=== PATIENT | female | born 1935 | race Caucasian/White ===

== ENCOUNTER 2017-02-03 19:45 | Inpatient (IN) | payer MEDICARE, MEDICAID ==
--- OUTSIDE RECORDS SUMMARY | 2017-02-03 19:48 | XMS | Clinical Summary ---
:1935 Author Organization [facility] Address [address] [place] [address] Phone Care Team Providers Name Role Phone , Primary Care Provider Unavailable Allergies Not on File Current Medications Not on file Active Problems Not on file Social History Tobacco Use Types Packs/Day Years Used Date Never Assessed Sex Assigned at Date Recorded Not on file Last Filed Vital Signs Not on file Plan of Treatment Not on file Results Not on filefrom Last 3 Months
[2017-02-03 21:24] LABS: #Lymphocytes 1.6 thou/uL (1.20-3.40); #Monocytes 1.2 thou/uL (0.11-0.59); #Neutrophils 4.5 thou/uL (1.40-6.50); %Basophils 0.5 % (0.0-1.0); %Eosinophils 12.2 % (0.0-10.0); %Monocytes 14.9 % (0.0-10.0); Hematocrit 41.3 % (36.0-47.0); Mean Platelet Volume 7.6 fL (7.4-10.4); Red Blood Cell (RBC) Count 4.36 mill/uL (4.20-5.40); White Blood Cell (WBC) Count 8.3 thou/uL (4.8-10.8)
[2017-02-03 21:43] LABS: ALT (SGPT) 11 U/L (8-55); AST (SGOT) 15 U/L (5-34); Alkaline Phosphatase 131 U/L (40-150); Anion Gap 17 mmol/L (10-20); BUN (Urea Nitrogen) 57 mg/dL (9.8-20.1); Bilirubin, Total 0.2 mg/dL (0.2-1.2); CK (CPK) 50 U/L (29-168); Calc. Creatinine Clearance 0 mL/min (70-130); Calcium 10.3 mg/dL (7.8-10.44); Carbon Dioxide 29 mmol/L (23-31); Chloride 83 mmol/L (98-107); Estimated GFR-MDRD 40; Globulin 3.3 g/dL (2.4-3.5); Protein, Total 7.2 g/dL (6.0-8.3)
--- NOTE | 2017-02-03 23:09 | CT ---
NONCONTRAST CT THORAX 02/03/17 HISTORY: Evaluate pulmonary nodule. Hyponatremic. COMPARISON: None available. FINDINGS: There is linear atelectasis versus scarring at the right lung base. Lungs are otherwise clear. No pu lmonary nodule, mass or pleural effusion is seen. Vascular calcifications are seen in the coronary arteries with minimal vascular calcifications in th e thoracic and visualized upper abdominal aorta. Calcifications of the mitral valve annulus are note d. No enlarged lymph nodes are seen. Calcified granulomata are seen in the liver and spleen. There is prominent bilateral glenohumeral osteoarthropathy. There is evidence of internal fixation o f the distal right humeral diaphysis. There is a fat density structure with associated calcification seen medial to the glenohumeral joint. IMPRESSION: 1. No discrete pulmonary nodule or mass is seen in the lungs bilaterally. There is minimal scar ring versus atelectasis at the right lung base. 2. Mild vascular calcifications. 3. Prominent bilateral glenohumeral osteoarthropathy. There is a fat density structure with ass ociated calcification seen medial to the glenohumeral joint which may be related to an area of fat n ecrosis or a lipoma. POS: [facility]
--- NOTE | 2017-02-04 00:01 | PDOC.EVN ---
Event Note - Event Note Event Note: 1. Hyponatremia 2. HTN 3. Hypothyroidism 4. Depression plan: see orders h&p dictated
[2017-02-04] MEDS ORDERED: Sodium Chloride 0.9% 1,000 ML IV SCH (00:15)
[2017-02-04] MEDS ORDERED: Ondansetron HCl/PF 4 MG/2 ML Vial IVP PRN (00:15)
[2017-02-04] MEDS ORDERED: Acetaminophen 325 MG TAB PO PRN (00:15)
[2017-02-04] MEDS ORDERED: Sodium Chloride 1 GM TAB PO SCH (00:30)
[2017-02-04] MEDS: HYDROcodone/Acetaminophen 10/325 mg Tablet PO PRN (03:33)
[2017-02-04] MEDS: Levothyroxine Sodium 175 MCG TAB PO SCH (06:07)
[2017-02-04 06:08] LABS: Mean Platelet Volume 7.1 fL (7.4-10.4); Red Blood Cell (RBC) Count 3.54 mill/uL (4.20-5.40)
[2017-02-04 06:10] LABS: Anion Gap 13 mmol/L (10-20); BUN (Urea Nitrogen) 54 mg/dL (9.8-20.1); Calc. Creatinine Clearance 59 mL/min (70-130); Calcium 9.3 mg/dL (7.8-10.44); Carbon Dioxide 30 mmol/L (23-31); Estimated GFR-MDRD 41
[2017-02-04 06:14] LABS: Chloride 86 mmol/L (98-107)
[2017-02-04 06:16] LABS: Band 1 % (5-11); Neutrophil 56 % (42-75)
--- NOTE | 2017-02-04 07:42 | HP ---
DATE OF ADMISSION: 02/03/2017 H and P performed on 02/03/2017. CHIEF COMPLAINT: Abnormal labs. HISTORY OF PRESENT ILLNESS: The patient is an 81-year-old female with past medical history of hyponatremia, hypertension, hypothyroidism, GERD, depression , anxiety, now came to the hospital because of abnormal labs. The patient lives in a group home. The patient had routine lab work done and patient was found to have abnormal labs, so patient was sent here. The patient denies any headache, denies any fever, denies any chills. Complaints of two episodes of vomiting today. She thinks it is from choking, denies any fever, denies any chills, denies any diarrhea, denies any blood in stool. PAST MEDICAL HISTORY: As per HPI. PAST SURGICAL HISTORY: Tonsillectomy, left total knee replacement, foot surgery. SOCIAL HISTORY: Denies smoking, denies alcohol, denies any drugs. FAMILY HISTORY: Positive for heart problems. MEDICATIONS: Reviewed. REVIEW OF SYSTEMS: Constitutional: Denies any fever, denies any chills. HEENT : Eyes, denies any vision problems. Ears, denies any hearing loss. Neck, denies any neck pain. Cardiovascular: Denies any chest pain, denies any palpations. Respiratory: Denies any cough, denies any sputum production. Gastrointestinal: Positive for vomiting. Cranial nerve system: Denies syncope , denies lightheadedness. Psychiatric: Denies anxiety. Integument: Denies any rash. All other review of systems are reviewed and are negative. PHYSICAL EXAMINATION: VITAL SIGNS: At the time of H\T\P performed, blood pressure is 110/51, pulse rate 56, respiration rate 18, pulse ox 97%. GENERAL: The patient appears comfortable. HEENT: Pupils equal, round, and reactive. Anterior nares patent. Nose normal. Ears normal. Teeth intact. Tongue is moist. NECK: Supple. No JVD. CARDIOVASCULAR: S1, S2 present. Regular rate and rhythm, no murmurs, no rubs, no gallops. RESPIRATORY: No wheezing, no rhonchi. Normal effort. Good breath sounds bilaterally. ABDOMEN: Soft, distended, no guarding, no organomegaly, no masses felt. MUSCULOSKELETAL: No edema. Moves all joints. CRANIAL NERVES SYSTEM: Awake, follows commands, strength intact, sensory intact. PSYCHIATRIC: Mood appropriate at this time. INTEGUMENT: No rashes seen. GENITOURINARY: No Chaudhari. LABORATORY DATA: At the time of H\T\P performed, white count 8.3, hemoglobin 14.1, platelet count is 191. BMP showed sodium 175, potassium 4.3, chloride 83 , CO2 of 29, BUN 57, creatinine 1.29. Troponin 0.010, serum total protein 7.2, albumin 3.9. ASSESSMENT AND PLAN: 1. The patient is an 81-year-old female. 2. Hyponatremia, appears some component hypovolemia from vomiting that might be some underlying syndrome of inappropriate antidiuretic hormone secretion also , but we will go ahead and check urine studies. We will start the patient on normal saline 75 per hour. We will check sodium levels every 4 hours. We will go ahead and start the patient on salt tabs also and then will follow patient. 3. History of hypertension. Continue blood pressure medications. 4. History of hypothyroidism: Continue home meds 5. History of gastroesophageal reflux disease, continue PPI. 6. Depression and anxiety, p.r.n. anxiolytics. Case was discussed in detail with the patient. BROOKS
--- NOTE | 2017-02-04 07:49 | CON ---
DATE OF CONSULTATION: 02/04/2017 NEPHROLOGY CONSULTATION REASON FOR CONSULTATION: Hyponatremia. HISTORY OF PRESENT ILLNESS: This is an 81-year-old who presented to the hospital with weakness and was noted to have sodium of 125 and I was consulted. The patient denies headache, numbness, tinglin g or weakness. Denies any nausea, vomiting or chest pain. The patient has had a normal thyroid lev el and is on replacement. PAST MEDICAL HISTORY: Significant for hypothyroidism, hypertension, anemia, bipolar disorder, knee replacement. HOME MEDICATIONS: List reviewed. HOSPITAL MEDICATIONS: Reviewed. ALLERGIES: Reviewed. FAMILY HISTORY: Negative for ESRD. REVIEW OF SYSTEMS: A 15-point review of systems was performed and negative except for positives not ed above. GENERAL: Weakness- HEAD: Headache- NECK: No swelling or lumps. NOSE: No epistaxis or discharge. EYES: No diplopia or pain. 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 NEUROPSYCHIATIC SYSTEMS: No suicidal ideation. No ideation. SKIN: Denies any rash or ulcer. CONSTITUTIONAL: No fever or chills. PHYSICAL EXAMINATION: GENERAL: On examination, patient is awake, alert. VITAL SIGNS: Afebrile, pulse 58, breathing at 16, blood pressure 95/49. GENERAL APPEARANCE AND MENTAL STATUS: Fair. HEAD/NECK: Normocephalic. Atraumatic. EYES: EOMI. No deformity. EARS: Clear. No ulcers. NOSE: Intact. No lesions. MOUTH: Clear. No discharge. THROAT: Clear. No exudate. LUNGS: Clear. No crackles. CARDIAC: S1, S2. No rub. ABDOMEN: Benign. BS+. GENITALIA/RECTUM: Chaudhari absent. BACK/EXTREMITIES: Edema 0+ Ulcer- NEUROLOGICAL: Alert and motor intact. SKIN: Rash- Bruise- LYMPHATICS: Edema- Ulcer- LABORATORY DATA: Show hemoglobin 11.3, sodium 125, creatinine 1.25. ASSESSMENT AND RECOMMENDATIONS: 1. Chronic kidney disease stage 3, stable. 2. Hyponatremia, most likely because of syndrome of inappropriate antidiuretic hormone secretion. Would recommend 1000 mL fluid restriction and recheck sodium again. 3. Anemia, stable. 4. Medications based on glomerular filtration rate are appropriate. No indication for hypertonic s radha.
[2017-02-04 09:20] LABS: Anion Gap 14 mmol/L (10-20); BUN (Urea Nitrogen) 52 mg/dL (9.8-20.1); Calc. Creatinine Clearance 60 mL/min (70-130); Calcium 9.3 mg/dL (7.8-10.44); Carbon Dioxide 28 mmol/L (23-31); Chloride 89 mmol/L (98-107); Estimated GFR-MDRD 42
[2017-02-04] MEDS: Divalproex Sodium DR 500 MG TAB PO SCH (09:23)
[2017-02-04] MEDS: Heparin 5,000 UNITS/ML VIAL SC SCH ×3 (09:23→20:46)
[2017-02-04] MEDS: Sodium Chloride 1 GM TAB PO SCH ×3 (09:23→20:54)
[2017-02-04] MEDS: Propranolol HCl 20 MG TAB PO SCH ×2 (09:23→20:45)
[2017-02-04] MEDS: Fluticasone Propionate Nasal Spray 16 gm Bottle NASAL SCH (09:34)
[2017-02-04 11:16] LABS: Anion Gap 13 mmol/L (10-20); BUN (Urea Nitrogen) 54 mg/dL (9.8-20.1); Calc. Creatinine Clearance 61 mL/min (70-130); Calcium 9.4 mg/dL (7.8-10.44); Carbon Dioxide 29 mmol/L (23-31); Chloride 89 mmol/L (98-107); Estimated GFR-MDRD 42
--- NOTE | 2017-02-04 11:40 | PQF ---
CLINICAL DOCUMENTATION IMPROVEMENT CLARIFICATION FORM: ICD-10 Updated PLEASE DO AN ADDENDUM TO THE PROGRESS NOTE WITH ANY DOCUMENTATION UPDATES OR ADDITIONS AND CARRY THROUGH TO DC SUMMARY. THANK YOU. DATE: 02/04 ATTN : DR. MELANY PEDRO Please exercise your independent, professional judgment in responding to the clarification form. Clinical indicators are provided on the bottom of this form for your review. For continuity of documentation, please document condition throughout progress notes and discharge summary. Thank You. Please check appropriate box(s): BMI > 40 with associated diagnosis of: (check one) [ ] Morbid (Severe) Obesity [ ] Due to excess calories [ ] Obesity [ ] Other diagnosis [ ] Unable to determine BMI < 19 Under weight 19 - 24.9 Healthy 25.0 - 29.9 Slightly Overweight 30.0 - 34.9 Obese 35.0 - 39.9 Severely Obese 40.0 and Over Morbidly Obese CLINICAL INDICATORS - SIGNS / SYMPTOMS / LABS BMI: 42.2 RISK FACTORS: HYPOTHYROIDISM TREATMENTS: ADD'L STAFF FOR ADL'S ADD'L STAFF FOR REPOSITIONING & TRANSFERS THANK YOU! Karen (This form is maintained as a part of the permanent medical record) 2014 [employer] All Rights Reserved Karen Garcia RN, BSN [email or web address] Office: [phone] [facility]
[2017-02-04 13:33] VITALS: BMI 42.1
[2017-02-04 14:14] LABS: Anion Gap 15 mmol/L (10-20); BUN (Urea Nitrogen) 50 mg/dL (9.8-20.1); Calc. Creatinine Clearance 62 mL/min (70-130); Calcium 9.4 mg/dL (7.8-10.44); Carbon Dioxide 27 mmol/L (23-31); Chloride 90 mmol/L (98-107); Estimated GFR-MDRD 43
--- NOTE | 2017-02-04 15:16 | PDOC.PN ---
- Subjective Encounter Start Date: 02/04/17 Encounter Start Time: 07:30 Pt seen for followup re: hyponatremia. Denies chest pain, shortness of breath, fevers or chills. - Objective MAR Reviewed: Yes Vital Signs & Weight: Vital Signs (12 hours) Temp Pulse Resp BP Pulse Ox 02/04/17 11:45 97.7 F 71 19 129/73 98 02/04/17 09:23 56 L 02/04/17 08:04 98.4 F 56 L 20 127/61 100 02/04/17 04:00 97.7 F 58 L 16 95/49 L 98 Weight Admit Weight 229 lb 3.2 oz Weight 230 lb 8 oz I&O: 02/03/17 02/04/17 02/05/17 06:59 06:59 06:59 Intake Total 518 Balance 518 Result Diagrams: 02/04/17 05:34 02/04/17 13:32 EKG Reviewed by me: Yes (Tele: NSR) Phys Exam - Physical Examination Morbid obesity HEENT: moist MMs, oral pharynx no lesions Neck: supple Respiratory: no wheezing, no rales, no rhonchi, clear to auscultation bilateral Cardiovascular: RRR, no rub Gastrointestinal: soft, positive bowel sounds Musculoskeletal: pulses present R elbow cast Neurological: moves all 4 limbs Psychiatric: normal affect Skin: no rash Dx/Plan (1) Hyponatremia Code(s): E87.1 - HYPO-OSMOLALITY AND HYPONATREMIA Status: Acute (2) Morbid obesity Code(s): E66.01 - MORBID (SEVERE) OBESITY DUE TO EXCESS CALORIES Status: Chronic (3) Hypothyroidism Code(s): E03.9 - HYPOTHYROIDISM, UNSPECIFIED Status: Chronic (4) GERD (gastroesophageal reflux disease) Code(s): K21.9 - GASTRO-ESOPHAGEAL REFLUX DISEASE WITHOUT ESOPHAGITIS Status: Chronic (5) HLD (hyperlipidemia) Code(s): E78.5 - HYPERLIPIDEMIA, UNSPECIFIED Status: Chronic (6) HTN (hypertension) Code(s): I10 - ESSENTIAL (PRIMARY) HYPERTENSION Status: Chronic - Plan out of bed/ambulate, DVT proph w/heparin * . Appreciate nephrology service input. Fluid restriction, monitor sodium levels. Monitor vital signs and titrate antihypertensives as needed. Continue PPI. Continue synthroid, check TSH. Hols Lasix and zaroxolyn for now, reassess tomorrow. Transfer to medical floor. Review of Systems - Medications/Allergies Allergies/Adverse Reactions: Allergies Allergy/AdvReac Type Severity Reaction Status Date / Time morphine Allergy Verified 02/04/17 05:03 Sulfa (Sulfonamide Allergy Verified 02/04/17 05:03 Antibiotics) Medications: Current Medications Acetaminophen (Tylenol) 650 mg PO Q4H PRN PRN Reason: Headache/Fever or Pain Hydrocodone Bitart/Acetaminophen ([place] 10/325) 1 tab PO Q8H PRN PRN Reason: Pain Last Admin: 02/04/17 03:33 Dose: 1 tab Amlodipine Besylate (Norvasc) 10 mg PO QAM [facility] Last Admin: 02/04/17 09:23 Dose: 10 mg Atorvastatin Calcium (Lipitor) 10 mg PO QPM [facility] Divalproex Sodium (Depakote) 1,500 mg PO DAILY [facility] Last Admin: 02/04/17 09:23 Dose: 1,500 mg Fluticasone Propionate (Flonase Nasal [place]) 0 gm NASAL DAILY [facility] Last Admin: 02/04/17 09:34 Dose: Not Given Heparin Sodium (Porcine) (Heparin) 5,000 units SC TID [facility] Last Admin: 02/04/17 09:23 Dose: 5,000 units Latanoprost (Xalatan 0.005% [facility] Sol) 1 drop EA EYE HS [facility] Levothyroxine Sodium (Synthroid) 175 mcg PO 0600 [facility] Last Admin: 02/04/17 06:07 Dose: 175 mcg Ondansetron HCl (Zofran) 4 mg IVP Q6H PRN PRN Reason: Nausea/Vomiting Pantoprazole Sodium (Protonix) 40 mg PO DAILY [facility] Last Admin: 02/04/17 09:24 Dose: 40 mg Propranolol HCl (Inderal) 20 mg PO BID [facility] Last Admin: 02/04/17 09:23 Dose: 20 mg Sodium Chloride (Sodium Chloride) 1 gm PO TID [facility] Last Admin: 02/04/17 09:23 Dose: 1 gm
[2017-02-04] MEDS ORDERED: Polyethylene Glycol 3350 17 GM Packet PO PRN (15:19)
[2017-02-04] MEDS ORDERED: Acetaminophen 500 MG TAB PO PRN (15:19)
[2017-02-04 17:21] LABS: Anion Gap 18 mmol/L (10-20); BUN (Urea Nitrogen) 48 mg/dL (9.8-20.1); Calc. Creatinine Clearance 66 mL/min (70-130); Calcium 10.4 mg/dL (7.8-10.44); Carbon Dioxide 26 mmol/L (23-31); Chloride 92 mmol/L (98-107); Estimated GFR-MDRD 46
[2017-02-04] MEDS: Lactinex Tablet PO SCH (20:45)
[2017-02-04] MEDS: Docusate 100 MG CAP PO SCH (20:45)
[2017-02-04] MEDS: Atorvastatin Calcium 10 MG TAB PO SCH (20:45)
[2017-02-04] MEDS: Ascorbic Acid 500 mg Chewable Tablet PO SCH (20:45)
[2017-02-04] MEDS: Gabapentin 300 MG CAP PO SCH (20:45)
[2017-02-04] MEDS: Latanoprost 0.005% Ophth Soln 2.5 ml Bottle EA EYE SCH (20:46)
[2017-02-04] MEDS: Cephalexin 250 MG CAP PO SCH (20:46)
[2017-02-04] MEDS ORDERED: HYDROcodone/Acetaminophen 10/325 mg Tablet PO SCH (22:00)
[2017-02-05] MEDS: HYDROcodone/Acetaminophen 10/325 mg Tablet PO PRN ×2 (04:01→15:03)
[2017-02-05] MEDS: Levothyroxine Sodium 175 MCG TAB PO SCH (05:25)
[2017-02-05] MEDS ORDERED: Azelastine/Fluticasone [Dymista Nasal Spray] 1 SPRAY EA NARE SCH (09:00)
[2017-02-05] MEDS: Fluticasone Propionate Nasal Spray 16 gm Bottle NASAL SCH (09:02)
[2017-02-05] MEDS: Lactinex Tablet PO SCH ×2 (09:05→21:09)
[2017-02-05] MEDS: Gabapentin 300 MG CAP PO SCH ×3 (09:05→21:09)
[2017-02-05] MEDS: Multivitamin W/ Minerals 1 TAB PO SCH (09:06)
[2017-02-05] MEDS: Docusate 100 MG CAP PO SCH ×2 (09:07→21:09)
[2017-02-05] MEDS: Ascorbic Acid 500 mg Chewable Tablet PO SCH ×2 (09:07→21:10)
[2017-02-05] MEDS: Heparin 5,000 UNITS/ML VIAL SC SCH ×3 (09:07→21:10)
[2017-02-05] MEDS: Azelastine 137 MCG/Spray 30 ML NS SCH (09:08)
[2017-02-05] MEDS: Lisinopril 20 MG TAB PO SCH (09:10)
[2017-02-05] MEDS: Bupropion 150 MG SR TAB PO SCH (09:26)
[2017-02-05] MEDS: Divalproex Sodium DR 500 MG TAB PO SCH (09:27)
[2017-02-05] MEDS: Sodium Chloride 1 GM TAB PO SCH ×3 (09:28→21:10)
[2017-02-05] MEDS: Cephalexin 250 MG CAP PO SCH ×2 (09:28→21:10)
[2017-02-05] MEDS: traMADol HCl 50 MG TAB PO PRN (09:38)
--- NOTE | 2017-02-05 10:07 | PRG ---
DATE OF SERVICE: 02/05/2017 SUBJECTIVE: An 81-year-old female being seen for hyponatremia. Sodium is improved. The patient de nies any nausea, vomiting, or chest pain. PHYSICAL EXAMINATION: GENERAL: Patient is awake, alert. VITAL SIGNS: Afebrile, pulse 75, breathing at 16, blood pressure 101/65. GENERAL APPEARANCE AND MENTAL STATUS: Fair. HEAD/NECK: Normocephalic. Atraumatic. EYES: EOMI. No deformity. EARS: Clear. No ulcers. NOSE: Intact. No lesions. MOUTH: Clear. No discharge. THROAT: Clear. No exudate. LUNGS: Clear. No crackles. CARDIAC: S1, S2. No rub. ABDOMEN: Benign. BS+. GENITALIA/RECTUM: Chaudhari absent. BACK/EXTREMITIES: Edema 0+ Ulcer- NEUROLOGICAL: Alert and motor intact. SKIN: Rash- Bruise- LYMPHATICS: Edema- Ulcer- LABORATORY DATA: Show hemoglobin 11.3, sodium 131. ASSESSMENT AND RECOMMENDATIONS: 1. Hyponatremia, improved. 2. Hypertension, stable. 3. Anemia, stable. 4. Medications based on glomerular filtration rate are appropriate. I will sign off. Please reconsult as needed. The patient also has kidney disease stage 3, which is stable.
[2017-02-05] MEDS: Propranolol HCl 20 MG TAB PO SCH ×3 (11:05→21:44)
--- NOTE | 2017-02-05 11:18 | PDOC.PN ---
- Subjective Encounter Start Date: 02/05/17 Encounter Start Time: 08:45 Subjective: feels weak, no sob -: no nausea now -: has b/l blindness, slow to talk, oriented for her age - Objective MAR Reviewed: Yes Vital Signs & Weight: Vital Signs (12 hours) Temp Pulse Resp BP BP Pulse Ox 02/05/17 09:07 55 L 101/65 02/05/17 08:00 98.2 F 55 L 20 97 02/05/17 07:39 98.2 F 55 L 12 101/65 97 02/05/17 03:50 98.4 F 60 20 121/64 98 02/04/17 23:48 97.9 F 54 L 18 108/67 98 Weight Admit Weight 229 lb 3.2 oz Weight 233 lb 1.6 oz I&O: 02/04/17 02/05/17 02/06/17 06:59 06:59 06:59 Intake Total 518 600 Balance 518 600 Result Diagrams: 02/04/17 05:34 02/04/17 16:46 Phys Exam - Physical Examination HEENT: moist MMs b/l blindness Neck: no JVD, supple Respiratory: no wheezing, no rales Cardiovascular: RRR, no significant murmur Gastrointestinal: soft, non-tender, positive bowel sounds Musculoskeletal: no edema, pulses present Neurological: non-focal, moves all 4 limbs Dx/Plan (1) SUPRIYA (acute kidney injury) Code(s): N17.9 - ACUTE KIDNEY FAILURE, UNSPECIFIED Status: Acute (2) CKD (chronic kidney disease) stage 3, GFR 30-59 ml/min Code(s): N18.3 - CHRONIC KIDNEY DISEASE, STAGE 3 (MODERATE) Status: Chronic (3) Hyponatremia Code(s): E87.1 - HYPO-OSMOLALITY AND HYPONATREMIA Status: Acute Comment: resolving (4) Hypothyroidism Code(s): E03.9 - HYPOTHYROIDISM, UNSPECIFIED Status: Chronic Qualifiers: Hypothyroidism type: unspecified Qualified Code(s): E03.9 - Hypothyroidism , unspecified (5) Morbid obesity Code(s): E66.01 - MORBID (SEVERE) OBESITY DUE TO EXCESS CALORIES Status: Chronic (6) Humeral fracture Code(s): S42.309A - UNSP FRACTURE OF SHAFT OF HUMERUS, UNSP ARM, INIT Status: Chronic Qualifiers: Encounter type: subsequent encounter Fracture type: closed Laterality: right (7) HLD (hyperlipidemia) Code(s): E78.5 - HYPERLIPIDEMIA, UNSPECIFIED Status: Chronic Qualifiers: Hyperlipidemia type: unspecified Qualified Code(s): E78.5 - Hyperlipidemia , unspecified (8) HTN (hypertension) Code(s): I10 - ESSENTIAL (PRIMARY) HYPERTENSION Status: Chronic Qualifiers: Hypertension type: essential hypertension Qualified Code(s): I10 - Essential (primary) hypertension - Plan on fluid restriction -: sod around 131, dc plan in am to snf -: renal function slowly trending to baseline -: she is not sure why she is on keflex -: valproic acid for mood disorder, no seizure per patient * . Review of Systems - Medications/Allergies Allergies/Adverse Reactions: Allergies Allergy/AdvReac Type Severity Reaction Status Date / Time morphine Allergy Verified 02/04/17 05:03 Sulfa (Sulfonamide Allergy Verified 02/04/17 05:03 Antibiotics) Medications: Current Medications Acetaminophen (Tylenol) 650 mg PO Q4H PRN PRN Reason: Headache/Fever or Pain Acetaminophen (Tylenol) 1,000 mg PO Q6HR PRN PRN Reason: Pain Hydrocodone Bitart/Acetaminophen ([place] 10/325) 1 tab PO Q8H PRN PRN Reason: Pain Last Admin: 02/05/17 04:01 Dose: 1 tab Acidophilus (Floranex) 1 tab PO BID [facility] Last Admin: 02/05/17 09:05 Dose: 1 tab Amlodipine Besylate (Norvasc) 10 mg PO QAM [facility] Last Admin: 02/05/17 09:07 Dose: Not Given Ascorbic Acid (Vitamin C) 500 mg PO BID [facility] Last Admin: 02/05/17 09:07 Dose: 500 mg Atorvastatin Calcium (Lipitor) 10 mg PO QPM [facility] Last Admin: 02/04/17 20:45 Dose: 10 mg Azelastine HCl (Azelastine) 0 ml NS DAILY [facility] Last Admin: 02/05/17 09:08 Dose: 1 spr Bupropion HCl (Wellbutrin Sr) 150 mg PO DAILY [facility] Last Admin: 02/05/17 09:26 Dose: 150 mg Cephalexin (Keflex) 500 mg PO Q12HR [facility] Last Admin: 02/05/17 09:28 Dose: 500 mg Divalproex Sodium (Depakote) 1,500 mg PO DAILY [facility] Last Admin: 02/05/17 09:27 Dose: 1,500 mg Docusate Sodium (Colace) 100 mg PO BID [facility] Last Admin: 02/05/17 09:07 Dose: 100 mg Duloxetine HCl (Cymbalta) 60 mg PO DAILY [facility] Last Admin: 02/05/17 09:05 Dose: 60 mg Fluticasone Propionate (Flonase Nasal [place]) 0 gm NASAL DAILY [facility] Last Admin: 02/05/17 09:02 Dose: 1 spr Gabapentin (Neurontin) 600 mg PO TID [facility] Last Admin: 02/05/17 09:05 Dose: 600 mg Heparin Sodium (Porcine) (Heparin) 5,000 units SC TID [facility] Last Admin: 02/05/17 09:07 Dose: 5,000 units Iron/Minerals/Multivitamins (Theragran M) 1 tab PO DAILY [facility] Last Admin: 02/05/17 09:06 Dose: 1 tab Latanoprost (Xalatan 0.005% Oph Soln) 1 drop EA EYE HS [facility] Last Admin: 02/04/17 20:46 Dose: 1 drop Levothyroxine Sodium (Synthroid) 175 mcg PO 0600 [facility] Last Admin: 02/05/17 05:25 Dose: 175 mcg Lisinopril (Zestril) 40 mg PO DAILY [facility] Last Admin: 02/05/17 09:10 Dose: Not Given Ondansetron HCl (Zofran) 4 mg IVP Q6H PRN PRN Reason: Nausea/Vomiting Pantoprazole Sodium (Protonix) 40 mg PO DAILY [facility] Last Admin: 02/05/17 09:07 Dose: 40 mg Pantoprazole Sodium (Protonix) 40 mg PO DAILY [facility] Last Admin: 02/05/17 09:10 Dose: Not Given Polyethylene Glycol (Miralax) 17 gm PO BID PRN PRN Reason: Constipation Propranolol HCl (Inderal) 20 mg PO BID [facility] Last Admin: 02/05/17 11:05 Dose: Not Given Sodium Chloride (Sodium Chloride) 1 gm PO TID [facility] Last Admin: 02/05/17 09:28 Dose: 1 gm Tramadol HCl (Ultram) 50 mg PO TID PRN PRN Reason: Pain Last Admin: 02/05/17 09:38 Dose: 50 mg
[2017-02-05] MEDS: Atorvastatin Calcium 10 MG TAB PO SCH (21:09)
[2017-02-05] MEDS: Latanoprost 0.005% Ophth Soln 2.5 ml Bottle EA EYE SCH (21:11)
[2017-02-06 05:37] LABS: Potassium, Urine 15.2 mmol/L
[2017-02-06] MEDS: Levothyroxine Sodium 175 MCG TAB PO SCH (06:20)
[2017-02-06] MEDS: Docusate 100 MG CAP PO SCH ×2 (08:51→21:15)
[2017-02-06] MEDS: Multivitamin W/ Minerals 1 TAB PO SCH (08:51)
[2017-02-06] MEDS: Gabapentin 300 MG CAP PO SCH ×3 (08:52→21:14)
[2017-02-06] MEDS: Divalproex Sodium DR 500 MG TAB PO SCH (08:54)
[2017-02-06] MEDS: Lactinex Tablet PO SCH ×2 (08:55→21:15)
[2017-02-06] MEDS: Azelastine 137 MCG/Spray 30 ML NS SCH (08:56)
[2017-02-06] MEDS: Heparin 5,000 UNITS/ML VIAL SC SCH ×3 (08:56→21:15)
[2017-02-06] MEDS: Fluticasone Propionate Nasal Spray 16 gm Bottle NASAL SCH (08:56)
[2017-02-06] MEDS: Lisinopril 20 MG TAB PO SCH (08:57)
[2017-02-06 09:00] LABS: #Basophils 0.1 thou/uL (0.0-0.2); #Eosinphils 0.7 thou/uL (0.0-0.7); #Lymphocytes 1.8 thou/uL (1.20-3.40); #Monocytes 1.1 thou/uL (0.11-0.59); #Neutrophils 4.2 thou/uL (1.40-6.50); %Basophils 1.3 % (0.0-1.0); %Eosinophils 8.6 % (0.0-10.0); %Lymphocytes 23.1 % (21.0-51.0); %Monocytes 13.9 % (0.0-10.0); Hematocrit 34.3 % (36.0-47.0); Mean Platelet Volume 6.8 fL (7.4-10.4); Red Blood Cell (RBC) Count 3.51 mill/uL (4.20-5.40)
[2017-02-06] MEDS: Ascorbic Acid 500 mg Chewable Tablet PO SCH ×2 (09:04→21:15)
[2017-02-06] MEDS: Propranolol HCl 20 MG TAB PO SCH ×2 (09:05→21:16)
[2017-02-06 09:16] LABS: ALT (SGPT) 7 U/L (8-55); AST (SGOT) 13 U/L (5-34); Alkaline Phosphatase 77 U/L (40-150); Anion Gap 9 mmol/L (10-20); BUN (Urea Nitrogen) 35 mg/dL (9.8-20.1); Bilirubin, Total 0.2 mg/dL (0.2-1.2); Calc. Creatinine Clearance 73 mL/min (70-130); Calcium 9.6 mg/dL (7.8-10.44); Carbon Dioxide 34 mmol/L (23-31); Chloride 92 mmol/L (98-107); Estimated GFR-MDRD 52; Globulin 2.6 g/dL (2.4-3.5); Protein, Total 5.5 g/dL (6.0-8.3)
[2017-02-06] MEDS: Sodium Chloride 1 GM TAB PO SCH ×3 (09:30→21:15)
[2017-02-06] MEDS: Cephalexin 250 MG CAP PO SCH ×2 (09:30→21:15)
[2017-02-06] MEDS: Bupropion 150 MG SR TAB PO SCH (09:30)
--- NOTE | 2017-02-06 14:19 | PDOC.PN ---
- Subjective Encounter Start Date: 02/06/17 Encounter Start Time: 09:45 -: old records requested/rev today pt was sleepy, weak, no fever - Objective MAR Reviewed: Yes Vital Signs & Weight: Vital Signs (12 hours) Temp Pulse Resp BP BP Pulse Ox 02/06/17 09:04 55 L 02/06/17 08:57 137/77 02/06/17 08:00 97.7 F 55 L 20 97 02/06/17 07:40 97.7 F 55 L 14 137/77 97 Weight Admit Weight 229 lb 3.2 oz Weight 228 lb 5 oz I&O: 02/05/17 02/06/17 02/07/17 06:59 06:59 06:59 Intake Total 600 1550 Balance 600 1550 Result Diagrams: 02/06/17 08:49 02/06/17 08:49 Phys Exam - Physical Examination Constitutional: NAD HEENT: moist MMs Neck: no JVD, supple Respiratory: no wheezing, no rales, no rhonchi Cardiovascular: RRR, no significant murmur, no rub Gastrointestinal: soft, non-tender, no distention, positive bowel sounds Musculoskeletal: no edema, pulses present Neurological: non-focal Lymphatic: no nodes Psychiatric: normal affect Skin: no rash, normal turgor Dx/Plan (1) SUPRIYA (acute kidney injury) Code(s): N17.9 - ACUTE KIDNEY FAILURE, UNSPECIFIED Status: Acute (2) Hyponatremia Code(s): E87.1 - HYPO-OSMOLALITY AND HYPONATREMIA Status: Acute Comment: resolving (3) CKD (chronic kidney disease) stage 3, GFR 30-59 ml/min Code(s): N18.3 - CHRONIC KIDNEY DISEASE, STAGE 3 (MODERATE) Status: Chronic (4) GERD (gastroesophageal reflux disease) Code(s): K21.9 - GASTRO-ESOPHAGEAL REFLUX DISEASE WITHOUT ESOPHAGITIS Status: Chronic (5) Hypothyroidism Code(s): E03.9 - HYPOTHYROIDISM, UNSPECIFIED Status: Chronic Qualifiers: Hypothyroidism type: unspecified Qualified Code(s): E03.9 - Hypothyroidism , unspecified (6) Morbid obesity Code(s): E66.01 - MORBID (SEVERE) OBESITY DUE TO EXCESS CALORIES Status: Chronic (7) Bradycardia Code(s): R00.1 - BRADYCARDIA, UNSPECIFIED Status: Acute (8) Fall Code(s): W19.XXXA - UNSPECIFIED FALL, INITIAL ENCOUNTER Status: Acute Qualifiers: Encounter type: initial encounter Qualified Code(s): W19.XXXA - Unspecified fall, initial encounter (9) Hyponatremia Code(s): E87.1 - HYPO-OSMOLALITY AND HYPONATREMIA Status: Acute (10) HLD (hyperlipidemia) Code(s): E78.5 - HYPERLIPIDEMIA, UNSPECIFIED Status: Chronic Qualifiers: Hyperlipidemia type: unspecified Qualified Code(s): E78.5 - Hyperlipidemia , unspecified (11) HTN (hypertension) Code(s): I10 - ESSENTIAL (PRIMARY) HYPERTENSION Status: Chronic Qualifiers: Hypertension type: essential hypertension Qualified Code(s): I10 - Essential (primary) hypertension (12) Humeral fracture Code(s): S42.309A - UNSP FRACTURE OF SHAFT OF HUMERUS, UNSP ARM, INIT Status: Chronic Qualifiers: Encounter type: subsequent encounter Fracture type: closed Laterality: right - Plan cont current plan of care, 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 need to change NH. Review of Systems - Review of Systems ENT: negative: Ear Pain, Ear Discharge, Nose Pain, Nose Discharge, Nose Congestion, Mouth Pain, Mouth Swelling, Throat Pain, Throat Swelling, Other Respiratory: negative: Cough, Dry, Shortness of Breath, Hemoptysis, SOB with Excertion, Pleuritic Pain, Sputum, Wheezing Cardiovascular: negative: Chest Pain, Palpitations, Orthopnea, Paroxysmal Noc. Dyspnea, Edema, Light Headedness, Other Gastrointestinal: negative: Nausea, Vomiting, Abdominal Pain, Diarrhea, Constipation, Melena, Hematochezia, Other Genitourinary: negative: Dysuria, Frequency, Incontinence, Hematuria, Retention , Other Musculoskeletal: negative: Neck Pain, Shoulder Pain, Arm Pain, Back Pain, Hand Pain, Leg Pain, Foot Pain, Other - Medications/Allergies Allergies/Adverse Reactions: Allergies Allergy/AdvReac Type Severity Reaction Status Date / Time morphine Allergy Verified 02/04/17 05:03 Sulfa (Sulfonamide Allergy Verified 02/04/17 05:03 Antibiotics) Medications: Current Medications Acetaminophen (Tylenol) 650 mg PO Q4H PRN PRN Reason: Headache/Fever or Pain Acetaminophen (Tylenol) 1,000 mg PO Q6HR PRN PRN Reason: Pain Hydrocodone Bitart/Acetaminophen ([place] 10/325) 1 tab PO Q8H PRN PRN Reason: Pain Last Admin: 02/05/17 15:03 Dose: 1 tab Acidophilus (Floranex) 1 tab PO BID [facility] Last Admin: 02/06/17 08:55 Dose: 1 tab Amlodipine Besylate (Norvasc) 10 mg PO QAM [facility] Last Admin: 02/06/17 09:04 Dose: Not Given Ascorbic Acid (Vitamin C) 500 mg PO BID [facility] Last Admin: 02/06/17 09:04 Dose: 500 mg Atorvastatin Calcium (Lipitor) 10 mg PO QPM [facility] Last Admin: 02/05/17 21:09 Dose: 10 mg Azelastine HCl (Azelastine) 0 ml NS DAILY [facility] Last Admin: 02/06/17 08:56 Dose: 1 spr Bupropion HCl (Wellbutrin Sr) 150 mg PO DAILY [facility] Last Admin: 02/06/17 09:30 Dose: 150 mg Cephalexin (Keflex) 500 mg PO Q12HR [facility] Last Admin: 02/06/17 09:30 Dose: 500 mg Divalproex Sodium (Depakote) 1,500 mg PO DAILY [facility] Last Admin: 02/06/17 08:54 Dose: 1,500 mg Docusate Sodium (Colace) 100 mg PO BID [facility] Last Admin: 02/06/17 08:51 Dose: 100 mg Duloxetine HCl (Cymbalta) 60 mg PO DAILY [facility] Last Admin: 02/06/17 08:52 Dose: 60 mg Fluticasone Propionate (Flonase Nasal [place]) 0 gm NASAL DAILY [facility] Last Admin: 02/06/17 08:56 Dose: 1 spr Gabapentin (Neurontin) 600 mg PO TID [facility] Last Admin: 02/06/17 08:52 Dose: 600 mg Heparin Sodium (Porcine) (Heparin) 5,000 units SC TID [facility] Last Admin: 02/06/17 08:56 Dose: 5,000 units Iron/Minerals/Multivitamins (Theragran M) 1 tab PO DAILY [facility] Last Admin: 02/06/17 08:51 Dose: 1 tab Latanoprost (Xalatan 0.005% Ophth Soln) 1 drop EA EYE HS [facility] Last Admin: 02/05/17 21:11 Dose: 1 drop Levothyroxine Sodium (Synthroid) 175 mcg PO 0600 [facility] Last Admin: 02/06/17 06:20 Dose: 175 mcg Lisinopril (Zestril) 40 mg PO DAILY [facility] Last Admin: 02/06/17 08:57 Dose: 40 mg Ondansetron HCl (Zofran) 4 mg IVP Q6H PRN PRN Reason: Nausea/Vomiting Pantoprazole Sodium (Protonix) 40 mg PO DAILY [facility] Last Admin: 02/06/17 08:56 Dose: 40 mg Pantoprazole Sodium (Protonix) 40 mg PO DAILY [facility] Last Admin: 02/06/17 09:04 Dose: 40 mg Polyethylene Glycol (Miralax) 17 gm PO BID PRN PRN Reason: Constipation Propranolol HCl (Inderal) 20 mg PO BID [facility] Last Admin: 02/06/17 09:05 Dose: Not Given Sodium Chloride (Sodium Chloride) 1 gm PO TID [facility] Last Admin: 02/06/17 09:30 Dose: 1 gm Tramadol HCl (Ultram) 50 mg PO TID PRN PRN Reason: Pain Last Admin: 02/05/17 09:38 Dose: 50 mg
[2017-02-06] MEDS: HYDROcodone/Acetaminophen 10/325 mg Tablet PO PRN (18:07)
[2017-02-06] MEDS: Latanoprost 0.005% Ophth Soln 2.5 ml Bottle EA EYE SCH (21:15)
[2017-02-06] MEDS: Atorvastatin Calcium 10 MG TAB PO SCH (21:15)
[2017-02-07] MEDS: HYDROcodone/Acetaminophen 10/325 mg Tablet PO PRN (04:12)
[2017-02-07] MEDS: Levothyroxine Sodium 175 MCG TAB PO SCH (05:27)
[2017-02-07] MEDS: Fluticasone Propionate Nasal Spray 16 gm Bottle NASAL SCH (09:13)
[2017-02-07] MEDS: Cephalexin 250 MG CAP PO SCH ×2 (09:14→21:48)
[2017-02-07] MEDS: Lactinex Tablet PO SCH ×2 (09:15→21:34)
[2017-02-07] MEDS: Multivitamin W/ Minerals 1 TAB PO SCH (09:15)
[2017-02-07] MEDS: Gabapentin 300 MG CAP PO SCH ×3 (09:15→21:34)
[2017-02-07] MEDS: Ascorbic Acid 500 mg Chewable Tablet PO SCH ×2 (09:17→21:34)
[2017-02-07] MEDS: Lisinopril 20 MG TAB PO SCH (09:18)
[2017-02-07] MEDS: Docusate 100 MG CAP PO SCH ×2 (09:18→21:48)
[2017-02-07] MEDS: Sodium Chloride 1 GM TAB PO SCH ×3 (09:18→21:36)
[2017-02-07] MEDS: Divalproex Sodium DR 500 MG TAB PO SCH (09:18)
[2017-02-07] MEDS: Heparin 5,000 UNITS/ML VIAL SC SCH ×3 (09:19→21:36)
[2017-02-07] MEDS: Azelastine 137 MCG/Spray 30 ML NS SCH (09:19)
[2017-02-07] MEDS: Propranolol HCl 20 MG TAB PO SCH ×2 (09:27→21:39)
[2017-02-07] MEDS: Bupropion 150 MG SR TAB PO SCH (09:27)
--- NOTE | 2017-02-07 11:07 | DIS ---
PRIMARY CARE PHYSICIAN: Dr. Alcira Hatch DATE OF ADMISSION: 02/03/2017 DATE OF DISCHARGE: 02/07/2017 DISCHARGE DISPOSITION: long term unit. PRIMARY DISCHARGE DIAGNOSES: 1. Acute on chronic kidney failure, baseline chronic kidney disease stage 3. 2. Hyponatremia. SECONDARY DISCHARGE DIAGNOSES: Recent urinary tract infection, hypertension, allergic rhinitis, gla ucoma, anxiety and depression, bipolar disorder, hypothyroidism, morbid obesity with BMI of 42, phys ical deconditioning and dyslipidemia. PRIMARY PROCEDURE/OPERATION: None. RADIOLOGICAL INVESTIGATION: CT chest was unremarkable. SIGNIFICANT LABS: Hemoglobin 11.2, creatinine 1.02. Sodium 131. Urine culture was recently positi ve for Proteus mirabilis. DISCHARGE MEDICATIONS: The patient will finish her Keflex 500 mg q.12 h. Continue following medic ations: Amlodipine 10 mg p.o. daily, vitamin C 500 mg p.o. b.i.d., azelastine nasal spray daily, bi matoprost 1 drop each eye at bedtime. Wellbutrin-SR 150 mg p.o. daily, Cymbalta 60 mg p.o. daily, D epakote ER 2000 mg p.o. daily, Colace 100 mg p.o. b.i.d., Lasix 40 mg p.o. daily, gabapentin 600 mg p.o. t.i.d., [place] 10 one tablet q.8 h. p.r.n., Floranex 1 tablet p.o. b.i.d., Synthroid 137 mcg p.o . daily, lisinopril 40 mg p.o. daily, multivitamin 1 tablet p.o. daily, Protonix 40 mg p.o. daily, M iraLax 17 grams p.o. b.i.d. p.r.n., pravastatin 40 mg p.o. at bedtime, Inderal 20 mg p.o. b.i.d., so dium chloride 1 gram p.o. t.i.d., tramadol 50 mg t.i.d. p.r.n. CONTRAINDICATIONS: None. CODE STATUS: FULL CODE. INPATIENT CONSULTANTS: Dr. Finnegan was following while in hospital for hyponatremia and acute kidney f ailure. TEST RESULTS PENDING ON DISCHARGE: None. ALLERGIES: MORPHINE and SULFA DRUGS. DISCHARGE PLAN: Post hospital, the patient will follow up with Dr. Alcira Hatch in 1 week. HOSPITAL COURSE: An 81-year-old female with above-mentioned medical problem, who lives at [facility]. From there, she was sent for abnormal labs. Please see Dr. Shrestha's H\T\P f or further details. This patient was found with acute on chronic kidney failure, hyponatremia. She was admitted to medical floor. We consulted Nephrology. The patient was given gentle hydration an d sodium chloride tablets while in hospital and with that the patient's renal function improved to n ormal as well as sodium improved to 131. The patient continued while in hospital all her previous medication. On discharge, we also continue similar medication. This patient was not interested in going back to [facility], but we are working wi th the bottle caser if possible, then we will try to send her to another longterm. If not, then she has to go to [facility]. Paper work for discharge done. Discharge medication reconciliation done. PHYSICAL EXAMINATION: GENERAL: The patient seen and examined at bedside today. VITAL SIGNS: Currently, temperature 97.9, pulse 62, respiratory rate 18, saturation 95%, blood pres sure 129/72, weight 229 pounds. GENERAL: The patient is currently alert, awake, no acute distress. HEAD: Normocephalic, atraumatic. LUNGS: Clear. CARDIAC: S1, S2 regular without any murmur. ABDOMEN: Soft, obesity present. Bowel sounds present. EXTREMITIES: No edema. NEUROLOGIC: Nonfocal examination.
--- NOTE | 2017-02-07 11:38 | PDOC.PN ---
- Subjective Encounter Start Date: 02/07/17 Encounter Start Time: 08:00 Patient seen and examined. No new complaints. No overnight events - Objective MAR Reviewed: Yes Vital Signs & Weight: Vital Signs (12 hours) Temp Pulse Resp BP BP Pulse Ox 02/07/17 09:18 62 129/72 02/07/17 08:00 97.9 F 62 18 129/72 95 Weight Admit Weight 229 lb 3.2 oz Weight 229 lb 14.4 oz I&O: 02/06/17 02/07/17 02/08/17 06:59 06:59 06:59 Intake Total 1550 1450 Balance 1550 1450 Result Diagrams: 02/06/17 08:49 02/06/17 08:49 Phys Exam - Physical Examination Constitutional: NAD HEENT: moist MMs, sclera anicteric Neck: no JVD, supple Respiratory: no wheezing, no rales, no rhonchi Cardiovascular: RRR, no significant murmur, no rub Gastrointestinal: soft, non-tender, no distention, positive bowel sounds Musculoskeletal: no edema, pulses present Neurological: non-focal, normal sensation Psychiatric: normal affect, A&O x 3 Skin: no rash, normal turgor Dx/Plan (1) SUPRIYA (acute kidney injury) Code(s): N17.9 - ACUTE KIDNEY FAILURE, UNSPECIFIED Status: Acute (2) Hyponatremia Code(s): E87.1 - HYPO-OSMOLALITY AND HYPONATREMIA Status: Acute Comment: resolving (3) CKD (chronic kidney disease) stage 3, GFR 30-59 ml/min Code(s): N18.3 - CHRONIC KIDNEY DISEASE, STAGE 3 (MODERATE) Status: Chronic (4) GERD (gastroesophageal reflux disease) Code(s): K21.9 - GASTRO-ESOPHAGEAL REFLUX DISEASE WITHOUT ESOPHAGITIS Status: Chronic (5) Hypothyroidism Code(s): E03.9 - HYPOTHYROIDISM, UNSPECIFIED Status: Chronic Qualifiers: Hypothyroidism type: unspecified Qualified Code(s): E03.9 - Hypothyroidism , unspecified (6) Morbid obesity Code(s): E66.01 - MORBID (SEVERE) OBESITY DUE TO EXCESS CALORIES Status: Chronic (7) Bradycardia Code(s): R00.1 - BRADYCARDIA, UNSPECIFIED Status: Acute (8) Fall Code(s): W19.XXXA - UNSPECIFIED FALL, INITIAL ENCOUNTER Status: Acute Qualifiers: Encounter type: initial encounter Qualified Code(s): W19.XXXA - Unspecified fall, initial encounter (9) Hyponatremia Code(s): E87.1 - HYPO-OSMOLALITY AND HYPONATREMIA Status: Acute (10) HLD (hyperlipidemia) Code(s): E78.5 - HYPERLIPIDEMIA, UNSPECIFIED Status: Chronic Qualifiers: Hyperlipidemia type: unspecified Qualified Code(s): E78.5 - Hyperlipidemia , unspecified (11) HTN (hypertension) Code(s): I10 - ESSENTIAL (PRIMARY) HYPERTENSION Status: Chronic Qualifiers: Hypertension type: essential hypertension Qualified Code(s): I10 - Essential (primary) hypertension (12) Humeral fracture Code(s): S42.309A - UNSP FRACTURE OF SHAFT OF HUMERUS, UNSP ARM, INIT Status: Chronic Qualifiers: Encounter type: subsequent encounter Fracture type: closed Laterality: right - 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 * see discharge summertrev. Review of Systems - Review of Systems ENT: negative: Ear Pain, Ear Discharge, Nose Pain, Nose Discharge, Nose Congestion, Mouth Pain, Mouth Swelling, Throat Pain, Throat Swelling, Other Respiratory: negative: Cough, Dry, Shortness of Breath, Hemoptysis, SOB with Excertion, Pleuritic Pain, Sputum, Wheezing Cardiovascular: negative: Chest Pain, Palpitations, Orthopnea, Paroxysmal Noc. Dyspnea, Edema, Light Headedness, Other Gastrointestinal: negative: Nausea, Vomiting, Abdominal Pain, Diarrhea, Constipation, Melena, Hematochezia, Other Genitourinary: negative: Dysuria, Frequency, Incontinence, Hematuria, Retention , Other Musculoskeletal: negative: Neck Pain, Shoulder Pain, Arm Pain, Back Pain, Hand Pain, Leg Pain, Foot Pain, Other - Medications/Allergies Allergies/Adverse Reactions: Allergies Allergy/AdvReac Type Severity Reaction Status Date / Time morphine Allergy Verified 02/04/17 05:03 Sulfa (Sulfonamide Allergy Verified 02/04/17 05:03 Antibiotics) Medications: Current Medications Acetaminophen (Tylenol) 650 mg PO Q4H PRN PRN Reason: Headache/Fever or Pain Acetaminophen (Tylenol) 1,000 mg PO Q6HR PRN PRN Reason: Pain Hydrocodone Bitart/Acetaminophen ([place] 10/325) 1 tab PO Q8H PRN PRN Reason: Pain Last Admin: 02/07/17 04:12 Dose: 1 tab Acidophilus (Floranex) 1 tab PO BID [facility] Last Admin: 02/07/17 09:15 Dose: 1 tab Amlodipine Besylate (Norvasc) 10 mg PO QAM [facility] Last Admin: 02/07/17 09:18 Dose: 10 mg Ascorbic Acid (Vitamin C) 500 mg PO BID [facility] Last Admin: 02/07/17 09:17 Dose: 500 mg Atorvastatin Calcium (Lipitor) 10 mg PO QPM [facility] Last Admin: 02/06/17 21:15 Dose: 10 mg Azelastine HCl (Azelastine) 0 ml NS DAILY [facility] Last Admin: 02/07/17 09:19 Dose: 1 spr Bupropion HCl (Wellbutrin Sr) 150 mg PO DAILY [facility] Last Admin: 02/07/17 09:27 Dose: 150 mg Cephalexin (Keflex) 500 mg PO Q12HR [facility] Last Admin: 02/07/17 09:14 Dose: 500 mg Divalproex Sodium (Depakote) 1,500 mg PO DAILY [facility] Last Admin: 02/07/17 09:18 Dose: 1,500 mg Docusate Sodium (Colace) 100 mg PO BID [facility] Last Admin: 02/07/17 09:18 Dose: 100 mg Duloxetine HCl (Cymbalta) 60 mg PO DAILY [facility] Last Admin: 02/07/17 09:15 Dose: 60 mg Fluticasone Propionate (Flonase Nasal [place]) 0 gm NASAL DAILY [facility] Last Admin: 02/07/17 09:13 Dose: 1 spr Gabapentin (Neurontin) 600 mg PO TID [facility] Last Admin: 02/07/17 09:15 Dose: 600 mg Heparin Sodium (Porcine) (Heparin) 5,000 units SC TID [facility] Last Admin: 02/07/17 09:19 Dose: 5,000 units Iron/Minerals/Multivitamins (Theragran M) 1 tab PO DAILY [facility] Last Admin: 02/07/17 09:15 Dose: 1 tab Latanoprost (Xalatan 0.005% Ophth Soln) 1 drop EA EYE HS [facility] Last Admin: 02/06/17 21:15 Dose: 1 drop Levothyroxine Sodium (Synthroid) 175 mcg PO 0600 [facility] Last Admin: 02/07/17 05:27 Dose: 175 mcg Lisinopril (Zestril) 40 mg PO DAILY [facility] Last Admin: 02/07/17 09:18 Dose: 40 mg Ondansetron HCl (Zofran) 4 mg IVP Q6H PRN PRN Reason: Nausea/Vomiting Pantoprazole Sodium (Protonix) 40 mg PO DAILY [facility] Last Admin: 02/07/17 09:18 Dose: 40 mg Pantoprazole Sodium (Protonix) 40 mg PO DAILY [facility] Last Admin: 02/07/17 09:18 Dose: Not Given Polyethylene Glycol (Miralax) 17 gm PO BID PRN PRN Reason: Constipation Propranolol HCl (Inderal) 20 mg PO BID [facility] Last Admin: 02/07/17 09:27 Dose: 20 mg Sodium Chloride (Sodium Chloride) 1 gm PO TID [facility] Last Admin: 02/07/17 09:18 Dose: 1 gm Tramadol HCl (Ultram) 50 mg PO TID PRN PRN Reason: Pain Last Admin: 02/05/17 09:38 Dose: 50 mg
[2017-02-07] MEDS: Atorvastatin Calcium 10 MG TAB PO SCH (21:34)
[2017-02-07] MEDS: Latanoprost 0.005% Ophth Soln 2.5 ml Bottle EA EYE SCH (21:35)
[2017-02-08] MEDS: traMADol HCl 50 MG TAB PO PRN (05:03)
[2017-02-08] MEDS: Levothyroxine Sodium 175 MCG TAB PO SCH (05:10)
[2017-02-08] MEDS: Fluticasone Propionate Nasal Spray 16 gm Bottle NASAL SCH (09:52)
[2017-02-08] MEDS: Azelastine 137 MCG/Spray 30 ML NS SCH (09:52)
[2017-02-08] MEDS: Bupropion 150 MG SR TAB PO SCH (09:53)
[2017-02-08] MEDS: Cephalexin 250 MG CAP PO SCH (09:53)
[2017-02-08] MEDS: Divalproex Sodium DR 500 MG TAB PO SCH (09:53)
[2017-02-08] MEDS: Docusate 100 MG CAP PO SCH (09:54)
[2017-02-08] MEDS: Multivitamin W/ Minerals 1 TAB PO SCH (09:54)
[2017-02-08] MEDS: Sodium Chloride 1 GM TAB PO SCH ×2 (09:54→14:59)
[2017-02-08] MEDS: Gabapentin 300 MG CAP PO SCH ×2 (09:54→14:53)
[2017-02-08] MEDS: Lactinex Tablet PO SCH (09:54)
[2017-02-08] MEDS: Lisinopril 20 MG TAB PO SCH (09:54)
[2017-02-08] MEDS: Ascorbic Acid 500 mg Chewable Tablet PO SCH (09:54)
[2017-02-08] MEDS: Heparin 5,000 UNITS/ML VIAL SC SCH ×2 (09:55→14:53)
[2017-02-08] MEDS: Propranolol HCl 20 MG TAB PO SCH (09:55)
--- NOTE | 2017-02-08 09:56 | PDOC.PN ---
- Subjective Encounter Start Date: 02/08/17 Encounter Start Time: 08:10 Patient seen and examined. No new complaints. No overnight events - Objective MAR Reviewed: Yes Vital Signs & Weight: Vital Signs (12 hours) Temp Pulse Resp BP BP Pulse Ox 02/08/17 07:05 98.0 F 56 L 16 103/64 98 02/08/17 00:40 55 L 16 148/66 H 97 Weight Admit Weight 229 lb 3.2 oz Weight 228 lb 7 oz I&O: 02/07/17 02/08/17 02/09/17 06:59 06:59 06:59 Intake Total 1450 1280 Balance 1450 1280 Result Diagrams: 02/06/17 08:49 02/06/17 08:49 Phys Exam - Physical Examination Constitutional: NAD HEENT: PERRLA, moist MMs, sclera anicteric Neck: no JVD, supple Respiratory: no wheezing, no rales, no rhonchi Cardiovascular: RRR, no significant murmur, no rub Gastrointestinal: soft, non-tender, no distention, positive bowel sounds Musculoskeletal: no edema, pulses present Neurological: non-focal Lymphatic: no nodes Psychiatric: normal affect Skin: no rash, normal turgor Dx/Plan (1) SUPRIYA (acute kidney injury) Code(s): N17.9 - ACUTE KIDNEY FAILURE, UNSPECIFIED Status: Acute (2) Hyponatremia Code(s): E87.1 - HYPO-OSMOLALITY AND HYPONATREMIA Status: Acute Comment: resolving (3) CKD (chronic kidney disease) stage 3, GFR 30-59 ml/min Code(s): N18.3 - CHRONIC KIDNEY DISEASE, STAGE 3 (MODERATE) Status: Chronic (4) GERD (gastroesophageal reflux disease) Code(s): K21.9 - GASTRO-ESOPHAGEAL REFLUX DISEASE WITHOUT ESOPHAGITIS Status: Chronic (5) Hypothyroidism Code(s): E03.9 - HYPOTHYROIDISM, UNSPECIFIED Status: Chronic Qualifiers: Hypothyroidism type: unspecified Qualified Code(s): E03.9 - Hypothyroidism , unspecified (6) Morbid obesity Code(s): E66.01 - MORBID (SEVERE) OBESITY DUE TO EXCESS CALORIES Status: Chronic (7) Bradycardia Code(s): R00.1 - BRADYCARDIA, UNSPECIFIED Status: Acute (8) Fall Code(s): W19.XXXA - UNSPECIFIED FALL, INITIAL ENCOUNTER Status: Acute Qualifiers: Encounter type: initial encounter Qualified Code(s): W19.XXXA - Unspecified fall, initial encounter (9) Hyponatremia Code(s): E87.1 - HYPO-OSMOLALITY AND HYPONATREMIA Status: Acute (10) HLD (hyperlipidemia) Code(s): E78.5 - HYPERLIPIDEMIA, UNSPECIFIED Status: Chronic Qualifiers: Hyperlipidemia type: unspecified Qualified Code(s): E78.5 - Hyperlipidemia , unspecified (11) HTN (hypertension) Code(s): I10 - ESSENTIAL (PRIMARY) HYPERTENSION Status: Chronic Qualifiers: Hypertension type: essential hypertension Qualified Code(s): I10 - Essential (primary) hypertension (12) Humeral fracture Code(s): S42.309A - UNSP FRACTURE OF SHAFT OF HUMERUS, UNSP ARM, INIT Status: Chronic Qualifiers: Encounter type: subsequent encounter Fracture type: closed Laterality: right - 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 * symptomatic treatment * stable for discharge. * see discharge summery Review of Systems - Review of Systems ENT: negative: Ear Pain, Ear Discharge, Nose Pain, Nose Discharge, Nose Congestion, Mouth Pain, Mouth Swelling, Throat Pain, Throat Swelling, Other Respiratory: negative: Cough, Dry, Shortness of Breath, Hemoptysis, SOB with Excertion, Pleuritic Pain, Sputum, Wheezing Cardiovascular: negative: Chest Pain, Palpitations, Orthopnea, Paroxysmal Noc. Dyspnea, Edema, Light Headedness, Other Gastrointestinal: negative: Nausea, Vomiting, Abdominal Pain, Diarrhea, Constipation, Melena, Hematochezia, Other Genitourinary: negative: Dysuria, Frequency, Incontinence, Hematuria, Retention , Other Musculoskeletal: negative: Neck Pain, Shoulder Pain, Arm Pain, Back Pain, Hand Pain, Leg Pain, Foot Pain, Other - Medications/Allergies Allergies/Adverse Reactions: Allergies Allergy/AdvReac Type Severity Reaction Status Date / Time morphine Allergy Verified 02/04/17 05:03 Sulfa (Sulfonamide Allergy Verified 02/04/17 05:03 Antibiotics) Medications: Current Medications Acetaminophen (Tylenol) 650 mg PO Q4H PRN PRN Reason: Headache/Fever or Pain Acetaminophen (Tylenol) 1,000 mg PO Q6HR PRN PRN Reason: Pain Hydrocodone Bitart/Acetaminophen ([place] 10/325) 1 tab PO Q8H PRN PRN Reason: Pain Last Admin: 02/07/17 04:12 Dose: 1 tab Acidophilus (Floranex) 1 tab PO BID [facility] Last Admin: 02/07/17 21:34 Dose: 1 tab Amlodipine Besylate (Norvasc) 10 mg PO QAM [facility] Last Admin: 02/07/17 09:18 Dose: 10 mg Ascorbic Acid (Vitamin C) 500 mg PO BID [facility] Last Admin: 02/07/17 21:34 Dose: 500 mg Atorvastatin Calcium (Lipitor) 10 mg PO QPM [facility] Last Admin: 02/07/17 21:34 Dose: 10 mg Azelastine HCl (Azelastine) 0 ml NS DAILY [facility] Last Admin: 02/07/17 09:19 Dose: 1 spr Bupropion HCl (Wellbutrin Sr) 150 mg PO DAILY [facility] Last Admin: 02/07/17 09:27 Dose: 150 mg Cephalexin (Keflex) 500 mg PO Q12HR [facility] Last Admin: 02/07/17 21:48 Dose: 500 mg Divalproex Sodium (Depakote) 1,500 mg PO DAILY [facility] Last Admin: 02/07/17 09:18 Dose: 1,500 mg Docusate Sodium (Colace) 100 mg PO BID [facility] Last Admin: 02/07/17 21:48 Dose: 100 mg Duloxetine HCl (Cymbalta) 60 mg PO DAILY [facility] Last Admin: 02/07/17 09:15 Dose: 60 mg Fluticasone Propionate (Flonase Nasal [place]) 0 gm NASAL DAILY [facility] Last Admin: 02/07/17 09:13 Dose: 1 spr Gabapentin (Neurontin) 600 mg PO TID [facility] Last Admin: 02/07/17 21:34 Dose: 600 mg Heparin Sodium (Porcine) (Heparin) 5,000 units SC TID [facility] Last Admin: 02/07/17 21:36 Dose: 5,000 units Iron/Minerals/Multivitamins (Theragran M) 1 tab PO DAILY [facility] Last Admin: 02/07/17 09:15 Dose: 1 tab Latanoprost (Xalatan 0.005% Ophth Soln) 1 drop EA EYE HS [facility] Last Admin: 02/07/17 21:35 Dose: 1 drop Levothyroxine Sodium (Synthroid) 175 mcg PO 0600 [facility] Last Admin: 02/08/17 05:10 Dose: 175 mcg Lisinopril (Zestril) 40 mg PO DAILY [facility] Last Admin: 02/07/17 09:18 Dose: 40 mg Ondansetron HCl (Zofran) 4 mg IVP Q6H PRN PRN Reason: Nausea/Vomiting Pantoprazole Sodium (Protonix) 40 mg PO DAILY [facility] Last Admin: 02/07/17 09:18 Dose: 40 mg Polyethylene Glycol (Miralax) 17 gm PO BID PRN PRN Reason: Constipation Propranolol HCl (Inderal) 20 mg PO BID [facility] Last Admin: 02/07/17 21:39 Dose: 20 mg Sodium Chloride (Sodium Chloride) 1 gm PO TID [facility] Last Admin: 02/07/17 21:36 Dose: 1 gm Tramadol HCl (Ultram) 50 mg PO TID PRN PRN Reason: Pain Last Admin: 02/08/17 05:03 Dose: 50 mg
[2017-02-08 10:04] VITALS: BP 139/69
[2017-02-08 11:35] VITALS: TEMP 98
--- NOTE | 2017-02-08 12:18 | ADD-DIS ---
ADDENDUM PRIMARY CARE PHYSICIAN: Dr. Holden Eli. Please see my discharge summary dictated yesterday for further details. The [facility] to [facility] because [facility] was waiting for insurance authorization. At this point, patient is medically stable. The patient is seen and examined at bedside today. Please see my prog ress note, not from today for further details. There is no change in my discharge summary and medic ation. Once insurance authorizes her to go to [facility], then patient is medically stabl e for discharge today.
== END 2017-02-08 16:32 | DRG 683 ==
LOC: ERS 19:45 → 2NO 23:30 → T4-B 02-04 18:35
PROVIDERS: ADMIT Internal Medicine; ATTEND Internal Medicine
DX: N17.9 Acute kidney failure, unspecified (principal); E87.1 Hypo-osmolality and hyponatremia; E11.22 Type 2 diabetes mellitus with diabetic chronic kidney disease; R00.1 Bradycardia, unspecified; Z68.41 Body mass index [BMI] 40.0-44.9, adult; N39.0 Urinary tract infection, site not specified; K21.9 Gastro-esophageal reflux disease without esophagitis; E66.01 Morbid (severe) obesity due to excess calories; E78.5 Hyperlipidemia, unspecified; H35.30 Unspecified macular degeneration; E03.9 Hypothyroidism, unspecified; Z75.1 Person awaiting admission to adequate facility elsewhere; I12.9 Hypertensive chronic kidney disease with stage 1 through stage 4 chronic kidney disease, or unspecified chronic kidney disease; N18.3 Chronic kidney disease, stage 3 (moderate); S42.301D Unspecified fracture of shaft of humerus, right arm, subsequent encounter for fracture with routine healing; X58.XXXD Exposure to other specified factors, subsequent encounter; J30.9 Allergic rhinitis, unspecified; H40.9 Unspecified glaucoma; F41.9 Anxiety disorder, unspecified; F31.9 Bipolar disorder, unspecified
CPT/HCPCS: 36415; 71250; 80048; 80053; 82553; 83880; 83930; 83935; 84133; 84300; 84443; 84484; 85025; 93005; 94760; 96360; 96361; A4353; J1644

== ENCOUNTER 2017-04-16 10:35 | Emergency (ER) | payer MEDICARE, OTHER ==
[2017-04-16 11:56] LABS: #Eosinphils 0.3 thou/uL (0.0-0.7); #Lymphocytes 1.2 thou/uL (1.20-3.40); #Monocytes 1.5 thou/uL (0.11-0.59); #Neutrophils 9.8 thou/uL (1.40-6.50); %Basophils 0.1 % (0.0-1.0); %Eosinophils 2.3 % (0.0-10.0); %Lymphocytes 9.2 % (21.0-51.0); %Monocytes 11.8 % (0.0-10.0); Hematocrit 37.1 % (36.0-47.0); Mean Platelet Volume 8.4 fL (7.4-10.4); Red Blood Cell (RBC) Count 3.68 mill/uL (4.20-5.40); White Blood Cell (WBC) Count 12.8 thou/uL (4.8-10.8)
[2017-04-16 12:03] LABS: PTT 29.4 SEC (22.9-36.1); Prothrombin Time 14.6 SEC (12.0-14.7)
[2017-04-16 12:11] LABS: ALT (SGPT) 8 U/L (8-55); AST (SGOT) 15 U/L (5-34); Alkaline Phosphatase 90 U/L (40-150); Anion Gap 19 mmol/L (10-20); BUN (Urea Nitrogen) 67 mg/dL (9.8-20.1); Bilirubin, Total 0.3 mg/dL (0.2-1.2); CK (CPK) 52 U/L (29-168); Calc. Creatinine Clearance 0 mL/min (70-130); Calcium 9.5 mg/dL (7.8-10.44); Carbon Dioxide 25 mmol/L (23-31); Chloride 100 mmol/L (98-107); Estimated GFR-MDRD 29; Globulin 3.2 g/dL (2.4-3.5); Magnesium 1.7 mg/dL (1.6-2.6)
--- NOTE | 2017-04-16 12:11 | CT ---
NONCONTRAST HEAD CT: Date: 04/16/17 HISTORY: Altered mental status. Decreased appetite. COMPARISON: None. TECHNIQUE: A noncontrast head CT is performed from the skull base to the skull vertex. FINDINGS: No parenchymal hemorrhage or extra-axial hematoma. No midline shift. Basilar cisterns are patent. Age -appropriate atrophy. Cortical hitchccok-white matter differentiation is preserved. Ventricles and sulci a re patent and symmetric. Chronic small vessel ischemic changes of the white matter noted. Calvarium i s intact. Adequate aeration of the sinuses and mastoid air cells. Atherosclerosis of the cavernous ca rotid arteries identified. IMPRESSION: No acute intracranial process. POS: [facility]
[2017-04-16 12:15] LABS: Troponin I 0.012 ng/mL (< 0.028)
[2017-04-16 13:46] LABS: Bilirubin Negative (Negative); Blood, Urine Moderate (Negative); Glucose, Urine (Dipstick) Negative (Negative); Ketone, Urine Negative (Negative); Nitrite Negative (Negative); Protein, Urine (Dipstick) Negative (Neg-Trace); Urobilinogen 0.2 mg/dL (0.2-1.0)
[2017-04-16 13:51] LABS: Bacteria/HPF Rare-Few HPF (None Seen); Hyaline Casts/LPF 0-3 HYALINE CAST LPF (0-3 Hyaline); WBC/HPF 0-3 HPF (0-3)
--- NOTE | 2017-04-16 14:23 | RAD ---
1 VIEW CHEST: Date: 04/16/17 HISTORY: Altered mental status. Decreased appetite. COMPARISON: None. FINDINGS: Atherosclerosis of the aorta. Normal cardiac silhouette. Diminished lung volumes likely due to poor i nspiratory effort. Reticulonodular opacities may in part be due to decreased lung volumes. Infiltrate /edema cannot be excluded. There is no consolidation with air bronchograms. There is no pneumothorax. There are degenerative changes in both shoulders with chronic deformity and osteophyte formation. Pr obable bone island projecting over the left scapula. IMPRESSION: 1. Diminished lung volumes. 2. Increased interstitial reticulonodular opacities, presumed to be due to diminished lung volumes. Superimposed edema or infiltrate cannot be excluded. POS: [facility]
== END 2017-04-16 16:18 | disposition home or self-care (01) ==
LOC: ERS 10:35
DX: E86.0 Dehydration (principal); E03.9 Hypothyroidism, unspecified; K21.9 Gastro-esophageal reflux disease without esophagitis; E11.9 Type 2 diabetes mellitus without complications; E78.5 Hyperlipidemia, unspecified; I10 Essential (primary) hypertension; F31.9 Bipolar disorder, unspecified; Z79.899 Other long term (current) drug therapy
CPT/HCPCS: 36415; 51701; 70450; 71010; 80053; 81003; 81015; 82550; 82553; 83735; 83880; 84484; 85025; 85610; 85730; 87086; 93005; 96360; A4353

== ENCOUNTER 2017-04-19 11:07 | Inpatient (IN) | payer MEDICARE, MEDICAID ==
[2017-04-19 11:57] LABS: Hematocrit 43.7 % (36.0-47.0); Mean Platelet Volume 8.3 fL (7.4-10.4)
[2017-04-19 12:24] LABS: Troponin I 0.015 ng/mL (< 0.028)
[2017-04-19 12:32] LABS: Band 17 % (5-11); Metamyelocyte 1 % (0-0); Myelocyte 3 % (0-0); Neutrophil 65 % (42-75); Toxic Granulation SLIGHT
--- NOTE | 2017-04-19 12:38 | CT ---
NONCONTRAST HEAD CT: History: Altered mental status on Tuesday. Patient was given fluid and sent back to correction. No improvement. Comparison: 04-16-17 Technique: Noncontrast head CT is performed from skull base to skull vertex. FINDINGS: No parenchymal hemorrhage or extraaxial hematoma. No midline shift. Basilar cisterns are patent. Age appropriate atrophy. Cortical hitchcock white matter differentiation is preserved. Ventricles and sulci are patent and symmetric. Chronic small vessel ischemic change in the white matter noted. Calvarium is intact. Adequate aeration of the sinuses and mastoid air cells. Cavernous carotid athero sclerosis is identified. IMPRESSION: 1. No acute intracranial process. No significant interval change. 2. Stable atrophy. 3. Stable chronic small vessel ischemic change of the deep white matter. 4. Given patient's lack of improvement, better interrogation with brain MRI is recommended. POS: [facility]
--- NOTE | 2017-04-19 12:40 | RAD ---
CHEST ONE VIEW: Comparison: 04-16-17 History: Altered mental status. FINDINGS: Portable semi-upright chest demonstrates atherosclerosis of the aorta. Heart size is within normal li mits. Costophrenic angles are clear. Diminished lung volumes likely due to poor inspiratory effort. C hronic changes are noted. No consolidation or mass. No pneumothorax. There are degenerative changes i n both shoulders. IMPRESSION: 1. Atherosclerosis. 2. Chronic changes. POS: [facility]
[2017-04-19] MEDS ORDERED: Piperacillin/Tazobactam 3.375 GM, Admixture Fee 1 EACH in Sodium Chloride 0.9% 100 ML IVPB SCH (13:00)
[2017-04-19 13:14] LABS: Chloride 104 mmol/L (98-107)
[2017-04-19 13:15] LABS: Calcium 9.7 mg/dL (7.8-10.44)
[2017-04-19 13:16] LABS: Globulin 3.5 g/dL (2.4-3.5); Protein, Total 6.2 g/dL (6.0-8.3)
[2017-04-19 13:17] LABS: Anion Gap 11 mmol/L (10-20); Bilirubin, Total 0.3 mg/dL (0.2-1.2); Carbon Dioxide 33 mmol/L (23-31)
[2017-04-19 13:18] LABS: Alkaline Phosphatase 116 U/L (40-150)
[2017-04-19 13:19] LABS: Calc. Creatinine Clearance 0 mL/min (70-130); Estimated GFR-MDRD 57
[2017-04-19 13:20] LABS: BUN (Urea Nitrogen) 38 mg/dL (9.8-20.1)
[2017-04-19 13:21] LABS: ALT (SGPT) 13 U/L (8-55); AST (SGOT) 15 U/L (5-34)
[2017-04-19 13:22] LABS: CK (CPK) 12 U/L (29-168); Lipase 9 U/L (8-78)
[2017-04-19 13:23] LABS: Prothrombin Time 14.6 SEC (12.0-14.7)
[2017-04-19] MEDS ORDERED: D5 1/2 NS w/40 mEq KCL 1,000 ML IV SCH (14:00)
[2017-04-19] MEDS ORDERED: Heparin 1,000 UNITS/ML VIAL ONE (14:57)
--- NOTE | 2017-04-19 17:24 | HP ---
PRIMARY CARE PHYSICIAN: Alcira Hatch D.O. CHIEF COMPLAINT: Altered mental status. HISTORY OF PRESENT ILLNESS: Ms. Guaman is a pleasant 81-year-old female with past medical history of chronic kidney disease stage 3, hypertension, hypothyroidism, depression and anxiety, who is a [facility] resident, was sent to the hospital for altered mental status. History is mainly obtained by the chart review and discussion with the ER physician. The patient was recently admitted to our [facility] in 02/2017 and was treated for acute on chronic kidney insufficiency and hyponatremia. She was sent to the emergency room originally 2 days ago for altered mental status. At that time, ez lima received IV fluids with improvement in her symptoms and was sent back to the group home. At that time, she was found to have mildly elevated WBCs of 12.8. She was found to have dehydration and wea kness. She was sent back to the emergency room today for worsening of altered mental status. Today, she was found to have worsening of her leukocytosis with wbc's of 30 with left shift and bandemia. Her work up has been otherwise unremarkable. Her chest x-ray did not show any evidence of infection like pneu monia. Her CT scan of the brain is normal without any acute changes. The rest of her blood work als o is stable except for some low potassium of 3.1. Her creatinine is actually 0.94, which was 1.68 on 04/16/2017. UA has been attempted by a straight catheterization with the patient has emptied her bl adder shortly before that and UA was pending. She did receive empiric antibiotics, namely vancomycin and Zosyn in the emergency room and cultures have been obtained including blood cultures and influen za screening. She is now being admitted to telemetry unit for sepsis with unclear source. She is ot herwise hemodynamically stable and is actually a bit hypertensive with systolic in the 170s to 190s. PAST MEDICAL HISTORY: 1. Hypertension and dyslipidemia. 2. Bipolar disorder. 3. GERD. 4. Chronic kidney disease stage 3. 5. Depression and anxiety. PAST SURGICAL HISTORY: 1. Tonsillectomy. 2. Left total knee replacement. 3. Foot surgery. SOCIAL HISTORY: She is currently living in a group home. No history of drug, tobacco or alcohol a buse. FAMILY HISTORY: Positive for heart problems. CURRENT MEDICATIONS: The medication list is reviewed from the group home and is as follows: Amlod ipine 10 mg b.i.d., Depakote 500 daily, Lasix 40 mg daily, gabapentin 600 three times daily, levothyr oxine 137 mcg daily, lisinopril 40 mg daily, multivitamin daily, omeprazole 20 mg daily, pravastatin 40 mg daily, metolazone 5 mg once a day, duloxetine 60 mg daily, Dymista spray 1 puff daily, Colace d aily, Wellbutrin-XL 150 mg daily, propranolol 40 mg b.i.d., and Lumigan eyedrops. ALLERGIES: MORPHINE and SULFA. REVIEW OF SYSTEMS: Unobtainable due to the patient's somnolence. LABORATORY DATA: CBC shows WBCs at 30 with 17% bands. PT, PTT, INR are within normal limits. Serum chemistry: Potassium 3.1, bicarbonate 33, BUN 38, creatinine 0.94 with estimated GFR of 57, CK-MB a nd troponin are normal. Lipase is normal at 9. Chest x-ray by my review has no evidence to suggest pleural effusion or edema. CT scan of the brain shows chronic small vessel ischemic changes by my re view, otherwise no acute changes. A 12-lead EKG by my review shows normal sinus rhythm at 61 beats p er minute and nonspecific ST and T-wave changes, QTC is 465 milliseconds. PHYSICAL EXAMINATION: VITAL SIGNS: Upon presentation, blood pressure 212/78, pulse of 61, respirations 16, temperature 98. 5, saturating 94% on room air. GENERAL: She is oriented to self only. She is only able to tell me her name. Otherwise, does not a nswer any questions and not follows any commands. She appears to be stable without any acute distres s. She opens eyes with verbal and tactile stimulation. HEENT: Chewed food is present in her mouth. According to the ER nurses, she still had a lot of food in her mouth when she came in. This has been since cleared. Mucous membrane appears moist. Pupils equally reactive to light. No scleral icterus. Head is normocephalic, atraumatic. NECK: Supple without any JVD or bruit. CHEST: Clear to auscultation, but she has decreased breath sounds at bases. CARDIOVASCULAR: Rate and rhythm is regular without any murmur, rubs or gallops. ABDOMEN: Obese, soft, nontender, nondistended. No guarding, rebound or rigidity. EXTREMITIES: Free of any cyanosis, clubbing, or edema. VASCULAR: +2 pedal pulses felt bilaterally. NEUROLOGIC: Oriented only to self, but otherwise no focal deficits appreciated. She is moving all 4 extremities freely. PSYCHIATRIC: Cannot be assessed. IMPRESSION AND PLAN: 1. Altered mental status. Given the uncharacteristically high leukocytosis with bandemia, possibili ty of sepsis is high at this time. Given her presentation, either she has a urinary tract infection versus aspiration pneumonia. She will be started and continued on empiric antibiotic and IV fluids p er sepsis protocol. We will follow the results of the blood culture, urine culture and Influenza celena ting. We will also consult infectious disease specialist, Dr. Blake, for further recommendations. S he will be kept n.p.o. for speech therapy evaluation. She will be admitted to the telemetry unit wit h close cardiac monitoring. She is currently hemodynamically stable. 2. Hypertensive urgency. The patient will be restarted on her home medications when she is cleared for oral intake. Meanwhile, we will use p.r.n. antihypertensives by intravenous route to bring the b lood pressure down. 3. Chronic kidney disease. The patient's BUN is slightly on the higher side, but the creatinine is stable and improved since her last hospitalization. Continue intravenous fluids for now and monitor on a daily basis. Avoid any nephrotoxic medications if possible. 4. CODE STATUS: FULL CODE implied as the patient is not able to provide any consent at this time. 5. History of hypothyroidism. Resume home medications once stable to takes oral. 6. Deep venous thrombosis and gastrointestinal prophylaxis. 7. Disposition. Ms. Guaman is being admitted to telemetry unit for sepsis of unclear etiology. [facility] antibiotic and IV fluids have been ordered. We will continue symptomatic and supportive care.
[2017-04-19] MEDS ORDERED: Mag-Al 1200 mg/1200 mg/30 ML UDCUP PO PRN (17:30)
[2017-04-19] MEDS ORDERED: Bisacodyl 5 MG TAB PO PRN (17:30)
[2017-04-19] MEDS ORDERED: cloNIDine 0.1 MG TAB PO PRN (17:30)
[2017-04-19] MEDS ORDERED: Benzonatate 100 MG CAP PO PRN (17:30)
[2017-04-19] MEDS ORDERED: Acetaminophen 650 MG Suppository PR PRN (17:30)
[2017-04-19] MEDS ORDERED: Senokot 8.6 MG TAB PO PRN (17:30)
[2017-04-19] MEDS ORDERED: Loratadine 10 MG TAB PO PRN (17:30)
[2017-04-19] MEDS ORDERED: Diabetic Tussin 200 MG/10 ML UDCUP PO PRN (17:30)
[2017-04-19] MEDS ORDERED: Nitroglycerin 0.4 MG TAB (25 Tab Bottle) SL PRN (17:30)
[2017-04-19] MEDS ORDERED: Ondansetron HCl/PF 4 MG/2 ML Vial IVP PRN (17:30)
[2017-04-19] MEDS ORDERED: Calcium Carbonate 500 MG ChewTAB PO PRN (17:30)
[2017-04-19] MEDS: Piperacillin/Tazobactam 3.375 GM in Sodium Chloride 0.9% 100 ML IVPB SCH (20:55)
[2017-04-19] MEDS: Heparin 5,000 UNITS/ML VIAL SC SCH (20:55)
[2017-04-19] MEDS: hydrALAZINE 20 MG/ML VIAL SLOW IVP PRN (20:56)
[2017-04-19] MEDS ORDERED: Vancomycin HCl 1 GM in Premix Bag 1 BAG IVPB SCH (21:00)
[2017-04-19 21:55] LABS: Bilirubin Negative (Negative); Blood, Urine Negative (Negative); Glucose, Urine (Dipstick) Negative (Negative); Ketone, Urine Negative (Negative); Nitrite Negative (Negative); Protein, Urine (Dipstick) Negative (Neg-Trace)
[2017-04-20] MEDS: Sodium Chloride 0.9% 1,000 ML IV SCH ×2 (02:14→20:50)
[2017-04-20] MEDS: Piperacillin/Tazobactam 3.375 GM in Sodium Chloride 0.9% 100 ML IVPB SCH ×4 (02:15→21:01)
[2017-04-20] MEDS: hydrALAZINE 20 MG/ML VIAL SLOW IVP PRN ×4 (04:00→16:55)
[2017-04-20] MEDS ORDERED: cloNIDine 0.2mg/24 Hour PATCH TD SCH ×2 (06:00→19:30)
[2017-04-20 06:19] LABS: Anion Gap 12 mmol/L (10-20); BUN (Urea Nitrogen) 25 mg/dL (9.8-20.1); Calc. Creatinine Clearance 93 mL/min (70-130); Calcium 9.7 mg/dL (7.8-10.44); Carbon Dioxide 28 mmol/L (23-31); Chloride 107 mmol/L (98-107); Estimated GFR-MDRD 77
[2017-04-20 06:32] LABS: Band 18 % (5-11); Hematocrit 44.8 % (36.0-47.0); Mean Platelet Volume 7.5 fL (7.4-10.4); Myelocyte 5 % (0-0); Neutrophil 58 % (42-75); Red Blood Cell (RBC) Count 4.47 mill/uL (4.20-5.40); White Blood Cell (WBC) Count 29.9 thou/uL (4.8-10.8)
[2017-04-20] MEDS: Heparin 5,000 UNITS/ML VIAL SC SCH ×2 (08:37→21:01)
[2017-04-20] MEDS: Famotidine/PF 20 mg/2ml Vial SLOW IVP SCH (08:39)
[2017-04-20] MEDS: Labetalol HCl 100 MG/20 ML VIAL SLOW IVP SCH ×3 (10:35→19:24)
[2017-04-20] MEDS: Vancomycin HCl 1 GM in Premix Bag 1 BAG IVPB SCH (14:12)
[2017-04-20] MEDS ORDERED: Potassium Chloride 40 MEQ in Premix Bag 1 BAG IVPB SCH (14:15)
--- NOTE | 2017-04-20 14:17 | PDOC.PN ---
- Subjective Encounter Start Date: 04/20/17 Encounter Start Time: 14:16 Subjective: more awake today but still not orineted very much. -: can tell her name and how she feels.does not know where she is - Objective MAR Reviewed: Yes Vital Signs & Weight: Vital Signs (12 hours) Temp Pulse Pulse Resp BP BP BP 04/20/17 14:12 80 207/86 H 04/20/17 12:54 80 224/91 H 04/20/17 11:22 96.1 F L 80 18 04/20/17 10:35 79 145/86 H 04/20/17 10:28 79 145/86 H 04/20/17 09:50 86 184/83 H 04/20/17 08:37 83 201/93 H 04/20/17 06:58 83 20 201/93 H 04/20/17 06:52 97.3 F L 83 18 201/93 H 04/20/17 06:00 80 20 04/20/17 04:30 198/83 H 04/20/17 04:00 97.6 F 75 22 H 212/98 H 04/20/17 03:58 BP Pulse Ox 04/20/17 14:12 04/20/17 12:54 04/20/17 11:22 95 04/20/17 10:35 04/20/17 10:28 04/20/17 09:50 04/20/17 08:37 04/20/17 06:58 04/20/17 06:52 100 04/20/17 06:00 222/88 H 04/20/17 04:30 04/20/17 04:00 206/98 H 100 04/20/17 03:58 100 Weight Weight 212 lb 6.4 oz I&O: 04/19/17 04/20/17 04/21/17 06:59 06:59 06:59 Intake Total 4671 Output Total 400 Balance 4271 Result Diagrams: 04/20/17 05:34 04/20/17 05:34 Additional Labs: Accuchecks 04/20/17 04/20/17 04/19/17 11:58 05:42 23:33 POC Glucose 105 98 109 04/19/17 19:54 POC Glucose 122 H Microbiology 04/19/17 16:00 Nasal swab Influenza Types A,B Direct EIA - Final 04/19/17 21:40 Urine nunn catheter Urine Culture - Preliminary NO GROWTH AT 12 HOURS 04/19/17 11:50 Venous blood - Left Hand Blood Culture - Preliminary Staphylococcus aureus 04/19/17 11:35 Venous blood - Right Hand Blood Culture - Preliminary Gram Positive Cocci Phys Exam - Physical Examination somnolent but arousable.sick looking HEENT: PERRLA, sclera anicteric, oral pharynx no lesions dry mucosa Neck: no nodes, no JVD, supple, full ROM Respiratory: no wheezing, no rales, no rhonchi, clear to auscultation bilateral Cardiovascular: RRR, no significant murmur Gastrointestinal: soft, non-tender, no distention, positive bowel sounds Musculoskeletal: no edema, pulses present Neurological: non-focal, normal sensation, moves all 4 limbs Skin: no rash Dx/Plan (1) Sepsis Code(s): A41.9 - SEPSIS, UNSPECIFIED ORGANISM Status: Acute (2) Gram-positive bacteremia Code(s): R78.81 - BACTEREMIA Status: Acute (3) Altered mental state Code(s): R41.82 - ALTERED MENTAL STATUS, UNSPECIFIED Status: Acute (4) Hypokalemia Code(s): E87.6 - HYPOKALEMIA Status: Acute (5) Leucocytosis Code(s): D72.829 - ELEVATED WHITE BLOOD CELL COUNT, UNSPECIFIED Status: Acute (6) Uncontrolled hypertension Code(s): I10 - ESSENTIAL (PRIMARY) HYPERTENSION Status: Acute (7) SUPRIYA (acute kidney injury) Code(s): N17.9 - ACUTE KIDNEY FAILURE, UNSPECIFIED Status: Acute (8) CKD (chronic kidney disease) stage 3, GFR 30-59 ml/min Code(s): N18.3 - CHRONIC KIDNEY DISEASE, STAGE 3 (MODERATE) Status: Chronic (9) GERD (gastroesophageal reflux disease) Code(s): K21.9 - GASTRO-ESOPHAGEAL REFLUX DISEASE WITHOUT ESOPHAGITIS Status: Chronic (10) HLD (hyperlipidemia) Code(s): E78.5 - HYPERLIPIDEMIA, UNSPECIFIED Status: Chronic Qualifiers: Hyperlipidemia type: unspecified Qualified Code(s): E78.5 - Hyperlipidemia , unspecified (11) Hypothyroidism Code(s): E03.9 - HYPOTHYROIDISM, UNSPECIFIED Status: Chronic Qualifiers: Hypothyroidism type: unspecified Qualified Code(s): E03.9 - Hypothyroidism , unspecified (12) Morbid obesity Code(s): E66.01 - MORBID (SEVERE) OBESITY DUE TO EXCESS CALORIES Status: Chronic - Plan nunn catheter, continue antibiotics, PT/OT, incentive spirometry, DVT proph w/ SCDs Increase IVF.change to D5 w Kcl.pt remains nPO.risk of dehydration -: cont IV ABx. on vancomycin for GPC in blood.ID recs requested -: add BID IV albetalol.Clonidine patch added as BP high.prn meds also -: PO meds on hold pendin LYSSA witt. -: severe sepsis w likley Staph bacteremia.guarded prognosis * .am labs. * consult palliative care of no improvement by tomorrow. * Full code for now. * Review of Systems - Review of Systems Other: unobtainable due to AMS - Medications/Allergies Allergies/Adverse Reactions: Allergies Allergy/AdvReac Type Severity Reaction Status Date / Time morphine Allergy Verified 02/04/17 05:03 Sulfa (Sulfonamide Allergy Verified 02/04/17 05:03 Antibiotics) Medications: Current Medications Acetaminophen (Tylenol) 650 mg PO Q4H PRN PRN Reason: Headache/Fever or Pain Acetaminophen (Tylenol) 650 mg GA Q4H PRN PRN Reason: Headache/Fever or Pain Al Hydroxide/Mg Hydroxide (Maalox) 30 ml PO Q6H PRN PRN Reason: Heartburn or Indigestion Benzonatate (Tessalon) 100 mg PO Q4H PRN PRN Reason: Cough Bisacodyl (Dulcolax) 10 mg PO DAILYPRN PRN PRN Reason: Constipation Calcium Carbonate (Tums) 1,000 mg PO Q4H PRN PRN Reason: Heartburn or Indigestion Clonidine (Catapres) 0.1 mg PO Q4H PRN PRN Reason: Systolic BP > 180 Clonidine ([id number]) 0.2 mg TD Q7D [facility] Stop: 04/27/17 06:01 Last Admin: 04/20/17 06:05 Dose: 0.2 mg Famotidine (Pepcid) 20 mg SLOW IVP DAILY [facility] Last Admin: 04/20/17 08:39 Dose: 20 mg Guaifenesin (Robitussin Sf) 200 mg PO Q4H PRN PRN Reason: Cough Heparin Sodium (Porcine) (Heparin) 5,000 units SC BID [facility] Last Admin: 04/20/17 08:37 Dose: 5,000 units Hydralazine HCl (Apresoline) 10 mg SLOW IVP Q4H PRN PRN Reason: Systolic BP > 180 Last Admin: 04/20/17 12:54 Dose: 10 mg Piperacillin Sod/Tazobactam (Sod 3.375 gm/ Sodium Chloride) 100 mls @ 200 mls/ hr IVPB 0200,0800,1400,2000 [facility] Last Admin: 04/20/17 08:36 Dose: 100 mls Vancomycin HCl 1 gm/ Device 200 mls @ 200 mls/hr IVPB Q24HR@1300 [facility] Last Admin: 04/20/17 14:12 Dose: 200 mls Potassium Chloride 40 meq/ (Device) 100 mls @ 25 mls/hr IVPB ONE [facility] Potassium Chloride/Dextrose/Sod Cl (D5 1/2 Ns W/20 Meq Kcl) 1,000 mls @ 100 mls /hr IV .Q10H [facility] Labetalol HCl (Normodyne) 10 mg SLOW IVP Q12H [facility] Last Admin: 04/20/17 14:12 Dose: 10 mg Loratadine (Claritin) 10 mg PO DAILYPRN PRN PRN Reason: Sinus Symptoms Nitroglycerin (Nitrostat) 0.4 mg SL Q5MIN PRN PRN Reason: Chest Pain Ondansetron HCl (Zofran) 4 mg IVP Q6H PRN PRN Reason: Nausea/Vomiting Senna (Senokot) 2 tab PO HSPRN PRN PRN Reason: Constipation Sodium Chloride (Flush - Normal Saline) 10 ml IVF Q12HR [facility] Last Admin: 04/20/17 08:39 Dose: Not Given Sodium Chloride (Flush - Normal Saline) 10 ml IVF PRN PRN PRN Reason: Saline Flush Last Admin: 04/20/17 06:05 Dose: 10 ml
[2017-04-20] MEDS ORDERED: Potassium Chloride 40 MEQ, Admixture Fee 1 EACH in Sodium Chloride 0.9% 250 ML 250 ML IVPB SCH (14:30)
--- NOTE | 2017-04-20 16:02 | MRI ---
MRI OF THE BRAIN WITHOUT CONTRAST 04/20/17 COMPARISON: None. HISTORY: Altered mental status for one week. TECHNIQUE: Multiplanar and multisequence MRI images were obtained of the brain without contrast. FINDINGS: This exam is very limited secondary to motion artifact. There is scattered foci of high T2/FLAIR sign al in the subcortical and periventricular white matter likely secondary to small vessel ischemic dise ase. There are tiny foci of restricted diffusion in the periventricular white matter in the right par ietal lobe which may represent acute small lacunar infarctions. There is no evidence of hydrocephalus , intracranial hemorrhage, or extra-axial fluid collection. The corpus callosum, pituitary, and craniocervical junction are unremarkable. IMPRESSION: 1. Small vessel ischemic disease. 2. Small lacunar infarctions in the white matter of the right parietal lobe. POS: [facility]
[2017-04-20] MEDS: D5 1/2 NS w/20 mEq KCL 1,000 ML IV SCH (16:42)
[2017-04-21] MEDS: Piperacillin/Tazobactam 3.375 GM in Sodium Chloride 0.9% 100 ML IVPB SCH ×3 (02:09→13:26)
[2017-04-21] MEDS: D5 1/2 NS w/20 mEq KCL 1,000 ML IV SCH ×2 (02:12→06:11)
[2017-04-21] MEDS: hydrALAZINE 20 MG/ML VIAL SLOW IVP PRN ×2 (06:03→22:33)
[2017-04-21 08:17] LABS: Hematocrit 43.4 % (36.0-47.0); Mean Platelet Volume 7.1 fL (7.4-10.4); Red Blood Cell (RBC) Count 4.31 mill/uL (4.20-5.40); White Blood Cell (WBC) Count 24.9 thou/uL (4.8-10.8)
[2017-04-21 08:19] LABS: Band 9 % (5-11); Metamyelocyte 1 % (0-0); Myelocyte 2 % (0-0); Neutrophil 69 % (42-75); Reactive Lymphocytes 1 % (0-10)
[2017-04-21 08:21] LABS: Anion Gap 14 mmol/L (10-20); BUN (Urea Nitrogen) 20 mg/dL (9.8-20.1); Calc. Creatinine Clearance 90 mL/min (70-130); Calcium 10.2 mg/dL (7.8-10.44); Carbon Dioxide 28 mmol/L (23-31); Chloride 110 mmol/L (98-107); Estimated GFR-MDRD 72
[2017-04-21] MEDS ORDERED: Dextrose 5% w/ 20 mEq KCl 1,000 ML IV SCH (09:15)
[2017-04-21] MEDS: Labetalol HCl 100 MG/20 ML VIAL SLOW IVP SCH (09:18)
[2017-04-21] MEDS: Heparin 5,000 UNITS/ML VIAL SC SCH ×2 (09:19→22:15)
[2017-04-21] MEDS: Famotidine/PF 20 mg/2ml Vial SLOW IVP SCH (09:19)
[2017-04-21] MEDS ORDERED: Enalaprilat Dihydrate 1.25 MG/ML VIAL SLOW IVP SCH (10:00)
[2017-04-21] MEDS: Vancomycin HCl 1 GM in Premix Bag 1 BAG IVPB SCH (12:34)
[2017-04-21] MEDS ORDERED: VANCOMYCIN IVPB PRN (12:49)
[2017-04-21 12:58] LABS: Vancomycin, Trough 6.9 ug/mL
--- NOTE | 2017-04-21 13:08 | PDOC.PN ---
- Subjective Encounter Start Date: 04/21/17 Encounter Start Time: 13:07 Subjective: more awake today and able to follow simple commands -: speech cleared for pureed foods. - Objective MAR Reviewed: Yes Vital Signs & Weight: Vital Signs (12 hours) Temp Pulse Resp BP BP Pulse Ox 04/21/17 12:47 135/90 04/21/17 11:45 97.7 F 74 20 226/91 H 96 04/21/17 10:46 75 20 198/97 H 98 04/21/17 09:18 81 170/113 H 04/21/17 08:33 98.2 F 81 22 H 170/113 H 98 04/21/17 08:25 98.2 F 75 20 04/21/17 06:03 86 210/92 H 04/21/17 05:55 210/92 H 04/21/17 04:00 97.6 F 86 20 97 Weight Weight 214 lb 9.6 oz I&O: 04/20/17 04/21/17 04/22/17 06:59 06:59 06:59 Intake Total 4671 2310 Output Total 400 1200 Balance 4271 1110 Result Diagrams: 04/21/17 07:44 04/21/17 07:44 Additional Labs: Accuchecks 04/21/17 04/21/17 04/21/17 11:44 05:48 00:31 POC Glucose 136 H 139 H 131 H 04/20/17 18:45 POC Glucose 103 Microbiology 04/19/17 16:00 Nasal swab Influenza Types A,B Direct EIA - Final 04/19/17 21:40 Urine nunn catheter Urine Culture - Preliminary NO GROWTH AT 12 HOURS 04/19/17 11:50 Venous blood - Left Hand Blood Culture - Preliminary Staphylococcus aureus 04/19/17 11:35 Venous blood - Right Hand Blood Culture - Preliminary Staphylococcus aureus Laboratory Tests 04/19/17 04/20/17 04/21/17 11:35 05:34 07:44 WBC 30.0 H 29.9 H 24.9 H Radiology Reviewed by me: Yes (MRI-R paritel lacunar infract) Phys Exam - Physical Examination Constitutional: NAD weak,tired but better than yesterday HEENT: PERRLA, sclera anicteric, 2+ tonsils Neck: no nodes, no JVD, supple, full ROM Respiratory: no wheezing, no rales, no rhonchi, clear to auscultation bilateral Cardiovascular: RRR, no significant murmur Gastrointestinal: soft, non-tender, no distention, positive bowel sounds Musculoskeletal: no edema, pulses present Neurological: non-focal, normal sensation, moves all 4 limbs Psychiatric: normal affect oriented to self and place today Skin: no rash Dx/Plan (1) Sepsis Code(s): A41.9 - SEPSIS, UNSPECIFIED ORGANISM Status: Acute (2) Gram-positive bacteremia Code(s): R78.81 - BACTEREMIA Status: Acute (3) Altered mental state Code(s): R41.82 - ALTERED MENTAL STATUS, UNSPECIFIED Status: Acute (4) Hypokalemia Code(s): E87.6 - HYPOKALEMIA Status: Acute (5) Leucocytosis Code(s): D72.829 - ELEVATED WHITE BLOOD CELL COUNT, UNSPECIFIED Status: Acute (6) Uncontrolled hypertension Code(s): I10 - ESSENTIAL (PRIMARY) HYPERTENSION Status: Acute (7) SUPRIYA (acute kidney injury) Code(s): N17.9 - ACUTE KIDNEY FAILURE, UNSPECIFIED Status: Acute (8) CKD (chronic kidney disease) stage 3, GFR 30-59 ml/min Code(s): N18.3 - CHRONIC KIDNEY DISEASE, STAGE 3 (MODERATE) Status: Chronic (9) GERD (gastroesophageal reflux disease) Code(s): K21.9 - GASTRO-ESOPHAGEAL REFLUX DISEASE WITHOUT ESOPHAGITIS Status: Chronic (10) HLD (hyperlipidemia) Code(s): E78.5 - HYPERLIPIDEMIA, UNSPECIFIED Status: Chronic Qualifiers: Hyperlipidemia type: unspecified Qualified Code(s): E78.5 - Hyperlipidemia , unspecified (11) Hypothyroidism Code(s): E03.9 - HYPOTHYROIDISM, UNSPECIFIED Status: Chronic Qualifiers: Hypothyroidism type: unspecified Qualified Code(s): E03.9 - Hypothyroidism , unspecified (12) Morbid obesity Code(s): E66.01 - MORBID (SEVERE) OBESITY DUE TO EXCESS CALORIES Status: Chronic (13) Lacunar stroke Code(s): I63.9 - CEREBRAL INFARCTION, UNSPECIFIED Status: Acute - Plan continue antibiotics, PT/OT, respiratory therapy, incentive spirometry, out of bed/ambulate, DVT proph w/SCDs Consult stroke team.add Po ASA as pt cleared by speech. -: restart home meds. IV vasotec addedd for BP control. -: cont IV ABx. final ID recs pending. -: OT,PT,PATIENT FINANCIAL COUNSELOR.AM labs -: consult PCT for code status eval. * .reduce IVF . * encourage ambulation * Monitor labs and hemodynamics closely. Review of Systems - Review of Systems Constitutional: Weakness, Malaise Other: limited due to slow speech and easily distracted and still somewhat confused - Medications/Allergies Allergies/Adverse Reactions: Allergies Allergy/AdvReac Type Severity Reaction Status Date / Time morphine Allergy Verified 02/04/17 05:03 Sulfa (Sulfonamide Allergy Verified 02/04/17 05:03 Antibiotics) Medications: Current Medications Acetaminophen (Tylenol) 650 mg PO Q4H PRN PRN Reason: Headache/Fever or Pain Acetaminophen (Tylenol) 650 mg VA Q4H PRN PRN Reason: Headache/Fever or Pain Al Hydroxide/Mg Hydroxide (Maalox) 30 ml PO Q6H PRN PRN Reason: Heartburn or Indigestion Benzonatate (Tessalon) 100 mg PO Q4H PRN PRN Reason: Cough Bisacodyl (Dulcolax) 10 mg PO DAILYPRN PRN PRN Reason: Constipation Calcium Carbonate (Tums) 1,000 mg PO Q4H PRN PRN Reason: Heartburn or Indigestion Clonidine (Catapres) 0.1 mg PO Q4H PRN PRN Reason: Systolic BP > 180 Clonidine (Zcywawjf-Loh-7) 0.2 mg TD Q7D [facility] Stop: 04/27/17 06:01 Last Admin: 04/20/17 19:23 Dose: 0.2 mg Enalaprilat (Vasotec) 1.25 mg SLOW IVP Q6H [facility] Last Admin: 04/21/17 10:36 Dose: 1.25 mg Famotidine (Pepcid) 20 mg SLOW IVP DAILY [facility] Last Admin: 04/21/17 09:19 Dose: 20 mg Guaifenesin (Robitussin Sf) 200 mg PO Q4H PRN PRN Reason: Cough Heparin Sodium (Porcine) (Heparin) 5,000 units SC BID [facility] Last Admin: 04/21/17 09:19 Dose: 5,000 units Hydralazine HCl (Apresoline) 10 mg SLOW IVP Q4H PRN PRN Reason: Systolic BP > 180 Last Admin: 04/21/17 06:03 Dose: 10 mg Piperacillin Sod/Tazobactam (Sod 3.375 gm/ Sodium Chloride) 100 mls @ 200 mls/ hr IVPB 0200,0800,1400,2000 [facility] Last Admin: 04/21/17 09:18 Dose: 100 mls Potassium Chloride/Dextrose (D5w W/ 20 Meq Kcl) 1,000 mls @ 100 mls/hr IV .Q10H [facility] Last Admin: 04/21/17 10:35 Dose: 1,000 mls Vancomycin HCl 1 gm/ Device 200 mls @ 200 mls/hr IVPB 0100,1300 [facility] Labetalol HCl (Normodyne) 10 mg SLOW IVP Q12H [facility] Last Admin: 04/21/17 09:18 Dose: 10 mg Loratadine (Claritin) 10 mg PO DAILYPRN PRN PRN Reason: Sinus Symptoms Miscellaneous Medication (Pharmacy To Dose) 1 each IVPB PRN PRN PRN Reason: Pharmacy to dose Nitroglycerin (Nitrostat) 0.4 mg SL Q5MIN PRN PRN Reason: Chest Pain Ondansetron HCl (Zofran) 4 mg IVP Q6H PRN PRN Reason: Nausea/Vomiting Senna (Senokot) 2 tab PO HSPRN PRN PRN Reason: Constipation Sodium Chloride (Flush - Normal Saline) 10 ml IVF Q12HR [facility] Last Admin: 04/21/17 09:20 Dose: 10 ml Sodium Chloride (Flush - Normal Saline) 10 ml IVF PRN PRN PRN Reason: Saline Flush Last Admin: 04/20/17 06:05 Dose: 10 ml
[2017-04-21] MEDS ORDERED: Aspirin 81 mg Enteric Coated Tablet PO SCH ×2 (13:09→13:30)
[2017-04-21] MEDS ORDERED: TROLAMINE SALICYLATE TOP PRN (13:11)
[2017-04-21] MEDS ORDERED: [UNRECOGNIZED DRUG - OTHER] TOP PRN (13:11)
[2017-04-21] MEDS ORDERED: ALOE VERA TOP PRN (13:11)
[2017-04-21] MEDS: Dextrose 5% w/ 20 mEq KCl 1,000 ML IV SCH (13:27)
--- NOTE | 2017-04-21 14:40 | CON ---
DATE OF CONSULTATION: 04/21/2017 REASON FOR CONSULTATION: Bacteremia. 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 The first time she was sent to the emergency room, she had a white cell count 12.8 and she was give n IV fluids and sent back to intermediate, and there she persisted with the changes and she was sent back. This time the white cell count was 30,000. The patient was admitted. Initial evaluation show ed a chest x-ray, CT of brain without acute changes. The creatinine was 0.94 and she was given empir ic antimicrobial therapy. Initial findings included a BP 212/78, pulse 61, respirations 16, temperat ure 98.5, O2 sat 94%. The patient was awake, but only oriented to her name. There was evidence of f luid retention in her oral cavity, which had to be cleared manually. Her chest was clear to ausculta tion. Heart examination showed regular rate without obvious murmurs. The abdomen appeared soft, with out tenderness and now we have 2 out of 2 sets of blood cultures positive for Staphylococcus aureus, the organism is methicillin resistant by [facility] nucleic acid testing. I had the opportunity of di scussing her progress with the intermediate staff and apparently she was complaining of pain in the r ight shoulder for the past week or two and was sent for an x-ray or similar chest into the emergency room and then sent back and finally readmitted to the emergency room and brought in the hospital. Ac cording to the nurse, there have been no complaints of pain in the thoracic or lumbar spine. She ua h[place] does not have a urinary catheter and currently Ms. Guaman is arousable, but answers only very few questions. She could tell me her name, but did not know where she was or the date. It was hard to obtain a full review of systems. She did claim to have some element of what she descr ibes as back discomfort, but all the questions pretty much were answered with yes for everything, so I am not sure about the reliability of those answers. PAST MEDICAL HISTORY: Hypertension, dyslipidemia, bipolar disorder, GERD, chronic renal insufficienc y, depression, anxiety. She does have severe neurological impairment which seems to be longstanding even before this later decompensation. She must have some element of organic brain syndrome either p rior CVA or some other form of disorder leading to the motility impairment, be it Parkinson's disease or something similar. PAST SURGICAL HISTORY: Tonsillectomy, left knee replacement, and foot debridement. SOCIAL HISTORY: residential resident. Never a smoker. FAMILY HISTORY: Noncontributory. CURRENT MEDICATIONS: P.r.n. medications, Norvasc, Ecotrin, Dulcolax, Tums, Catapres, Depakote, Cymba lta, Pepcid, hydralazine, loratadine, Zosyn, and vancomycin. PHYSICAL EXAMINATION: VITAL SIGNS: Temperature max 98.2, blood pressure 220/90, pulse 74, respiratory rate 20, O2 sat 96%. SKIN: No areas of skin breakdown. Peripheral IV access. Chaudhari catheter in place. Alopecia noted. HEENT: Ocular movements are conjugate. Pupils are dilated about 3 mm and sluggishly reactive. They are symmetric. Oral cavity with still quite a few teeth in place with some debris in the oral cavit y. Oral mucosa is quite dry. There is some tenderness in the right shoulder. I could not test rang e of motion because of diffuse stiffness. NECK: Stiff to all directions. No jugular vein distention. LUNGS: With symmetric air entry. CARDIAC: S1, S2 with a soft aortic murmur. No S3 or S4. ABDOMEN: Soft. Not distended. No ascites. No bladder distention. EXTREMITIES: There is some swelling of the knees, some tenderness in the right and left shoulders, b ut they do not appear asymmetric in terms of feature, there is 1+ edema. Pulses are 1+. She has dif fuse stiffness. NEUROLOGIC: Plantar responses are indifferent. No clonus. There is a quite prominent resting tremo r. LABORATORY: White cell count is decreased from 30 to 24.9, hemoglobin 13, platelets 323 with 69% margot trophils, bands are down from 17 to 9 and INR 1.1. Sodium 144, creatinine 0.73. Liver profile wendy l. CK 12, albumin 2.7. Urinalysis was normal. Microbiology results as noted previously. Prior cul tures from March, we have E. coli from urine and Proteus from January same source. She never navarro d blood cultures before this visit. No records in the [facility] prior [facility] system files. The imaging studies have been discussed above, she had an MRI, which showed microvascular disease only. ASSESSMENT: 1. Severe neurological impairment with bedridden state, probable advanced Parkinson's disease, altho ugh this is not listed in her diagnoses. 2. Change in mental status. 3. Right shoulder pain. 4. Neutrophilia with left shift. 5. Methicillin-resistant Staphylococcus aureus bacteremia. DISCUSSION: Differential diagnosis includes MRSA bacteremia without a primary source identifiable ve rsus septic arthritis, endocarditis lumbar or thoracic spine or C-spine infection. An intra-abdomina l source is less likely. Urinary tract also not likely as the culprit here. At this point, would co ntinue vancomycin alone. Discontinue Zosyn and see if we can get her mental status to improved and w e can have a more accurate interview with the patient to see if we will find an area to image. Other mercer, we would have to image her chest, abdomen, and pelvis with CT and consider imaging her right sh oulder. Will perform a guided arthrocentesis. She will need treatment for at least 4 weeks. PICC l ine will have to be inserted, may require a longer treatment if there is evidence of a focal inflamma tory process such as a joint inflammatory process.
[2017-04-21] MEDS: Gabapentin 300 MG CAP PO SCH ×2 (14:54→22:18)
[2017-04-21] MEDS ORDERED: PECTIN CITRUS PO SCH (21:00)
[2017-04-21] MEDS ORDERED: ACIDOPHILUS PO SCH (21:00)
[2017-04-21] MEDS: Ascorbic Acid 500 mg Chewable Tablet PO SCH (22:16)
[2017-04-21] MEDS: Latanoprost 0.005% Ophth Soln 2.5 ml Bottle EA EYE SCH (22:16)
[2017-04-21] MEDS: Divalproex Sodium DR 500 MG TAB PO SCH (22:17)
[2017-04-21] MEDS: Docusate 100 MG CAP PO SCH (22:17)
[2017-04-21] MEDS: Atorvastatin Calcium 10 MG TAB PO SCH (22:17)
[2017-04-21] MEDS: Propranolol HCl 20 MG TAB PO SCH (22:18)
[2017-04-21] MEDS: Lactinex Tablet PO SCH (22:18)
[2017-04-22] MEDS: Vancomycin HCl 1 GM in Premix Bag 1 BAG IVPB SCH ×2 (01:06→14:31)
[2017-04-22] MEDS: Dextrose 5% w/ 20 mEq KCl 1,000 ML IV SCH ×3 (03:57→20:17)
[2017-04-22] MEDS: Levothyroxine Sodium 25 MCG TAB PO SCH (06:12)
[2017-04-22] MEDS: Levothyroxine Sodium 112 MCG TAB PO SCH (06:12)
[2017-04-22 06:19] LABS: Anion Gap 11 mmol/L (10-20); BUN (Urea Nitrogen) 17 mg/dL (9.8-20.1); Calc. Creatinine Clearance 94 mL/min (70-130); Calcium 9.7 mg/dL (7.8-10.44); Carbon Dioxide 29 mmol/L (23-31); Chloride 105 mmol/L (98-107); Estimated GFR-MDRD 77
[2017-04-22 06:25] LABS: Band 6 % (5-11); Hematocrit 38.7 % (36.0-47.0); Macrocytosis SLIGHT = 6-15 cells (100X) (0-5/hpf); Metamyelocyte 2 % (0-0); Neutrophil 73 % (42-75); Reactive Lymphocytes 1 % (0-10); Red Blood Cell (RBC) Count 3.88 mill/uL (4.20-5.40); White Blood Cell (WBC) Count 19.5 thou/uL (4.8-10.8)
[2017-04-22] MEDS: Lisinopril 20 MG TAB PO SCH (08:58)
[2017-04-22] MEDS: Propranolol HCl 20 MG TAB PO SCH ×2 (08:59→20:20)
[2017-04-22] MEDS: Ascorbic Acid 500 mg Chewable Tablet PO SCH ×2 (08:59→20:18)
[2017-04-22] MEDS: Gabapentin 300 MG CAP PO SCH ×3 (08:59→20:19)
[2017-04-22] MEDS: Lactinex Tablet PO SCH ×2 (08:59→20:20)
[2017-04-22] MEDS: Docusate 100 MG CAP PO SCH ×2 (08:59→20:18)
[2017-04-22] MEDS: Bupropion 150 MG SR TAB PO SCH (08:59)
[2017-04-22] MEDS: Multivit, Therapeutic 1 TAB PO SCH (08:59)
[2017-04-22] MEDS: Heparin 5,000 UNITS/ML VIAL SC SCH ×2 (08:59→20:18)
[2017-04-22] MEDS: Amlodipine 10 MG TAB PO SCH (08:59)
[2017-04-22] MEDS ORDERED: AZELASTINE NASAL SCH (09:00)
[2017-04-22] MEDS ORDERED: Non-Formulary Item 1 EACH (Levothyroxine Sodium [Levothyroxine Sodium] 137 MCG) PO SCH (09:00)
[2017-04-22] MEDS ORDERED: Polyethylene Glycol 3350 17 GM Packet PO PRN (09:00)
[2017-04-22] MEDS: Aspirin 81 mg Enteric Coated Tablet PO SCH (09:00)
[2017-04-22] MEDS ORDERED: FLUTICASONE NASAL SCH (09:00)
[2017-04-22 12:37] VITALS: BMI 39.2
--- NOTE | 2017-04-22 13:05 | PDOC.PN ---
- Subjective Encounter Start Date: 04/22/17 Encounter Start Time: 13:03 Patient seen and examined. No new complaints. No overnight events. friends at bedside. c/o right jaw and right arm pain. fever better. No N/V. - Objective MAR Reviewed: Yes Vital Signs & Weight: Vital Signs (12 hours) Temp Pulse Resp BP BP BP Pulse Ox 04/22/17 11:16 98.7 F 57 L 20 97 04/22/17 08:59 69 04/22/17 08:58 156/66 H 04/22/17 08:00 97.9 F 69 18 04/22/17 07:32 97.9 F 69 18 156/66 H 96 04/22/17 03:39 162/90 H 04/22/17 03:23 97.2 F L 67 18 203/85 H 96 Weight Admit Weight 212 lb 14.4 oz Weight 214 lb 9.6 oz I&O: 04/21/17 04/22/17 04/23/17 06:59 06:59 06:59 Intake Total 2310 1592 Output Total 1200 525 Balance 1110 1067 Result Diagrams: 04/22/17 05:24 04/22/17 05:24 Additional Labs: Accuchecks 04/22/17 04/22/17 04/22/17 12:53 05:34 00:01 POC Glucose 122 H 113 H 108 04/21/17 17:34 POC Glucose 149 H Phys Exam - Physical Examination Constitutional: NAD right cheek pain and swelling with tenderness, decay tooth HEENT: sclera anicteric Neck: supple Respiratory: no wheezing, no rales Cardiovascular: RRR Gastrointestinal: soft Musculoskeletal: no edema right arm pain and redness with swelling Neurological: non-focal Psychiatric: normal affect, A&O x 3 Dx/Plan (1) MRSA bacteremia Code(s): R78.81 - BACTEREMIA Status: Acute (2) Altered mental state Code(s): R41.82 - ALTERED MENTAL STATUS, UNSPECIFIED Status: Acute (3) Sepsis Code(s): A41.9 - SEPSIS, UNSPECIFIED ORGANISM Status: Acute (4) Hyponatremia Code(s): E87.1 - HYPO-OSMOLALITY AND HYPONATREMIA Status: Acute (5) CKD (chronic kidney disease) stage 3, GFR 30-59 ml/min Code(s): N18.3 - CHRONIC KIDNEY DISEASE, STAGE 3 (MODERATE) Status: Chronic (6) HLD (hyperlipidemia) Code(s): E78.5 - HYPERLIPIDEMIA, UNSPECIFIED Status: Chronic Qualifiers: Hyperlipidemia type: unspecified Qualified Code(s): E78.5 - Hyperlipidemia , unspecified (7) HTN (hypertension) Code(s): I10 - ESSENTIAL (PRIMARY) HYPERTENSION Status: Chronic Qualifiers: Hypertension type: essential hypertension Qualified Code(s): I10 - Essential (primary) hypertension (8) Humeral fracture Code(s): S42.309A - UNSP FRACTURE OF SHAFT OF HUMERUS, UNSP ARM, INIT Status: Chronic Qualifiers: Encounter type: subsequent encounter Fracture type: closed Laterality: right - Plan plan discussed w/ family * . continue Vanc. Blood cx grew MRSA f/u with ID. contact isolation consult OMFS and ortho. AM labs.
--- NOTE | 2017-04-22 13:33 | RAD ---
RIGHT ELBOW FOUR VIEWS: History: Right elbow pain. FINDINGS: There has been prior internal fixation of a distal humerus fracture. There is cortical thickening and irregularity associated with an old healed fracture. No evidence of acute fracture seen with the right elbow. There are mild degenerative changes at the e lbow. IMPRESSION: No acute findings seen at the right elbow. Previous healed fracture and internal fixation of the dist al humerus noted. POS: [facility]
[2017-04-22] MEDS: Atorvastatin Calcium 10 MG TAB PO SCH (20:18)
[2017-04-22] MEDS: Latanoprost 0.005% Ophth Soln 2.5 ml Bottle EA EYE SCH (20:18)
[2017-04-22] MEDS: Divalproex Sodium DR 500 MG TAB PO SCH (20:18)
[2017-04-23 00:51] LABS: Vancomycin, Trough 21.8 ug/mL
[2017-04-23] MEDS ORDERED: Vancomycin HCl 750 MG in Sodium Chloride 0.9% 250 ML 250 ML IVPB SCH (02:00)
[2017-04-23] MEDS: Vancomycin HCl 750 MG in Sodium Chloride 0.9% 250 ML 250 ML IVPB SCH ×2 (02:24→15:30)
[2017-04-23] MEDS: Vancomycin HCl 1 GM in Premix Bag 1 BAG IVPB SCH (02:32)
[2017-04-23] MEDS: Levothyroxine Sodium 112 MCG TAB PO SCH (04:58)
[2017-04-23] MEDS: Levothyroxine Sodium 25 MCG TAB PO SCH (04:58)
[2017-04-23] MEDS: hydrALAZINE 20 MG/ML VIAL SLOW IVP PRN ×2 (04:58→08:47)
[2017-04-23 06:09] LABS: Anion Gap 8 mmol/L (10-20); BUN (Urea Nitrogen) 12 mg/dL (9.8-20.1); Calc. Creatinine Clearance 95 mL/min (70-130); Calcium 8.6 mg/dL (7.8-10.44); Carbon Dioxide 28 mmol/L (23-31); Chloride 102 mmol/L (98-107); Estimated GFR-MDRD 77
[2017-04-23 06:22] LABS: Band 30 % (5-11); Hematocrit 35.7 % (36.0-47.0); Mean Platelet Volume 6.5 fL (7.4-10.4); Metamyelocyte 1 % (0-0); Neutrophil 49 % (42-75); Reactive Lymphocytes 5 % (0-10)
[2017-04-23] MEDS: Lisinopril 20 MG TAB PO SCH (08:45)
[2017-04-23] MEDS: Bupropion 150 MG SR TAB PO SCH (08:45)
[2017-04-23] MEDS: Ascorbic Acid 500 mg Chewable Tablet PO SCH ×2 (08:45→20:24)
[2017-04-23] MEDS: Amlodipine 10 MG TAB PO SCH (08:45)
[2017-04-23] MEDS: Gabapentin 300 MG CAP PO SCH ×3 (08:46→20:25)
[2017-04-23] MEDS: Lactinex Tablet PO SCH ×2 (08:47→22:11)
[2017-04-23] MEDS: Multivit, Therapeutic 1 TAB PO SCH (08:47)
[2017-04-23] MEDS: Propranolol HCl 20 MG TAB PO SCH ×2 (08:47→22:11)
[2017-04-23] MEDS: Aspirin 81 mg Enteric Coated Tablet PO SCH (08:47)
[2017-04-23] MEDS: Docusate 100 MG CAP PO SCH ×2 (08:47→20:25)
[2017-04-23] MEDS: Heparin 5,000 UNITS/ML VIAL SC SCH ×2 (08:48→20:26)
[2017-04-23] MEDS: Acetaminophen 325 MG TAB PO PRN (08:56)
[2017-04-23] MEDS ORDERED: hydrALAZINE 25 MG TAB PO PRN (11:07)
--- NOTE | 2017-04-23 11:18 | PDOC.PN ---
- Subjective Encounter Start Date: 04/23/17 Encounter Start Time: 11:15 Ms. Guaman was seen today in follow-up of aletered mental status, and MRSA bacteremia. she was very drowsy, and did not wake up during the encounter. - Objective MAR Reviewed: Yes Vital Signs & Weight: Vital Signs (12 hours) Temp Pulse Resp BP BP BP Pulse Ox 04/23/17 08:47 58 L 193/80 H 04/23/17 08:45 58 L 193/80 H 04/23/17 08:21 98.5 F 58 L 18 94 L 04/23/17 08:00 98.5 F 58 L 18 193/80 H 94 L 04/23/17 05:38 158/78 H 04/23/17 04:00 98.4 F 54 L 16 190/75 H 96 04/23/17 00:00 98.4 F 54 L 16 153/90 H 92 L Weight Admit Weight 212 lb 14.4 oz Weight 214 lb 14.4 oz I&O: 04/22/17 04/23/17 04/24/17 06:59 06:59 06:59 Intake Total 1592 1425 400 Output Total 525 1000 Balance 1067 425 400 Result Diagrams: 04/23/17 04:47 04/23/17 04:47 Additional Labs: Accuchecks 04/23/17 04/22/17 04/22/17 05:31 23:54 18:55 POC Glucose 99 104 99 04/22/17 12:53 POC Glucose 122 H Phys Exam - Physical Examination HEENT: PERRLA Respiratory: no wheezing, no rales, no rhonchi, clear to auscultation bilateral Cardiovascular: RRR, no significant murmur Gastrointestinal: soft, non-tender, positive bowel sounds Musculoskeletal: no edema Dx/Plan (1) Altered mental state Code(s): R41.82 - ALTERED MENTAL STATUS, UNSPECIFIED Status: Acute (2) MRSA bacteremia Code(s): R78.81 - BACTEREMIA Status: Acute (3) CKD (chronic kidney disease) stage 3, GFR 30-59 ml/min Code(s): N18.3 - CHRONIC KIDNEY DISEASE, STAGE 3 (MODERATE) Status: Chronic (4) HTN (hypertension) Code(s): I10 - ESSENTIAL (PRIMARY) HYPERTENSION Status: Chronic Qualifiers: Hypertension type: essential hypertension Qualified Code(s): I10 - Essential (primary) hypertension (5) Morbid obesity Code(s): E66.01 - MORBID (SEVERE) OBESITY DUE TO EXCESS CALORIES Status: Chronic (6) Bipolar disorder Code(s): F31.9 - BIPOLAR DISORDER, UNSPECIFIED Status: Acute - Plan * MRSA Bacteremia- continue Vancomycin IV * Echo results are noted, no vegetation were found * She is still too encephalopathic to obtain a history, continue IV antibiotics * HTN- blood pressure is elevated- will ad Hydralazine as needed and monitor the trend * She will need PICC line placed, and 4 or more weeks of IV Vancomycin * She does not have a history of diabetes, and her blood glucose has been stable - will discontinue Accuchecks
[2017-04-23] MEDS: Dextrose 5% w/ 20 mEq KCl 1,000 ML IV SCH ×2 (12:50→23:40)
[2017-04-23] MEDS ORDERED: HYDROcodone/Acetaminophen 5/325 mg Tablet PO PRN (14:14)
[2017-04-23] MEDS ORDERED: HYDROcodone/Acetaminophen 10/325 mg Tablet PO PRN (14:14)
--- NOTE | 2017-04-23 16:42 | CT ---
CT NECK WITH CONTRAST: 04/23/17 HISTORY: 81-year-old female with right sided neck mass. FINDINGS: The entire right parotid gland is enlarged, has diffusely increased enhancement, and contains fat str anding consistent with edema. This fat stranding spills over into adjacent spaces, including right pa rapharyngeal space and right submandibular space. No sialolith is identified with the parotid glands or submandibular glands, or in the proximal portion of the right Stensen's duct. The distal portion o f the Stensen's duct is obscured by streak artifact from dental amalgam. There is no evidence of duct al ectasia of the Navjot's ducts or Stensen's ducts, or within the glands themselves. There is also edema asymmetrically involving the right side of the larynx, more specifically soft tis florence thickening of the right aryepiglottic fold. There is probably also mild edema involving the contr alateral aryepiglottic fold to a lesser degree, because the bilateral piriform sinuses are completely effaced. The true vocal cords are probably normal in thickness. The epiglottis is normal in thicknes s. The vallecula and pre-epiglottic space are clear. There is no abscess involving the retropharyngea l space. Heavy atherosclerotic calcification of bilateral proximal internal carotid arteries. There i s no significant cervical lymphadenopathy. The bilateral submandibular glands, left parotid gland, le ft parapharyngeal space, bilateral territory sales consultant spaces, perivertebral space, and posterior cervical spa ce, are normal. There are bilateral pleural effusions. IMPRESSION: 1. Acute right parotitis (sialadenitis of right parotid gland). 2. Bilateral pleural effusions. 3. Asymmetrically swelling of the right side of the larynx, more specifically the right aryepigl ottic fold, of unknown etiology. The appearance is that of asymmetric edema, but direct visualization is recommended to rule out neoplasm. 4. 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 5. Bilateral pleural effusions. POS: [facility]
[2017-04-23] MEDS ORDERED: ISOVUE-370 76%-LOCM 1 ML ONE (17:39)
[2017-04-23] MEDS: Latanoprost 0.005% Ophth Soln 2.5 ml Bottle EA EYE SCH (20:25)
[2017-04-23] MEDS: Divalproex Sodium DR 500 MG TAB PO SCH (20:25)
[2017-04-23] MEDS: Atorvastatin Calcium 10 MG TAB PO SCH (20:25)
[2017-04-24] MEDS: Vancomycin HCl 750 MG in Sodium Chloride 0.9% 250 ML 250 ML IVPB SCH ×2 (01:35→14:18)
[2017-04-24] MEDS: Dextrose 5% w/ 20 mEq KCl 1,000 ML IV SCH ×2 (01:35→16:32)
[2017-04-24] MEDS: Levothyroxine Sodium 112 MCG TAB PO SCH (04:29)
[2017-04-24] MEDS: Levothyroxine Sodium 25 MCG TAB PO SCH (04:29)
[2017-04-24] MEDS: Acetaminophen 325 MG TAB PO PRN (04:29)
[2017-04-24 05:52] LABS: Anion Gap 11 mmol/L (10-20); BUN (Urea Nitrogen) 12 mg/dL (9.8-20.1); Calc. Creatinine Clearance 80 mL/min (70-130); Calcium 8.3 mg/dL (7.8-10.44); Carbon Dioxide 23 mmol/L (23-31); Chloride 101 mmol/L (98-107); Estimated GFR-MDRD 63
[2017-04-24 06:46] LABS: Band 2 % (5-11); Macrocytosis SLIGHT = 6-15 cells (100X) (0-5/hpf); Mean Platelet Volume 6.8 fL (7.4-10.4); Metamyelocyte 2 % (0-0); Neutrophil 72 % (42-75); Red Blood Cell (RBC) Count 3.63 mill/uL (4.20-5.40); White Blood Cell (WBC) Count 14.1 thou/uL (4.8-10.8)
[2017-04-24] MEDS: Bupropion 150 MG SR TAB PO SCH (09:11)
[2017-04-24] MEDS: Gabapentin 300 MG CAP PO SCH ×3 (09:11→20:21)
[2017-04-24] MEDS: Ascorbic Acid 500 mg Chewable Tablet PO SCH ×2 (09:11→20:21)
[2017-04-24] MEDS: Lisinopril 20 MG TAB PO SCH (09:11)
[2017-04-24] MEDS: Multivit, Therapeutic 1 TAB PO SCH (09:12)
[2017-04-24] MEDS: Aspirin 81 mg Enteric Coated Tablet PO SCH (09:12)
[2017-04-24] MEDS: Lactinex Tablet PO SCH ×2 (09:12→20:20)
[2017-04-24] MEDS: Amlodipine 10 MG TAB PO SCH (09:13)
[2017-04-24] MEDS: Docusate 100 MG CAP PO SCH ×2 (09:14→20:20)
[2017-04-24] MEDS: Heparin 5,000 UNITS/ML VIAL SC SCH ×2 (09:14→20:20)
--- NOTE | 2017-04-24 12:25 | PDOC.PN ---
- Subjective Encounter Start Date: 04/24/17 Encounter Start Time: 12:24 Ms. Guaman was seen today in follow-up of MRSA bacteremia. She is much more alert today. She was able to answer my questions appropriately. She notes some pain on the ride side of her face, and some trouble swallowing, otherwise no complaints. - Objective MAR Reviewed: Yes Vital Signs & Weight: Vital Signs (12 hours) Temp Pulse Resp BP BP Pulse Ox 04/24/17 11:41 98.5 F 53 L 18 150/72 H 97 04/24/17 09:13 74 04/24/17 09:11 170/62 H 04/24/17 08:11 98.5 F 53 L 18 97 04/24/17 07:22 97.8 F 53 L 18 170/72 H 92 L 04/24/17 04:27 97.9 F 50 L 20 151/70 H 93 L 04/24/17 01:27 97.7 F 49 L 20 126/67 93 L Weight Admit Weight 212 lb 14.4 oz Weight 217 lb 3.2 oz I&O: 04/23/17 04/24/17 04/25/17 06:59 06:59 06:59 Intake Total 1425 4240 Output Total 1000 3350 Balance 425 890 Result Diagrams: 04/24/17 05:08 04/24/17 05:08 Additional Labs: Accuchecks 04/24/17 04/23/17 04/23/17 05:34 21:53 15:36 POC Glucose 103 132 H 109 04/21/17 15:19 POC Glucose 137 H Phys Exam - Physical Examination HEENT: PERRLA + firm parotid swelling on the right Respiratory: no wheezing, no rales, no rhonchi, clear to auscultation bilateral Cardiovascular: RRR, no significant murmur Gastrointestinal: soft, non-tender, positive bowel sounds Musculoskeletal: no edema Dx/Plan (1) Altered mental state Code(s): R41.82 - ALTERED MENTAL STATUS, UNSPECIFIED Status: Acute (2) MRSA bacteremia Code(s): R78.81 - BACTEREMIA Status: Acute (3) CKD (chronic kidney disease) stage 3, GFR 30-59 ml/min Code(s): N18.3 - CHRONIC KIDNEY DISEASE, STAGE 3 (MODERATE) Status: Chronic (4) HTN (hypertension) Code(s): I10 - ESSENTIAL (PRIMARY) HYPERTENSION Status: Chronic Qualifiers: Hypertension type: essential hypertension Qualified Code(s): I10 - Essential (primary) hypertension (5) Morbid obesity Code(s): E66.01 - MORBID (SEVERE) OBESITY DUE TO EXCESS CALORIES Status: Chronic (6) Bipolar disorder Code(s): F31.9 - BIPOLAR DISORDER, UNSPECIFIED Status: Acute - Plan * MRSA Bacteremia- continue IV Vancomycin * Plan is for PICC line placement tomorrow * Right facial swelling- CT scan results were notes- it is felt to be consistent with parotid glad stone, but no stone was noted on CT scan- will try to relieve the swelling, conservatively, with warm compress, and lemon drops to stimulate salivary glands, if this is not successful then ENT consultation. * HTN- blood pressure is slightly improved
[2017-04-24] MEDS: Propranolol HCl 20 MG TAB PO SCH ×2 (14:15→20:20)
--- NOTE | 2017-04-24 15:54 | PRG ---
DATE OF SERVICE: 04/24/2017 SUBJECTIVE: Ms. Guaman is more alert and awake. She has tenderness in the right parotid region and swelling and induration. The patient had imaging studies discussed below showing evidence of parotit is. OBJECTIVE: Vital signs are essentially normal, slight elevation in systolic blood pressure. More aw susanne and alert, tries to follow commands. There is swelling of the right parotid with tenderness, but no erythema. Symmetric air entry without crackles. S1, S2, regular rate. Abdomen is soft. LABORATORY DATA: White cell count down to 14,000. Chemistry: Creatinine 0.87. Microbiology with M RSA bacteremia. A 2/2 sets of blood cultures, repeat sets from 04/23/2017 negative. ASSESSMENT AND DISCUSSION: Neurological impairment, bedridden state, possible Parkinson's disease, c hange in mental status, right shoulder pain, neutrophilia, methicillin-resistant Staphylococcus aureu s bacteremia. Now evidence of parotitis. Soft tissue of the neck CT showed acute right parotitis, a symmetric swelling right side of the larynx, right aryepiglottic fold. The patient to continue on IV vancomycin. Usually, those processes require at least 4 weeks of treat ment for resolution. We will go ahead and write for PICC line placement. Eventually, maybe transiti oned back to the [facility], continuation of treatment.
--- NOTE | 2017-04-24 16:53 | CON ---
DATE OF CONSULTATION: 04/23/2017 REASON FOR CONSULTATION: Possible dental abscess. HISTORY OF PRESENT ILLNESS: This is an 81-year-old female, who was brought into the hospital from a [place] [facility] facility. She has a history of hypertension, dyslipidemia, renal insufficiency, bipolar disorder, and severe neurologic impairment. She was transferred over for mental status and admitted for sepsis workup for white count 30,000. Initial work ups showed no elevated blood pressure, incre ased white count. The patient had complained of pain in her arm and recently has complained of pain to her right face. For this right facial pain, I was consulted. Currently, she is in her bed, arous able, but only answer a few questions, she does know her name, does not know the date or what the [place] it is or where exactly she is. She did say she does have some right facial pain, but unable to go into much detail about when that started exact location of it and other symptoms or other things asso ciated with review of symptoms. PAST MEDICAL HISTORY: Hypertension, dyslipidemia, bipolar, GERD, chronic renal insufficiency neurol ogic impairment, possibly due to previous stroke or other neurologic disease. PAST SURGICAL HISTORY: Obtained from previous H&P, tonsillectomy, left knee replacement, foot debrid ement. SOCIAL HISTORY: She is a [place] [facility] resident. FAMILY HISTORY: Not able to obtain. CURRENT MEDICINES: She is on multiple medications but of note, vancomycin per Infectious Disease, Dr Evelyne Blaek. CURRENT VITAL SIGNS: As of 04/24/2017 at 10:00 a.m., the patient's vital signs have been stable. [place] is afebrile over the last 24 hours. Her temperature currently is 97.8, pulse is 53, oxygen saturat ion is 92 on room air, and blood pressure is 170/72. LABORATORY DATA: Current white count 14.1 down from 15 yesterday, down from 19 the day before, and d own from 30 three days prior. PHYSICAL EXAMINATION: GENERAL: The patient is awake. She is slightly alert, bit drowsy. Not oriented to place or time. HEENT: Skin, I do not see any areas of breakdown in her face and neck. However, her pupils are equa l, round, and reactive to light and accommodation. Oral cavity appears within normal limits; however , there is a slight ulceration along the right Stensen's duct area in her mouth. Her oral opening is good. Her oropharynx is clear and patent. I see no masses in her oral cavity, unable to drain flui d from Stensen's ducts bilaterally. [place]'s duct patent bilaterally. On palpation, the right paro tid gland is very firm, this extended down into the right neck and retromandibular area. I did not f eel any fluctuance. Roundup me, there is no erythema over this area. She does complain of some ten derness to deep palpation of this area. Cranial nerves are unable to really assessed due to patient' s mental status. A CT scan of the neck shows a large right parotid gland with diffuse enhancement and fat stranding wi th edema. ASSESSMENT: The patient has acute right-sided parotitis. I see no drainable fluid collection at thi s time. The patient appears to be getting better with IV antibiotic therapy as well as IV fluids sup port. PLAN: I will continue current plan of IV antibiotics per Infectious Disease, Dr. Blake, for acute ri ght parotid sialadenitis, warm compress to right parotid gland as much as possible and encourage p.o. intake as well as IV fluids as needed. We will continue to follow.
[2017-04-24] MEDS: Latanoprost 0.005% Ophth Soln 2.5 ml Bottle EA EYE SCH (20:20)
[2017-04-24] MEDS: Atorvastatin Calcium 10 MG TAB PO SCH (20:21)
[2017-04-24] MEDS: Divalproex Sodium DR 500 MG TAB PO SCH (20:21)
[2017-04-25 01:42] LABS: Vancomycin, Trough 32.4 ug/mL
[2017-04-25] MEDS: Vancomycin HCl 750 MG in Sodium Chloride 0.9% 250 ML 250 ML IVPB SCH (03:11)
[2017-04-25] MEDS: Dextrose 5% w/ 20 mEq KCl 1,000 ML IV SCH (05:12)
[2017-04-25] MEDS: Levothyroxine Sodium 25 MCG TAB PO SCH (05:12)
[2017-04-25] MEDS: Levothyroxine Sodium 112 MCG TAB PO SCH (05:12)
[2017-04-25 06:01] LABS: Anion Gap 12 mmol/L (10-20); BUN (Urea Nitrogen) 10 mg/dL (9.8-20.1); Calc. Creatinine Clearance 75 mL/min (70-130); Calcium 8.8 mg/dL (7.8-10.44); Carbon Dioxide 23 mmol/L (23-31); Chloride 101 mmol/L (98-107); Estimated GFR-MDRD 57
[2017-04-25 06:06] LABS: Band 2 % (5-11); Hematocrit 35.1 % (36.0-47.0); Mean Platelet Volume 6.9 fL (7.4-10.4); Metamyelocyte 1 % (0-0); Myelocyte 1 % (0-0); Neutrophil 79 % (42-75); Red Blood Cell (RBC) Count 3.57 mill/uL (4.20-5.40); White Blood Cell (WBC) Count 15.5 thou/uL (4.8-10.8)
[2017-04-25] MEDS: Aspirin 81 mg Enteric Coated Tablet PO SCH (10:24)
[2017-04-25] MEDS: Gabapentin 300 MG CAP PO SCH ×3 (10:24→20:47)
[2017-04-25] MEDS: Docusate 100 MG CAP PO SCH ×2 (10:24→20:47)
[2017-04-25] MEDS: Ascorbic Acid 500 mg Chewable Tablet PO SCH ×2 (10:30→20:47)
[2017-04-25] MEDS: Bupropion 150 MG SR TAB PO SCH (10:30)
[2017-04-25] MEDS: Heparin 5,000 UNITS/ML VIAL SC SCH ×2 (10:30→20:47)
[2017-04-25] MEDS: Amlodipine 10 MG TAB PO SCH (10:30)
[2017-04-25] MEDS: Multivit, Therapeutic 1 TAB PO SCH (10:31)
[2017-04-25] MEDS: Lisinopril 20 MG TAB PO SCH (10:31)
[2017-04-25] MEDS: Lactinex Tablet PO SCH ×2 (10:44→20:46)
[2017-04-25] MEDS: Propranolol HCl 20 MG TAB PO SCH ×2 (10:44→22:45)
--- NOTE | 2017-04-25 11:29 | PDOC.PN ---
- Subjective Encounter Start Date: 04/25/17 Encounter Start Time: 11:27 Ms. Guaman was seen today in follow-up of MRSA bacteremia. She is complaining of some pain under her tongue on the left side. she feels the swelling on her right parotid has improved some. - Objective MAR Reviewed: Yes Vital Signs & Weight: Vital Signs (12 hours) Temp Pulse Resp BP BP Pulse Ox 04/25/17 10:31 140/65 04/25/17 10:30 56 L 04/25/17 07:55 98.3 F 56 L 20 140/65 93 L 04/25/17 04:00 98 F 53 L 18 136/63 93 L 04/24/17 23:56 98.2 F 54 L 20 136/63 95 Weight Admit Weight 212 lb 14.4 oz Weight 218 lb 1.6 oz I&O: 04/24/17 04/25/17 04/26/17 06:59 06:59 06:59 Intake Total 4240 2167 Output Total 3350 Balance 890 2167 Result Diagrams: 04/25/17 05:24 04/25/17 05:23 Additional Labs: Accuchecks 04/25/17 04/25/17 04/24/17 06:04 00:29 18:24 POC Glucose 122 H 109 109 04/24/17 12:29 POC Glucose 104 Phys Exam - Physical Examination HEENT: PERRLA small oral ulcer on the left tongue +right parotid swelling, slightly less firm Respiratory: no wheezing, no rales, no rhonchi, clear to auscultation bilateral Cardiovascular: RRR, no significant murmur, no rub Gastrointestinal: soft, non-tender, positive bowel sounds Musculoskeletal: no edema Dx/Plan (1) Altered mental state Code(s): R41.82 - ALTERED MENTAL STATUS, UNSPECIFIED Status: Acute (2) MRSA bacteremia Code(s): R78.81 - BACTEREMIA Status: Acute (3) CKD (chronic kidney disease) stage 3, GFR 30-59 ml/min Code(s): N18.3 - CHRONIC KIDNEY DISEASE, STAGE 3 (MODERATE) Status: Chronic (4) HTN (hypertension) Code(s): I10 - ESSENTIAL (PRIMARY) HYPERTENSION Status: Chronic Qualifiers: Hypertension type: essential hypertension Qualified Code(s): I10 - Essential (primary) hypertension (5) Morbid obesity Code(s): E66.01 - MORBID (SEVERE) OBESITY DUE TO EXCESS CALORIES Status: Chronic (6) Bipolar disorder Code(s): F31.9 - BIPOLAR DISORDER, UNSPECIFIED Status: Acute (7) Acute parotitis Code(s): K11.21 - ACUTE SIALOADENITIS Status: Acute (8) Hyponatremia Code(s): E87.1 - HYPO-OSMOLALITY AND HYPONATREMIA Status: Acute - Plan * MRSA Bacteremia- Continue Vancomycin IV. she has had the PICC line placed * Parotitis- continue conservative management. * HTN- blood pressure is stable * DM- blood glucose is stable * Mild Hyponatremia- will discontinue hypotonic fluids * Discharge planning is in progress
--- NOTE | 2017-04-25 13:35 | SPC ---
PICC PLACEMENT ULTRASOUND GUIDED VENOUS ACCESS: (Peripherally Inserted Central Catheter) HISTORY: An 81-year-old female requiring long-term IV antibiotics for right parotitis. TECHNIQUE: Catheter caliber: 5 Barbadian. Catheter trim length: 44 cm. Catheter lumen number: single. Catheter tip location: superior vena cava/right atrial junction. Vein accessed: left basilic. Signed, informed consent was obtained. A tourniquet was applied at the proximal aspect of the arm. The arm was prepared and draped in the usual sterile fashion. A 25 gauge needle was used to apply bu ffered lidocaine superficially. The vein was punctured with a 21 gauge micropuncture needle under ul trasound guidance. A 0.018 inch guide wire was advanced through the micropuncture needle and into th e vein. Under fluoroscopic guidance, the guide wire was advanced to the right atrium. The PICC (per ipherally inserted central catheter) was flushed and trimmed to the appropriate length. The skin pun cture hole was widened with a blade. The micropuncture needle was exchanged over the guide wire for a 5 Barbadian peel-away dilator sheath. The dilator was exchanged over the guide wire for the PICC, whi ch was then further advanced under fluoroscopy. The sheath and guide wire were removed. The PICC wa s flushed again and secured in place at the arm. The patient tolerated the procedure well. There wa s no complication. IMPRESSION: Successful placement of PICC (peripherally inserted central catheter) magdalena [] POS: [facility]
[2017-04-25] MEDS: Acetaminophen 325 MG TAB PO PRN (15:21)
[2017-04-25] MEDS: Divalproex Sodium DR 500 MG TAB PO SCH (20:46)
[2017-04-25] MEDS: Atorvastatin Calcium 10 MG TAB PO SCH (20:47)
[2017-04-25] MEDS: Latanoprost 0.005% Ophth Soln 2.5 ml Bottle EA EYE SCH (22:44)
[2017-04-26 01:18] LABS: Vancomycin, Random 19.4 ug/mL (See Comment)
[2017-04-26] MEDS ORDERED: Vancomycin HCl 1 GM in Premix Bag 1 BAG IVPB SCH (02:00)
[2017-04-26] MEDS: Levothyroxine Sodium 112 MCG TAB PO SCH (05:15)
[2017-04-26] MEDS: Levothyroxine Sodium 25 MCG TAB PO SCH (05:15)
[2017-04-26 05:48] LABS: Anion Gap 11 mmol/L (10-20); BUN (Urea Nitrogen) 8 mg/dL (9.8-20.1); Calc. Creatinine Clearance 82 mL/min (70-130); Carbon Dioxide 25 mmol/L (23-31); Chloride 102 mmol/L (98-107); Estimated GFR-MDRD 63
[2017-04-26 06:24] LABS: Band 4 % (5-11); Hematocrit 34.7 % (36.0-47.0); Macrocytosis SLIGHT = 6-15 cells (100X) (0-5/hpf); Mean Platelet Volume 7.7 fL (7.4-10.4); Neutrophil 68 % (42-75); Red Blood Cell (RBC) Count 3.49 mill/uL (4.20-5.40)
--- NOTE | 2017-04-26 09:14 | PDOC.PN ---
- Subjective Encounter Start Date: 04/26/17 Encounter Start Time: 09:12 Ms. Guaman was seen today in follow-up of MRSA Bacteremia. She says she is feeling better each day. She does not have any new complaints. - Objective MAR Reviewed: Yes Vital Signs & Weight: Vital Signs (12 hours) Temp Pulse Resp BP BP Pulse Ox 04/26/17 08:05 98 F 55 L 18 04/26/17 07:58 98 F 55 L 18 138/62 95 04/26/17 03:42 98.6 F 53 L 18 157/88 H 96 Weight Admit Weight 212 lb 14.4 oz Weight 219 lb 11.2 oz I&O: 04/25/17 04/26/17 04/27/17 06:59 06:59 06:59 Intake Total 2167 3430 Balance 2167 3430 Result Diagrams: 04/26/17 04:56 04/26/17 04:56 Additional Labs: Accuchecks 04/26/17 04/26/17 04/25/17 05:17 00:08 17:57 POC Glucose 110 105 140 H 04/25/17 11:42 POC Glucose 126 H Phys Exam - Physical Examination HEENT: PERRLA parotid swelling has diminished some Respiratory: no wheezing, no rales, no rhonchi, clear to auscultation bilateral Cardiovascular: RRR, no significant murmur Gastrointestinal: soft, non-tender, positive bowel sounds Musculoskeletal: no edema Dx/Plan (1) Altered mental state Code(s): R41.82 - ALTERED MENTAL STATUS, UNSPECIFIED Status: Resolved (2) MRSA bacteremia Code(s): R78.81 - BACTEREMIA Status: Acute (3) CKD (chronic kidney disease) stage 3, GFR 30-59 ml/min Code(s): N18.3 - CHRONIC KIDNEY DISEASE, STAGE 3 (MODERATE) Status: Chronic (4) HTN (hypertension) Code(s): I10 - ESSENTIAL (PRIMARY) HYPERTENSION Status: Chronic Qualifiers: Hypertension type: essential hypertension Qualified Code(s): I10 - Essential (primary) hypertension (5) Morbid obesity Code(s): E66.01 - MORBID (SEVERE) OBESITY DUE TO EXCESS CALORIES Status: Chronic (6) Bipolar disorder Code(s): F31.9 - BIPOLAR DISORDER, UNSPECIFIED Status: Acute (7) Acute parotitis Code(s): K11.21 - ACUTE SIALOADENITIS Status: Acute (8) Hyponatremia Code(s): E87.1 - HYPO-OSMOLALITY AND HYPONATREMIA Status: Acute - Plan * MRSA Bacteremia continue IV Vancomycin * Parotitis- continue conservative measures * Metabolic Encephalopathy- resolved * HTN- blood pressure is stable * Awaiting return to [place] on IV Vancomycin.
[2017-04-26] MEDS: Multivit, Therapeutic 1 TAB PO SCH (09:59)
[2017-04-26] MEDS: Lisinopril 20 MG TAB PO SCH (09:59)
[2017-04-26] MEDS: Aspirin 81 mg Enteric Coated Tablet PO SCH (09:59)
[2017-04-26] MEDS: Gabapentin 300 MG CAP PO SCH ×2 (09:59→16:12)
[2017-04-26] MEDS: Lactinex Tablet PO SCH (09:59)
[2017-04-26] MEDS: Propranolol HCl 20 MG TAB PO SCH (09:59)
[2017-04-26] MEDS: Bupropion 150 MG SR TAB PO SCH (10:00)
[2017-04-26] MEDS: Ascorbic Acid 500 mg Chewable Tablet PO SCH (10:00)
[2017-04-26] MEDS: Heparin 5,000 UNITS/ML VIAL SC SCH (10:00)
[2017-04-26] MEDS: Amlodipine 10 MG TAB PO SCH (10:00)
[2017-04-26] MEDS: Docusate 100 MG CAP PO SCH (10:00)
--- NOTE | 2017-04-26 11:11 | DIS ---
DATE OF ADMISSION: 04/19/2017 DATE OF DISCHARGE: 04/26/2017 PRIMARY CARE PHYSICIAN: Alcira Hatch D.O. DISCHARGE DIAGNOSES: 1. Methicillin-resistant Staphylococcus aureus sepsis. 2. Metabolic encephalopathy secondary to #1. 3. Parotitis. 4. Bipolar disorder. 5. Gastroesophageal reflux disease. 6. Chronic kidney disease, stage 3. 7. History of depression and anxiety. DISCHARGE MEDICATIONS: The patient will be placed on IV vancomycin until 06/03/2016. She was taken off of propranolol due to low heart rate or bradycardia as well as some mild hypotension. She is to continue tramadol 50 mg t.i.d., Pravachol 40 mg daily, polyethylene glycol 17 grams q.12 hours, Mary Grace nix 40 mg daily, multivitamin once daily, Imodium 2 mg as directed, lisinopril 40 mg daily, levothyro xine 137 mcg daily, Xalatan eye drops in each eye at bedtime, Bryson 10/325 q.6 hours as needed, hydra lazine 25 mg t.i.d., heparin 5000 units subcu twice a day, Neurontin 600 mg t.i.d., Lasix 40 mg daily , Cymbalta 60 mg daily, Colace 100 mg twice daily, Depakote 500 mg at bedtime, Catapres patch every d ay, Wellbutrin 150 mg daily, Tessalon 100 mg q.4 hours, Astelin nasal spray daily, aspirin 81 mg a da y, vitamin C 500 mg twice daily, amlodipine 10 mg daily, Tylenol 1000 mg q.6 hours. PROCEDURES DONE DURING ADMISSION: The patient had an echocardiogram. The ejection fraction was geraldine mated at 60%-65%. There was some E/A flow reversal noted suggestive of diastolic dysfunction. There were no vegetations noted. 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 The patient had a soft tissue CT of the neck, showed evidence of acute right parotitis. There was no evidence of any parotid stone . There was some asymmetric swelling of the right side of the larynx. ALLERGIES: MORPHINE and SULFA. HOSPITAL COURSE: Ms. Guaman is a pleasant 81-year-old female, who was sent over from the [facility] due to altered mental status. She was found to have MRSA bacteremia, started on IV vancomycin. e exact source of the MRSA is unknown. There was no evidence of any endocarditis by echo and she was seen by Infectious Disease and it was recommended that she be placed on IV vancomycin for a minimum of 4 weeks. During her hospital stay, she noticed some swelling of the right side of her face. This was determined to be a parotitis, likely noninfectious. I suspect she may have had a parotid stone. This is being treated conservatively with warm compresses and lemon glycerin swabs p.r.n. It did s eem to have some improvement during her hospital stay. Once the IV antibiotics have been arranged fo r her to go back to [facility], she will be discharged home.
[2017-04-26 15:46] VITALS: BP 176/74; TEMP 98.7
== END 2017-04-26 19:58 | DRG 871 ==
LOC: ERS 11:07 → 2NO 15:08 → 2SE 04-21 16:34
PROVIDERS: ADMIT Internal Medicine; ATTEND Internal Medicine
PROC: 02HV33Z Insertion of Infusion Device into Superior Vena Cava, Percutaneous Approach (ICD-10-PCS; principal; 2017-04-25)
PROC: B5181ZA Fluoroscopy of Superior Vena Cava using Low Osmolar Contrast, Guidance (ICD-10-PCS; 2017-04-25)
DX: A41.02 Sepsis due to Methicillin resistant Staphylococcus aureus (principal); G93.41 Metabolic encephalopathy; N17.9 Acute kidney failure, unspecified; E87.1 Hypo-osmolality and hyponatremia; Z68.41 Body mass index [BMI] 40.0-44.9, adult; G20 Parkinson's disease; N18.3 Chronic kidney disease, stage 3 (moderate); E66.01 Morbid (severe) obesity due to excess calories; I12.9 Hypertensive chronic kidney disease with stage 1 through stage 4 chronic kidney disease, or unspecified chronic kidney disease; E03.9 Hypothyroidism, unspecified; F32.9 Major depressive disorder, single episode, unspecified; F41.9 Anxiety disorder, unspecified; E78.5 Hyperlipidemia, unspecified; F31.9 Bipolar disorder, unspecified; K21.9 Gastro-esophageal reflux disease without esophagitis; Z96.652 Presence of left artificial knee joint; Z88.5 Allergy status to narcotic agent; Z88.2 Allergy status to sulfonamides; I16.0 Hypertensive urgency; Z74.01 Bed confinement status; M25.511 Pain in right shoulder; R65.20 Severe sepsis without septic shock; Z79.82 Long term (current) use of aspirin; K11.21 Acute sialoadenitis; E87.6 Hypokalemia
CPT/HCPCS: 36415; 36416; 36569; 51701; 70450; 70491; 70551; 71010; 80048; 80053; 80202; 81003; 81015; 82550; 82553; 83605; 83690; 83735; 83880; 84484; 85025; 85610; 85730; 87040; 87077; 87086; 87149; 87186; 93005; 93306; 94760; 96360; 96361; 96365; 96367; A4216; A4353; C1751; G8978-GP-CN; G8979-GP-CM; G8987-GO-CM; G8988-GO-CK; G8996-GN-CK; G8996-GN-CN; G8997-GN-CJ; G8997-GN-CN; J0360; J1644; J2543; J3370; J3480; J7050; S0028

== ENCOUNTER 2017-05-08 00:13 | Inpatient (IN) | payer MEDICARE, MEDICAID ==
[2017-05-08 01:12] LABS: #Eosinphils 0.3 thou/uL (0.0-0.7); #Lymphocytes 1.2 thou/uL (1.20-3.40); #Monocytes 1.1 thou/uL (0.11-0.59); #Neutrophils 5.8 thou/uL (1.40-6.50); %Basophils 0.5 % (0.0-1.0); %Eosinophils 3.5 % (0.0-10.0); %Lymphocytes 13.8 % (21.0-51.0); %Monocytes 12.6 % (0.0-10.0); %Neutrophils 69.6 % (42.0-75.0); Hemoglobin 11.1 g/dL (12.0-16.0); Mean Corpuscular HGB CONC 31.9 g/dL (32.0-36.0); Mean Corpuscular Hemoglobin 32.2 pg (27.0-31.0); Mean Platelet Volume 7.1 fL (7.4-10.4); Platelet Count 206 thou/uL (130-400); RBC Distribution Width 13.4 % (11.5-14.5); Red Blood Cell (RBC) Count 3.43 mill/uL (4.20-5.40); White Blood Cell (WBC) Count 8.4 thou/uL (4.8-10.8)
[2017-05-08 01:28] LABS: Bilirubin Negative (Negative); Blood, Urine Negative (Negative); Clarity CLEAR (Clear); Glucose, Urine (Dipstick) Negative (Negative); Leukocyte Negative (Negative); Nitrite Negative (Negative); Protein, Urine (Dipstick) Negative (Neg-Trace); Specific Gravity, Urine 1.018 (1.002-1.036); Urobilinogen 0.2 mg/dL (0.2-1.0); pH, Urine 5.5 (5.0-9.0)
[2017-05-08 01:36] LABS: Vancomycin, Random 26.6 ug/mL (See Comment)
[2017-05-08 01:40] LABS: ALT (SGPT) 7 U/L (8-55); AST (SGOT) 15 U/L (5-34); Albumin 2.6 g/dL (3.4-4.8); Alkaline Phosphatase 98 U/L (40-150); Anion Gap 13 mmol/L (10-20); BUN (Urea Nitrogen) 11 mg/dL (9.8-20.1); Bilirubin, Total 0.2 mg/dL (0.2-1.2); Calc. Creatinine Clearance 0 mL/min (70-130); Calcium 9.5 mg/dL (7.8-10.44); Carbon Dioxide 25 mmol/L (23-31); Chloride 100 mmol/L (98-107); Estimated GFR-MDRD 59; Globulin 2.8 g/dL (2.4-3.5); Glucose 82 mg/dL (83-110); Potassium 4.2 mmol/L (3.5-5.1); Protein, Total 5.4 g/dL (6.0-8.3); Sodium 134 mmol/L (136-145)
[2017-05-08] MEDS ORDERED: Acetaminophen 650 MG Suppository ONE (02:36)
[2017-05-08] MEDS ORDERED: Ondansetron HCl/PF 4 MG/2 ML Vial IVP PRN ×2 (04:29→05:29)
[2017-05-08] MEDS ORDERED: Sodium Chloride 0.9% 1,000 ML IV SCH (04:29)
[2017-05-08] MEDS ORDERED: Ondansetron ODT 4 MG TAB SL PRN (04:29)
[2017-05-08] MEDS ORDERED: Acetaminophen 650 MG Suppository PR PRN (04:30)
[2017-05-08] MEDS: Vancomycin HCl 1 GM in Premix Bag 1 BAG IVPB SCH ×2 (05:52→08:07)
[2017-05-08] MEDS: Levothyroxine Sodium 25 MCG TAB PO SCH (05:52)
[2017-05-08] MEDS: Levothyroxine Sodium 112 MCG TAB PO SCH (05:52)
[2017-05-08 06:53] LABS: #Eosinphils 0.2 thou/uL (0.0-0.7); #Monocytes 0.9 thou/uL (0.11-0.59); #Neutrophils 4.1 thou/uL (1.40-6.50); %Basophils 0.6 % (0.0-1.0); %Eosinophils 2.6 % (0.0-10.0); %Lymphocytes 16.6 % (21.0-51.0); %Monocytes 14.7 % (0.0-10.0); %Neutrophils 65.4 % (42.0-75.0); Hemoglobin 10.7 g/dL (12.0-16.0); Mean Corpuscular HGB CONC 32.2 g/dL (32.0-36.0); Mean Corpuscular Hemoglobin 32.6 pg (27.0-31.0); Mean Platelet Volume 7.6 fL (7.4-10.4); Platelet Count 137 thou/uL (130-400); RBC Distribution Width 13.2 % (11.5-14.5); Red Blood Cell (RBC) Count 3.27 mill/uL (4.20-5.40); White Blood Cell (WBC) Count 6.2 thou/uL (4.8-10.8)
[2017-05-08 07:09] LABS: Vancomycin, Random 23.6 ug/mL (See Comment)
[2017-05-08 07:10] LABS: Anion Gap 14 mmol/L (10-20); BUN (Urea Nitrogen) 12 mg/dL (9.8-20.1); Calc. Creatinine Clearance 82 mL/min (70-130); Calcium 9.4 mg/dL (7.8-10.44); Carbon Dioxide 25 mmol/L (23-31); Chloride 101 mmol/L (98-107); Estimated GFR-MDRD 61; Glucose 81 mg/dL (83-110); Potassium 4.2 mmol/L (3.5-5.1); Sodium 136 mmol/L (136-145)
--- NOTE | 2017-05-08 08:22 | RAD ---
PORTABLE CHEST 1 VIEW: DATE: 05/08/17. TIME: 12:42 a.m. HISTORY: Fever, hypoxia, unresponsive, sepsis. FINDINGS: Comparison is made with the exam of 04/19/17. The heart size is normal. No focal areas of consolida tion, pneumothorax, or pleural effusions are seen. There are degenerative changes in the shoulder beatriz ints. IMPRESSION: No acute process. POS: [facility]
--- NOTE | 2017-05-08 08:58 | HP ---
DATE OF ADMISSION: 05/08/2017 PRIMARY CARE PHYSICIAN: Dr. Hatch. CHIEF COMPLAINT: Altered mental status. HISTORY OF PRESENT ILLNESS: Ms. Guaman is an 81-year-old female well known to our service from multi ple previous admissions. She was most recently admitted from 04/19/2017-04/26/2017 for altered menta l status. During the stay, she was found to have MRSA bacteremia, parotitis and possibly retained pa rotid stone. She was sent to [facility] with a PICC line in place to g et a minimum 4 weeks of IV antibiotics. She left from there on 04/26/2017. The patient was noted to have a decreased mental status on 05/07. Evaluation showed her to be sattin g in the 80s on room air. She had a temperature of 100.8. EMS was activated and brought her to the emergency department, on route she got DuoNeb and was able to sat 100% on room air without difficulty . It is unclear what her mental status was doing, currently she is unable to give me any history. S he is lying there without opening eyes, barely attempts to answer questions. On arrival to our ER, her PICC line was longterm pulled out. The ER went ahead and removed it and david eddie a peripheral line into a chest vein. Lab showed a random vancomycin level around 26. White bloo d cell count was normal, albumin slightly low at 2.6 and chemistries looked good. Because of the 100 .8 fever, and altered mental status, we are called for admission. The patient is again unable to give any further history at this time. PAST MEDICAL HISTORY: 1. Hypertension. 2. Hyperlipidemia. 3. Bipolar disorder. 4. GERD. 5. Chronic kidney disease 3. 6. Depression/anxiety. 7. Recent MRSA bacteremia. 8. Recent parotitis. PAST SURGICAL HISTORY: 1. Tonsillectomy, remotely. 2. Left total knee replacement. 3. Foot surgery. HOME MEDICATIONS: Per discharge list: 1. Protonix 40 mg p.o. daily. 2. Lumigan drops 1 drop in both eyes daily. 3. Docusate 100 mg p.o. b.i.d. 4. Bupropion SR 150 mg p.o. daily. 5. Dymista 1 puff nasally daily. 6. Pravastatin 40 mg p.o. at bedtime. 7. Multivitamin daily. 8. Lisinopril 40 mg daily. 9. Duloxetine 60 mg daily. 10. Levothyroxine 137 mcg daily. 11. Neurontin 600 mg p.o. t.i.d. 12. Depakote ER 500 mg p.o. at bedtime. 13. Amlodipine 10 mg daily. ALLERGIES: SULFA and MORPHINE. FAMILY HISTORY: Negative for "heart problems" per prior notes. SOCIAL HISTORY: Negative x3. She is currently at [facility]. REVIEW OF SYSTEMS: A 10-point review of systems was attempted, patient is not able to wake up enough to give me any answers. PHYSICAL EXAMINATION: VITAL SIGNS: Temperature 98.8, pulse 91, blood pressure 127/78, respiratory rate 16, satting 93% on 2 liters nasal cannula. Mouth breathing. GENERAL: She is sedate. She responds to verbal stimuli. She barely opens her eyes, but is unaware where she is and she is unable to give any information. HEENT: She is normocephalic, atraumatic. Oral mucous membranes are dry. Nasal mucous membranes are moist. She has her mouth open and is breathing through her mouth. Nasal cannula is in place. NECK: Supple. There is no lymphadenopathy, JVD or thyromegaly with normal carotid upstroke. LUNGS: Clear to auscultation bilaterally. There are no wheezes, no rales, no rhonchi. CARDIOVASCULAR: She has normal cardiac and regular. She has normal S1 and S2. There is a faint hol osystolic murmur best over the apex, approximately 2/6. ABDOMEN: Obese. It is nontender, nondistended. No rebound, rigidity or guarding. She has normoact cammie bowel sounds. EXTREMITIES: No cyanosis, no clubbing with trace bilateral lower extremity edema. SKIN: Prior PICC spot in her upper extremities, intact after removal. She has a peripheral IV place d into the vein in the right breast. Skin is otherwise warm, moist and well perfused without any onel hes or lesions. MUSCULOSKELETAL: Shows large joints to be uninflamed. There is no palpable effusions, normal to ins pection. NEUROLOGIC: Not testable due to mental status. LABORATORY DATA: CMP is normal. Creatinine 0.91, potassium 4.2, sodium 134. Calcium is 9.5. Liver functions are normal. Total protein is low at 5.4 and albumin is low at 2.6. CBC showed a white count of 8.4, hemoglobin 11.1, hematocrit 34.6 and platelets 206,000. Her chest x -ray to me looks like increased interstitial markings and Maxx B lines. She appears to have some s carring over a healing rib fracture in the left chest. There does not appear to be any fluid in the bases. There is some pulmonary vascular congestion present in the right perihilar space. ASSESSMENT AND PLAN: 1. Metabolic encephalopathy. Etiology not clear. She had a fever present, but normal white blood c ell count on presentation. We will resume her vancomycin. At 226 pounds or 100 kilo, she really nee ds to be on a 1 gram to 1500 mg dose with each dose given, we will adjust the interval to keep her tr ough somewhere between 15 and 20. At this time, we will put her on 1000 mg q.36 hours and we will ch xena a trough. 2. Recent methicillin resistant Staphylococcus aureus bacteremia as above. 3. Fever: Etiology not clear. We will repeat blood cultures with next fever. Urine is clean, lact ic acid is normal, labs are normal. No signs of focal infection. 4. Hyperlipidemia. We will continue pravastatin. 6. Bipolar disorder on duloxetine and bupropion. We will continue. 7. Chronic kidney disease 3, is currently stable with a creatinine of 0.91. The patient was placed on admission status, we will continue her current antibiotic course, follow up on the results pending.
[2017-05-08] MEDS ORDERED: FLUTICASONE NASAL SCH (09:00)
[2017-05-08] MEDS ORDERED: AZELASTINE NASAL SCH (09:00)
[2017-05-08] MEDS ORDERED: Non-Formulary Item 1 EACH (Bimatoprost [Lumigan] 1 DROP) EA EYE SCH (09:00)
[2017-05-08] MEDS: Docusate 100 MG CAP PO SCH ×2 (10:31→21:57)
[2017-05-08] MEDS: Lisinopril 20 MG TAB PO SCH (10:31)
[2017-05-08] MEDS: Amlodipine 10 MG TAB PO SCH (10:32)
[2017-05-08] MEDS: Gabapentin 300 MG CAP PO SCH ×3 (10:32→21:58)
[2017-05-08] MEDS: Multivitamin W/ Minerals 1 TAB PO SCH (10:33)
[2017-05-08] MEDS: Famotidine/PF 20 mg/2ml Vial SLOW IVP SCH ×2 (10:33→21:57)
[2017-05-08] MEDS: Bupropion 150 MG SR TAB PO SCH (10:41)
[2017-05-08] MEDS: hydrALAZINE 20 MG/ML VIAL SLOW IVP PRN ×2 (13:16→21:57)
[2017-05-08] MEDS: Latanoprost 0.005% Ophth Soln 2.5 ml Bottle EA EYE SCH ×2 (14:50→15:47)
[2017-05-08] MEDS: Fluticasone Propionate Nasal Spray 16 gm Bottle NASAL SCH ×2 (14:50→15:46)
[2017-05-08] MEDS: Divalproex Sodium DR 500 MG TAB PO SCH (20:42)
[2017-05-08] MEDS: Pravastatin Sodium 40 MG TAB PO SCH (21:57)
[2017-05-09 05:46] LABS: Vancomycin, Random 15.4 ug/mL (See Comment)
[2017-05-09] MEDS: Vancomycin HCl 1 GM in Premix Bag 1 BAG IVPB SCH (06:36)
[2017-05-09] MEDS: Levothyroxine Sodium 112 MCG TAB PO SCH (06:37)
[2017-05-09] MEDS: Levothyroxine Sodium 25 MCG TAB PO SCH (06:37)
[2017-05-09] MEDS ORDERED: FLU VACC TS2017-18 (>65YR) 0.5 ML SYRINGE IM ONE (09:00)
[2017-05-09] MEDS: Lisinopril 20 MG TAB PO SCH (13:03)
[2017-05-09] MEDS: Amlodipine 10 MG TAB PO SCH (13:04)
[2017-05-09] MEDS: Gabapentin 300 MG CAP PO SCH ×3 (13:08→21:57)
[2017-05-09] MEDS: Docusate 100 MG CAP PO SCH ×2 (13:09→21:57)
[2017-05-09] MEDS: Famotidine/PF 20 mg/2ml Vial SLOW IVP SCH ×2 (13:09→21:57)
[2017-05-09] MEDS: Bupropion 150 MG SR TAB PO SCH (13:09)
[2017-05-09] MEDS: Multivitamin W/ Minerals 1 TAB PO SCH (13:10)
[2017-05-09] MEDS: Latanoprost 0.005% Ophth Soln 2.5 ml Bottle EA EYE SCH (13:10)
[2017-05-09] MEDS: Fluticasone Propionate Nasal Spray 16 gm Bottle NASAL SCH (13:10)
--- NOTE | 2017-05-09 14:57 | PDOC.PN ---
- Subjective Encounter Start Date: 05/09/17 Encounter Start Time: 13:00 Patient is seen today, Drowsy and lethargic, Discussed with nurse, pt was oriented time 1 yesterday. Not eating her food. Pt is on oxygen from yesterday. - Objective Resuscitation Status: Resuscitation Status FULL:Full Resuscitation MAR Reviewed: Yes Vital Signs & Weight: Vital Signs (12 hours) Temp Pulse Resp BP BP BP Pulse Ox 05/09/17 13:04 84 175/81 H 05/09/17 13:03 175/81 H 05/09/17 11:00 98.3 F 84 14 175/81 H 96 05/09/17 07:55 97.8 F 77 12 174/70 H 96 05/09/17 04:40 98.3 F 84 19 173/78 H 97 Weight Weight 226 lb 13.69 oz I&O: 05/08/17 05/09/17 05/10/17 06:59 06:59 06:59 Intake Total 1910 Output Total 1800 Balance 110 Result Diagrams: 05/08/17 06:39 05/08/17 06:39 Radiology Reviewed by me: Yes EKG Reviewed by me: Yes Phys Exam - Physical Examination HEENT: PERRLA, moist MMs Neck: no nodes, no JVD Respiratory: wheezing present Cardiovascular: RRR, no significant murmur, no rub Gastrointestinal: soft, non-tender, no distention Musculoskeletal: edema present (left Lower Extrmity) Neurological: normal sensation Skin: no rash, normal turgor Dx/Plan (1) Acute metabolic encephalopathy Code(s): G93.41 - METABOLIC ENCEPHALOPATHY Status: Acute (2) MRSA bacteremia Code(s): R78.81 - BACTEREMIA Status: Acute (3) CKD (chronic kidney disease) stage 3, GFR 30-59 ml/min Code(s): N18.3 - CHRONIC KIDNEY DISEASE, STAGE 3 (MODERATE) Status: Chronic (4) GERD (gastroesophageal reflux disease) Code(s): K21.9 - GASTRO-ESOPHAGEAL REFLUX DISEASE WITHOUT ESOPHAGITIS Status: Chronic (5) HLD (hyperlipidemia) Code(s): E78.5 - HYPERLIPIDEMIA, UNSPECIFIED Status: Chronic Qualifiers: Hyperlipidemia type: unspecified Qualified Code(s): E78.5 - Hyperlipidemia , unspecified (6) HTN (hypertension) Code(s): I10 - ESSENTIAL (PRIMARY) HYPERTENSION Status: Chronic Qualifiers: Hypertension type: essential hypertension Qualified Code(s): I10 - Essential (primary) hypertension (7) Hypothyroidism Code(s): E03.9 - HYPOTHYROIDISM, UNSPECIFIED Status: Chronic Qualifiers: Hypothyroidism type: unspecified Qualified Code(s): E03.9 - Hypothyroidism , unspecified - Plan cont current plan of care, nunn catheter, continue antibiotics, PT/OT, DVT proph w/lovenox * . Plan: Will continue with IV vancomycin after getting a new PICC line, as pt is Started on for MRSA a bacteremia since 04/26/2017, will continue for 4 weeks per ID recommedations. Patient remains aaltered, very drwosy, Will get CT head to look for any new stroke. Patient has urine culture posiitve for yeast, Will start on Fluconazole 100mg IV daily for 10 days. Pt has CKD stage 3, will continue with IV hydration at 75ml/./hr Pt has bipolar meds will continue. HTN is well controlled now on high side, will control to keep systolic <130 Pt is hypoxic with left lower Extrmity swelling, will do US doppler to r/o DVT. - Discharge Day Encounter end time: 13:30 Review of Systems - Review of Systems Constitutional: weakness, malaise Eyes: negative: Pain, Vision Change, Conjunctivae Inflammation, Eyelid Inflammation, Redness, Other ENT: negative: Ear Pain, Ear Discharge, Nose Pain, Nose Discharge, Nose Congestion, Mouth Pain, Mouth Swelling, Throat Pain, Throat Swelling, Other Respiratory: Shortness of Breath. negative: Cough, Dry, Hemoptysis, SOB with Excertion, Pleuritic Pain, Sputum, Wheezing Cardiovascular: negative: chest pain, palpitations, orthopnea, paroxysmal nocturnal dyspnea, edema, light headedness, other Gastrointestinal: negative: Nausea, Vomiting, Abdominal Pain, Diarrhea, Constipation, Melena, Hematochezia, Other Genitourinary: negative: Dysuria, Frequency, Incontinence, Hematuria, Retention , Other Musculoskeletal: negative: Neck Pain, Shoulder Pain, Arm Pain, Back Pain, Hand Pain, Leg Pain, Foot Pain, Other Skin: negative: Rash, Lesions, Mike, Bruising, Other Neurological: negative: Weakness, Numbness, Incoordination, Change in Speech, Confusion, Seizures, Other - Medications/Allergies Allergies/Adverse Reactions: Allergies Allergy/AdvReac Type Severity Reaction Status Date / Time morphine Allergy Verified 02/04/17 05:03 Sulfa (Sulfonamide Allergy Verified 02/04/17 05:03 Antibiotics) Medications: Current Medications Amlodipine Besylate (Norvasc) 10 mg PO DAILY [facility] Last Admin: 05/09/17 13:04 Dose: 10 mg Bupropion HCl (Wellbutrin Sr) 150 mg PO DAILY [facility] Last Admin: 05/09/17 13:09 Dose: 150 mg Divalproex Sodium (Depakote) 500 mg PO HS [facility] Last Admin: 05/08/17 20:42 Dose: Not Given Docusate Sodium (Colace) 100 mg PO BID [facility] Last Admin: 05/09/17 13:09 Dose: Not Given Duloxetine HCl (Cymbalta) 60 mg PO DAILY [facility] Last Admin: 05/09/17 13:09 Dose: 60 mg Famotidine (Pepcid) 20 mg SLOW IVP Q12HR [facility] Last Admin: 05/09/17 13:09 Dose: Not Given Fluticasone Propionate (Flonase Nasal [place]) 0 gm NASAL DAILY [facility] Last Admin: 05/09/17 13:10 Dose: Not Given Gabapentin (Neurontin) 600 mg PO TID [facility] Last Admin: 05/09/17 13:08 Dose: 600 mg Hydralazine HCl (Apresoline) 10 mg SLOW IVP Q6H PRN PRN Reason: SBP >160 Last Admin: 05/08/17 21:57 Dose: 10 mg Vancomycin HCl 1 gm/ Device 200 mls @ 200 mls/hr IVPB Q24HR@0600 [facility] Last Admin: 05/09/17 06:36 Dose: 200 mls Fluconazole/Sodium Chloride (100 mg/ Device) 50 mls @ 100 mls/hr IVPB DAILY [facility] Iron/Minerals/Multivitamins (Theragran M) 1 tab PO DAILY [facility] Last Admin: 05/09/17 13:10 Dose: Not Given Latanoprost (Xalatan 0.005% Oph Soln) 1 drop EA EYE DAILY [facility] Last Admin: 05/09/17 13:10 Dose: 1 drop Levothyroxine Sodium (Synthroid) 112 mcg PO 0600 [facility] Last Admin: 05/09/17 06:37 Dose: 112 mcg Levothyroxine Sodium (Synthroid) 25 mcg PO 0600 [facility] Last Admin: 05/09/17 06:37 Dose: 25 mcg Lisinopril (Zestril) 40 mg PO DAILY [facility] Last Admin: 05/09/17 13:03 Dose: 40 mg Ondansetron HCl (Zofran) 4 mg IVP Q6H PRN PRN Reason: Nausea/Vomiting Pantoprazole Sodium (Protonix) 40 mg PO DAILY [facility] Last Admin: 05/09/17 13:11 Dose: Not Given Pravastatin Sodium (Pravachol) 40 mg PO QPM [facility] Last Admin: 05/08/17 21:57 Dose: 40 mg
--- NOTE | 2017-05-09 17:40 | CT ---
CT BRAIN NONCONTRAST: HISTORY: 81-year-old female with altered mental status, confusion. FINDINGS: There is no midline shift or any other mass effect. There is no evidence of acute intracranial hemor rhage, large cortical infarct, obstructive hydrocephalus, or extraaxial fluid collection. The calvar ium is intact. There is diffuse parenchymal volume loss. There are low attenuation areas in the whi te matter. These are nonspecific, but in a patient of this age, they are probably chronic ischemic w joya matter changes due to microvascular atherosclerosis. IMPRESSION: 1) No acute intracranial findings. 2) Involutional changes and chronic ischemic white matter changes. magdalena POS: [facility]
--- NOTE | 2017-05-09 17:50 | ULT ---
ULTRASOUND WITH DOPPLER DUPLEX VENOUS LOWER EXTREMITY LEFT: HISTORY: 81-year-old female with left lower extremity edema. TECHNIQUE: Color flow Doppler, spectral waveform analysis of pulsed Doppler, and hitchcock-scale imaging with edwina mary and augmentation, were used to evaluate the left common femoral, femoral, popliteal, posterior t ibial, and superficial femoral, veins; and the proximal portions of the profunda femoral and greater saphenous, veins. FINDINGS: There is normal compressibility, demonstration of blood flow by color Doppler and pulsed Doppler, and response to augmentation, in all interrogated veins. IMPRESSION: Negative. No deep vein thrombosis in the left lower extremity. magdalena POS: [facility]
[2017-05-09] MEDS: hydrALAZINE 20 MG/ML VIAL SLOW IVP PRN (17:53)
[2017-05-09] MEDS: Divalproex Sodium DR 500 MG TAB PO SCH (20:05)
[2017-05-09] MEDS: Pravastatin Sodium 40 MG TAB PO SCH (21:57)
[2017-05-10] MEDS: Levothyroxine Sodium 112 MCG TAB PO SCH (06:45)
[2017-05-10] MEDS: hydrALAZINE 20 MG/ML VIAL SLOW IVP PRN (06:45)
[2017-05-10] MEDS: Levothyroxine Sodium 25 MCG TAB PO SCH (06:45)
[2017-05-10] MEDS: Vancomycin HCl 1 GM in Premix Bag 1 BAG IVPB SCH (06:46)
[2017-05-10] MEDS ORDERED: Fluconazole In NaCl,Iso-Osm 100 MG in Admixture Fee 1 EACH IVPB SCH ×2 (09:00)
[2017-05-10] MEDS ORDERED: Fluconazole In NaCl,Iso-Osm 100 MG in Premix Bag 1 BAG IVPB SCH ×2 (09:00)
[2017-05-10] MEDS: Lisinopril 20 MG TAB PO SCH (09:30)
[2017-05-10] MEDS: Gabapentin 300 MG CAP PO SCH ×2 (09:30→15:05)
[2017-05-10] MEDS: Docusate 100 MG CAP PO SCH (09:31)
[2017-05-10] MEDS: Multivitamin W/ Minerals 1 TAB PO SCH (09:31)
[2017-05-10] MEDS: Amlodipine 10 MG TAB PO SCH (09:31)
[2017-05-10] MEDS: Latanoprost 0.005% Ophth Soln 2.5 ml Bottle EA EYE SCH (09:40)
[2017-05-10] MEDS: Fluticasone Propionate Nasal Spray 16 gm Bottle NASAL SCH (09:40)
[2017-05-10] MEDS: Famotidine/PF 20 mg/2ml Vial SLOW IVP SCH (09:42)
[2017-05-10] MEDS: Bupropion 150 MG SR TAB PO SCH (09:43)
[2017-05-10] MEDS ORDERED: D5 1/2 NS 500 ML IV SCH (10:00)
[2017-05-10 10:40] LABS: Hemoglobin 11.1 g/dL (12.0-16.0); Mean Corpuscular HGB CONC 33.7 g/dL (32.0-36.0); Mean Corpuscular Hemoglobin 33.5 pg (27.0-31.0); Mean Corpuscular Volume 99.4 fl (81.0-99.0); Mean Platelet Volume 7.2 fL (7.4-10.4); Platelet Count 119 thou/uL (130-400); RBC Distribution Width 13.2 % (11.5-14.5); Red Blood Cell (RBC) Count 3.33 mill/uL (4.20-5.40)
[2017-05-10 10:56] LABS: Anion Gap 10 mmol/L (10-20); BUN (Urea Nitrogen) 11 mg/dL (9.8-20.1); Calc. Creatinine Clearance 97 mL/min (70-130); Calcium 8.8 mg/dL (7.8-10.44); Carbon Dioxide 30 mmol/L (23-31); Chloride 99 mmol/L (98-107); Estimated GFR-MDRD 74; Glucose 107 mg/dL (83-110); Potassium 3.7 mmol/L (3.5-5.1); Sodium 135 mmol/L (136-145)
[2017-05-10 11:01] LABS: Band 22 % (5-11); Lymphocytes 21 % (21-51); MDiff Complete? YES; Metamyelocyte 1 % (0-0); Monocytes 14 % (0-10); Neutrophil 40 % (42-75); PLT Morphology Comment Appears Decreased; Polychromasia SLIGHT = 2-3 cells (100X) (0-2/hpf); Reactive Lymphocytes 2 % (0-10)
[2017-05-10 12:50] VITALS: BP 151/76; TEMP 98.3
[2017-05-10] MEDS ORDERED: Furosemide 40 MG/4 ML VIAL SLOW IVP SCH (15:00)
--- NOTE | 2017-05-10 15:50 | SPC ---
ULTRASOUND GUIDED PICC LINE PLACEMENT: HISTORY: An 81-year-old female requiring long-term antibiotic therapy. TECHNIQUE: After informed consent was obtained, the patient was prepped and draped in the normal sterile fashion . Local anesthesia was obtained with 1% Xylocaine. A small skin incision was made with a #11 scalpe l blade. A 21 gauge micropuncture needle was used to puncture the left basilic vein under ultrasound guidance. The needle was withdrawn and a 6 Swedish peel-away sheath was placed. The catheter was cu t to a length of 44 cm. The catheter tip is located at the superior vena cava/right atrium junction. The patient tolerated the procedure well. There were no immediate complications. IMPRESSION: Successful placement of left-sided peripherally inserted central catheter line through the left basil ic vein. Catheter tip at the superior vena cava /right atrium junction. POS: [facility]
--- NOTE | 2017-05-10 19:07 | DIS ---
DATE OF ADMISSION: 05/08/2017 DATE OF DISCHARGE: 05/10/2017 ADMITTING DIAGNOSIS: Acute metabolic encephalopathy. DISCHARGE DIAGNOSIS: Acute metabolic encephalopathy. SECONDARY DIAGNOSES: 1. History of methicillin-resistant Staphylococcus aureus bacteremia. 2. Hyperlipidemia. 3. History of bipolar disorder. 4. History of chronic kidney disease stage 3. PROCEDURE DONE DURING THIS ADMISSION: PICC line placement. HISTORY OF PRESENT ILLNESS AND HOSPITAL COURSE: In brief, this is an 81-year-old female who has a re cent admission to the hospital for altered mental status and during the stay, it was found that she h ad MRSA bacteremia and parotitis. So she was sent to [facility] with P ICC line in place to get a minimum of 4 weeks of antibiotics starting on 04/26/2017. The patient was noted to have decreased mental status on 05/07/2017 and also saturation fell down to 80% and also navarro d temperature of 100.8. When patient admitted to the hospital, she had a thorough evaluation. There was no other source of sepsis was found. UA was negative for any urinary tract infection. Chest x- ray was normal and the patient also had CT of the head which was negative for any intracranial hemorr chapin. The patient showed good improvement with her mental status the following day and was also put her on Lasix because of the volume overload. She had some fluid in her lower extremities. Patient r esponded very well and patient had PICC line placed during this admission and vancomycin was restarte d and discharged back to senior living to complete the rest of the course of antibiotics. PHYSICAL EXAMINATION: On day of discharge: VITAL SIGNS: Blood pressure is 151/76, heart rate is 75, respiration is 20, and saturation is 100%. GENERAL: The patient is moderately built and moderately nourished. She does not appear to be in acu te distress. CARDIOVASCULAR: S1, S2 normal. No murmurs, rubs or gallops. LUNGS: Bilateral air entry was equal. No wheezing, no crackles. ABDOMEN: Soft, nontender, no guarding, no rebound tenderness. Bowel sounds normal. MUSCULOSKELETAL: No calf tenderness. No pedal edema. No joint redness, no joint swelling. SKIN: No cyanosis, no erythema, no rash, and no pallor. CENTRAL NERVOUS SYSTEM: Cranial nerve examination II-XII intact. No focal deficits were identified. HOME MEDICATIONS: 1. Amlodipine 10 mg p.o. daily as well as 20 mg spray. 2. Bimatoprost 5 mL drops daily. 3. Bupropion 150 mg daily. 4. Depakote 500 mg at bedtime. 5. Duloxetine 60 mg daily. 6. Fluconazole 100 mg p.o. daily. 7. Lasix, new tablet 20 mg daily. 8. Gabapentin 600 mg p.o. t.i.d. 9. Levothyroxine 100 mcg tablet daily. 10. Lisinopril 40 mg p.o. daily. 11. Vancomycin 1 gram daily to complete 4 weeks course which was started on 04/26/2017. DISCHARGE INSTRUCTIONS: Continue activity as tolerated. Advised to follow up with the Infectious Julianne hays as suggested from previous admission. Advised to follow up with primary care physician in 1-2 weeks to assess the need for Lasix to be continued. Advised to return to the ER if the patient has any worsening mental status changes or increasing feve r or worsening shortness of breath. I spent 35 minutes on this patient.
[2017-05-11] MEDS ORDERED: Furosemide 40 MG/4 ML VIAL SLOW IVP SCH (09:00)
--- NOTE | 2017-05-14 16:06 | EKG ---
Test Reason : Blood Pressure : / mmHG Vent. Rate : 099 BPM Atrial Rate : 099 BPM P-R Int : 168 ms QRS Dur : 066 ms QT Int : 342 ms P-R-T Axes : 026 058 093 degrees QTc Int : 438 ms Normal sinus rhythm Nonspecific ST and T wave abnormality Abnormal ECG Confirmed by JAYDON SMITH D.O. ([id number]), manager editorial MIGDALIA HEARN ([id number]) on 05/14/2017 4:06:23 PM Referred By: Confirmed By:JAYDON SMITH D.O.
== END 2017-05-10 16:50 | DRG 72 ==
LOC: ERS 00:13 → SURG A 02:14
PROVIDERS: ADMIT Internal Medicine Infectious Disease; ATTEND Internal Medicine Infectious Disease
PROC: 02HV33Z Insertion of Infusion Device into Superior Vena Cava, Percutaneous Approach (ICD-10-PCS; principal; 2017-05-10)
DX: G93.41 Metabolic encephalopathy (principal); B95.62 Methicillin resistant Staphylococcus aureus infection as the cause of diseases classified elsewhere; N18.3 Chronic kidney disease, stage 3 (moderate); E78.5 Hyperlipidemia, unspecified; I12.9 Hypertensive chronic kidney disease with stage 1 through stage 4 chronic kidney disease, or unspecified chronic kidney disease; K21.9 Gastro-esophageal reflux disease without esophagitis; E03.9 Hypothyroidism, unspecified; F31.9 Bipolar disorder, unspecified; Z96.652 Presence of left artificial knee joint; Z88.5 Allergy status to narcotic agent; Z88.2 Allergy status to sulfonamides
CPT/HCPCS: 36415; 36416; 36569; 51702; 70450; 71010; 80048; 80053; 80202; 81003; 83605; 85025; 87040; 87086; 90471; 90682; 93005; 94760; C1751; G0008; G8981-GP-CM; G8982-GP-CJ; G8996-GN-CK; G8996-GN-CL; G8997-GN-CJ; J0360; J1450; J1940; J3370; Q2036; S0028

== ENCOUNTER 2017-05-31 20:10 | Inpatient (IN) | payer MEDICARE, MEDICAID ==
[2017-05-31 21:18] LABS: Base Excess-Venous -0.5 mmol/L (-30.0-30.0); Bicarbonate (HCO3v) 24.3 mmol/L (1.0-85.0); CO2 Tension (PvCO2) 39.7 mmHg (41.0-51.0); Calcium, Ionized 1.05 mmol/L (1.12-1.32); Hemoglobin - Calc 13.2 g/dL (12.0-18.0); Lactate 5.83 mmol/L (0.50-2.20); O2 Tension (PvO2) 33.6 mmHg (35.0-45.0); Potassium 5.9 mmol/L (3.4-4.7); T. Carbon Dioxide 25.5 mmol/L (1.0-85.0); pH (Venous) 7.395 (7.35-7.45); vO2 Saturation-calc 64.6 % (0.0-100.0)
[2017-05-31 21:47] LABS: Hemoglobin 12.7 g/dL (12.0-16.0); Mean Corpuscular HGB CONC 29.8 g/dL (32.0-36.0); Mean Corpuscular Hemoglobin 30.9 pg (27.0-31.0); Mean Platelet Volume 9.1 fL (7.4-10.4); Platelet Count 219 thou/uL (130-400); RBC Distribution Width 14.2 % (11.5-14.5); Red Blood Cell (RBC) Count 4.11 mill/uL (4.20-5.40); White Blood Cell (WBC) Count 21.8 thou/uL (4.8-10.8)
[2017-05-31] MEDS ORDERED: Albuterol Sulfate 2.5 mg/3 ml Neb ONE (21:48)
[2017-05-31] MEDS ORDERED: Sodium Bicarb 50 MEQ/50 ML Abboject 8.4% SYRINGE ONE (21:49)
[2017-05-31] MEDS ORDERED: Dextrose 50% Abboject 50 ML SYRINGE ONE (21:49)
[2017-05-31] MEDS ORDERED: Insulin Regular 300 UNITS/3 ML VIAL ONE (21:49)
[2017-05-31] MEDS ORDERED: Calcium Chloride 1 GM/10 ML Abboject SYRINGE ONE (21:49)
[2017-05-31 21:53] LABS: Band 22 % (5-11); Lymphocytes 3 % (21-51); MDiff Complete? YES; Monocytes 8 % (0-10); Neutrophil 67 % (42-75); PLT Morphology Comment Appears Adequate; RBC Morphology Normal
[2017-05-31 21:58] LABS: ALT (SGPT) 574 U/L (8-55); AST (SGOT) 2096 U/L (5-34); Albumin 2.3 g/dL (3.4-4.8); Alkaline Phosphatase 161 U/L (40-150); Anion Gap 26 mmol/L (10-20); BUN (Urea Nitrogen) 69 mg/dL (9.8-20.1); Bilirubin, Total 0.3 mg/dL (0.2-1.2); Calc. Creatinine Clearance 0 mL/min (70-130); Calcium 8.8 mg/dL (7.8-10.44); Carbon Dioxide 19 mmol/L (23-31); Chloride 107 mmol/L (98-107); Estimated GFR-MDRD 12; Globulin 3.2 g/dL (2.4-3.5); Glucose 76 mg/dL (83-110); Lipase 19 U/L (8-78); Magnesium 2.1 mg/dL (1.6-2.6); Potassium 6.2 mmol/L (3.5-5.1); Protein, Total 5.5 g/dL (6.0-8.3); Sodium 146 mmol/L (136-145)
[2017-05-31 22:01] LABS: CKMB 1.1 ng/mL (0-6.6); Troponin I 0.103 ng/mL (< 0.028)
--- NOTE | 2017-05-31 22:14 | RAD ---
PORTABLE CHEST 05/31/17 PROVIDED CLINICAL HISTORY: Fever. FINDINGS: Comparison 05/08/17. The cardiac and mediastinal silhouette is unchanged in appearance. Vascular calcification involves th e aortic arch. Left upper extremity PICC line is noted, some of which projects in the expected locati on of the SVC. Lungs appear clear. No pleural fluid or pneumothorax apparent. IMPRESSION: No evidence for an acute cardiopulmonary process. POS: CET
--- NOTE | 2017-05-31 22:52 | CT ---
CT ABDOMEN AND PELVIS 05/31/17 PROVIDED CLINICAL HISTORY: Altered mental status. FINDINGS: There is consolidation involving a portion of the left lower lobe. There are small bilateral pleural effusions. The solid abdominal organs are suboptimally evaluated without IV contrast but demonstrate an unremark able unenhanced CT appearance. There is no bowel dilatation inflammatory fat stranding, free fluid or free air apparent. Vascular calcifications are seen. IVC filter is noted. The osseous structures dem onstrate no concerning osteoblastic or osteolytic lesions. There is conspicuous distention of the uri nary bladder. IMPRESSION: 1. Findings compatible with left basilar pneumonia. 2. Small bilateral pleural effusions. 3. Conspicuous distention of the urinary bladder. POS: CET
[2017-05-31] MEDS ORDERED: Piperacillin/Tazobactam 3.375 GM in Sodium Chloride 0.9% 100 ML IVPB SCH (23:15)
[2017-06-01 00:34] LABS: Troponin I 0.104 ng/mL (< 0.028)
[2017-06-01] MEDS ORDERED: Sodium Chloride 0.9% 1,000 ML IV SCH (00:45)
[2017-06-01] MEDS ORDERED: Ondansetron HCl/PF 4 MG/2 ML Vial IVP PRN (00:47)
[2017-06-01] MEDS ORDERED: CCU Electrolyte Replacement 1 EACH FS ONE (00:47)
[2017-06-01 00:54] LABS: Lactic Acid 7.7 mmol/L (0.5-2.2)
[2017-06-01] MEDS ORDERED: Cefepime 2 GM, Syringe 2.5 ML in Sterile Water 10 ML SLOW IVP SCH (01:00)
[2017-06-01] MEDS: Sodium Chloride 0.9% 1,000 ML IV SCH ×2 (01:04→08:00)
[2017-06-01] MEDS ORDERED: Potassium Chloride 20 MEQ TAB PO PRN (01:06)
[2017-06-01] MEDS ORDERED: Potassium Phosphate 15 MMOL in Sodium Chloride 0.9% 250 ML 250 ML IV PRN (01:06)
[2017-06-01] MEDS ORDERED: Potassium Phosphate 12 MMOL in Sodium Chloride 0.9% 250 ML 250 ML IV PRN (01:06)
[2017-06-01] MEDS ORDERED: Magnesium 2 GM/NS 0.9% 100 ML 2 GM in Premix Bag 1 BAG IVPB PRN (01:06)
[2017-06-01] MEDS ORDERED: Potassium Chloride 40 MEQ in Premix Bag 1 BAG IVPB PRN (01:06)
[2017-06-01] MEDS ORDERED: Potassium Chloride 40 MEQ in Sodium Chloride 0.9% 250 ML 250 ML IVPB PRN (01:06)
[2017-06-01] MEDS ORDERED: CCU ELECTROLYTE REPLACEMENT PROTOCOL FS PRN (01:06)
[2017-06-01] MEDS ORDERED: Potassium Phosphate 9 MMOL in Sodium Chloride 0.9% 100 ML IVPB PRN (01:06)
[2017-06-01] MEDS ORDERED: Magnesium Oxide 400 MG TAB PO PRN ×2 (01:06)
[2017-06-01] MEDS: Cefepime 2 GM in Sodium Chloride 0.9% 100 ML IVPB SCH ×2 (01:14→01:19)
[2017-06-01 02:30] LABS: Lactic Acid 6.4 mmol/L (0.5-2.2)
[2017-06-01 02:34] LABS: CKMB 3.2 ng/mL (0-6.6); Troponin I 0.134 ng/mL (< 0.028)
--- NOTE | 2017-06-01 02:42 | HP ---
DATE OF ADMISSION: 05/31/2017 TIME OF SERVICE: 2330 hours. PRIMARY CARE PHYSICIAN: Dr. Alcira Hatch. CHIEF COMPLAINT: Altered mental status. HISTORY OF PRESENT ILLNESS: Ms. Guaman is an 81-year-old female well known to me from previous admis mary. She was initially admitted here from 04/19/2017 to 04/26/2017 for sepsis. She was found to navarro ve MRSA bacteremia. A PICC line was placed. She was seen by Dr. Blake and sent to a care home fo r 4 weeks of IV antibiotics from 04/26/2017 to 05/24/2017. There was some mention of note there, it was supposed to go into 06/03, but I am not sure where that they came from. She returned back to our facility on 05/08/2017 for admission. She was found to have altered mental status while at [facility]. During that stay, I actually did the admission, she was found to hav e urinary tract infection and her PICC line was partially pulled out and removed in the ER. She was watched until 05/10, PICC line was replaced, she was treated for her urinary tract infection and sent back to [facility]. She has been on vancomycin apparently stopped sometime around 05/24/2017. Per record, she has not navarro d any labs drawn in our facility since 05/10/2017. Patient has had vancomycin troughs. Today, she was found to have decreased level of consciousness, and overall looked poorly and she was sent to the emergency department for evaluation. Here, she was found to be febrile at 102.7, pulse 96, blood pressure low at 89/60, respiratory 20, sa tting 90% and requiring 5 liters of oxygen. She was having what they called "doll's eyes" which actu ally looked like a horizontal rotation, she was difficult to arouse and elevated white blood cell cou nt with a left shift in addition to other findings. Lactic acid was 7.7. She met severe sepsis crit antonio and we were called for admission. On my arrival, the patient did have a large bowel movement. During the course of cleaning her up, th e patient was rolled several times. At the time, when I saw, she was able to open her eyes and attem pt to answer questions, but was still disoriented. She was unable to give any further history. PAST MEDICAL HISTORY: 1. Hypertension. 2. Hyperlipidemia. 3. Depression/anxiety. 4. Bipolar disorder. 5. GERD. 6. Chronic kidney disease 3. 7. Recent MRSA bacteremia as above. 8. Recent parotitis. PAST SURGICAL HISTORY: 1. Tonsillectomy, remotely. 2. Left TKA remotely. 3. Foot surgery. HOME MEDICATIONS: 1. Amlodipine 5 mg daily. 2. Depakote 500 mg daily. 3. Gabapentin 600 mg p.o. t.i.d. 4. Levothyroxine 137 mcg daily. 5. Lisinopril 40 mg daily with Multivitamin daily. 6. Pravastatin 40 mg p.o. at bedtime. 7. Duloxetine 60 mg p.o. daily. 8. Dymista 137/50 one puff nasally and bilateral nares daily. 9. Colace 100 mg p.o. b.i.d. 10. Wellbutrin-XL 150 mg p.o. daily. 11. Lumigan 0.03% 1 drop both eyes daily. 12. Protonix 40 mg daily. ALLERGIES: SULFA and MORPHINE SULFATE. FAMILY HISTORY: Not obtainable at this time, but per my previous note, it was negative for heart pro blems per prior notes. SOCIAL HISTORY: Negative for habits x3. She is currently being at [facility] gett ing her IV antibiotics and rehabilitation. REVIEW OF SYSTEMS: Not obtainable due to patient's decreased mental status. PHYSICAL EXAMINATION: VITAL SIGNS: Temperature on arrival 102.7, pulse 96, blood pressure 89/60, respiratory rate 20, satt ing 99% on 5 liters. Currently, blood pressure back in the 130s/70s. GENERAL: She is awake. Her eyes are open. She is alert. She is attending to respond, but is still disoriented. She appears to be in no acute distress. HEENT: Normocephalic, atraumatic. Her pupils are 2-3 mm, minimally reactive. She continues to have a left horizontal beating slow nystagmus. Mucous membranes are moist. She has no visible lesions o r thrush. NECK: Supple. There is no lymphadenopathy, no JVD, no thyromegaly. She has normal carotid upstroke s. I do not appreciate bruit. LUNGS: Clear anteriorly and posteriorly due to some deep crackles in the bases that seemed to clear somewhat with deeper inspiration. CARDIOVASCULAR: She is slightly tachycardic in the upper 90s. She has normal S1, S2. There is no S 3 or S4 that I can hear. No audible murmurs. ABDOMEN: Obese. It is nontender, nondistended. She has no rebound, rigidity, or guarding. She has good bowel sounds. EXTREMITIES: No cyanosis, no clubbing. She has some pedal edema bilaterally. She has a barely palp able thready dorsalis pedis pulses in the bilateral feet. SKIN: Warm, moist, and well perfused. In the proximal and medial thigh, bilaterally there is a cand idal intertrigo. It is very warm and red. There was no subcutaneous crepitus. No signs of necrosis . No fluctuance. MUSCULOSKELETAL: There was normal to inspection. She has bones and joints that appear inflamed with out effusions. NEUROLOGIC: Cranial nerves exam does reveal a slow left beating nystagmus. She is unable to follow any further questions. PICC line into the left upper extremity, initially had ragged partially adherent dressing dated 05/10 . It seems that it may not have been changed in the last 3 weeks. LABORATORY DATA: Sodium 146, potassium is 6.2, chloride 107, bicarbonate 19, BUN 69, creatinine 3.65 , which is up from her normal creatinine back on 05/10, glucose of 76. Alkaline phosphatase 161, AST of 2096, ALT of 574, total bilirubin 0.3, total protein 5.5 and albumin of 2.3. Her liver functions are very much increased from her last draw here in May. Her CBC sh owed a white count of 21.8. She has 67% granulocytes, 22% bands, 3% lymphocytes. Hemoglobin is 12.7 , hematocrit of 42.6, and platelet count is 219,000. Ammonia normal 61. Lactic acid elevated at 7.7. CK-MB of 1.1. Troponin I is 0.103. RADIOGRAPHIC STUDIES: A CT scan of the abdomen and pelvis showed left basilar pneumonia. Brain CT s howed no acute intracranial abnormalities. ASSESSMENT AND PLAN: 1. Severe sepsis. Patient has an elevated white count with a left shift, a lactic acid of 7.7, she is febrile, tachycardic and hypotensive. She has responded well to IV fluids. We did not think she qualifies for septic shock. I think sources include a possible line sepsis from her poorly kept left PICC line versus the healthcare associated pneumonia showing up in the left base on CT scan. At thi s time, she got a single dose of vancomycin and Zosyn in the emergency department. We will continue her on cefepime at present and followup of blood cultures and findings. 2. Healthcare-associated pneumonia as above. Levofloxacin and cefepime will be ordered. I do not t hink this is MRSA pneumonia based on its appearance. 3. Hypertension, currently hypotensive and now normalized with fluids. We will hold her blood press ure medicine for now. 4. Hyperlipidemia on pravastatin. We will hold for now. 5. Bipolar disorder, will start Wellbutrin. 6. Gastroesophageal reflux disease, on Protonix. We will continue. 7. Depression/anxiety. 8. Recent methicillin-resistant Staphylococcus aureus bacteremia. 9. Chronic indwelling PICC line as above. The patient was placed in the critical care unit for now. She has high potential to decompensate.
[2017-06-01 06:25] LABS: ALT (SGPT) 565 U/L (8-55); AST (SGOT) 2279 U/L (5-34); Alkaline Phosphatase 136 U/L (40-150); Anion Gap 22 mmol/L (10-20); BUN (Urea Nitrogen) 67 mg/dL (9.8-20.1); Bilirubin, Total 0.4 mg/dL (0.2-1.2); Calc. Creatinine Clearance 21 mL/min (70-130); Calcium 8.4 mg/dL (7.8-10.44); Carbon Dioxide 18 mmol/L (23-31); Chloride 113 mmol/L (98-107); Estimated GFR-MDRD 13; Globulin 2.4 g/dL (2.4-3.5); Glucose 132 mg/dL (83-110); Magnesium 1.9 mg/dL (1.6-2.6); Potassium 5.2 mmol/L (3.5-5.1); Protein, Total 4.4 g/dL (6.0-8.3); Sodium 148 mmol/L (136-145)
[2017-06-01 07:32] LABS: Band 46 % (5-11); Hemoglobin 10.7 g/dL (12.0-16.0); Lymphocytes 5 % (21-51); MDiff Complete? YES; Mean Corpuscular HGB CONC 29.7 g/dL (32.0-36.0); Mean Corpuscular Hemoglobin 31.3 pg (27.0-31.0); Mean Platelet Volume 9.6 fL (7.4-10.4); Metamyelocyte 1 % (0-0); Monocytes 7 % (0-10); Myelocyte 2 % (0-0); Neutrophil 39 % (42-75); PLT Morphology Comment Appears Adequate; Platelet Count 180 thou/uL (130-400); Polychromasia SLIGHT = 2-3 cells (100X) (0-2/hpf); RBC Distribution Width 14.1 % (11.5-14.5); Red Blood Cell (RBC) Count 3.42 mill/uL (4.20-5.40); Toxic Granulation SLIGHT; Vacuoles SLIGHT; White Blood Cell (WBC) Count 19.9 thou/uL (4.8-10.8)
--- NOTE | 2017-06-01 07:37 | CT ---
CT BRAIN 05/31/17 PROVIDED CLINICAL HISTORY: Altered mental status. FINDINGS: Comparison is made with the study dated 05/09/17. The ventricular system appears normal in size and morphology. There is no evidence for intracranial h emorrhage or mass effect. Microvascular ischemic changes and encephalomalacia involving a portion of the left parietal region are again demonstrated. The extracranial soft tissues and osseous structures demonstrate no acute findings. IMPRESSION: No evidence for intracranial hemorrhage or mass effect. POS: CET
[2017-06-01] MEDS ORDERED: Senokot 8.6 MG TAB PO PRN (09:20)
[2017-06-01] MEDS ORDERED: Loperamide HCl 2 MG CAP PO PRN (09:20)
[2017-06-01] MEDS ORDERED: Diabetic Tussin 200 MG/10 ML UDCUP PO PRN (09:20)
[2017-06-01] MEDS ORDERED: Eucerin (Mineral Oil/Petrolatum,White) 30 gm Jar TOP PRN (09:20)
[2017-06-01] MEDS ORDERED: Ondansetron ODT 4 MG TAB PO PRN (09:20)
[2017-06-01] MEDS ORDERED: Loratadine 10 MG TAB PO PRN (09:20)
[2017-06-01] MEDS ORDERED: Milk Of Magnesia 30 ML UDCUP PO PRN (09:20)
[2017-06-01] MEDS ORDERED: Artificial Tears 18 DROP/0.9 ML EA EYE PRN (09:20)
[2017-06-01] MEDS ORDERED: Mag-Al 1200 mg/1200 mg/30 ML UDCUP PO PRN (09:20)
[2017-06-01] MEDS ORDERED: Chloraseptic Spray 180 ml Bottle PO PRN (09:20)
[2017-06-01] MEDS ORDERED: Sodium Chloride 0.65% Nasal 44 ML BOT EA NARE PRN (09:20)
[2017-06-01] MEDS: Famotidine/PF 20 mg/2ml Vial SLOW IVP SCH (09:51)
[2017-06-01 09:54] LABS: CKMB 3.6 ng/mL (0-6.6); Troponin I 0.108 ng/mL (< 0.028)
[2017-06-01] MEDS ORDERED: Potassium Chloride 40 MEQ in Premix Bag 1 BAG IVPB SCH (10:45)
--- NOTE | 2017-06-01 11:56 | PDOC.PN ---
- Subjective Encounter Start Date: 06/01/17 Encounter Start Time: 09:20 -: old records requested/rev Patient seen and examined. pt is disoriented. No overnight events - Objective Resuscitation Status: Resuscitation Status FULL:Full Resuscitation MAR Reviewed: Yes Vital Signs & Weight: Vital Signs (12 hours) Temp Pulse Resp Pulse Ox 06/01/17 07:41 99.7 F H 103 H 22 H 98 06/01/17 07:00 99.7 F H 06/01/17 03:00 98.4 F 06/01/17 02:17 97 06/01/17 00:15 97.7 F 84 16 98 Weight Admit Weight 226 lb Weight 226 lb 10.163 oz Most Recent Monitor Data Heart Rate from ECG 103 NIBP 137/60 NIBP BP-Mean 91 Respiration from ECG 21 SpO2 98 I&O: 05/31/17 06/01/17 06/02/17 06:59 06:59 06:59 Intake Total 519 Output Total 1260 125 Balance -741 -125 Result Diagrams: 06/01/17 01:46 06/01/17 01:46 Radiology Reviewed by me: Yes EKG Reviewed by me: Yes (nsr) Phys Exam - Physical Examination Constitutional: NAD HEENT: PERRLA, sclera anicteric dry MM Neck: no JVD, supple Respiratory: no wheezing, no rales, no rhonchi Cardiovascular: RRR, no significant murmur, no rub Gastrointestinal: soft, no distention, positive bowel sounds Musculoskeletal: no edema, pulses present Neurological: moves all 4 limbs Lymphatic: no nodes Psychiatric: normal affect Skin: no rash, normal turgor Dx/Plan (1) Acute kidney failure Status: Acute (2) Acute metabolic encephalopathy Code(s): G93.41 - METABOLIC ENCEPHALOPATHY Status: Acute (3) Demand ischemia of myocardium Code(s): I24.8 - OTHER FORMS OF ACUTE ISCHEMIC HEART DISEASE Status: Acute (4) Hyperkalemia Code(s): E87.5 - HYPERKALEMIA Status: Acute (5) Hypernatremia Code(s): E87.0 - HYPEROSMOLALITY AND HYPERNATREMIA Status: Acute (6) Lactic acidosis Code(s): E87.2 - ACIDOSIS Status: Acute (7) Sepsis with acute organ dysfunction Code(s): A41.9 - SEPSIS, UNSPECIFIED ORGANISM; R65.20 - SEVERE SEPSIS WITHOUT SEPTIC SHOCK Status: Acute (8) Transaminitis Code(s): R74.0 - NONSPEC ELEV OF LEVELS OF TRANSAMNS & LACTIC ACID DEHYDRGNSE Status: Acute (9) Bipolar disorder Code(s): F31.9 - BIPOLAR DISORDER, UNSPECIFIED Status: Chronic (10) GERD (gastroesophageal reflux disease) Code(s): K21.9 - GASTRO-ESOPHAGEAL REFLUX DISEASE WITHOUT ESOPHAGITIS Status: Chronic (11) HLD (hyperlipidemia) Code(s): E78.5 - HYPERLIPIDEMIA, UNSPECIFIED Status: Chronic Qualifiers: (12) HTN (hypertension) Code(s): I10 - ESSENTIAL (PRIMARY) HYPERTENSION Status: Chronic Qualifiers: (13) Hypothyroidism Code(s): E03.9 - HYPOTHYROIDISM, UNSPECIFIED Status: Chronic Qualifiers: (14) Macrocytic anemia Code(s): D53.9 - NUTRITIONAL ANEMIA, UNSPECIFIED Status: Chronic (15) Obesity (BMI 30-39.9) Code(s): E66.9 - OBESITY, UNSPECIFIED Status: Chronic - Plan cont current plan of care, continue antibiotics * consult nephro, check UA, urine culture, urine sodium and creatinine * consult ID and add vancomycin given her h/o MRSA bacteremia * continue cefepime * change IVF with dex 1/2 NS with bicarbonate at 100 ml per hour * follow culture * monitor labs * medication reviewed as below * symptomatic treatment. Review of Systems - Review of Systems Other: unable to review as pt is disoriented - Medications/Allergies Allergies/Adverse Reactions: Allergies Allergy/AdvReac Type Severity Reaction Status Date / Time morphine Allergy Verified 06/01/17 00:57 Sulfa (Sulfonamide Allergy Verified 06/01/17 00:57 Antibiotics) Medications: Current Medications Al Hydroxide/Mg Hydroxide (Maalox) 15 ml PO Q4H PRN PRN Reason: Heartburn or Indigestion Artificial Tears (Tears Naturale) 0 drop EA EYE PRN PRN PRN Reason: Dry Eyes Famotidine (Pepcid) 20 mg SLOW IVP DAILY [facility] Last Admin: 06/01/17 09:51 Dose: 20 mg Guaifenesin (Robitussin Sf) 200 mg PO Q4H PRN PRN Reason: Cough Heparin Sodium (Porcine) (Heparin) 5,000 units SC BID [facility] Hydralazine HCl (Apresoline) 10 mg SLOW IVP Q4H PRN PRN Reason: Systolic BP > 180 Cefepime HCl 2 gm/ Syringe 2.5 (ml/ Sterile Water) 12.5 mls @ 150 mls/hr SLOW IVP 0100 [facility] Last Admin: 06/01/17 01:19 Dose: 12.5 mls Sodium Bicarbonate 100 meq/ (Dextrose/Sodium Chloride) 1,100 mls @ 100 mls/hr IV .Q11H [facility] Last Admin: 06/01/17 09:49 Dose: Not Given Vancomycin HCl 1 gm/ Device 200 mls @ 200 mls/hr IVPB Q2D@2300 [facility] Loperamide HCl (Imodium) 2 mg PO PRN PRN PRN Reason: Diarrhea/Loose Stools Loratadine (Claritin) 10 mg PO DAILYPRN PRN PRN Reason: Sinus Symptoms Magnesium Hydroxide (Milk Of Magnesium) 30 ml PO DAILYPRN PRN PRN Reason: Constipation Mineral Oil/White Petrolatum (Eucerin Cream) 0 gm TOP BIDPRN PRN PRN Reason: Dry Skin Miscellaneous Medication (Pharmacy To Dose) 1 each PO PRN PRN PRN Reason: Pharmacy to dose Ondansetron HCl (Zofran) 4 mg IVP Q6H PRN PRN Reason: Nausea/Vomiting Ondansetron HCl (Zofran Odt) 4 mg PO Q6H PRN PRN Reason: Nausea/Vomiting Phenol (Chloraseptic [place] 180 Ml Bot) 0 ml PO PRN PRN PRN Reason: Sore Throat Senna (Senokot) 2 tab PO HSPRN PRN PRN Reason: Constipation Sodium Chloride (Flush - Normal Saline) 10 ml IVF PRN PRN PRN Reason: Saline Flush Sodium Chloride ([place] Nasal [place] 0.65%) 0 ml EA NARE QIDPRN PRN PRN Reason: Nasal Congestion
--- NOTE | 2017-06-01 12:28 | ULT ---
RIGHT UPPER QUADRANT GALLBLADDER ULTRASOUND: HISTORY: Altered mental status. COMPARISON: CT abdomen and pelvis from the prior day. FINDINGS: The gallbladder is distended. Gallbladder wall thickness is 3 mm. No cholelithiasis. The common bile duct measures 6 mm. The liver measures 16.9 cm in length. The right kidney measures 13.6 x 6.5 x 6.7 cm. No right-sided renal mass, hydronephrosis, or abnormal calcifications. IMPRESSION: Mildly distended gallbladder, likely due to n.p.o. status. No evidence for cholelithiasis or cholecy stitis. POS: TAVO
--- NOTE | 2017-06-01 12:49 | CON ---
DATE OF CONSULTATION: 06/01/2017 CONSULTING PHYSICIAN: Dr. Faulkner REASON FOR CONSULTATION: Acute kidney injury. REASON FOR ADMISSION: Altered mental status. HISTORY OF PRESENT ILLNESS: This is an 81-year-old female with multiple admissions in the hospital including a history of hypertension, hyperlipidemia and CKD, who came to the hospital with altered mentation. Nephrology is consulted currently for acute kidney injury. Patient's creatinine was found to be 3.4, 3.6 on admission and 3.4 this morning. Her last creatinine was 0.7 on 05/10/2017. The patient is not able to give a good history as patient is in ICU with altered mentation. Bedside nurse also not much aware of her situation. Apparently she is from [facility]. The patient is also treated for community-acquired pneumonia and severe sepsis. PAST MEDICAL HISTORY: Positive for hypertension, hyperlipidemia, depression, anxiety, bipolar disorder, GERD, chronic kidney disease, history of MRSA bacteremia peritonitis. PAST SURGICAL HISTORY: Tonsillectomy, left AKA and foot surgery. HOME MEDICATIONS: Amlodipine, metoprolol, potassium, levothyroxine, lisinopril , Pravastatin, , , Colace, Wellbutrin, Lumigan, Protonix. ALLERGIES: SULFA, MORPHINE. FAMILY HISTORY: Not available. SOCIAL HISTORY: No smoking, alcohol or illicit drug abuse. Lives in [facility]. REVIEW OF SYSTEMS: Could not be obtained due to the mental status. PHYSICAL EXAMINATION: GENERAL: This is an elderly female who is lethargic and not responding. VITAL SIGNS: Temperature 99.7, pulse 103, respiratory 20, blood pressure 137/ 60. HEENT: Atraumatic, normocephalic. NECK: Supple. HEART: S1, S2 heard. RESPIRATORY: Clear. ABDOMEN: Soft. MUSCULOSKELETAL: 1+ edema. Neuro - non responsive LABORATORY: Potassium is 5.2, BUN 67, creatinine 3.4, albumin is 2.7. ASSESSMENT AND PLAN: 1. Acute kidney injury most likely from sepsis. Continue supportive care with hydration if tolerated. Prognosis guarded. 2. Hypernatremia. 3. Hyperkalemia. Limit potassium in the diet. 4. Acidosis. Continue hydration and sepsis protocol. 5. Lactic acidosis. 6. Severe hypoalbuminemia. 7. Elevated liver enzymes. 8. Anemia. 9. Leukocytosis. 10. Severe sepsis. 11. History of bacteremia in the past, chronic indwelling PICC line. Overall prognosis is very guarded, no acute indication for dialysis, continue close monitoring of labs and will follow. Avoid nephrotoxins, continue supportive care at this point. No family members available for discussion. Thank you for the consultation. BROOKS
[2017-06-01 14:16] LABS: Lactic Acid 3.6 mmol/L (0.5-2.2)
[2017-06-01] MEDS: Sodium Chloride 0.45% 1,000 ML IV SCH ×2 (14:33→22:53)
--- NOTE | 2017-06-01 15:22 | PQF ---
CLINICAL DOCUMENTATION IMPROVEMENT CLARIFICATION FORM: ICD-10 Updated PLEASE DO AN ADDENDUM TO THE PROGRESS NOTE WITH ANY DOCUMENTATION UPDATES OR ADDITIONS AND CARRY THROUGH TO DC SUMMARY. THANK YOU. DATE: 06/01/17 ATTN: DR. SANDS Please exercise your independent, professional judgment in responding to the clarification form. Clinical indicators are provided on the bottom of this form for your review Please check appropriate box(s): [ ] Sepsis due to: (Pna, UTI, gangrenous gall bladder, etc.) Due to: [ ] Device (please specify) [ ] Implant [ ] Graft [ ] Infusion [ x ] Severe sepsis with acute organ dysfunction of: (Examples: respiratory failure, encephalopathy, acute kidney failure, other) [ ] Other diagnosis [ ] Unable to determine In addition, please specify: Present on Admission (POA): [ x ] Yes [ ] No [ ] Unable to determine For continuity of documentation, please document condition throughout progress notes and discharge summary. Thank You. CLINICAL INDICATORS - SIGNS / SYMPTOMS / LABS H&P: "I THINK SOURCES INCLUDE A POSSIBLE LINE SEPSIS FROM ER POORLY KEPT LEFT PICC LINE VERSUS THE [facility] PNEUMONIA SHOWING UP IN THE LEFT BASE ON CT SCAN." TEMP 102.7 PULSE 125 RR 25 BP 89/60 RISKS: PNEUMONIA PICC LINE W/ H/O BACTEREMIA TREATMENT: IV LEVAQUIN (ER) IV VANCOMYCIN (ER) IV ZOSYN (ER) IV MEROPENEM (06/01) IV FLUIDS (06/01) IV CEFEPIME (06/01) CRITICAL CARE MONITORING BLOOD AND URINE CULTURES INFECTIOUS DISEASE CONSULT (This form is maintained as a part of the permanent medical record) 2014 [employer] All Rights Reserved [email or web address] Office: [phone] [facility]
--- NOTE | 2017-06-01 15:42 | CON ---
DATE OF CONSULTATION: 06/01/2017 SERVICE: Pulmonary Medicine. REASON FOR CONSULTATION: ICU patient. HISTORY OF PRESENT ILLNESS: Patient is an 81-year-old white female with past medical history significant for morbid obesity, and multiple recent hospital trips for variant degrees of severe sepsis. She was brought to the hospital this time around, because she was found to have some altered mentation at the nursing facility at [facility]. She was brought to the emergency department where she was discovered to be febrile to 102 with other signs of sepsis. Her lactate was elevated. She was subsequently put on some broad spectrum antibiotics and tucked into the ICU. Otherwise, she cannot provide any additional elements of the history. PAST MEDICAL HISTORY: 1. Chronic kidney disease, stage 3. 2. Gastroesophageal reflux disease. 3. Bipolar disorder. 4. Major depressive disorder. 5. Anxiety disorder. 6. Hypertension. 7. Dyslipidemia. PAST SURGICAL HISTORY: 1. Left total knee surgery. 2. Foot surgery. 3. Tonsillectomy. ALLERGIES: SULFA, MORPHINE. MEDICATIONS: List of her inpatient and outpatient medications were reviewed. Of note, she is on multiple serotonergic medications. FAMILY HISTORY: Noncontributory. SOCIAL HISTORY: Negative for alcohol, tobacco or illicit drug use. She is currently living at [facility] getting IV antibiotics. She has no exposures to chemicals, dust asbestos or tuberculosis. REVIEW OF SYSTEMS: Noncontributory. PHYSICAL EXAMINATION: VITAL SIGNS: Afebrile currently with a T-max of 99.7. She had a 103 degree temperature in the emergency department; however. Pulse 103, blood pressure 137 /60, respirations 22, saturation 93% on 5 liters nasal cannula. GENERAL: Patient is awake, but she does not attend. She had spontaneous eye movements. She does say how with noxious stimuli to all four extremities. She has a little bit of withdrawal, but is suboptimal. HEENT: Normocephalic, atraumatic. Sclerae are white, conjunctivae pink. Oral and nasal mucosa is moist without lesions. LUNGS: Decent air entry. I do not appreciate a prolonged expiratory phase, wheezing, rhonchi or crackles. HEART: Normal rate, regular. ABDOMEN: Soft, nontender, nondistended. Bowel sounds are positive. MUSCULOSKELETAL: No cyanosis or clubbing. There is diffuse 2-3+ pitting throughout. GENITOURINARY: No Chaudhari. NEUROLOGIC: Grossly nonfocal. LABORATORY DATA: Sodium 148, potassium 5.2, bicarbonate 18, chloride 113, creatinine 3.46, BUN 67. AST 2279, ALT 565. Troponin is down trending, CK-MB is low. CK is also low. Ammonia level is low at 61. Liver function studies are otherwise unremarkable. Magnesium is normal. Lactate is down trending to 6.4. PH 7.39, pCO2 39. WBC 19.9, hemoglobin 10.7, platelets 180,000. White blood cell count is down trending nicely, but the band count is up trending to 46%. Blood culture is growing a gram negative sameer in 1/2 and Klebsiella pneumonia in the other. C. diff antigen and toxin were both unremarkable. IMAGIN. Chest x-ray demonstrates no evidence of acute cardiopulmonary abnormality. 2. CT of the abdomen and pelvis demonstrates left basilar pneumonia. Small bilateral pleural effusions. Distention of the urinary bladder. 3. CT of brain demonstrates no acute intracranial abnormality. 4. Abdominal ultrasound demonstrates a distended gallbladder, likely secondary to n.p.o. status. The common bile duct was not identified. Gallbladder wall thickness was normal. ASSESSMENT: 1. Acute hypoxic respiratory failure. 2. Metabolic encephalopathy. 3. Severe sepsis. 4. Bacteremia secondary to Klebsiella pneumoniae. 5. Polypharmacy, on multiple serotonergic medication. We will continue our antibiotics directed at gram negative organisms. The vancomycin will be interrupted as MRSA is not the likely culprit. I will repeat a lactate. If this is trending down into the normal range, she could be considered for transition out of the ICU. Pulmonary and Critical Care will continue to follow while she remains in this location for the time being until her mentation perks up ever so slightly. We do need to reevaluate whether or not all of these centrally acting medications are necessary in the outpatient setting. 70 minutes have been devoted to this patient in various activities. I personally reviewed all imaging studies and laboratory data noted within this document. For at least half of this time, I was interacting with the patient at bedside or coordinating care with the care team. For the remainder of the time, I was immediately available to the patient in the hospital unit. BROOKS
[2017-06-01] MEDS: Meropenem 500 MG, Admixture Fee 1 EACH in Sterile Water 10 ML SLOW IVP SCH (15:44)
[2017-06-01 17:22] LABS: CKMB 2.3 ng/mL (0-6.6); Troponin I 0.079 ng/mL (< 0.028)
--- NOTE | 2017-06-01 17:28 | CON ---
DATE OF CONSULTATION: 06/01/2017 REASON FOR CONSULTATION: Bacteremia sepsis. HISTORY OF PRESENT ILLNESS: An 81-year-old whom we had seen recently in mid- April last year when she presented with MRSA bacteremia secondary to parotitis. The patient was discharged with a PICC line and to continue on IV vancomycin, which was supposed to be given for 4 weeks after the initiation of therapy in 04/26/2017. She was brought in to the hospital earlier today and again on 05/08/2017, at that time, the patient had altered mental status and had a urine culture which showed yeast species from the Chaudhari catheter. Blood culture no growth in 5 days. She was discharged with having MRSA parotitis and urinary tract infection and given Diflucan daily plus continuation of vancomycin. At this time, she is readmitted two weeks after last discharge with altered mental status. She had a temperature of 102.7, BP 89/60 and on the exam, she had opened her eyes and disoriented. Lungs with few inspiratory crackles at the bases. The heart exam showed normal findings. Abdomen, not tender or distended. Impression was sepsis, possible pneumonia. The CT of abdomen and pelvis showed left basilar pneumonia. Currently, Ms. Guaman is in the ICU. She is obtunded, does not establish eye contact, does not follow commands, only mumbles unintelligible sounds intermittently when stimulated. She has had no reported diarrhea, no respiratory symptoms. PAST MEDICAL HISTORY: Hypertension, dyslipidemia, bipolar disorder, renal insufficiency, depression, severe neurological impairment, possible CVA, possibility of Parkinson disease considered, recent episode of parotitis with bacteremia secondary to methicillin-resistant Staphylococcus aureus. PAST SURGICAL HISTORY: Includes now left knee replacement. SOCIAL HISTORY: long-term resident. Never a smoker. FAMILY HISTORY: Noncontributory. CURRENT MEDICATIONS: Maalox, cefepime, Pepcid, Robitussin, heparin, Apresoline , Imodium, Claritin, Zofran, bicarbonate, and vancomycin. PHYSICAL EXAMINATION: VITAL SIGNS: Here in the unit T-max 99.7, blood pressure 130/60, pulse 103, respirations 22, and O2 sat 98%. SKIN: Area of intertriginous maceration in the groin region. Shows the PICC line in left upper extremity with a Chaudhari catheter inserted. HEENT: Ocular movements are conjugate, but she does not establish eye contact, blowing movements. Sclerae white. Pupils are 2 mm and reactive. Oral cavity moist. NECK: Stiff to all directions. LUNGS: With symmetric air entry. S1, S2, regular rate. EXTREMITIES: No obvious murmurs. ABDOMEN: Moderately distended, but soft. Patient mumbles, moans and groans when I press on her abdomen. EXTREMITIES: Diffuse stiffness, I could not elicit movements except for the upper extremities. Lower extremities do not move on stimulation. LABORATORY: White cell count is 21,000 down to 19,000, hemoglobin 10, platelets 180,000, 39% neutrophils, 46% bands, pH 7.39, pCO2 of 39 and this is the venous gas. The creatinine is 2.65 and now at 3.46, sodium 148, potassium 5.2, AST 2200, ALT 565, albumin 2.0. I do not have a urinalysis this admission. Last urinalysis at the end of April with 0-3 wbcs. Microbiology now with Klebsiella pneumoniae 2/2 sets positive. No preliminary susceptibility results are available at this time. The patient had an abdomen and pelvis CT done yesterday and this demonstrated first of all that there was no IV contrast was given. No bowel dilation, inflammatory fat stranding, IVC filter present, possible basilar pneumonia, left side. Abdominal ultrasound with distended gallbladder, but no findings to suggest inflammatory changes in the gallbladder. There was conspicuous distention of the urinary bladder on the abdomen CT scan. ASSESSMENT: Severe neurological impairment associated with dementia and the underlying reason for it is not clear if it is multiinfarct dementia were another cause, the patient has recent episode of methicillin-resistant Staphylococcus aureus-associated parotitis, which has been treated to completion now. Now, she presents with urinary retention and Klebsiella pneumoniae in 2/2 sets of blood cultures. Urine culture is not yet resulted. There is a urine culture submitted, but it is logged as uncollected at this point in time. DISCUSSION: The differential diagnosis includes pneumonia versus urinary obstruction with urosepsis. The abdomen and pelvis CT was done without contrast , so another inflammatory process in the abdominal compartment is not ruled out. We will switch to meropenem until we have the full susceptibility in case there is ESBL organism. Repeat blood cultures from the line and peripheral. MTDD
[2017-06-01 17:34] LABS: Bilirubin Negative (Negative); Blood, Urine Large (Negative); Glucose, Urine (Dipstick) Negative (Negative); Leukocyte Moderate (Negative); Nitrite Negative (Negative); Protein, Urine (Dipstick) 100 mg/dL (Neg-Trace); Specific Gravity, Urine 1.015 (1.005-1.030); Urobilinogen 0.2 mg/dL (0.2-1.0)
[2017-06-01 17:36] LABS: Clarity Cloudy (Clear)
[2017-06-01 17:49] LABS: Bacteria/HPF 2+ HPF (None Seen); Hyaline Casts/LPF 0-3 HYALINE CAST LPF (0-3 Hyaline); RBC/HPF 21-50 HPF (0-3); Squamous Epithelial 0-3 HPF (0-3)
[2017-06-01 18:10] LABS: Creatinine, Urine 53.69 mg/dL (47-110)
[2017-06-01] MEDS: Heparin 5,000 UNITS/ML VIAL SC SCH (20:40)
[2017-06-02] MEDS: Meropenem 500 MG, Admixture Fee 1 EACH in Sterile Water 10 ML SLOW IVP SCH ×2 (02:44→16:17)
[2017-06-02 04:52] LABS: INR-International Normal Ratio 1.4; Lactic Acid 1.7 mmol/L (0.5-2.2); Prothrombin Time 17.9 SEC (12.0-14.7)
[2017-06-02 04:53] LABS: PTT 33.1 SEC (22.9-36.1)
[2017-06-02 04:58] LABS: ALT (SGPT) 496 U/L (8-55); AST (SGOT) 1040 U/L (5-34); Albumin 1.7 g/dL (3.4-4.8); Alkaline Phosphatase 132 U/L (40-150); Anion Gap 15 mmol/L (10-20); BUN (Urea Nitrogen) 70 mg/dL (9.8-20.1); Bilirubin, Total 0.3 mg/dL (0.2-1.2); Calc. Creatinine Clearance 24 mL/min (70-130); Calcium 7.8 mg/dL (7.8-10.44); Carbon Dioxide 22 mmol/L (23-31); Chloride 115 mmol/L (98-107); Estimated GFR-MDRD 15; Globulin 2.4 g/dL (2.4-3.5); Glucose 66 mg/dL (83-110); Magnesium 1.9 mg/dL (1.6-2.6); Phosphorus 5.2 mg/dL (2.3-4.7); Potassium 4.7 mmol/L (3.5-5.1); Protein, Total 4.1 g/dL (6.0-8.3); Sodium 147 mmol/L (136-145)
[2017-06-02 05:17] LABS: HBCM Index 0.07 S/CO (0-0.79); Hep A IgM AB Non-Reactive (NonReactive); Hep A IgM S/CO 0.12 S/CO (0-0.79); Hep B Surf Ag Non-Reactive S/CO (NonReactive); Hep C IgG Ab Non-Reactive (NonReactive); Hep C Index 0.18 S/CO (0-0.79); Hepatitis B Core IGM Abs Non-Reactive (NonReactive)
[2017-06-02 05:38] LABS: Band 5 % (5-11); Hemoglobin 10.8 g/dL (12.0-16.0); Hypochromia SLIGHT = 6-15 cells (100X) (0-5/hpf); Lymphocytes 6 % (21-51); MDiff Complete? YES; Macrocytosis MODERATE=16-30 cells (100X) (0-5/hpf); Mean Corpuscular HGB CONC 31.6 g/dL (32.0-36.0); Mean Corpuscular Hemoglobin 32.5 pg (27.0-31.0); Mean Platelet Volume 9.6 fL (7.4-10.4); Metamyelocyte 2 % (0-0); Monocytes 2 % (0-10); Neutrophil 85 % (42-75); PLT Morphology Comment Appears Decreased; Platelet Count 114 thou/uL (130-400); RBC Distribution Width 14.4 % (11.5-14.5); Red Blood Cell (RBC) Count 3.32 mill/uL (4.20-5.40); White Blood Cell (WBC) Count 20.6 thou/uL (4.8-10.8)
[2017-06-02] MEDS: Sodium Chloride 0.45% 1,000 ML IV SCH (07:30)
[2017-06-02] MEDS ORDERED: Furosemide 40 MG/4 ML VIAL SLOW IVP SCH (08:45)
[2017-06-02] MEDS: Famotidine/PF 20 mg/2ml Vial SLOW IVP SCH (10:01)
[2017-06-02] MEDS: Heparin 5,000 UNITS/ML VIAL SC SCH ×2 (10:02→21:51)
[2017-06-02] MEDS: Dextrose 5% in Water 1,000 ML IV SCH ×2 (10:04→23:53)
--- NOTE | 2017-06-02 11:37 | PQF ---
CLINICAL DOCUMENTATION IMPROVEMENT CLARIFICATION FORM: ICD-10 Updated PLEASE DO AN ADDENDUM TO THE PROGRESS NOTE WITH ANY DOCUMENTATION UPDATES OR ADDITIONS AND CARRY THROUGH TO DC SUMMARY. THANK YOU. DATE: 06/02/17 ATTN: DR. CMCABE Please exercise your independent, professional judgment in responding to the clarification form. Clinical indicators are provided on the bottom of this form for your review Please check appropriate box(s): [ X ] Sepsis due to: (Pna, UTI, gangrenous gall bladder, etc.) UTI Due to: [ ] Device (please specify) [ ] Implant [ ] Graft [ ] Infusion [ X ] Severe sepsis with acute organ dysfunction of: Metabolic encephalopathy,AKI (Examples: respiratory failure, encephalopathy, acute kidney failure, other) [ ] Other diagnosis [ ] Unable to determine In addition, please specify: Present on Admission (POA): [ X ] Yes [ ] No [ ] Unable to determine For continuity of documentation, please document condition throughout progress notes and discharge summary. Thank You. CLINICAL INDICATORS - SIGNS / SYMPTOMS / LABS H&P: "I THINK SOURCES INCLUDE A POSSIBLE LINE SEPSIS FROM ER POORLY KEPT LEFT PICC LINE VERSUS THE [facility] PNEUMONIA SHOWING UP IN THE LEFT BASE ON CT SCAN." TEMP 102.7 PULSE 125 RR 25 BP 89/60 RISKS: PNEUMONIA PICC LINE W/ H/O BACTEREMIA TREATMENT: IV LEVAQUIN (ER) IV VANCOMYCIN (ER) IV ZOSYN (ER) IV MEROPENEM (06/01) IV FLUIDS (06/01) IV CEFEPIME (06/01) CRITICAL CARE MONITORING BLOOD AND URINE CULTURES INFECTIOUS DISEASE CONSULT (This form is maintained as a part of the permanent medical record) 2014 [employer] All Rights Reserved [place] [email or web address] Office: [phone] [facility]
--- NOTE | 2017-06-02 11:38 | PRG ---
DATE OF SERVICE: 06/02/2017 SUBJECTIVE: Patient was seen and examined at bedside and overnight events noted. Patient denies any shortness of breath or chest pain or palpitation. No history of nausea or vomiting or diarrhea or f ever or chills or cramps. OBJECTIVE: GENERAL: This is an elderly female, in no apparent distress. VITAL SIGNS: Temperature 98.7, pulse 82, respiratory rate 28, blood pressure 146/54. HEENT: Atraumatic, normocephalic. Oral mucosa is moist. NECK: Supple. CARDIOVASCULAR: S1, S2 heard. Rate and rhythm regular. RESPIRATORY: Clear to auscultation. GASTROINTESTINAL: Abdomen is soft. MUSCULOSKELETAL: No tenderness, no edema. DERMATOLOGIC: No skin rash. NEUROLOGIC: Alert and awake and oriented x3. No focal neurologic deficits. Moving all the extremit ies. PSYCHIATRIC: Mood and affect normal, LABORATORY DATA: Potassium is 4.7, BUN 70, creatinine is 2.9. ASSESSMENT AND PLAN: 1. Acute kidney injury secondary to sepsis. Creatinine is getting better than yesterday. 2. Hyponatremia. 3. Hyperkalemia, better. 4. Lactic acidosis. 5. Severe hypoalbuminemia. 6. Anemia. 7. Severe sepsis. Overall, potassium is getting better, so creatinine is better. Urine output seems to be stable. We will follow. Avoid nephrotoxins. Continue supportive care.
--- NOTE | 2017-06-02 12:51 | PRG ---
DATE OF SERVICE: 06/02/2017 SERVICE: Pulmonary Medicine. INTERVAL HISTORY: The patient is doing fine from a respiratory standpoint. She is breathing comfort ably. She has no specific complaints of nausea, vomiting, or chest discomfort. She continues to hav e rhythmic jerking to the upper and lower extremities as well as the jaw. It seems to get worse when ever she is talking to me or when you stimulate her in any form. OBJECTIVE: VITAL SIGNS: Afebrile, pulse 82, blood pressure 146/54, respirations 28, saturation 99% on 2 liters nasal cannula. GENERAL: The patient is awake, alert, in no apparent distress. LUNGS: Decent air entry. There is no prolonged expiratory phase. I do not appreciate any crackling . HEART: Normal rate, regular. ABDOMEN: Soft, nontender, nondistended. Bowel sounds are positive. MUSCULOSKELETAL: No cyanosis or clubbing. There is diffuse 1-2+ pitting throughout. GENITOURINARY: Chaudhari catheter in place. NEUROLOGIC: Grossly nonfocal. LABORATORY DATA: WBC 20.6, hemoglobin 10.8 and stable, platelets 114,000 down trending aggressively. Band count is improving to 5%. INR 1.4. Creatinine has improved to 2.98, BUN is stable at 70, sod ium is stable at 147. AST and ALT are both down trending nicely. Lactate 1.7. Urinalysis is mildly abnormal. Blood culture is growing Klebsiella pneumonia in 1 out of 2 and presumptive Klebsiella in the other. C. diff antigen and toxin are negative. ASSESSMENT: 1. Acute hypoxic respiratory failure. 2. Metabolic encephalopathy, improving. 3. Severe sepsis. 4. Bacteremia secondary to Klebsiella pneumonia. 5. Polypharmacy, multiple centrally acting medications. PLAN: The patient is a little volume overload and her sodium is at upper limits of what I would cons ider normal. As such, I will give her a little bit of free water and start to diurese her gently on a daily basis. She is stable for transition out of the ICU to the floor. Pulmonary Critical Care wi ll continue to follow for 1 additional day.
--- NOTE | 2017-06-02 14:19 | PDOC.PN ---
- Subjective Encounter Start Date: 06/02/17 Encounter Start Time: 14:18 Subjective: opens eyes and follows siple commands -: wants to drink water but failed swollow study - Objective Resuscitation Status: Resuscitation Status FULL:Full Resuscitation MAR Reviewed: Yes Vital Signs & Weight: Vital Signs (12 hours) Temp Pulse Ox 06/02/17 07:00 98.7 F 06/02/17 06:00 99.5 F 06/02/17 04:00 97 Weight Admit Weight 226 lb Weight 227 lb 1.218 oz Most Recent Monitor Data Heart Rate from ECG 82 NIBP 146/54 NIBP BP-Mean 111 Respiration from ECG 28 SpO2 99 I&O: 06/01/17 06/02/17 06/03/17 06:59 06:59 06:59 Intake Total 519 2283 Output Total 1260 990 115 Balance -741 1293 -115 Result Diagrams: 06/02/17 05:04 06/02/17 04:25 Additional Labs: Accuchecks 06/02/17 10:19 POC Glucose 71 Microbiology 05/31/17 22:50 Stool - Pending C. difficile GDH Antigen & Toxins - Final 05/31/17 21:13 Venous blood - Left Hand Blood Culture - Preliminary Klebsiella pneumoniae 05/31/17 20:35 Venous blood - Left Hand Blood Culture - Preliminary Presumptive Kleb/Enterobacter Laboratory Tests 05/10/17 05/31/17 05/31/17 10:19 21:13 21:13 Sodium 146 H Carbon Dioxide 19 L Creatinine 0.75 3.65 H Lactic Acid Total Bilirubin 0.3 AST 2096 H ALT 574 H Alkaline Phosphatase 161 H Troponin I 0.103 H 05/31/17 06/01/17 06/01/17 21:13 00:03 00:03 Sodium Carbon Dioxide Creatinine Lactic Acid 7.7 H* 7.7 H* Total Bilirubin AST ALT Alkaline Phosphatase Troponin I 0.104 H 06/01/17 06/01/17 06/01/17 01:46 01:46 01:46 Sodium 148 H Carbon Dioxide 18 L Creatinine 3.46 H Lactic Acid 6.4 H* Total Bilirubin 0.4 AST 2279 H ALT 565 H Alkaline Phosphatase 136 Troponin I 0.134 H 06/01/17 06/01/17 06/01/17 08:34 13:49 16:50 Sodium Carbon Dioxide Creatinine Lactic Acid 3.6 H Total Bilirubin AST ALT Alkaline Phosphatase Troponin I 0.108 H 0.079 H 06/02/17 06/02/17 04:25 04:25 Sodium 147 H Carbon Dioxide 22 L Creatinine 2.98 H Lactic Acid 1.7 Total Bilirubin 0.3 AST 1040 H ALT 496 H Alkaline Phosphatase 132 Troponin I Radiology Reviewed by me: Yes EKG Reviewed by me: Yes Phys Exam - Physical Examination Constitutional: NAD weak and tired looking.sleepy HEENT: PERRLA, sclera anicteric dry mucosa Neck: no JVD Respiratory: no wheezing, no rales, no rhonchi, clear to auscultation bilateral Cardiovascular: RRR, no significant murmur Gastrointestinal: soft, non-tender, no distention, positive bowel sounds Musculoskeletal: pulses present, edema present Neurological: non-focal, normal sensation, moves all 4 limbs intentional tremor LUE and LLE Psychiatric: normal affect oreineted to self and person Skin: no rash Dx/Plan (1) Severe sepsis Code(s): A41.9 - SEPSIS, UNSPECIFIED ORGANISM; R65.20 - SEVERE SEPSIS WITHOUT SEPTIC SHOCK Status: Acute Comment: likley source urine (2) UTI (urinary tract infection) Status: Acute Qualifiers: Urinary tract infection type: acute cystitis Hematuria presence: without hematuria Qualified Code(s): N30.00 - Acute cystitis without hematuria (3) Acute kidney failure Status: Acute Comment: improving (4) Acute metabolic encephalopathy Code(s): G93.41 - METABOLIC ENCEPHALOPATHY Status: Acute (5) Demand ischemia of myocardium Code(s): I24.8 - OTHER FORMS OF ACUTE ISCHEMIC HEART DISEASE Status: Acute (6) Hyperkalemia Code(s): E87.5 - HYPERKALEMIA Status: Acute Comment: improved (7) Hypernatremia Code(s): E87.0 - HYPEROSMOLALITY AND HYPERNATREMIA Status: Acute (8) Lactic acidosis Code(s): E87.2 - ACIDOSIS Status: Acute (9) Sepsis with acute organ dysfunction Code(s): A41.9 - SEPSIS, UNSPECIFIED ORGANISM; R65.20 - SEVERE SEPSIS WITHOUT SEPTIC SHOCK Status: Acute (10) Transaminitis Code(s): R74.0 - NONSPEC ELEV OF LEVELS OF TRANSAMNS & LACTIC ACID DEHYDRGNSE Status: Acute (11) Bacteremia due to Klebsiella pneumoniae Code(s): R78.81 - BACTEREMIA Status: Acute - Plan continue antibiotics, PT/OT, respiratory therapy, incentive spirometry, out of bed/ambulate, DVT proph w/SCDs cont meropenam.repeat line cultures pending -: ID following.taken off of vancomycin. -: renal Fx improving.gentle IVf w D5 as sodium high -: cont diuresis w free water restriction per [facility] -: PCT consulted as multiple hospitalizations recently w poor pognosis * .OT,PT * daily labs * LFTs improving.nunuley shock liver Review of Systems - Review of Systems Constitutional: weakness, malaise Other: limited ROS due to AMS and weakness - Medications/Allergies Allergies/Adverse Reactions: Allergies Allergy/AdvReac Type Severity Reaction Status Date / Time morphine Allergy Verified 06/01/17 00:57 Sulfa (Sulfonamide Allergy Verified 06/01/17 00:57 Antibiotics) Medications: Current Medications Al Hydroxide/Mg Hydroxide (Maalox) 15 ml PO Q4H PRN PRN Reason: Heartburn or Indigestion Artificial Tears (Tears Naturale) 0 drop EA EYE PRN PRN PRN Reason: Dry Eyes Famotidine (Pepcid) 20 mg PO DAILY [facility] Furosemide (Lasix) 40 mg SLOW IVP DAILY [facility] Guaifenesin (Robitussin Sf) 200 mg PO Q4H PRN PRN Reason: Cough Heparin Sodium (Porcine) (Heparin) 5,000 units SC BID [facility] Last Admin: 06/02/17 10:02 Dose: 5,000 units Hydralazine HCl (Apresoline) 10 mg SLOW IVP Q4H PRN PRN Reason: Systolic BP > 180 Meropenem 500 mg/Miscellaneous Medication 1 each/ Sterile Water 10 mls @ 120 mls/hr SLOW IVP 0300,1500 [facility] Last Admin: 06/02/17 02:44 Dose: 10 mls Dextrose/Water (D5w) 1,000 mls @ 75 mls/hr IV .[id number] [facility] Last Admin: 06/02/17 10:04 Dose: 1,000 mls Loperamide HCl (Imodium) 2 mg PO PRN PRN PRN Reason: Diarrhea/Loose Stools Loratadine (Claritin) 10 mg PO DAILYPRN PRN PRN Reason: Sinus Symptoms Magnesium Hydroxide (Milk Of Magnesium) 30 ml PO DAILYPRN PRN PRN Reason: Constipation Mineral Oil/White Petrolatum (Eucerin Cream) 0 gm TOP BIDPRN PRN PRN Reason: Dry Skin Ondansetron HCl (Zofran) 4 mg IVP Q6H PRN PRN Reason: Nausea/Vomiting Ondansetron HCl (Zofran Odt) 4 mg PO Q6H PRN PRN Reason: Nausea/Vomiting Phenol (Chloraseptic [place] 180 Ml Bot) 0 ml PO PRN PRN PRN Reason: Sore Throat Senna (Senokot) 2 tab PO HSPRN PRN PRN Reason: Constipation Sodium Chloride (Flush - Normal Saline) 10 ml IVF PRN PRN PRN Reason: Saline Flush Sodium Chloride ([place] Nasal [place] 0.65%) 0 ml EA NARE QIDPRN PRN PRN Reason: Nasal Congestion
--- NOTE | 2017-06-02 18:28 | PRG ---
DATE OF SERVICE: 06/02/2017 Ms. Guaman is still not responsive. She has her eyes open, but does not interact with examiner. No diarrhea. OBJECTIVE: VITAL SIGNS: T-max 99.5, blood pressure 177/66, pulse 91, O2 sat 100, awake, but does not interact w ith examiner. HEENT: Eye movements are conjugate. No nystagmus. RESPIRATORY: Symmetric air entry. HEART: S1, S2, regular rate. ABDOMEN: Not distended. Indwelling Chaudhari catheter. NEUROLOGIC: Unchanged from yesterday. LABORATORY DATA: White cell count 20.6. However, the percentage of bands is markedly down to 5%, he moglobin 10.8, which is stable and creatinine is down to 2.98. Current regimen includes meropenem 50 0 twice daily. Microbiology with Klebsiella pneumoniae, pending susceptibility profile. There is a urine culture submitted a day after admission which is pending. C. difficile antigen toxin negative. ASSESSMENT AND DISCUSSION: Neurological impairment associated with dementia for uncertain underlying reason either multiinfarct dementia was another cause and recent episode of methicillin-resistant St aphylococcus aureus parotitis, who now presents with sepsis, urinary retention and Klebsiella pneumon iae bacteremia. The most likely scenario is an invasive urinary tract infection associated with urin marci retention, pneumonia associated with aspiration is another possibility. The cultures may turn ou t to be negative since they were obtained after initiation of antimicrobial therapy. We will wait fo r the final results of susceptibility profile and then define subsequent antimicrobial therapy. The patient is having difficulty swallowing and has failed a swallowing study and may require gastrostomy tube placement. Further decision making informed.
[2017-06-02] MEDS ORDERED: Vancomycin HCl 1 GM in Premix Bag 1 BAG IVPB SCH (23:00)
[2017-06-03] MEDS: Meropenem 500 MG, Admixture Fee 1 EACH in Sterile Water 10 ML SLOW IVP SCH ×2 (03:30→15:35)
[2017-06-03] MEDS ORDERED: Dextrose 50% Abboject 50 ML SYRINGE ONE (05:13)
[2017-06-03] MEDS ORDERED: Dextrose 50% Abboject 50 ML SYRINGE IVP PRN (05:14)
[2017-06-03] MEDS ORDERED: Dextrose 5% in Water 1,000 ML IV PRN (05:14)
[2017-06-03 07:35] LABS: Hemoglobin 9.5 g/dL (12.0-16.0); Mean Corpuscular HGB CONC 30.6 g/dL (32.0-36.0); Mean Corpuscular Hemoglobin 31.6 pg (27.0-31.0); Mean Platelet Volume 9.6 fL (7.4-10.4); Platelet Count 96 thou/uL (130-400); RBC Distribution Width 14.1 % (11.5-14.5); Red Blood Cell (RBC) Count 3.02 mill/uL (4.20-5.40); White Blood Cell (WBC) Count 17.6 thou/uL (4.8-10.8)
[2017-06-03 07:53] LABS: Anion Gap 15 mmol/L (10-20); BUN (Urea Nitrogen) 66 mg/dL (9.8-20.1); Calc. Creatinine Clearance 27 mL/min (70-130); Calcium 8.3 mg/dL (7.8-10.44); Carbon Dioxide 25 mmol/L (23-31); Chloride 110 mmol/L (98-107); Estimated GFR-MDRD 17; Glucose 126 mg/dL (83-110); Magnesium 1.6 mg/dL (1.6-2.6); Phosphorus 4.7 mg/dL (2.3-4.7); Potassium 3.7 mmol/L (3.5-5.1); Sodium 146 mmol/L (136-145)
[2017-06-03 07:59] LABS: Band 19 % (5-11); Eosinophils 1 % (0-10); Lymphocytes 4 % (21-51); MDiff Complete? YES; Monocytes 4 % (0-10); Myelocyte 1 % (0-0); Neutrophil 71 % (42-75); PLT Morphology Comment Appears Decreased; Polychromasia SLIGHT = 2-3 cells (100X) (0-2/hpf); Toxic Granulation SLIGHT
[2017-06-03] MEDS ORDERED: Famotidine 20 MG TAB PO SCH (09:00)
[2017-06-03] MEDS: Furosemide 40 MG/4 ML VIAL SLOW IVP SCH (09:10)
[2017-06-03] MEDS: Dextrose 5% in Water 1,000 ML IV SCH (09:10)
[2017-06-03] MEDS: Famotidine/PF 20 mg/2ml Vial SLOW IVP SCH (09:10)
[2017-06-03] MEDS ORDERED: Acetaminophen 650 MG/20.3 ML UDCUP PO PRN (11:20)
--- NOTE | 2017-06-03 11:35 | PRG ---
DATE OF SERVICE: 06/03/2017 SUBJECTIVE: Patient was seen and examined at bedside and overnight events noted. Patient denies any shortness of breath or chest pain or palpitation. No history of nausea or vomiting or diarrhea or f ever or chills or cramps. OBJECTIVE: GENERAL: This is an elderly female, in no apparent distress. VITAL SIGNS: Temperature 97.9, pulse 79, respirations 16, blood pressure 165/67. HEENT: Atraumatic, normocephalic. Oral mucosa is moist. NECK: Supple. CARDIOVASCULAR: S1, S2 heard. Rate and rhythm regular. RESPIRATORY: Clear to auscultation. GASTROINTESTINAL: Abdomen is soft. MUSCULOSKELETAL: No tenderness, no edema. DERMATOLOGIC: No skin rash. NEUROLOGIC: Alert and awake and oriented x3. No focal neurologic deficits. Moving all the extremit ies. PSYCHIATRIC: Mood and affect normal. LABORATORY DATA: Potassium is 3.7, BUN 66, creatinine was 2.6. ASSESSMENT AND PLAN: 1. Acute kidney injury most likely secondary to sepsis. 2. Chronic kidney disease. 3. Hyperkalemia. 4. Lactic acidosis. 5. Severe hypoalbuminemia. 6. Anemia. 7. Severe sepsis. Overall, renal function continues to get better slowly. Avoid nephrotoxins, continue supportive care . We will follow. Renally dose the medicines.
[2017-06-03] MEDS ORDERED: Magnesium 2 GM/NS 0.9% 100 ML 2 GM in Premix Bag 1 BAG IVPB SCH (13:15)
--- NOTE | 2017-06-03 13:24 | PRG ---
DATE OF SERVICE: 06/03/2017 SERVICE: Pulmonary Medicine. INTERVAL HISTORY: The patient is much more awake and alert. She is conversant today. She denies an y current shortness of breath or chest discomfort. That being said, she is a poor historian and does not know where she is. There are no reported events overnight. PHYSICAL EXAMINATION: VITAL SIGNS: Afebrile, pulse 76, blood pressure 164/84, respirations 17, saturation 96% on room air. GENERAL: Patient is awake, alert, in no apparent distress. LUNGS: Decent air entry. Dependent crackles are minimal. HEART: Normal rate, regular. ABDOMEN: Soft, nontender, nondistended. Bowel sounds are positive. MUSCULOSKELETAL: No cyanosis or clubbing. There is 1+ pitting in the bilateral lower extremities. NEUROLOGIC: Grossly nonfocal. LABORATORY DATA: WBC 17.6, hemoglobin 9.5, platelets 96,000 and gently down trending. Band count is 19%. INR 1.4. Creatinine 2.67 and continuing to gently trend downward. Chloride 110, sodium remai ns elevated at 146, but is slowly improving. Magnesium 1.6, phosphorus 4.7. ASSESSMENT: 1. Acute hypoxic respiratory failure. 2. Metabolic encephalopathy, resolved to baseline. 3. Dementia, advanced. 4. Severe sepsis. 5. Bacteremia secondary to Klebsiella pneumoniae. 6. Polypharmacy. DISCUSSION AND PLAN: The patient is doing fine from a respiratory standpoint. She remains a little hypernatremic. We will continue free water over the next 24 hours and once daily dose of Lasix. I w ill also replace her magnesium. From my perspective, she is stable for transition to the telemetry u nit given her elevated troponin. Pulmonary will continue to follow intermittently during this hospit al stay.
--- NOTE | 2017-06-03 15:02 | PDOC.PN ---
- Subjective Encounter Start Date: 06/03/17 Encounter Start Time: 15:01 Subjective: doing better.awake and eating with COVER MARKER. -: no overnight events - Objective Resuscitation Status: Resuscitation Status FULL:Full Resuscitation MAR Reviewed: Yes Vital Signs & Weight: Vital Signs (12 hours) Temp Pulse Pulse Resp BP Pulse Ox Pulse Ox 06/03/17 12:00 97.7 F 06/03/17 08:00 97.9 F 70 16 97 06/03/17 07:36 70 147/48 H 97 06/03/17 04:00 97.8 F Weight Admit Weight 226 lb Weight 227 lb 1.218 oz Most Recent Monitor Data Heart Rate from ECG 73 NIBP 126/51 NIBP BP-Mean 71 Respiration from ECG 13 SpO2 98 I&O: 06/02/17 06/03/17 06/04/17 06:59 06:59 06:59 Intake Total 2283 1936 360 Output Total 990 2005 675 Balance 1293 -69 -315 Result Diagrams: 06/03/17 07:19 06/03/17 07:19 Additional Labs: Accuchecks 06/02/17 06/02/17 21:54 16:28 POC Glucose 74 84 Microbiology 05/31/17 22:50 Stool - Pending C. difficile GDH Antigen & Toxins - Final 05/31/17 21:13 Venous blood - Left Hand Blood Culture - Final Klebsiella pneumoniae ssp pneu 05/31/17 20:35 Venous blood - Left Hand Blood Culture - Final Klebsiella pneumoniae ssp pneu 06/02/17 05:04 Venous blood - Right Hand Blood Culture - Preliminary Specimen has been received and culture in progress. No Growth to date. 06/02/17 04:25 Venous blood - Left Hand Blood Culture - Preliminary Specimen has been received and culture in progress. No Growth to date. 06/01/17 17:15 Urine nunn catheter Urine Culture - Preliminary Presumptive Proteus mirabilis 06/01/17 17:15 Urine nunn catheter Urine Culture - Preliminary Laboratory Tests 05/31/17 06/01/17 06/02/17 21:13 01:46 04:25 Sodium 146 H 148 H 147 H Creatinine 3.65 H 3.46 H 2.98 H 06/03/17 07:19 Sodium 146 H Creatinine 2.67 H Phys Exam - Physical Examination Constitutional: NAD pale,tired HEENT: PERRLA, moist MMs, sclera anicteric, oral pharynx no lesions Neck: no JVD Respiratory: no wheezing, no rales, no rhonchi, clear to auscultation bilateral Cardiovascular: RRR, no significant murmur Gastrointestinal: soft, non-tender, no distention, positive bowel sounds Musculoskeletal: no edema, pulses present Neurological: non-focal, normal sensation, moves all 4 limbs Psychiatric: normal affect, A&O x 3 Dx/Plan (1) Sepsis with acute organ dysfunction Code(s): A41.9 - SEPSIS, UNSPECIFIED ORGANISM; R65.20 - SEVERE SEPSIS WITHOUT SEPTIC SHOCK Status: Acute (2) Bacteremia due to Klebsiella pneumoniae Code(s): R78.81 - BACTEREMIA Status: Acute (3) Severe sepsis Code(s): A41.9 - SEPSIS, UNSPECIFIED ORGANISM; R65.20 - SEVERE SEPSIS WITHOUT SEPTIC SHOCK Status: Acute Comment: likley source urine (4) UTI (urinary tract infection) Status: Acute Qualifiers: Urinary tract infection type: acute cystitis Hematuria presence: without hematuria Qualified Code(s): N30.00 - Acute cystitis without hematuria (5) Acute kidney failure Status: Acute Comment: improving (6) Acute metabolic encephalopathy Code(s): G93.41 - METABOLIC ENCEPHALOPATHY Status: Resolved (7) Demand ischemia of myocardium Code(s): I24.8 - OTHER FORMS OF ACUTE ISCHEMIC HEART DISEASE Status: Acute (8) Hyperkalemia Code(s): E87.5 - HYPERKALEMIA Status: Acute Comment: improved (9) Hypernatremia Code(s): E87.0 - HYPEROSMOLALITY AND HYPERNATREMIA Status: Acute Comment: improving with D5-1/2 NS (10) Lactic acidosis Code(s): E87.2 - ACIDOSIS Status: Acute (11) Transaminitis Code(s): R74.0 - NONSPEC ELEV OF LEVELS OF TRANSAMNS & LACTIC ACID DEHYDRGNSE Status: Acute (12) Thrombocytopenia Code(s): D69.6 - THROMBOCYTOPENIA, UNSPECIFIED Status: Acute - Plan PT/OT, social media strategist, respiratory therapy, incentive spirometry, out of bed/ ambulate, DVT proph w/SCDs cleraed by COVER MARKER for regular food.no need for Tube feeds. -: platelets running low.DC heparin & monitor.no bleeds -: cont ABx for Klebsiella bacteremia.Urine now w proteus.ID on board -: renal Fx improving. on gentle IVF. -: cont supportive care.PCT following.daily labs * . Review of Systems - Review of Systems Constitutional: weakness, malaise. negative: fever, chills, sweats, other Respiratory: Cough, SOB with Excertion. negative: Dry, Shortness of Breath, Hemoptysis, Pleuritic Pain, Sputum, Wheezing Cardiovascular: negative: chest pain, palpitations, orthopnea, paroxysmal nocturnal dyspnea, edema, light headedness, other Gastrointestinal: negative: Nausea, Vomiting, Abdominal Pain, Diarrhea, Constipation, Melena, Hematochezia, Other Genitourinary: negative: Dysuria, Frequency, Incontinence, Hematuria, Retention , Other Musculoskeletal: negative: Neck Pain, Shoulder Pain, Arm Pain, Back Pain, Hand Pain, Leg Pain, Foot Pain, Other Neurological: negative: Weakness, Numbness, Incoordination, Change in Speech, Confusion, Seizures, Other - Medications/Allergies Allergies/Adverse Reactions: Allergies Allergy/AdvReac Type Severity Reaction Status Date / Time morphine Allergy Verified 06/01/17 00:57 Sulfa (Sulfonamide Allergy Verified 06/01/17 00:57 Antibiotics) Medications: Current Medications Acetaminophen (Tylenol Elixir) 650 mg PO Q6H PRN PRN Reason: pain Last Admin: 06/03/17 12:18 Dose: 650 mg Al Hydroxide/Mg Hydroxide (Maalox) 15 ml PO Q4H PRN PRN Reason: Heartburn or Indigestion Artificial Tears (Tears Naturale) 0 drop EA EYE PRN PRN PRN Reason: Dry Eyes Dextrose/Water (Dextrose 50%) 25 gm IVP PRN PRN PRN Reason: HYPOGLYCEMIA PROTOCOL Famotidine (Pepcid) 20 mg SLOW IVP DAILY [facility] Last Admin: 06/03/17 09:10 Dose: 20 mg Furosemide (Lasix) 40 mg SLOW IVP DAILY [facility] Last Admin: 06/03/17 09:10 Dose: 40 mg Glucagon (Glucagon) 1 mg IM PRN PRN PRN Reason: HYPOGLYCEMIA PROTOCOL Guaifenesin (Robitussin Sf) 200 mg PO Q4H PRN PRN Reason: Cough Hydralazine HCl (Apresoline) 10 mg SLOW IVP Q4H PRN PRN Reason: Systolic BP > 180 Meropenem 500 mg/Miscellaneous Medication 1 each/ Sterile Water 10 mls @ 120 mls/hr SLOW IVP 0300,1500 [facility] Last Admin: 06/03/17 03:30 Dose: 10 mls Dextrose/Water (D5w) 1,000 mls @ 75 mls/hr IV .[id number] [facility] Last Admin: 06/03/17 09:10 Dose: 1,000 mls Dextrose/Water (D5w) 1,000 mls @ 0 mls/hr IV INF PRN; As Directed PRN Reason: HYPOGLYCEMIA PROTOCOL Loperamide HCl (Imodium) 2 mg PO PRN PRN PRN Reason: Diarrhea/Loose Stools Loratadine (Claritin) 10 mg PO DAILYPRN PRN PRN Reason: Sinus Symptoms Magnesium Hydroxide (Milk Of Magnesium) 30 ml PO DAILYPRN PRN PRN Reason: Constipation Mineral Oil/White Petrolatum (Eucerin Cream) 0 gm TOP BIDPRN PRN PRN Reason: Dry Skin Ondansetron HCl (Zofran) 4 mg IVP Q6H PRN PRN Reason: Nausea/Vomiting Ondansetron HCl (Zofran Odt) 4 mg PO Q6H PRN PRN Reason: Nausea/Vomiting Phenol (Chloraseptic [place] 180 Ml Bot) 0 ml PO PRN PRN PRN Reason: Sore Throat Senna (Senokot) 2 tab PO HSPRN PRN PRN Reason: Constipation Sodium Chloride (Flush - Normal Saline) 10 ml IVF PRN PRN PRN Reason: Saline Flush Sodium Chloride ([place] Nasal [place] 0.65%) 0 ml EA NARE QIDPRN PRN PRN Reason: Nasal Congestion
[2017-06-04] MEDS: Meropenem 500 MG, Admixture Fee 1 EACH in Sterile Water 10 ML SLOW IVP SCH ×2 (02:47→14:32)
[2017-06-04 04:04] LABS: Anion Gap 13 mmol/L (10-20); BUN (Urea Nitrogen) 59 mg/dL (9.8-20.1); Calc. Creatinine Clearance 31 mL/min (70-130); Calcium 8.1 mg/dL (7.8-10.44); Carbon Dioxide 26 mmol/L (23-31); Chloride 106 mmol/L (98-107); Estimated GFR-MDRD 20; Glucose 80 mg/dL (83-110); Sodium 141 mmol/L (136-145)
[2017-06-04] MEDS: Dextrose 5% in Water 1,000 ML IV SCH ×2 (05:07→15:03)
[2017-06-04 05:14] LABS: Band 22 % (5-11); Eosinophils 3 % (0-10); Hypochromia SLIGHT = 6-15 cells (100X) (0-5/hpf); Lymphocytes 3 % (21-51); MDiff Complete? YES; Mean Corpuscular HGB CONC 32.2 g/dL (32.0-36.0); Mean Corpuscular Hemoglobin 32.6 pg (27.0-31.0); Mean Platelet Volume 10.8 fL (7.4-10.4); Metamyelocyte 1 % (0-0); Monocytes 9 % (0-10); Myelocyte 1 % (0-0); Neutrophil 60 % (42-75); PLT Morphology Comment Appears Decreased; Platelet Count 65 thou/uL (130-400); Reactive Lymphocytes 1 % (0-10); Red Blood Cell (RBC) Count 3.06 mill/uL (4.20-5.40); White Blood Cell (WBC) Count 18.7 thou/uL (4.8-10.8)
[2017-06-04] MEDS: Famotidine/PF 20 mg/2ml Vial SLOW IVP SCH (08:11)
[2017-06-04] MEDS: Furosemide 40 MG/4 ML VIAL SLOW IVP SCH (08:11)
--- NOTE | 2017-06-04 09:47 | PRG ---
DATE OF SERVICE: 06/04/2017 SUBJECTIVE: Ms. Guaman is somnolent. She will not converse with me much. OBJECTIVE: VITAL SIGNS: Temperature 98.0, pulse 76, blood pressure 175/80, 24-hour intake 2429, output 1495. HEENT: Unremarkable. NECK: Supple. No JVD. CHEST: Fairly clear without wheezing. CARDIAC: S1, S2 regular. ABDOMEN: Soft. EXTREMITIES: Generalized edema. LABORATORY DATA: White blood cell count 18.7, hematocrit 31, platelet count 65. Sodium 141, potassi um 4, chloride 106, CO2 of 26, BUN 59, and creatinine 2.4. ASSESSMENT: 1. Acute hypoxic respiratory failure which is resolving. 2. Metabolic encephalopathy. 3. Dementia. 4. Severe sepsis. 5. Bacteremia secondary to Klebsiella. 6. Polypharmacy. PLAN: She is awaiting a telemetry bed. Her developing thrombocytopenia is somewhat concerning and h er heparin has been discontinued by the hospitalist group. We will also hold with Pepcid at this tung e as it can be associated with thrombocytopenia. If this does not help, then we may have to even con photographic restorer discontinuing the meropenem.
[2017-06-04] MEDS: Heparin 5,000 UNITS/ML VIAL SC SCH (10:06)
--- NOTE | 2017-06-04 16:18 | PDOC.PN ---
- Subjective Encounter Start Date: 06/04/17 Encounter Start Time: 14:00 Subjective: minimally interactive - Objective Resuscitation Status: Resuscitation Status FULL:Full Resuscitation MAR Reviewed: Yes Vital Signs & Weight: Vital Signs (12 hours) Temp Pulse Resp BP Pulse Ox 06/04/17 11:30 71 16 148/81 H 95 06/04/17 10:15 98.1 F 76 16 182/81 H 93 L 06/04/17 08:00 98 F 73 18 96 Weight Admit Weight 226 lb Weight 227 lb 1.218 oz Most Recent Monitor Data Heart Rate from ECG 71 NIBP 175/80 NIBP BP-Mean 99 Respiration from ECG 16 SpO2 96 I&O: 06/03/17 06/04/17 06/05/17 06:59 06:59 06:59 Intake Total 1935 2429 240 Output Total 2004 1493 305 Balance -69 934 -65 Result Diagrams: 06/04/17 03:08 06/04/17 03:08 Additional Labs: Accuchecks 06/04/17 06/04/17 06/03/17 11:43 05:23 22:16 POC Glucose 105 85 97 06/03/17 06/03/17 06/03/17 15:41 12:08 10:22 POC Glucose 111 H 86 83 06/03/17 06/03/17 06/03/17 07:20 05:43 04:55 POC Glucose 114 H 134 H 52 L* Phys Exam - Physical Examination minimally responsive HEENT: moist MMs, sclera anicteric Neck: supple, full ROM Respiratory: clear to auscultation bilateral Cardiovascular: RRR Gastrointestinal: soft Musculoskeletal: edema present Deviation from normal: minimally responsive Dx/Plan (1) Acute kidney failure Status: Acute Comment: improving (2) Bacteremia due to Klebsiella pneumoniae Code(s): R78.81 - BACTEREMIA Status: Acute (3) Demand ischemia of myocardium Code(s): I24.8 - OTHER FORMS OF ACUTE ISCHEMIC HEART DISEASE Status: Acute (4) Hyperkalemia Code(s): E87.5 - HYPERKALEMIA Status: Acute Comment: improved (5) Lactic acidosis Code(s): E87.2 - ACIDOSIS Status: Acute (6) Sepsis with acute organ dysfunction Code(s): A41.9 - SEPSIS, UNSPECIFIED ORGANISM; R65.20 - SEVERE SEPSIS WITHOUT SEPTIC SHOCK Status: Acute (7) Severe sepsis Code(s): A41.9 - SEPSIS, UNSPECIFIED ORGANISM; R65.20 - SEVERE SEPSIS WITHOUT SEPTIC SHOCK Status: Acute Comment: likley source urine (8) Thrombocytopenia Code(s): D69.6 - THROMBOCYTOPENIA, UNSPECIFIED Status: Acute (9) UTI (urinary tract infection) Status: Acute Qualifiers: Urinary tract infection type: acute cystitis Hematuria presence: without hematuria Qualified Code(s): N30.00 - Acute cystitis without hematuria (10) Bipolar disorder Code(s): F31.9 - BIPOLAR DISORDER, UNSPECIFIED Status: Chronic (11) Acute metabolic encephalopathy Code(s): G93.41 - METABOLIC ENCEPHALOPATHY Status: Resolved - Plan cont current plan of care, continue antibiotics * .
--- NOTE | 2017-06-04 19:41 | PRG ---
DATE OF SERVICE: 06/04/2017 SUBJECTIVE: Patient was seen and examined at bedside and overnight events noted. Patient denies any shortness of breath or chest pain or palpitation. No history of nausea or vomiting or diarrhea or f ever or chills or cramps. OBJECTIVE: GENERAL: This is an elderly female in no apparent distress. VITAL SIGNS: Temperature 98.7, pulse 71, respiratory rate 18, and blood pressure 156/74. HEENT: Atraumatic and normocephalic. Oral mucosa is moist. NECK: Supple. CARDIOVASCULAR: S1 and S2 heard. Rate and rhythm regular. RESPIRATORY: Clear to auscultation. GASTROINTESTINAL: Abdomen is soft. MUSCULOSKELETAL: No tenderness. No edema. DERMATOLOGIC: No skin rash. NEUROLOGIC: Alert, awake and oriented x3. No focal neurologic deficits. Moving all the extremities . PSYCHIATRIC: Mood and affect normal. LABORATORY DATA: Potassium is 4.0, BUN is 59 and creatinine is 2.3. ASSESSMENT AND PLAN: 1. Acute kidney injury secondary to sepsis, getting better. 2. Chronic kidney disease stage 3. 3. Hyperkalemia. 4. Lactic acidosis. 5. Severe hypoalbuminemia. 6. Anemia. 7. Severe sepsis. 8. Renal function continues to get better. Continue supportive care. Avoid nephrotoxins.
[2017-06-05] MEDS: Dextrose 5% in Water 1,000 ML IV SCH ×2 (04:19→15:44)
[2017-06-05] MEDS: Meropenem 500 MG, Admixture Fee 1 EACH in Sterile Water 10 ML SLOW IVP SCH ×2 (04:19→15:45)
[2017-06-05 05:33] LABS: Anion Gap 13 mmol/L (10-20); BUN (Urea Nitrogen) 47 mg/dL (9.8-20.1); Calc. Creatinine Clearance 41 mL/min (70-130); Calcium 7.7 mg/dL (7.8-10.44); Carbon Dioxide 22 mmol/L (23-31); Chloride 103 mmol/L (98-107); Estimated GFR-MDRD 27; Glucose 87 mg/dL (83-110); Potassium 3.3 mmol/L (3.5-5.1); Sodium 135 mmol/L (136-145)
[2017-06-05 05:38] LABS: Band 8 % (5-11); Hemoglobin 10.2 g/dL (12.0-16.0); Hypochromia SLIGHT = 6-15 cells (100X) (0-5/hpf); Lymphocytes 3 % (21-51); MDiff Complete? YES; Mean Corpuscular HGB CONC 31.6 g/dL (32.0-36.0); Mean Corpuscular Hemoglobin 32.7 pg (27.0-31.0); Mean Platelet Volume 9.8 fL (7.4-10.4); Metamyelocyte 1 % (0-0); Monocytes 4 % (0-10); Myelocyte 1 % (0-0); Neutrophil 83 % (42-75); PLT Morphology Comment Appears Adequate; Platelet Count 138 thou/uL (130-400); RBC Distribution Width 14.2 % (11.5-14.5); Red Blood Cell (RBC) Count 3.13 mill/uL (4.20-5.40); White Blood Cell (WBC) Count 19.2 thou/uL (4.8-10.8)
[2017-06-05] MEDS: Furosemide 40 MG/4 ML VIAL SLOW IVP SCH (09:07)
--- NOTE | 2017-06-05 13:00 | PDOC.PN ---
- Subjective Encounter Start Date: 06/05/17 Encounter Start Time: 12:45 -: non-verbal - Objective Resuscitation Status: Resuscitation Status FULL:Full Resuscitation MAR Reviewed: Yes Vital Signs & Weight: Vital Signs (12 hours) Temp Pulse Resp BP Pulse Ox 06/05/17 09:12 170/75 H 06/05/17 08:32 188/81 H 06/05/17 08:00 98.5 F 74 16 95 06/05/17 07:30 98.5 F 74 16 170/95 H 95 06/05/17 05:00 97.8 F 77 18 175/80 H 95 06/05/17 04:00 98.2 F 79 16 194/91 H 96 Weight Admit Weight 226 lb Weight 234 lb Most Recent Monitor Data Heart Rate from ECG 71 NIBP 175/80 NIBP BP-Mean 99 Respiration from ECG 16 SpO2 96 I&O: 06/04/17 06/05/17 06/06/17 06:59 06:59 06:59 Intake Total 2429 2020 Output Total 1495 2205 Balance 934 -185 Result Diagrams: 06/05/17 04:31 06/05/17 04:31 Additional Labs: Accuchecks 06/05/17 06/05/17 06/04/17 11:36 04:09 22:04 POC Glucose 111 H 90 99 06/04/17 16:53 POC Glucose 113 H Phys Exam - Physical Examination NON VERBAL HEENT: moist MMs, sclera anicteric Neck: supple Respiratory: no wheezing, no rhonchi FILIPPO Gastrointestinal: soft Musculoskeletal: edema present Deviation from normal: NON VERBAL Dx/Plan (1) Acute kidney failure Status: Acute Comment: improving (2) Bacteremia due to Klebsiella pneumoniae Code(s): R78.81 - BACTEREMIA Status: Acute (3) Demand ischemia of myocardium Code(s): I24.8 - OTHER FORMS OF ACUTE ISCHEMIC HEART DISEASE Status: Acute (4) Hyperkalemia Code(s): E87.5 - HYPERKALEMIA Status: Acute Comment: improved (5) Lactic acidosis Code(s): E87.2 - ACIDOSIS Status: Acute (6) Sepsis with acute organ dysfunction Code(s): A41.9 - SEPSIS, UNSPECIFIED ORGANISM; R65.20 - SEVERE SEPSIS WITHOUT SEPTIC SHOCK Status: Acute (7) Severe sepsis Code(s): A41.9 - SEPSIS, UNSPECIFIED ORGANISM; R65.20 - SEVERE SEPSIS WITHOUT SEPTIC SHOCK Status: Acute Comment: likley source urine (8) Thrombocytopenia Code(s): D69.6 - THROMBOCYTOPENIA, UNSPECIFIED Status: Acute (9) UTI (urinary tract infection) Status: Acute Qualifiers: Urinary tract infection type: acute cystitis Hematuria presence: without hematuria Qualified Code(s): N30.00 - Acute cystitis without hematuria (10) Bipolar disorder Code(s): F31.9 - BIPOLAR DISORDER, UNSPECIFIED Status: Chronic (11) Acute metabolic encephalopathy Code(s): G93.41 - METABOLIC ENCEPHALOPATHY Status: Resolved - Plan cont current plan of care, continue antibiotics CONTINUED LEUKOCYTOSIS. CONSULT ID PT MAY NEED ANTIFUNGALS. * .
--- NOTE | 2017-06-05 13:23 | PRG ---
DATE OF SERVICE: 06/05/2017 SUBJECTIVE: Patient is about the same. She had no acute complaints. PHYSICAL EXAMINATION: VITAL SIGNS: Temperature 98.5, pulse 84, respiratory rate 16, O2 sat 95%, blood pressure 170/75. HEENT: Remarkable for some facial swelling. NECK: No JVD. LUNGS: Coarse breath sounds. CARDIAC: S1 and S2 regular. ABDOMEN: Soft. EXTREMITIES: Trace edema. LABORATORY DATA: White blood cell count 19, hematocrit 32.4, and platelet count 138. Sodium 135, po tassium 3.3, chloride 103, CO2 22, BUN 47, creatinine 1.7, and glucose 111. ASSESSMENT: 1. Improved thrombocytopenia. 2. Improved sepsis secondary to bacteremia from Klebsiella. 3. Dementia. 4. Encephalopathy. PLAN: Continue the antibiotics. Consider resumption of subcutaneous Lovenox tomorrow. Likely needs extensive rehabilitation at the time of discharge.
[2017-06-05] MEDS: hydrALAZINE 20 MG/ML VIAL SLOW IVP PRN (15:45)
--- NOTE | 2017-06-05 17:25 | PRG ---
DATE OF SERVICE: 06/05/2017 SUBJECTIVE: Patient was seen and examined at bedside and overnight events noted. Patient denies any shortness of breath or chest pain or palpitation. No history of nausea or vomiting or diarrhea or f ever or chills or cramps. PHYSICAL EXAMINATION: GENERAL: This is an elderly female in no apparent distress. VITAL SIGNS: Temperature 94, pulse 72, respirations 18, blood pressure 170/75. HEENT: Atraumatic, normocephalic. Oral mucosa is moist. NECK: Supple. CARDIOVASCULAR: S1, S2 heard. Rate and rhythm regular. RESPIRATORY: Clear to auscultation. GASTROINTESTINAL: Abdomen is soft. MUSCULOSKELETAL: No tenderness. No edema. DERMATOLOGIC: No skin rash. NEUROLOGIC: Alert and awake and oriented x3. No focal neurologic deficits. Moving all the extremiti es. PSYCHIATRIC: Mood and affect normal. LABORATORY DATA: Potassium is 3.3, BUN is 47, and creatinine is 1.7. ASSESSMENT AND PLAN: 1. Acute kidney injury on chronic kidney disease. 2. Renal function seems to be getting better slowly, avoid nephrotoxins. Continue supportive care. 3. Hypokalemia, replaced. 4. Edema. 5. Hypertension. Titrate medications. 5. Lactic acidosis. 6. Severe sepsis, better. 7. Hypoalbuminemia, increase protein intake. 8. Continue supportive care.
[2017-06-06 05:40] LABS: Anion Gap 15 mmol/L (10-20); BUN (Urea Nitrogen) 35 mg/dL (9.8-20.1); Calc. Creatinine Clearance 58 mL/min (70-130); Calcium 7.7 mg/dL (7.8-10.44); Carbon Dioxide 20 mmol/L (23-31); Chloride 99 mmol/L (98-107); Estimated GFR-MDRD 40; Glucose 81 mg/dL (83-110); Potassium 3.8 mmol/L (3.5-5.1); Sodium 130 mmol/L (136-145)
[2017-06-06] MEDS: Dextrose 5% in Water 1,000 ML IV SCH (05:55)
[2017-06-06] MEDS ORDERED: MEROPENEM SLOW IVP SCH (06:00)
[2017-06-06 06:09] LABS: Band 24 % (5-11); Hemoglobin 10.7 g/dL (12.0-16.0); Lymphocytes 7 % (21-51); MDiff Complete? YES; Mean Corpuscular HGB CONC 32.3 g/dL (32.0-36.0); Mean Corpuscular Hemoglobin 32.1 pg (27.0-31.0); Mean Corpuscular Volume 99.3 fl (81.0-99.0); Mean Platelet Volume 10.5 fL (7.4-10.4); Metamyelocyte 7 % (0-0); Monocytes 7 % (0-10); Myelocyte 5 % (0-0); Neutrophil 50 % (42-75); PLT Morphology Comment Appears Decreased; Platelet Count 124 thou/uL (130-400); RBC Distribution Width 14.1 % (11.5-14.5); Red Blood Cell (RBC) Count 3.33 mill/uL (4.20-5.40)
[2017-06-06] MEDS: Meropenem 500 MG, Admixture Fee 1 EACH in Sterile Water 10 ML SLOW IVP SCH (08:07)
[2017-06-06] MEDS: hydrALAZINE 20 MG/ML VIAL SLOW IVP PRN (08:29)
[2017-06-06] MEDS ORDERED: POLYETHYLENE GLYCOL 17 GM PO PRN (09:09)
[2017-06-06] MEDS ORDERED: Polyethylene Glycol 3350 17 GM Packet PO PRN (09:17)
--- NOTE | 2017-06-06 10:04 | PRG ---
DATE OF SERVICE: 06/06/2017 SUBJECTIVE: This is an 81-year-old female being seen for acute kidney injury. The patient denies an y nausea, vomiting or chest pain. PHYSICAL EXAMINATION: GENERAL: Patient is awake, alert. VITAL SIGNS: Afebrile, pulse 68, breathing at 16, blood pressure 131/72. HEAD/NECK: Normocephalic. Atraumatic. EYES: EOMI. No deformity. EARS: Clear. No ulcers. NOSE: Intact. No lesions. MOUTH: Clear. No discharge. THROAT: Clear. No exudate. LUNGS: Clear. No crackles. CARDIAC: S1, S2. No rub. ABDOMEN: Benign. BS+. GENITALIA/RECTUM: Chaudhari absent. BACK/EXTREMITIES: Edema 0+ Ulcer- NEUROLOGICAL: Alert and motor intact. SKIN: Rash- Bruise- LYMPHATICS: Edema- Ulcer- LABORATORY DATA: Show hemoglobin 10.7, sodium 130, creatinine 1.2. ASSESSMENT AND PLAN: 1. Acute kidney injury, improved. 2. Hypertension, stable. 3. Anemia, stable. 4. Hypernatremia, recommend fluid restriction. 5. Metabolic acidosis, stable. No indication for dialysis at this time.
[2017-06-06] MEDS: Furosemide 40 MG/4 ML VIAL SLOW IVP SCH (10:11)
[2017-06-06] MEDS: Sodium Chloride 0.9% 1,000 ML IV SCH (10:13)
[2017-06-06 13:06] VITALS: BMI 37.8
[2017-06-06] MEDS ORDERED: Non-Formulary Item 1 EACH (Gabapentin [Neurontin] 600 MG) PO SCH (15:00)
--- NOTE | 2017-06-06 15:23 | PDOC.PN ---
- Subjective Encounter Start Date: 06/06/17 Encounter Start Time: 15:21 Subjective: c/o back and shoulder pain - Objective Resuscitation Status: Resuscitation Status FULL:Full Resuscitation MAR Reviewed: Yes Vital Signs & Weight: Vital Signs (12 hours) Temp Pulse Resp BP Pulse Ox 06/06/17 11:54 97.9 F 89 18 139/66 96 06/06/17 08:18 98.6 F 76 18 96 06/06/17 08:16 98.6 F 76 18 204/88 H 99 06/06/17 04:00 98.2 F 80 20 131/72 96 Weight Admit Weight 226 lb Weight 234 lb Most Recent Monitor Data Heart Rate from ECG 71 NIBP 175/80 NIBP BP-Mean 99 Respiration from ECG 16 SpO2 96 I&O: 06/05/17 06/06/17 06/07/17 06:59 06:59 06:59 Intake Total 2019 1415 873 Output Total 2205 1550 700 Balance -185 -135 173 Result Diagrams: 06/06/17 04:31 06/06/17 04:31 Additional Labs: Accuchecks 06/06/17 06/06/17 06/05/17 12:28 06:42 20:57 POC Glucose 80 100 108 06/05/17 17:13 POC Glucose 81 Microbiology 06/01/17 17:15 Urine nnun catheter Urine Culture - Final Proteus mirabilis 05/31/17 22:50 Stool - Pending C. difficile GDH Antigen & Toxins - Final 05/31/17 21:13 Venous blood - Left Hand Blood Culture - Final Klebsiella pneumoniae ssp pneu 05/31/17 20:35 Venous blood - Left Hand Blood Culture - Final Klebsiella pneumoniae ssp pneu 06/02/17 05:04 Venous blood - Right Hand Blood Culture - Preliminary NO GROWTH AT 48 HOURS 06/02/17 04:25 Venous blood - Left Hand Blood Culture - Preliminary NO GROWTH AT 48 HOURS Laboratory Tests 05/31/17 05/31/17 06/01/17 21:13 21:13 01:46 WBC 21.8 H Plt Count 219 Sodium 146 H 148 H Creatinine 3.65 H 3.46 H 06/01/17 06/02/17 06/02/17 01:46 04:25 05:04 WBC 19.9 H Plt Count 180 114 L Sodium 147 H Creatinine 2.98 H 06/03/17 06/03/17 06/04/17 07:19 07:19 03:08 WBC 17.6 H Plt Count 96 L Sodium 146 H 141 Creatinine 2.67 H 2.37 H 06/04/17 06/05/17 06/05/17 03:08 04:31 04:31 WBC 18.7 H 19.2 H Plt Count 65 L 138 Sodium 135 L Creatinine 1.78 H 06/06/17 06/06/17 04:31 04:31 WBC 23.0 H Plt Count 124 L Sodium 130 L Creatinine 1.29 H Phys Exam - Physical Examination Constitutional: NAD pale,tired looking HEENT: PERRLA, moist MMs, sclera anicteric, oral pharynx no lesions Neck: no JVD Respiratory: no wheezing, no rales, no rhonchi, clear to auscultation bilateral Cardiovascular: RRR, no significant murmur Gastrointestinal: soft, non-tender, no distention, positive bowel sounds Musculoskeletal: no edema, pulses present Neurological: non-focal, normal sensation, moves all 4 limbs Psychiatric: normal affect, A&O x 3 Skin: no rash Dx/Plan (1) Sepsis with acute organ dysfunction Code(s): A41.9 - SEPSIS, UNSPECIFIED ORGANISM; R65.20 - SEVERE SEPSIS WITHOUT SEPTIC SHOCK Status: Acute (2) Bacteremia due to Klebsiella pneumoniae Code(s): R78.81 - BACTEREMIA Status: Acute (3) Severe sepsis Code(s): A41.9 - SEPSIS, UNSPECIFIED ORGANISM; R65.20 - SEVERE SEPSIS WITHOUT SEPTIC SHOCK Status: Acute Comment: likley source urine (4) UTI (urinary tract infection) Status: Acute Qualifiers: Urinary tract infection type: acute cystitis Hematuria presence: without hematuria Qualified Code(s): N30.00 - Acute cystitis without hematuria (5) Acute kidney failure Status: Acute Comment: improving (6) Acute metabolic encephalopathy Code(s): G93.41 - METABOLIC ENCEPHALOPATHY Status: Resolved (7) Demand ischemia of myocardium Code(s): I24.8 - OTHER FORMS OF ACUTE ISCHEMIC HEART DISEASE Status: Acute (8) Hyperkalemia Code(s): E87.5 - HYPERKALEMIA Status: Resolved Comment: improved (9) Hypernatremia Code(s): E87.0 - HYPEROSMOLALITY AND HYPERNATREMIA Status: Resolved (10) Lactic acidosis Code(s): E87.2 - ACIDOSIS Status: Acute (11) Transaminitis Code(s): R74.0 - NONSPEC ELEV OF LEVELS OF TRANSAMNS & LACTIC ACID DEHYDRGNSE Status: Acute (12) Thrombocytopenia Code(s): D69.6 - THROMBOCYTOPENIA, UNSPECIFIED Status: Acute - Plan PT/OT, out of bed/ambulate, DVT proph w/SCDs cont meropenam for now.worsening WBC for unknown reason.will d/w ID -: repeat Blood Cx from line are negative. -: BP high this AM.on norvasc.restart clonidine patch.MARCO-I on hold d/t SUPRIYA -: sodium lower now. will change IVF to NS & monitor. -: will need rehab.will request CM assistance. * .Ok to transfer to Medical for now. Bp improved. * will need aggressive PT and frequent ambulation * am labs Review of Systems - Review of Systems Constitutional: weakness, malaise. negative: fever, chills, sweats, other ENT: negative: Ear Pain, Ear Discharge, Nose Pain, Nose Discharge, Nose Congestion, Mouth Pain, Mouth Swelling, Throat Pain, Throat Swelling, Other Respiratory: negative: Cough, Dry, Shortness of Breath, Hemoptysis, SOB with Excertion, Pleuritic Pain, Sputum, Wheezing Cardiovascular: negative: chest pain, palpitations, orthopnea, paroxysmal nocturnal dyspnea, edema, light headedness, other Gastrointestinal: negative: Nausea, Vomiting, Abdominal Pain, Diarrhea, Constipation, Melena, Hematochezia, Other Genitourinary: negative: Dysuria, Frequency, Incontinence, Hematuria, Retention , Other Musculoskeletal: Back Pain Neurological: negative: Weakness, Numbness, Incoordination, Change in Speech, Confusion, Seizures, Other - Medications/Allergies Allergies/Adverse Reactions: Allergies Allergy/AdvReac Type Severity Reaction Status Date / Time morphine Allergy Verified 06/01/17 00:57 Sulfa (Sulfonamide Allergy Verified 06/01/17 00:57 Antibiotics) Medications: Current Medications Acetaminophen (Tylenol Elixir) 650 mg PO Q6H PRN PRN Reason: pain Last Admin: 06/03/17 12:18 Dose: 650 mg Al Hydroxide/Mg Hydroxide (Maalox) 15 ml PO Q4H PRN PRN Reason: Heartburn or Indigestion Amlodipine Besylate (Norvasc) 10 mg PO DAILY [facility] Artificial Tears (Tears Naturale) 0 drop EA EYE PRN PRN PRN Reason: Dry Eyes Aspirin (Ecotrin) 81 mg PO DAILY [facility] Atorvastatin Calcium (Lipitor) 10 mg PO HS [facility] Dextrose/Water (Dextrose 50%) 25 gm IVP PRN PRN PRN Reason: HYPOGLYCEMIA PROTOCOL Divalproex Sodium (Depakote) 500 mg PO HS [facility] Duloxetine HCl (Cymbalta) 60 mg PO DAILY [facility] Furosemide (Lasix) 40 mg SLOW IVP DAILY [facility] Last Admin: 06/06/17 10:11 Dose: 40 mg Gabapentin (Neurontin) 600 mg PO TID LIDYA Glucagon (Glucagon) 1 mg IM PRN PRN PRN Reason: HYPOGLYCEMIA PROTOCOL Guaifenesin (Robitussin Sf) 200 mg PO Q4H PRN PRN Reason: Cough Hydralazine HCl (Apresoline) 10 mg SLOW IVP Q4H PRN PRN Reason: Systolic BP > 180 Last Admin: 06/06/17 08:29 Dose: 10 mg Dextrose/Water (D5w) 1,000 mls @ 0 mls/hr IV INF PRN; As Directed PRN Reason: HYPOGLYCEMIA PROTOCOL Meropenem 500 mg/ Syringe 10 mls @ 120 mls/hr SLOW IVP 0600,1800 [facility] Last Admin: 06/06/17 07:21 Dose: 10 mls Sodium Chloride (Normal Saline 0.9%) 1,000 mls @ 50 mls/hr IV .Q20H [facility] Last Admin: 06/06/17 10:13 Dose: 1,000 mls Levothyroxine Sodium (Synthroid) 112 mcg PO 0600 [facility] Levothyroxine Sodium (Synthroid) 25 mcg PO 0600 [facility] Loperamide HCl (Imodium) 2 mg PO PRN PRN PRN Reason: Diarrhea/Loose Stools Loratadine (Claritin) 10 mg PO DAILYPRN PRN PRN Reason: Sinus Symptoms Magnesium Hydroxide (Milk Of Magnesium) 30 ml PO DAILYPRN PRN PRN Reason: Constipation Mineral Oil/White Petrolatum (Eucerin Cream) 0 gm TOP BIDPRN PRN PRN Reason: Dry Skin Multivitamins (Theragran) 1 tab PO DAILY [facility] Ondansetron HCl (Zofran) 4 mg IVP Q6H PRN PRN Reason: Nausea/Vomiting Ondansetron HCl (Zofran Odt) 4 mg PO Q6H PRN PRN Reason: Nausea/Vomiting Pantoprazole Sodium (Protonix) 40 mg PO DAILY LID[facility] Phenol (Chloraseptic [place] 180 Ml Bot) 0 ml PO PRN PRN PRN Reason: Sore Throat Polyethylene Glycol (Miralax) 17 gm PO BIDPRN PRN PRN Reason: CONSTIPATION Senna (Senokot) 2 tab PO HSPRN PRN PRN Reason: Constipation Sodium Chloride (Flush - Normal Saline) 10 ml IVF PRN PRN PRN Reason: Saline Flush Sodium Chloride ([place] Nasal [place] 0.65%) 0 ml EA NARE QIDPRN PRN PRN Reason: Nasal Congestion
--- NOTE | 2017-06-06 16:11 | PRG ---
DATE OF SERVICE: 06/06/2017 SERVICE: Pulmonary Medicine. INTERVAL HISTORY: The patient is awake and alert today. She answers the same 2 to 3 different words for any question that we ask her. When I am looking for a longer discussion or explanation, she is unable to provide that. My understanding is, basically this is her baseline. Otherwise, there were no significant events overnight. PHYSICAL EXAMINATION: VITAL SIGNS: Afebrile, pulse 89, blood pressure 139/66, respirations 18, saturation 96% on room air. GENERAL: Patient is awake, alert, in no apparent distress. LUNGS: Excellent air entry. There is no prolonged expiratory phase or wheezing present. HEART: Normal rate, regular. ABDOMEN: Soft, nontender, nondistended. Bowel sounds are positive. MUSCULOSKELETAL: No cyanosis or clubbing. There is trace pitting in the bilateral lower extremities . LABORATORY DATA: WBC has once again trended upward to 23.0, hemoglobin 10.7, platelets 124,000. INR 1.4. Creatinine 1.29 and continuing to trend downward. Basic metabolic profile is otherwise unrema rkable. Calcium 7.7 and stable. Urinalysis is unremarkable. Hepatitis serologies are negative. Ur ine culture is growing Proteus mirabilis, which is pansensitive. Blood cultures are growing Klebsiel la pneumonia which is also pansensitive. C. diff antigen and toxin is unremarkable. Blood cultures x2 are negative. ASSESSMENT: 1. Metabolic encephalopathy. 2. Severe sepsis. 3. Bacteremia secondary to Klebsiella pneumoniae. 4. Community-acquired pneumonia. 5. Urinary tract infection. 6. Dementia, advance. 7. Debility, severe. PLAN: The patient is doing fine from a respiratory standpoint at this time. She will need to repeat a chest x-ray in 4-6 weeks in the outpatient setting to verify the infiltrate went away. Lasix will be interrupted as the patient is approaching euvolemia and might actually be on the dry side at this point. At this time, she has no further requirements for inpatient Pulmonary Critical Care opinion. As such, I will sign off. Please call me if the patient's condition deteriorates.
[2017-06-06] MEDS: Gabapentin 300 MG CAP PO SCH ×2 (16:15→21:11)
--- NOTE | 2017-06-06 18:13 | PRG ---
DATE OF SERVICE: 06/06/2017 SUBJECTIVE: I was asked to see Ms. Guaman again because of worsening neutrophilia. She is more aler t and establishes eye contact and will answer questions in very limited fashion. It was difficult to obtain a review of systems. The replies were not consistently yes or no, and sometimes she would ch jose her answer to the same question. She has had no diarrhea reported. She still has a Chaudhari gonzalez ter. PHYSICAL EXAMINATION: VITAL SIGNS: Temperature max 98.6, blood pressure 140/75, pulse 85, respirations 18-20, O2 sat 92%-9 6%. GENERAL: Does not appear in distress. NEUROLOGIC: She has mobility impairment and all 4 extremities are weak. I could not have her move, other than slightly the upper extremities. The eye movements are random. She has a hard time establ ishing eye contact. No evidence of nystagmus. LUNGS: With symmetric air entry without obvious crackles. HEART: S1, S2 regular rate. ABDOMEN: Moderately distended and it was tender particularly in the mid abdomen. LABORATORY DATA: White cell count is up to 23,000, hemoglobin 10.7, bands are up to 24%. Creatinine down to 1.29. IMAGING STUDIES: We have the abdomen and pelvis CT from 7 days ago approximately with a noncontrast study with possible left basilar pneumonia. ASSESSMENT: Neurological impairment with dementia and quadriparesis, prior episode of methicillin-re sistant Staphylococcus aureus parotitis, urinary retention, Klebsiella pneumoniae bacteremia in 2/2 s ets of blood cultures, abdominal tenderness. DISCUSSION: The urine culture yielded a different organism than the one in the blood culture, which raises the possibility that there was an alternate explanation for the bacteremia. The presence of a bdominal pain raises the possibility of an inflammatory process in intraabdominal area. CT was done on admission, it was done without contrast, and now there has been quite a bit of improvement in her creatinine. I think if continues to improve by tomorrow, then we will go ahead and order a CT of abd omen and pelvis with contrast.
[2017-06-06] MEDS ORDERED: Meropenem 1 GM in Sodium Chloride 0.9% 100 ML IVPB SCH (21:00)
[2017-06-06] MEDS ORDERED: Pravastatin Sodium 40 MG TAB PO SCH (21:00)
[2017-06-06] MEDS: Atorvastatin Calcium 10 MG TAB PO SCH (21:11)
[2017-06-06] MEDS: Meropenem 1 GM in Sterile Water 20 ML SLOW IVP SCH (21:11)
[2017-06-06] MEDS: Divalproex Sodium DR 500 MG TAB PO SCH (21:12)
[2017-06-07] MEDS: Acetaminophen 325 MG TAB PO PRN (05:01)
[2017-06-07] MEDS: Levothyroxine Sodium 25 MCG TAB PO SCH (05:01)
[2017-06-07] MEDS: Levothyroxine Sodium 112 MCG TAB PO SCH (05:02)
[2017-06-07] MEDS: Sodium Chloride 0.9% 1,000 ML IV SCH (05:10)
[2017-06-07 06:09] LABS: Band 16 % (5-11); Eosinophils 5 % (0-10); Hemoglobin 9.8 g/dL (12.0-16.0); Lymphocytes 9 % (21-51); MDiff Complete? YES; Mean Corpuscular HGB CONC 32.7 g/dL (32.0-36.0); Mean Corpuscular Volume 97.8 fl (81.0-99.0); Mean Platelet Volume 9.5 fL (7.4-10.4); Metamyelocyte 4 % (0-0); Monocytes 4 % (0-10); Myelocyte 1 % (0-0); Neutrophil 61 % (42-75); PLT Morphology Comment Appears Adequate; Platelet Count 187 thou/uL (130-400); RBC Distribution Width 14.2 % (11.5-14.5); Red Blood Cell (RBC) Count 3.07 mill/uL (4.20-5.40); White Blood Cell (WBC) Count 19.7 thou/uL (4.8-10.8)
[2017-06-07 06:10] LABS: Anion Gap 10 mmol/L (10-20); BUN (Urea Nitrogen) 31 mg/dL (9.8-20.1); Calc. Creatinine Clearance 83 mL/min (70-130); Calcium 7.9 mg/dL (7.8-10.44); Carbon Dioxide 28 mmol/L (23-31); Chloride 100 mmol/L (98-107); Estimated GFR-MDRD 59; Glucose 72 mg/dL (83-110); Sodium 135 mmol/L (136-145)
[2017-06-07 06:15] LABS: Potassium 2.6 mmol/L (3.5-5.1)
[2017-06-07] MEDS: Amlodipine 10 MG TAB PO SCH (08:08)
[2017-06-07] MEDS: Multivit, Therapeutic 1 TAB PO SCH (08:08)
[2017-06-07] MEDS: Gabapentin 300 MG CAP PO SCH ×3 (08:08→21:05)
[2017-06-07] MEDS: Aspirin 81 mg Enteric Coated Tablet PO SCH (08:08)
[2017-06-07] MEDS: DULoxetine 60 MG CAP PO SCH (08:08)
[2017-06-07] MEDS: Meropenem 1 GM in Sterile Water 20 ML SLOW IVP SCH ×2 (08:21→21:05)
[2017-06-07] MEDS ORDERED: Non-Formulary Item 1 EACH (Levothyroxine Sodium [Levothyroxine Sodium] 137 MCG) PO SCH (09:00)
[2017-06-07] MEDS ORDERED: Non-Formulary Item 1 EACH (Multivitamin [Multi-Vitamin Daily] 1 TABLET) PO SCH (09:00)
[2017-06-07] MEDS ORDERED: ISOVUE-370 76%-LOCM 1 ML ONE (12:30)
[2017-06-07] MEDS ORDERED: Iopamidol 370 76% 50 ML VIAL FS ONE (12:30)
--- NOTE | 2017-06-07 13:04 | CT ---
CT ABDOMEN AND PELVIS WITH ORAL AND IV CONTRAST: HISTORY: Abdominal pain, sepsis. FINDINGS: Comparison is made with noncontrasted exam of 05/31/17. Bilateral pleural effusions are seen, left larger than right with interval increase in size since the previous study. Adjacent atelectatic changes are present. No calcified gallstones are noted. Ther e are calcified granulomas in the liver and spleen. The pancreas and adrenal glands are normal. Low -density lesions in the kidneys are likely cysts. No free air or lymphadenopathy is seen in the abdo men or pelvis. There is interval development of a small amount of free fluid in the abdomen and pelv is consistent with mild ascites. The small bowel loops are not abnormally dilated. Free fluid is re demonstrated. Vascular calcifications are noted without evidence of aneurysmal dilatation of the abd ominal aorta. A Chaudhari catheter is seen in the decompressed urinary bladder with air within its lumen . There are degenerative changes in the spine. No osteolytic or osteoblastic lesions are present. There is prominence of the wall of the colon which may either be due to hypoproteinemia in the presen ce of ascites which is most likely due to hyperproteinemia in the presence of ascites, though other e tiologies cannot be excluded. IMPRESSION: Interval increase in size of bilateral effusions and development of mild ascites since 05/31/17. POS: NATALIE
--- NOTE | 2017-06-07 16:06 | PDOC.PN ---
- Subjective Encounter Start Date: 06/07/17 Encounter Start Time: 16:03 Subjective: hardly answers any questions,opens eyes 7 falls back asleep - Objective Resuscitation Status: Resuscitation Status FULL:Full Resuscitation MAR Reviewed: Yes Vital Signs & Weight: Vital Signs (12 hours) Temp Pulse Pulse Resp BP BP Pulse Ox 06/07/17 08:55 75 140/61 06/07/17 08:08 77 06/07/17 08:00 98.0 F 77 16 96 06/07/17 07:20 98.0 F 77 16 141/65 H 96 Pulse Ox 06/07/17 08:55 96 06/07/17 08:08 06/07/17 08:00 06/07/17 07:20 Weight Admit Weight 226 lb Weight 234 lb Most Recent Monitor Data Heart Rate from ECG 71 NIBP 175/80 NIBP BP-Mean 99 Respiration from ECG 16 SpO2 96 I&O: 06/06/17 06/07/17 06/08/17 06:59 06:59 06:59 Intake Total 1415 1423 240 Output Total 1550 2725 Balance -135 -1302 240 Result Diagrams: 06/07/17 04:49 06/07/17 04:49 Additional Labs: Accuchecks 06/06/17 06/06/17 20:20 17:47 POC Glucose 87 93 Microbiology 06/02/17 05:04 Venous blood - Right Hand Blood Culture - Final NO GROWTH IN 5 DAYS 06/02/17 04:25 Venous blood - Left Hand Blood Culture - Final NO GROWTH IN 5 DAYS 06/01/17 17:15 Urine nunn catheter Urine Culture - Final Proteus mirabilis 05/31/17 22:50 Stool - Pending C. difficile GDH Antigen & Toxins - Final 05/31/17 21:13 Venous blood - Left Hand Blood Culture - Final Klebsiella pneumoniae ssp pneu 05/31/17 20:35 Venous blood - Left Hand Blood Culture - Final Klebsiella pneumoniae ssp pneu Laboratory Tests 05/31/17 06/01/17 06/02/17 21:13 01:46 04:25 Creatinine 3.65 H 3.46 H 2.98 H 06/03/17 06/04/17 06/05/17 07:19 03:08 04:31 Creatinine 2.67 H 2.37 H 1.78 H 06/06/17 06/07/17 04:31 04:49 Creatinine 1.29 H 0.91 Radiology Reviewed by me: Yes (CT A/P-mild acsites.no colitis) Phys Exam - Physical Examination Constitutional: NAD HEENT: PERRLA, moist MMs, sclera anicteric, oral pharynx no lesions Neck: no nodes, no JVD, supple, full ROM Respiratory: no wheezing, no rales, no rhonchi, clear to auscultation bilateral Cardiovascular: RRR, no significant murmur Gastrointestinal: soft, non-tender, no distention, positive bowel sounds Musculoskeletal: no edema, pulses present very sleepy Skin: no rash Dx/Plan (1) Sepsis with acute organ dysfunction Code(s): A41.9 - SEPSIS, UNSPECIFIED ORGANISM; R65.20 - SEVERE SEPSIS WITHOUT SEPTIC SHOCK Status: Acute (2) Bacteremia due to Klebsiella pneumoniae Code(s): R78.81 - BACTEREMIA Status: Acute (3) Severe sepsis Code(s): A41.9 - SEPSIS, UNSPECIFIED ORGANISM; R65.20 - SEVERE SEPSIS WITHOUT SEPTIC SHOCK Status: Acute Comment: likley source urine (4) UTI (urinary tract infection) Status: Acute Qualifiers: Urinary tract infection type: acute cystitis Hematuria presence: without hematuria Qualified Code(s): N30.00 - Acute cystitis without hematuria Comment: Proteus (5) Acute kidney failure Status: Acute Comment: improving (6) Acute metabolic encephalopathy Code(s): G93.41 - METABOLIC ENCEPHALOPATHY Status: Resolved (7) Demand ischemia of myocardium Code(s): I24.8 - OTHER FORMS OF ACUTE ISCHEMIC HEART DISEASE Status: Acute (8) Hyperkalemia Code(s): E87.5 - HYPERKALEMIA Status: Resolved Comment: improved (9) Hypernatremia Code(s): E87.0 - HYPEROSMOLALITY AND HYPERNATREMIA Status: Resolved (10) Lactic acidosis Code(s): E87.2 - ACIDOSIS Status: Acute (11) Transaminitis Code(s): R74.0 - NONSPEC ELEV OF LEVELS OF TRANSAMNS & LACTIC ACID DEHYDRGNSE Status: Acute (12) Thrombocytopenia Code(s): D69.6 - THROMBOCYTOPENIA, UNSPECIFIED Status: Acute - Plan 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 Review of Systems - Review of Systems Other: can not be obtained due to somnolence - Medications/Allergies Allergies/Adverse Reactions: Allergies Allergy/AdvReac Type Severity Reaction Status Date / Time morphine Allergy Verified 06/01/17 00:57 Sulfa (Sulfonamide Allergy Verified 06/01/17 00:57 Antibiotics) Medications: Current Medications Acetaminophen (Tylenol) 650 mg PO Q6H PRN PRN Reason: pain Last Admin: 06/07/17 05:01 Dose: 650 mg Al Hydroxide/Mg Hydroxide (Maalox) 15 ml PO Q4H PRN PRN Reason: Heartburn or Indigestion Amlodipine Besylate (Norvasc) 10 mg PO DAILY [facility] Last Admin: 06/07/17 08:08 Dose: 10 mg Artificial Tears (Tears Naturale) 0 drop EA EYE PRN PRN PRN Reason: Dry Eyes Aspirin (Ecotrin) 81 mg PO DAILY [facility] Last Admin: 06/07/17 08:08 Dose: 81 mg Atorvastatin Calcium (Lipitor) 10 mg PO HS [facility] Last Admin: 06/06/17 21:11 Dose: 10 mg Clonidine ([id number]) 0.2 mg TD Q7D [facility] Dextrose/Water (Dextrose 50%) 25 gm IVP PRN PRN PRN Reason: HYPOGLYCEMIA PROTOCOL Divalproex Sodium (Depakote) 500 mg PO HS [facility] Last Admin: 06/06/17 21:12 Dose: 500 mg Duloxetine HCl (Cymbalta) 60 mg PO DAILY [facility] Last Admin: 06/07/17 08:08 Dose: 60 mg Gabapentin (Neurontin) 600 mg PO TID [facility] Last Admin: 06/07/17 08:08 Dose: 600 mg Glucagon (Glucagon) 1 mg IM PRN PRN PRN Reason: HYPOGLYCEMIA PROTOCOL Guaifenesin (Robitussin Sf) 200 mg PO Q4H PRN PRN Reason: Cough Hydralazine HCl (Apresoline) 10 mg SLOW IVP Q4H PRN PRN Reason: Systolic BP > 180 Last Admin: 06/06/17 08:29 Dose: 10 mg Dextrose/Water (D5w) 1,000 mls @ 0 mls/hr IV INF PRN; As Directed PRN Reason: HYPOGLYCEMIA PROTOCOL Sodium Chloride (Normal Saline 0.9%) 1,000 mls @ 50 mls/hr IV .Q20H [facility] Last Admin: 06/07/17 05:10 Dose: 1,000 mls Meropenem 1 gm/ Sterile Water 20 mls @ 240 mls/hr SLOW IVP 799,1999 [facility] Last Admin: 06/07/17 08:21 Dose: 20 mls Levothyroxine Sodium (Synthroid) 112 mcg PO 06 [facility] Last Admin: 06/07/17 05:02 Dose: 112 mcg Levothyroxine Sodium (Synthroid) 25 mcg PO 0600 [facility] Last Admin: 06/07/17 05:01 Dose: 25 mcg Loperamide HCl (Imodium) 2 mg PO PRN PRN PRN Reason: Diarrhea/Loose Stools Loratadine (Claritin) 10 mg PO DAILYPRN PRN PRN Reason: Sinus Symptoms Magnesium Hydroxide (Milk Of Magnesium) 30 ml PO DAILYPRN PRN PRN Reason: Constipation Mineral Oil/White Petrolatum (Eucerin Cream) 0 gm TOP BIDPRN PRN PRN Reason: Dry Skin Multivitamins (Theragran) 1 tab PO DAILY [facility] Last Admin: 06/07/17 08:08 Dose: 1 tab Ondansetron HCl (Zofran) 4 mg IVP Q6H PRN PRN Reason: Nausea/Vomiting Ondansetron HCl (Zofran Odt) 4 mg PO Q6H PRN PRN Reason: Nausea/Vomiting Pantoprazole Sodium (Protonix) 40 mg PO DAILY [facility] Last Admin: 06/07/17 08:08 Dose: 40 mg Phenol (Chloraseptic [place] 180 Ml Bot) 0 ml PO PRN PRN PRN Reason: Sore Throat Polyethylene Glycol (Miralax) 17 gm PO BIDPRN PRN PRN Reason: CONSTIPATION Senna (Senokot) 2 tab PO HSPRN PRN PRN Reason: Constipation Sodium Chloride (Flush - Normal Saline) 10 ml IVF PRN PRN PRN Reason: Saline Flush Sodium Chloride ([place] Nasal [place] 0.65%) 0 ml EA NARE QIDPRN PRN PRN Reason: Nasal Congestion
[2017-06-07] MEDS: Atorvastatin Calcium 10 MG TAB PO SCH (21:04)
[2017-06-07] MEDS: Divalproex Sodium DR 500 MG TAB PO SCH (21:04)
[2017-06-08] MEDS: Levothyroxine Sodium 112 MCG TAB PO SCH (05:31)
[2017-06-08] MEDS: Levothyroxine Sodium 25 MCG TAB PO SCH (05:31)
[2017-06-08 06:49] LABS: Hemoglobin 9.3 g/dL (12.0-16.0); Mean Corpuscular HGB CONC 32.4 g/dL (32.0-36.0); Mean Corpuscular Hemoglobin 31.9 pg (27.0-31.0); Mean Corpuscular Volume 98.6 fl (81.0-99.0); Mean Platelet Volume 9.2 fL (7.4-10.4); Platelet Count 241 thou/uL (130-400); RBC Distribution Width 14.2 % (11.5-14.5); Red Blood Cell (RBC) Count 2.92 mill/uL (4.20-5.40); White Blood Cell (WBC) Count 16.6 thou/uL (4.8-10.8)
[2017-06-08 06:57] LABS: Anion Gap 7 mmol/L (10-20); BUN (Urea Nitrogen) 24 mg/dL (9.8-20.1); Calc. Creatinine Clearance 98 mL/min (70-130); Calcium 7.7 mg/dL (7.8-10.44); Carbon Dioxide 30 mmol/L (23-31); Chloride 101 mmol/L (98-107); Estimated GFR-MDRD 72; Glucose 65 mg/dL (83-110); Potassium 3.2 mmol/L (3.5-5.1); Sodium 135 mmol/L (136-145)
[2017-06-08 07:49] LABS: Band 9 % (5-11); Eosinophils 2 % (0-10); Lymphocytes 8 % (21-51); MDiff Complete? YES; Metamyelocyte 3 % (0-0); Monocytes 7 % (0-10); Myelocyte 2 % (0-0); Neutrophil 70 % (42-75); PLT Morphology Comment Appears Adequate; Polychromasia SLIGHT = 2-3 cells (100X) (0-2/hpf); Toxic Granulation SLIGHT
[2017-06-08] MEDS: Gabapentin 300 MG CAP PO SCH ×3 (08:49→21:12)
[2017-06-08] MEDS: DULoxetine 60 MG CAP PO SCH (08:49)
[2017-06-08] MEDS: Aspirin 81 mg Enteric Coated Tablet PO SCH (08:50)
[2017-06-08] MEDS: Amlodipine 10 MG TAB PO SCH (08:50)
[2017-06-08] MEDS: Multivit, Therapeutic 1 TAB PO SCH (08:51)
[2017-06-08] MEDS: Meropenem 1 GM in Sterile Water 20 ML SLOW IVP SCH ×2 (08:53→20:59)
[2017-06-08] MEDS ORDERED: cloNIDine 0.2mg/24 Hour PATCH TD SCH (09:00)
--- NOTE | 2017-06-08 10:55 | PDOC.PN ---
- Subjective Encounter Start Date: 06/08/17 Encounter Start Time: 10:30 Subjective: awake, not in distress -: poor oral intake per staff - Objective Resuscitation Status: Resuscitation Status FULL:Full Resuscitation MAR Reviewed: Yes Vital Signs & Weight: Vital Signs (12 hours) Temp Pulse Resp BP BP Pulse Ox 06/08/17 08:50 77 06/08/17 08:00 98.7 F 77 16 06/08/17 07:36 98.7 F 77 16 141/69 H 96 06/08/17 04:00 98.0 F 82 16 127/69 96 06/08/17 00:00 98.1 F 75 20 158/69 H 93 L Weight Admit Weight 226 lb Weight 234 lb Most Recent Monitor Data Heart Rate from ECG 71 NIBP 175/80 NIBP BP-Mean 99 Respiration from ECG 16 SpO2 96 I&O: 06/07/17 06/08/17 06/09/17 06:59 06:59 06:59 Intake Total 1423 1010 Output Total 2725 550 Balance -1302 460 Result Diagrams: 06/08/17 06:27 06/08/17 06:27 Phys Exam - Physical Examination HEENT: moist MMs, sclera anicteric Neck: no JVD, supple Respiratory: no wheezing, no rales Cardiovascular: RRR, no significant murmur Gastrointestinal: soft, non-tender, positive bowel sounds Musculoskeletal: pulses present, edema present Neurological: non-focal, moves all 4 limbs Psychiatric: A&O x 3 Dx/Plan (1) Bacteremia due to Klebsiella pneumoniae Code(s): R78.81 - BACTEREMIA Status: Acute (2) Demand ischemia of myocardium Code(s): I24.8 - OTHER FORMS OF ACUTE ISCHEMIC HEART DISEASE Status: Acute (3) Sepsis with acute organ dysfunction Code(s): A41.9 - SEPSIS, UNSPECIFIED ORGANISM; R65.20 - SEVERE SEPSIS WITHOUT SEPTIC SHOCK Status: Acute (4) UTI (urinary tract infection) Status: Acute Qualifiers: Urinary tract infection type: acute cystitis Hematuria presence: without hematuria Qualified Code(s): N30.00 - Acute cystitis without hematuria Comment: Proteus (5) Bipolar disorder Code(s): F31.9 - BIPOLAR DISORDER, UNSPECIFIED Status: Chronic Qualifiers: Active/Remission status: remission status unspecified Qualified Code(s): F31.9 - Bipolar disorder, unspecified (6) GERD (gastroesophageal reflux disease) Code(s): K21.9 - GASTRO-ESOPHAGEAL REFLUX DISEASE WITHOUT ESOPHAGITIS Status: Chronic Qualifiers: Esophagitis presence: esophagitis presence not specified Qualified Code(s) : K21.9 - Gastro-esophageal reflux disease without esophagitis (7) HLD (hyperlipidemia) Code(s): E78.5 - HYPERLIPIDEMIA, UNSPECIFIED Status: Chronic Qualifiers: Hyperlipidemia type: unspecified (8) HTN (hypertension) Code(s): I10 - ESSENTIAL (PRIMARY) HYPERTENSION Status: Chronic Qualifiers: Hypertension type: essential hypertension (9) Hypothyroidism Code(s): E03.9 - HYPOTHYROIDISM, UNSPECIFIED Status: Chronic Qualifiers: Hypothyroidism type: unspecified (10) Macrocytic anemia Code(s): D53.9 - NUTRITIONAL ANEMIA, UNSPECIFIED Status: Chronic (11) Obesity (BMI 30-39.9) Code(s): E66.9 - OBESITY, UNSPECIFIED Status: Chronic (12) Acute kidney failure Status: Resolved Qualifiers: Acute renal failure type: unspecified Qualified Code(s): N17.9 - Acute kidney failure, unspecified - Plan is on meropenem -: antibiotics per advice -: encourage po intake -: wbc still around 16k -: replace potassium, gentle iv hydration * . Review of Systems - Medications/Allergies Allergies/Adverse Reactions: Allergies Allergy/AdvReac Type Severity Reaction Status Date / Time morphine Allergy Verified 06/01/17 00:57 Sulfa (Sulfonamide Allergy Verified 06/01/17 00:57 Antibiotics) Medications: Current Medications Acetaminophen (Tylenol) 650 mg PO Q6H PRN PRN Reason: pain Last Admin: 06/07/17 05:01 Dose: 650 mg Al Hydroxide/Mg Hydroxide (Maalox) 15 ml PO Q4H PRN PRN Reason: Heartburn or Indigestion Amlodipine Besylate (Norvasc) 10 mg PO DAILY [facility] Last Admin: 06/08/17 08:50 Dose: 10 mg Artificial Tears (Tears Naturale) 0 drop EA EYE PRN PRN PRN Reason: Dry Eyes Aspirin (Ecotrin) 81 mg PO DAILY [facility] Last Admin: 06/08/17 08:50 Dose: 81 mg Atorvastatin Calcium (Lipitor) 10 mg PO HS [facility] Last Admin: 01/30/18 21:04 Dose: 10 mg Clonidine (Upuvwyrk-Vgc-2) 0.2 mg TD Q7D [facility] Dextrose/Water (Dextrose 50%) 25 gm IVP PRN PRN PRN Reason: HYPOGLYCEMIA PROTOCOL Divalproex Sodium (Depakote) 500 mg PO HS [facility] Last Admin: 06/07/17 21:04 Dose: 500 mg Duloxetine HCl (Cymbalta) 60 mg PO DAILY [facility] Last Admin: 06/08/17 08:49 Dose: 60 mg Gabapentin (Neurontin) 600 mg PO TID [facility] Last Admin: 06/08/17 08:49 Dose: 600 mg Glucagon (Glucagon) 1 mg IM PRN PRN PRN Reason: HYPOGLYCEMIA PROTOCOL Guaifenesin (Robitussin Sf) 200 mg PO Q4H PRN PRN Reason: Cough Hydralazine HCl (Apresoline) 10 mg SLOW IVP Q4H PRN PRN Reason: Systolic BP > 180 Last Admin: 06/06/17 08:29 Dose: 10 mg Dextrose/Water (D5w) 1,000 mls @ 0 mls/hr IV INF PRN; As Directed PRN Reason: HYPOGLYCEMIA PROTOCOL Sodium Chloride (Normal Saline 0.9%) 1,000 mls @ 50 mls/hr IV .Q20H [facility] Last Admin: 06/07/17 05:10 Dose: 1,000 mls Meropenem 1 gm/ Sterile Water 20 mls @ 240 mls/hr SLOW IVP 799,1999 [facility] Last Admin: 06/08/17 08:53 Dose: 20 mls Levothyroxine Sodium (Synthroid) 112 mcg PO 0600 [facility] Last Admin: 06/08/17 05:31 Dose: 112 mcg Levothyroxine Sodium (Synthroid) 25 mcg PO 0600 [facility] Last Admin: 06/08/17 05:31 Dose: 25 mcg Loperamide HCl (Imodium) 2 mg PO PRN PRN PRN Reason: Diarrhea/Loose Stools Loratadine (Claritin) 10 mg PO DAILYPRN PRN PRN Reason: Sinus Symptoms Magnesium Hydroxide (Milk Of Magnesium) 30 ml PO DAILYPRN PRN PRN Reason: Constipation Mineral Oil/White Petrolatum (Eucerin Cream) 0 gm TOP BIDPRN PRN PRN Reason: Dry Skin Multivitamins (Theragran) 1 tab PO DAILY [facility] Last Admin: 06/08/17 08:51 Dose: 1 tab Ondansetron HCl (Zofran) 4 mg IVP Q6H PRN PRN Reason: Nausea/Vomiting Ondansetron HCl (Zofran Odt) 4 mg PO Q6H PRN PRN Reason: Nausea/Vomiting Pantoprazole Sodium (Protonix) 40 mg PO DAILY [facility] Last Admin: 06/08/17 08:50 Dose: 40 mg Phenol (Chloraseptic [place] 180 Ml Bot) 0 ml PO PRN PRN PRN Reason: Sore Throat Polyethylene Glycol (Miralax) 17 gm PO BIDPRN PRN PRN Reason: CONSTIPATION Potassium Chloride (K-Dur) 40 meq PO Q4H [facility] Stop: 06/08/17 13:31 Senna (Senokot) 2 tab PO HSPRN PRN PRN Reason: Constipation Sodium Chloride (Flush - Normal Saline) 10 ml IVF PRN PRN PRN Reason: Saline Flush Sodium Chloride ([place] Nasal [place] 0.65%) 0 ml EA NARE QIDPRN PRN PRN Reason: Nasal Congestion
[2017-06-08] MEDS: Potassium Chloride 20 MEQ TAB PO SCH ×2 (11:24→16:19)
[2017-06-08] MEDS: Sodium Chloride 0.9% 1,000 ML IV SCH ×2 (11:27→21:17)
--- NOTE | 2017-06-08 15:08 | PRG ---
DATE OF SERVICE: 06/08/2017 SERVICE: Pulmonary Medicine. INTERVAL HISTORY: The patient is doing fine from a cardiovascular and respiratory standpoint. She d enies any current fevers, chills, nausea or vomiting. She is tolerating p.o., but eats very slowly. She seems to play with food in her mouth for quite some time before she finally swallows it. Otherw ise, there has been no change to her condition. I was called to reassess the patient, because the CT of the abdomen and pelvis that was done yesterday demonstrated increasing size of pleural effusions. Her inflammatory profile and her white blood cell count are clearing albeit slowly. PHYSICAL EXAMINATION: VITAL SIGNS: Afebrile, pulse 77, blood pressure 139/96, respirations 20, saturation 98% on room air. GENERAL: Patient is awake, alert, in no apparent distress. LUNGS: Decent air entry. Dependent crackles are present. HEART: Normal rate, regular. ABDOMEN: Soft, nontender, nondistended. Bowel sounds positive. MUSCULOSKELETAL: No cyanosis or clubbing. No pitting in the bilateral lower extremities. NEUROLOGIC: Grossly nonfocal. LABORATORY DATA: WBC down trending to 16.6, hemoglobin 9.3, platelets 241,000. Band count is droppi ng. Potassium 3.2. Basic metabolic profile is otherwise unremarkable. Calcium is 7.7. Her urine c ulture is growing Proteus mirabilis. Blood cultures x2 are growing Klebsiella pneumoniae. All of th janeth are pansensitive organisms. IMAGING: CT of the chest demonstrates atelectasis versus infiltrate in the left lower lobe. There a re also bilateral pleural effusions present in the bibasilar region. New development of ascites is t here. She has increasing soft tissue swelling. ASSESSMENT: 1. Metabolic encephalopathy. 2. Severe sepsis. 3. Bacteremia secondary to Klebsiella pneumoniae. 4. Community-acquired pneumonia. 5. Urinary tract infection. 6. Dementia, advanced. 7. Debility, severe. 8. Bilateral pleural effusions in an anasarca state. PLAN: The patient remains significantly volume overloaded. We can continue to diurese her gently as time goes on. On presentation, she did get several liters of fluid in the emergency department and in the ICU. She is likely third spacing much of this into her chest and abdominal cavities. Additio jc, she has got widespread edema. She has a very low protein straight with severe protein calorie malnutrition. If she is currently at her baseline from a mentation standpoint, comfort measures onl y should be strongly entertained. Pulmonary will continue to follow intermittently during this hospi penny stay, but as long as she continues to clear her inflammatory profile and the white blood cell cou nt improves, there will be no role for thoracentesis here.
[2017-06-08] MEDS: Atorvastatin Calcium 10 MG TAB PO SCH (21:13)
[2017-06-08] MEDS: Divalproex Sodium DR 500 MG TAB PO SCH (21:13)
[2017-06-08] MEDS: Acetaminophen 325 MG TAB PO PRN (21:21)
[2017-06-09] MEDS: Levothyroxine Sodium 112 MCG TAB PO SCH (06:08)
[2017-06-09] MEDS: Levothyroxine Sodium 25 MCG TAB PO SCH (06:08)
[2017-06-09 06:21] LABS: Hemoglobin 8.7 g/dL (12.0-16.0); Mean Corpuscular HGB CONC 32.5 g/dL (32.0-36.0); Mean Corpuscular Hemoglobin 32.2 pg (27.0-31.0); Mean Corpuscular Volume 99.2 fl (81.0-99.0); Platelet Count 268 thou/uL (130-400); RBC Distribution Width 14.2 % (11.5-14.5); Red Blood Cell (RBC) Count 2.71 mill/uL (4.20-5.40); White Blood Cell (WBC) Count 15.3 thou/uL (4.8-10.8)
[2017-06-09 06:22] LABS: Band 2 % (5-11); Eosinophils 2 % (0-10); Lymphocytes 9 % (21-51); MDiff Complete? YES; Metamyelocyte 1 % (0-0); Monocytes 3 % (0-10); Myelocyte 3 % (0-0); Neutrophil 78 % (42-75)
[2017-06-09 06:25] LABS: Anion Gap 10 mmol/L (10-20); BUN (Urea Nitrogen) 19 mg/dL (9.8-20.1); Calc. Creatinine Clearance 104 mL/min (70-130); Calcium 7.8 mg/dL (7.8-10.44); Carbon Dioxide 26 mmol/L (23-31); Chloride 107 mmol/L (98-107); Estimated GFR-MDRD 78; Glucose 79 mg/dL (83-110); Sodium 139 mmol/L (136-145)
[2017-06-09] MEDS: Gabapentin 300 MG CAP PO SCH ×3 (08:56→21:38)
[2017-06-09] MEDS: Aspirin 81 mg Enteric Coated Tablet PO SCH (08:56)
[2017-06-09] MEDS: Multivit, Therapeutic 1 TAB PO SCH (08:56)
[2017-06-09] MEDS: DULoxetine 60 MG CAP PO SCH (08:56)
[2017-06-09] MEDS: Amlodipine 10 MG TAB PO SCH (08:57)
[2017-06-09] MEDS: Meropenem 1 GM in Sterile Water 20 ML SLOW IVP SCH (08:59)
--- NOTE | 2017-06-09 10:39 | PDOC.PN ---
- Subjective Encounter Start Date: 06/09/17 Encounter Start Time: 10:38 Subjective: nsg notes rev, anurag ovn, pt no new c/o states she thinks she slept well -: reports a poor appetite but able to tolerate PO, oriented to self, month, -: day - states she is in [facility] and unsure of year - Objective Resuscitation Status: Resuscitation Status FULL:Full Resuscitation Vital Signs & Weight: Vital Signs (12 hours) Temp Pulse Resp BP BP Pulse Ox 06/09/17 08:57 93 110/75 06/09/17 08:00 98.4 F 93 20 125/81 93 L 06/09/17 01:36 94 L Weight Admit Weight 226 lb Weight 234 lb Most Recent Monitor Data Heart Rate from ECG 71 NIBP 175/80 NIBP BP-Mean 99 Respiration from ECG 16 SpO2 96 I&O: 06/08/17 06/09/17 06/10/17 06:59 06:59 06:59 Intake Total 1010 1200 Output Total 550 450 Balance 460 750 Result Diagrams: 06/09/17 05:30 06/09/17 05:30 Phys Exam - Physical Examination Constitutional: NAD HEENT: PERRLA, moist MMs Neck: no JVD Respiratory: no wheezing, no rales, no rhonchi, clear to auscultation bilateral limited anterior examination Cardiovascular: RRR, no significant murmur, no rub Gastrointestinal: soft, no distention, positive bowel sounds Musculoskeletal: no edema, pulses present Dx/Plan (1) Bacteremia due to Klebsiella pneumoniae Code(s): R78.81 - BACTEREMIA Status: Acute (2) Demand ischemia of myocardium Code(s): I24.8 - OTHER FORMS OF ACUTE ISCHEMIC HEART DISEASE Status: Acute (3) Lactic acidosis Code(s): E87.2 - ACIDOSIS Status: Acute (4) Sepsis with acute organ dysfunction Code(s): A41.9 - SEPSIS, UNSPECIFIED ORGANISM; R65.20 - SEVERE SEPSIS WITHOUT SEPTIC SHOCK Status: Acute (5) UTI (urinary tract infection) Status: Acute Qualifiers: Urinary tract infection type: acute cystitis Hematuria presence: without hematuria Qualified Code(s): N30.00 - Acute cystitis without hematuria Comment: Proteus (6) Bipolar disorder Code(s): F31.9 - BIPOLAR DISORDER, UNSPECIFIED Status: Chronic Qualifiers: Active/Remission status: remission status unspecified Qualified Code(s): F31.9 - Bipolar disorder, unspecified - Plan * klebsiella bacteremia * continue IV merrem * apprec ID consultation - noted that this is a different organism than the UTI Proteus UTI * see above poor PO intake * encourage oral intake * failure to thrive will be a poor prognostic indicator for the patient leukocytosis * likely related to infectious etiologies as above * downward trending diarrhea * x1 so far * continue to monitor * if recurrent, t/c checking for c diff diet: encourage activity: PT Review of Systems - Medications/Allergies Allergies/Adverse Reactions: Allergies Allergy/AdvReac Type Severity Reaction Status Date / Time morphine Allergy Verified 06/01/17 00:57 Sulfa (Sulfonamide Allergy Verified 06/01/17 00:57 Antibiotics) Medications: Current Medications Acetaminophen (Tylenol) 650 mg PO Q6H PRN PRN Reason: pain Last Admin: 06/08/17 21:21 Dose: 650 mg Al Hydroxide/Mg Hydroxide (Maalox) 15 ml PO Q4H PRN PRN Reason: Heartburn or Indigestion Amlodipine Besylate (Norvasc) 10 mg PO DAILY [facility] Last Admin: 06/09/17 08:57 Dose: 10 mg Artificial Tears (Tears Naturale) 0 drop EA EYE PRN PRN PRN Reason: Dry Eyes Aspirin (Ecotrin) 81 mg PO DAILY [facility] Last Admin: 06/09/17 08:56 Dose: 81 mg Atorvastatin Calcium (Lipitor) 10 mg PO HS [facility] Last Admin: 06/08/17 21:13 Dose: 10 mg Clonidine (Qoupgwiy-Osc-8) 0.2 mg TD Q7D [facility] Last Admin: 06/08/17 12:10 Dose: 0.2 mg Dextrose/Water (Dextrose 50%) 25 gm IVP PRN PRN PRN Reason: HYPOGLYCEMIA PROTOCOL Divalproex Sodium (Depakote) 500 mg PO HS [facility] Last Admin: 06/08/17 21:13 Dose: 500 mg Duloxetine HCl (Cymbalta) 60 mg PO DAILY [facility] Last Admin: 06/09/17 08:56 Dose: 60 mg Gabapentin (Neurontin) 600 mg PO TID [facility] Last Admin: 06/09/17 08:56 Dose: 600 mg Glucagon (Glucagon) 1 mg IM PRN PRN PRN Reason: HYPOGLYCEMIA PROTOCOL Guaifenesin (Robitussin Sf) 200 mg PO Q4H PRN PRN Reason: Cough Hydralazine HCl (Apresoline) 10 mg SLOW IVP Q4H PRN PRN Reason: Systolic BP > 180 Last Admin: 06/06/17 08:29 Dose: 10 mg Dextrose/Water (D5w) 1,000 mls @ 0 mls/hr IV INF PRN; As Directed PRN Reason: HYPOGLYCEMIA PROTOCOL Sodium Chloride (Normal Saline 0.9%) 1,000 mls @ 50 mls/hr IV .Q20H [facility] Last Admin: 06/08/17 21:17 Dose: Not Given Meropenem 1 gm/ Sterile Water 20 mls @ 240 mls/hr SLOW IVP 08,1999 [facility] Last Admin: 06/09/17 08:59 Dose: 20 mls Levothyroxine Sodium (Synthroid) 112 mcg PO 0600 [facility] Last Admin: 06/09/17 06:08 Dose: 112 mcg Levothyroxine Sodium (Synthroid) 25 mcg PO 0600 [facility] Last Admin: 06/09/17 06:08 Dose: 25 mcg Loperamide HCl (Imodium) 2 mg PO PRN PRN PRN Reason: Diarrhea/Loose Stools Loratadine (Claritin) 10 mg PO DAILYPRN PRN PRN Reason: Sinus Symptoms Magnesium Hydroxide (Milk Of Magnesium) 30 ml PO DAILYPRN PRN PRN Reason: Constipation Mineral Oil/White Petrolatum (Eucerin Cream) 0 gm TOP BIDPRN PRN PRN Reason: Dry Skin Multivitamins (Theragran) 1 tab PO DAILY [facility] Last Admin: 06/09/17 08:56 Dose: 1 tab Ondansetron HCl (Zofran) 4 mg IVP Q6H PRN PRN Reason: Nausea/Vomiting Ondansetron HCl (Zofran Odt) 4 mg PO Q6H PRN PRN Reason: Nausea/Vomiting Pantoprazole Sodium (Protonix) 40 mg PO DAILY [facility] Last Admin: 06/09/17 08:58 Dose: 40 mg Phenol (Chloraseptic [place] 180 Ml Bot) 0 ml PO PRN PRN PRN Reason: Sore Throat Polyethylene Glycol (Miralax) 17 gm PO BIDPRN PRN PRN Reason: CONSTIPATION Senna (Senokot) 2 tab PO HSPRN PRN PRN Reason: Constipation Sodium Chloride (Flush - Normal Saline) 10 ml IVF PRN PRN PRN Reason: Saline Flush Sodium Chloride ([place] Nasal [place] 0.65%) 0 ml EA NARE QIDPRN PRN PRN Reason: Nasal Congestion
[2017-06-09] MEDS: Sodium Chloride 0.9% 1,000 ML IV SCH (13:06)
--- NOTE | 2017-06-09 16:23 | PRG ---
DATE OF SERVICE: 06/09/2017 SUBJECTIVE: She is awake. She was able to establish eye contact and said that she was feeling shorty r. Denied any pain, no respiratory symptoms. OBJECTIVE: VITAL SIGNS: She has been afebrile. LUNGS: With symmetric air entry with no obvious crackles or wheezing. HEART: S1, S2, regular rate, no murmurs. ABDOMEN: Slightly distended, but soft. NEUROLOGIC: Unchanged. LABORATORY DATA: The white cell count was 15.3, hemoglobin 8.7, platelets 268, 78% neutrophils. Radha murali was within normal limits except for slightly low glucose. The patient had a CT of abdomen and pelvis, which only basically showed pleural fluid and ascites. ASSESSMENT AND DISCUSSION: Dementia, quadriparesis, methicillin-resistant Staphylococcus aureus paro titis in the recent past, urinary retention and Klebsiella pneumoniae bacteremia, 2/2 sets of blood c ultures. The abdominal CT scan did not show any obvious inflammatory process and seems like she is s teadily improving now over the past few days and the organism from the blood cultures is serna-suscepti ble and probably we could transition her to a quinolone for continuation of therapy.
[2017-06-09] MEDS: Divalproex Sodium DR 500 MG TAB PO SCH (21:37)
[2017-06-09] MEDS: Atorvastatin Calcium 10 MG TAB PO SCH (21:38)
--- NOTE | 2017-06-10 07:15 | PDOC.PN ---
- Subjective Encounter Start Date: 06/10/17 Encounter Start Time: 07:15 - Objective Resuscitation Status: Resuscitation Status FULL:Full Resuscitation Vital Signs & Weight: Vital Signs (12 hours) Temp Pulse Resp Pulse Ox 06/09/17 20:00 97.9 F 74 20 98 Weight Admit Weight 226 lb Weight 234 lb Most Recent Monitor Data Heart Rate from ECG 71 NIBP 175/80 NIBP BP-Mean 99 Respiration from ECG 16 SpO2 96 I&O: 06/09/17 06/10/17 06/11/17 06:59 06:59 06:59 Intake Total 1200 950 Output Total 450 350 Balance 750 600 Result Diagrams: 06/09/17 05:30 06/09/17 05:30 Dx/Plan (1) Bacteremia due to Klebsiella pneumoniae Code(s): R78.81 - BACTEREMIA Status: Acute (2) Demand ischemia of myocardium Code(s): I24.8 - OTHER FORMS OF ACUTE ISCHEMIC HEART DISEASE Status: Acute (3) Lactic acidosis Code(s): E87.2 - ACIDOSIS Status: Acute (4) Sepsis with acute organ dysfunction Code(s): A41.9 - SEPSIS, UNSPECIFIED ORGANISM; R65.20 - SEVERE SEPSIS WITHOUT SEPTIC SHOCK Status: Acute (5) UTI (urinary tract infection) Status: Acute Qualifiers: Urinary tract infection type: acute cystitis Hematuria presence: without hematuria Qualified Code(s): N30.00 - Acute cystitis without hematuria Comment: Proteus (6) Bipolar disorder Code(s): F31.9 - BIPOLAR DISORDER, UNSPECIFIED Status: Chronic Qualifiers: Active/Remission status: remission status unspecified Qualified Code(s): F31.9 - Bipolar disorder, unspecified - Plan * . Review of Systems - Medications/Allergies Allergies/Adverse Reactions: Allergies Allergy/AdvReac Type Severity Reaction Status Date / Time morphine Allergy Verified 06/01/17 00:57 Sulfa (Sulfonamide Allergy Verified 06/01/17 00:57 Antibiotics) Medications: Current Medications Acetaminophen (Tylenol) 650 mg PO Q6H PRN PRN Reason: pain Last Admin: 06/08/17 21:21 Dose: 650 mg Al Hydroxide/Mg Hydroxide (Maalox) 15 ml PO Q4H PRN PRN Reason: Heartburn or Indigestion Amlodipine Besylate (Norvasc) 10 mg PO DAILY [facility] Last Admin: 06/09/17 08:57 Dose: 10 mg Artificial Tears (Tears Naturale) 0 drop EA EYE PRN PRN PRN Reason: Dry Eyes Aspirin (Ecotrin) 81 mg PO DAILY [facility] Last Admin: 06/09/17 08:56 Dose: 81 mg Atorvastatin Calcium (Lipitor) 10 mg PO HS [facility] Last Admin: 06/09/17 21:38 Dose: 10 mg Clonidine (Nbtmabgf-Xhe-9) 0.2 mg TD Q7D [facility] Last Admin: 06/08/17 12:10 Dose: 0.2 mg Dextrose/Water (Dextrose 50%) 25 gm IVP PRN PRN PRN Reason: HYPOGLYCEMIA PROTOCOL Divalproex Sodium (Depakote) 500 mg PO [facility] Last Admin: 06/09/17 21:37 Dose: 500 mg Duloxetine HCl (Cymbalta) 60 mg PO DAILY [facility] Last Admin: 06/09/17 08:56 Dose: 60 mg Gabapentin (Neurontin) 600 mg PO TID [facility] Last Admin: 06/09/17 21:38 Dose: 600 mg Glucagon (Glucagon) 1 mg IM PRN PRN PRN Reason: HYPOGLYCEMIA PROTOCOL Guaifenesin (Robitussin Sf) 200 mg PO Q4H PRN PRN Reason: Cough Hydralazine HCl (Apresoline) 10 mg SLOW IVP Q4H PRN PRN Reason: Systolic BP > 180 Last Admin: 06/06/17 08:29 Dose: 10 mg Dextrose/Water (D5w) 1,000 mls @ 0 mls/hr IV INF PRN; As Directed PRN Reason: HYPOGLYCEMIA PROTOCOL Sodium Chloride (Normal Saline 0.9%) 1,000 mls @ 50 mls/hr IV .Q20H [facility] Last Admin: 06/09/17 13:06 Dose: 1,000 mls Levofloxacin (Levaquin) 500 mg PO 0600 [facility] Levothyroxine Sodium (Synthroid) 112 mcg PO 0600 [facility] Last Admin: 06/09/17 06:08 Dose: 112 mcg Levothyroxine Sodium (Synthroid) 25 mcg PO 0600 [facility] Last Admin: 06/09/17 06:08 Dose: 25 mcg Loperamide HCl (Imodium) 2 mg PO PRN PRN PRN Reason: Diarrhea/Loose Stools Loratadine (Claritin) 10 mg PO DAILYPRN PRN PRN Reason: Sinus Symptoms Magnesium Hydroxide (Milk Of Magnesium) 30 ml PO DAILYPRN PRN PRN Reason: Constipation Mineral Oil/White Petrolatum (Eucerin Cream) 0 gm TOP BIDPRN PRN PRN Reason: Dry Skin Multivitamins (Theragran) 1 tab PO DAILY [facility] Last Admin: 06/09/17 08:56 Dose: 1 tab Ondansetron HCl (Zofran) 4 mg IVP Q6H PRN PRN Reason: Nausea/Vomiting Ondansetron HCl (Zofran Odt) 4 mg PO Q6H PRN PRN Reason: Nausea/Vomiting Pantoprazole Sodium (Protonix) 40 mg PO DAILY [facility] Last Admin: 06/09/17 08:58 Dose: 40 mg Phenol (Chloraseptic [place] 180 Ml Bot) 0 ml PO PRN PRN PRN Reason: Sore Throat Polyethylene Glycol (Miralax) 17 gm PO BIDPRN PRN PRN Reason: CONSTIPATION Senna (Senokot) 2 tab PO HSPRN PRN PRN Reason: Constipation Sodium Chloride (Flush - Normal Saline) 10 ml IVF PRN PRN PRN Reason: Saline Flush Sodium Chloride ([place] Nasal [place] 0.65%) 0 ml EA NARE QIDPRN PRN PRN Reason: Nasal Congestion
[2017-06-10] MEDS: Levothyroxine Sodium 112 MCG TAB PO SCH (07:28)
[2017-06-10] MEDS: Levothyroxine Sodium 25 MCG TAB PO SCH (07:28)
[2017-06-10 08:25] LABS: Mean Corpuscular HGB CONC 31.1 g/dL (32.0-36.0); Mean Corpuscular Hemoglobin 31.5 pg (27.0-31.0); Platelet Count 327 thou/uL (130-400); RBC Distribution Width 14.7 % (11.5-14.5); Red Blood Cell (RBC) Count 2.84 mill/uL (4.20-5.40); White Blood Cell (WBC) Count 14.8 thou/uL (4.8-10.8)
[2017-06-10 08:47] LABS: Anion Gap 12 mmol/L (10-20); BUN (Urea Nitrogen) 15 mg/dL (9.8-20.1); Calc. Creatinine Clearance 106 mL/min (70-130); Calcium 7.8 mg/dL (7.8-10.44); Carbon Dioxide 23 mmol/L (23-31); Chloride 110 mmol/L (98-107); Estimated GFR-MDRD 79; Glucose 89 mg/dL (83-110); Potassium 4.2 mmol/L (3.5-5.1); Sodium 141 mmol/L (136-145)
[2017-06-10 08:54] LABS: Band 9 % (5-11); Eosinophils 1 % (0-10); Lymphocytes 12 % (21-51); MDiff Complete? YES; Metamyelocyte 1 % (0-0); Monocytes 3 % (0-10); Neutrophil 71 % (42-75); PLT Morphology Comment Appears Adequate; Polychromasia SLIGHT = 2-3 cells (100X) (0-2/hpf); Stomatocytes SLIGHT = 2-5 cells (100X) (0-1/hpf)
[2017-06-10] MEDS: Sodium Chloride 0.9% 1,000 ML IV SCH (08:57)
[2017-06-10] MEDS: Gabapentin 300 MG CAP PO SCH (08:58)
[2017-06-10] MEDS: DULoxetine 60 MG CAP PO SCH (08:59)
[2017-06-10] MEDS: Multivit, Therapeutic 1 TAB PO SCH (08:59)
[2017-06-10] MEDS: Amlodipine 10 MG TAB PO SCH (09:00)
[2017-06-10] MEDS: Aspirin 81 mg Enteric Coated Tablet PO SCH (09:01)
[2017-06-10 11:43] VITALS: BP 137/72; TEMP 98.6
--- NOTE | 2017-06-10 13:11 | PRG ---
DATE OF SERVICE: 06/10/2017 SERVICE: Pulmonary Medicine. INTERVAL HISTORY: The patient is doing fine from a respiratory standpoint. She is breathing comfort ably. She has no specific complaints of shortness of breath or chest discomfort this morning. Other mercer, there has been no interval change to her condition. Her white blood cell count continues to de hamilton slowly. PHYSICAL EXAMINATION: VITAL SIGNS: Afebrile, pulse 72, blood pressure 126/61, respirations 20, saturation 95% on room air. GENERAL: The patient is awake, alert, in no apparent distress. LUNGS: Decent air entry. There is no prolonged expiratory phase. Crackles are present. No rhonchi . HEART: Normal rate, regular. ABDOMEN: Soft, nontender, nondistended. Bowel sounds are positive. MUSCULOSKELETAL: No cyanosis or clubbing. There is diffuse 2+ pitting throughout. GENITOURINARY: Chaudhari catheter in place. NEUROLOGIC: Grossly nonfocal. LABORATORY DATA: WBC 14.8 gently downtrending, hemoglobin 9.0, platelets 327,000. Band count is 9% with a total neutrophil count that remains stable. Basic metabolic profile is completely unremarkabl e. Creatinine has also fallen into the normal limits. Sodium 141. ASSESSMENT: 1. Metabolic encephalopathy. 2. Severe sepsis. 3. Bacteremia secondary to Klebsiella pneumoniae. 4. Community-acquired pneumonia. 5. Urinary tract infection. 6. Anasarca. 7. Bilateral pleural effusions associated with anasarca state. 8. Debility, advanced. 9. Dementia, advanced, DISCUSSION AND PLAN: The patient will need to complete a course of antibiotics per Dr. Blake' direct ion. Pulmonary Critical Care will continue to follow if she remains in house. Ultimately, she will need repeat imaging of the chest in 4-6 weeks to verify the effusions are getting smaller. Along the way, if we have recrudescent sepsis syndrome, thoracentesis will need to be considered.
--- NOTE | 2017-06-11 16:45 | EKG ---
Test Reason : Blood Pressure : / mmHG Vent. Rate : 109 BPM Atrial Rate : 109 BPM P-R Int : 128 ms QRS Dur : 100 ms QT Int : 352 ms P-R-T Axes : 051 093 018 degrees QTc Int : 474 ms Sinus tachycardia Rightward axis Incomplete right bundle branch block Possible Inferior infarct , age undetermined Abnormal ECG Confirmed by MALINA NICHOLAS ([id number]), editor managing director MIGDALIA HEARN ([id number]) on 06/11/2017 4:45:30 PM Referred By: Confirmed By:MALINA NICHOLAS
== END 2017-06-10 13:36 | DRG 871 ==
LOC: ERS 20:10 → CCU 23:10 → 2NO 06-04 09:48 → ONC 06-06 14:26
PROVIDERS: ADMIT Internal Medicine Infectious Disease; ATTEND Internal Medicine Infectious Disease
DX: A41.89 Other specified sepsis (principal); J96.01 Acute respiratory failure with hypoxia; G93.41 Metabolic encephalopathy; J90 Pleural effusion, not elsewhere classified; N17.9 Acute kidney failure, unspecified; J18.9 Pneumonia, unspecified organism; E87.0 Hyperosmolality and hypernatremia; E87.2 Acidosis; D69.6 Thrombocytopenia, unspecified; N39.0 Urinary tract infection, site not specified; I24.8 Other forms of acute ischemic heart disease; R65.20 Severe sepsis without septic shock; E88.09 Other disorders of plasma-protein metabolism, not elsewhere classified; N18.3 Chronic kidney disease, stage 3 (moderate); F03.90 Unspecified dementia, unspecified severity, without behavioral disturbance, psychotic disturbance, mood disturbance, and anxiety; I12.9 Hypertensive chronic kidney disease with stage 1 through stage 4 chronic kidney disease, or unspecified chronic kidney disease; E78.5 Hyperlipidemia, unspecified; F32.9 Major depressive disorder, single episode, unspecified; F41.9 Anxiety disorder, unspecified; F31.9 Bipolar disorder, unspecified; K21.9 Gastro-esophageal reflux disease without esophagitis; E87.6 Hypokalemia; R33.9 Retention of urine, unspecified; B96.4 Proteus (mirabilis) (morganii) as the cause of diseases classified elsewhere; Z88.5 Allergy status to narcotic agent; Z88.2 Allergy status to sulfonamides; Z96.652 Presence of left artificial knee joint; Z79.899 Other long term (current) drug therapy; Y95 Nosocomial condition
CPT/HCPCS: 36415; 36416; 70450; 71045; 74176; 74177; 76705; 80048; 80053; 80074; 81001; 82140; 82330; 82553; 82570; 82803; 83605; 83690; 83735; 84100; 84300; 84484; 85025; 85610; 85730; 87040; 87077; 87086; 87149; 87186; 87324; 87449; 93005; 96365; 96375; A4216; G8981-GP-CN; G8982-GP-CK; G8987-GO-CM; G8988-GO-CM; G8989-GO-CM; G8996-GN-CI; G8996-GN-CK; G8996-GN-CM; G8997-GN-CI; G8997-GN-CK; J0360; J0692; J1642; J1644; J1815; J1940; J1956; J2185; J2543; J3370; J3475; J7042; J7050; J7611; S0028

== ENCOUNTER 2017-06-26 02:05 | Inpatient (IN) | payer MEDICARE, MEDICAID ==
[2017-06-26 03:45] LABS: Bilirubin Negative (Negative); Blood, Urine Moderate (Negative); Clarity CLOUDY (Clear); Glucose, Urine (Dipstick) Negative (Negative); Leukocyte Large (Negative); Nitrite Positive (Negative); Protein, Urine (Dipstick) 30 mg/dL (Neg-Trace); Specific Gravity, Urine 1.013 (1.002-1.036); Urobilinogen 0.2 mg/dL (0.2-1.0)
[2017-06-26 03:48] LABS: Bacteria/HPF 4+ HPF (None Seen); Hyaline Casts/LPF 0-3 HYALINE CAST LPF (0-3 Hyaline); Squamous Epithelial None Seen HPF (0-3)
[2017-06-26 06:53] LABS: Mean Corpuscular HGB CONC 32.7 g/dL (32.0-36.0); Mean Corpuscular Hemoglobin 32.2 pg (27.0-31.0); Mean Corpuscular Volume 98.5 fl (81.0-99.0); Mean Platelet Volume 7.6 fL (7.4-10.4); Platelet Count 181 thou/uL (130-400); RBC Distribution Width 13.8 % (11.5-14.5); White Blood Cell (WBC) Count 13.6 thou/uL (4.8-10.8)
[2017-06-26 07:19] LABS: Band 12 % (5-11); Lymphocytes 16 % (21-51); MDiff Complete? YES; Metamyelocyte 3 % (0-0); Monocytes 24 % (0-10); Neutrophil 45 % (42-75); Stomatocytes SLIGHT = 2-5 cells (100X) (0-1/hpf)
[2017-06-26 07:31] LABS: ALT (SGPT) 9 U/L (8-55); AST (SGOT) 11 U/L (5-34); Albumin 2.1 g/dL (3.4-4.8); Alkaline Phosphatase 152 U/L (40-150); Anion Gap 13 mmol/L (10-20); BUN (Urea Nitrogen) 13 mg/dL (9.8-20.1); Bilirubin, Total 0.3 mg/dL (0.2-1.2); Calc. Creatinine Clearance 0 mL/min (70-130); Carbon Dioxide 29 mmol/L (23-31); Chloride 98 mmol/L (98-107); Estimated GFR-MDRD 43; Globulin 3.4 g/dL (2.4-3.5); Glucose 83 mg/dL (83-110); Potassium 3.6 mmol/L (3.5-5.1); Protein, Total 5.5 g/dL (6.0-8.3); Sodium 136 mmol/L (136-145)
[2017-06-26 07:34] LABS: Troponin I 0.014 ng/mL (< 0.028)
[2017-06-26] MEDS ORDERED: cefTRIAXone\\ROCEPHIN 2 GM in Sodium Chloride 0.9% 100 ML IVPB SCH ×2 (08:00→11:15)
--- NOTE | 2017-06-26 08:19 | RAD ---
CHEST 1 VIEW: History Central line placement. Dyspnea. COMPARISON: 05/31/17. FINDINGS: Cardiac silhouette is magnified by projection. Pulmonary vasculature is slightly engorged. Left hem idiaphragm is obscured by ill-defined parenchymal opacity and probable left pleural fluid. Pulmonary vasculature is slightly engorged. Mediastinum remains midline with aortic calcification. The tip of a right internal jugular central venous catheter overlies the superior vena cava. No evid ence of pneumothorax. IMPRESSION: 1. Right internal jugular central venous catheter is in good radiographic position. 2. Left basilar infiltrate with probable left pleural fluid. Clinical correlation regarding other s igns and symptoms of left basilar pneumonitis is required. 3. Atherosclerosis. POS: [facility]
[2017-06-26] MEDS ORDERED: Acetaminophen 325 MG TAB PO PRN ×2 (10:21→10:35)
[2017-06-26] MEDS ORDERED: Ondansetron HCl/PF 4 MG/2 ML Vial IVP PRN ×2 (10:21→10:35)
[2017-06-26] MEDS ORDERED: Ondansetron ODT 4 MG TAB SL PRN (10:21)
[2017-06-26 10:23] LABS: Troponin I 0.083 ng/mL (< 0.028)
[2017-06-26] MEDS ORDERED: Loperamide HCl 2 MG CAP PO PRN (10:35)
[2017-06-26] MEDS ORDERED: Diabetic Tussin 200 MG/10 ML UDCUP PO PRN (10:35)
[2017-06-26] MEDS ORDERED: Senokot 8.6 MG TAB PO PRN (10:35)
[2017-06-26] MEDS ORDERED: Ondansetron ODT 4 MG TAB PO PRN (10:35)
[2017-06-26] MEDS ORDERED: Mag-Al 1200 mg/1200 mg/30 ML UDCUP PO PRN (10:35)
[2017-06-26] MEDS ORDERED: Milk Of Magnesia 30 ML UDCUP PO PRN (10:35)
[2017-06-26] MEDS ORDERED: Sodium Chloride 0.65% Nasal 44 ML BOT EA NARE PRN (10:35)
[2017-06-26] MEDS ORDERED: Artificial Tear Sol 15 ML BOT EA EYE PRN (10:35)
[2017-06-26] MEDS ORDERED: Eucerin (Mineral Oil/Petrolatum,White) 30 gm Jar TOP PRN (10:35)
[2017-06-26] MEDS ORDERED: Chloraseptic Spray 180 ml Bottle PO PRN (10:35)
[2017-06-26] MEDS ORDERED: hydrALAZINE 20 MG/ML VIAL SLOW IVP PRN (10:35)
--- NOTE | 2017-06-26 11:52 | HP ---
PRIMARY CARE PHYSICIAN: Dr. Alcira Hatch at [facility]. REASON FOR ADMISSION: Anasarca, urinary tract infection. HISTORY OF PRESENT ILLNESS: This is an 82-year-old female, who has lately multiple admissions in our hospital. Most recently, she was admitted on 04/19/2017 for altered mental status and patient was d ischarged back to group home. Again, she was readmitted on 05/08/2017 as well as on 06/01/2017. M ost recent admission was related with sepsis from Klebsiella pneumonia and she also had urinary tract infection with Proteus mirabilis. Patient was discharged to group home with the p.o. levofloxacin therapy. Patient had a Chaudhari catheter at the group home. This patient is pretty much nonambulato ry there and she is baseline alert and oriented x1 only. At the group home, patient was hypoxic. As per report, she was saturating below 88%. She was given 3 liters oxygen and after that she was ma intaining saturation 94%. She was having low grade fever in the emergency room. She was lethargic. The patient was not able to provide any history, but group home reported that patient is becoming more and more edematous. She does have anasarca. In the emergency room, she had a central line plac ed. She was given Rocephin 2 gram and levofloxacin, and subsequently patient is being admitted to te lemetry floor. Today, routine laboratory showed leukocytosis with bandemia, elevated BNP, and indete rminate troponin. Her urinalysis was consistent with UTI. Her chest x-ray is consistent with left b asilar pneumonia. REVIEW OF SYSTEMS: All review of systems tried to review with the patient, but unfortunately unable to review because patient is altered and incoherent. ALLERGIES: MORPHINE and SULFA DRUGS. CURRENT HOME MEDICATIONS: Amlodipine 10 mg p.o. daily, Depakote 500 mg p.o. daily, gabapentin 600 mg 3 times daily, Synthroid 137 mcg p.o. daily, lisinopril 40 mg p.o. daily, multivitamin 1 capsule p.o . daily, pravastatin 40 mg p.o. at bedtime, Cymbalta 60 mg p.o. daily, Dymista inhalation daily, Cola ce 100 mg twice daily, Wellbutrin XL 150 mg p.o. daily, Lumigan ophthalmic drops daily, and Protonix 40 mg p.o. daily. PAST MEDICAL HISTORY: Hypertension, dyslipidemia, gastroesophageal reflux disease, chronic kidney di sease stage 3, hypothyroidism, physical deconditioning, recent admission for UTI and bacteremia, and sepsis. PAST PSYCHIATRIC HISTORY: Bipolar disorder, anxiety, and depression. PAST SURGICAL HISTORY: Tonsillectomy, left total knee replacement, foot surgery, PICC line placement , and central line placement. SOCIAL HISTORY: Patient lives at [facility]. No history of tobacco, alcohol or il licit drug abuse. The patient does not have any family member listed on the group home paper. She has only contact is friend. She was FULL CODE at group home. FAMILY HISTORY: Patient is unable to provide any family history at this point by herself, but based on record, positive for coronary artery disease. EMERGENCY ROOM COURSE: The patient has given Rocephin 2 gram and Levaquin 750 mg. PHYSICAL EXAMINATION: VITAL SIGNS: On arrival, blood pressure 153/82, pulse 97, respiratory rate 18, temperature 97.7, sat uration 94% on room air, and weight 104.3 kilograms. GENERAL: The patient is currently lethargic, somnolent, arousable, no obvious acute distress. HEAD: Normocephalic, atraumatic. EYES: Pupils round, reactive to light. Extraocular muscle intact. No nystagmus. ENT: Moist mucous membranes. No oral lesions. No pharyngeal erythema, no exudates. NECK: Supple. No meningeal signs of irritation, no JVD, no thyromegaly, no carotid bruits. LUNGS: Bilateral reduced air entry. Few basilar rales noted. CARDIAC: S1 and S2 regular, systolic murmur noted at parasternal. No gallop, no rub. ABDOMEN: Obesity present. Bowel sounds present. Nontender, nondistended. No organomegaly, no mass , no suprapubic tenderness. BACK: Unremarkable, no CVA tenderness. EXTREMITIES: Upper extremity edema noted on low both upper extremities. Lower extremity: Edema not ed in both lower extremities, pitting in nature +2. Good distal pulsation. NEUROLOGIC: She moves all 4 limbs, but detailed neurological examination from her not possible becau se of patient is incoherent and not cooperating. SKIN: No skin rash. PSYCHIATRIC: Flat affect. SKIN: The patient does have redness to the lower sacrum as well as gluteal cleft. The patient also has redness to posterior right thigh and redness to anterior right [place]. Patient came with Chaudhari cat heter from above group home. SIGNIFICANT LABORATORY DATA: WBC 13.6, hemoglobin 9.0, platelets 181 with bandemia. BMP: Sodium 13 6, potassium 3.6, chloride 98, carbon dioxide 29, anion gap 13, BUN 13, creatinine 1.20, glucose 83, calcium 9.0. LFT: AST 11, ALT 9, alkaline phosphatase 152, albumin 2.1. TSH 1.16. Cardiac enzymes initially negative and subsequently 0.083. BNP 261.4. Urinalysis suggestive UTI. Chest x-ray show ing left basilar pneumonia. ASSESSMENT AND PLAN: 1. Acute encephalopathy without any focal neurological deficit, most likely related with underlying sepsis. 2. Sepsis with acute organ dysfunction. This patient has bandemia with leukocytosis with left shift . Source of infection, most likely urinary tract infection as well as pneumonia. The patient has re ceived appropriate IV antibiotic therapy in the emergency room. 3. Demand ischemia of myocardium. Her initial troponin was negative and subsequently second troponi n is positive, most likely related with demand ischemia from sepsis. 4. Urinary tract infection related with indwelling Chaudhari catheter. Her Chaudhari catheter was present a t group home. Currently, urinalysis is abnormal. She has most likely in urinary tract infection. The patient will be given Rocephin and Levaquin based on previous culture and sensitivity result. 5. Left basilar pneumonia, healthcare associated. This patient is in and out of hospital as well as she lives at group home. This patient does have left basilar rales and pneumonia on x-ray and pat ient is already on Rocephin and Levaquin therapy. 6. Anasarca. This patient has significantly anasarca on both lower extremities as well as abdominal wall and upper extremity. She will need diuretic therapy. We will continue Lasix 40 mg IV b.i.d. a nd monitor her labs and renal function and replace electrolytes as needed basis. We will monitor inp ut and output chart. 7. Elevated BNP. This patient had most recent echocardiography on 04/2017, which showed diastolic d ysfunction and that is why this is related with acute on chronic diastolic heart failure secondary to fluid retention and that contributes to her anasarca as well. 8. Hypoalbuminemia, likely related with her protein calorie malnutrition. We will check urine prote in/creatinine ratio to rule out any nephrotic range proteinuria that can responsible for anasarca as well. 9. Hypertension. We will continue amlodipine 10 mg p.o. daily, lisinopril 40 mg p.o. daily. 10. Glaucoma. We will continue Lumigan ophthalmic drops each eye daily. 11. Anxiety and depression. We will continue Cymbalta 60 mg p.o. daily. Bipolar disorder. We will continue Wellbutrin SR 150 mg p.o. daily and Depakote 500 mg p.o. at bedtime. 12. Peripheral neuropathy. Continue gabapentin 600 mg t.i.d. 13. Gastroesophageal reflux disease. Continue Protonix 40 mg p.o. daily. 14. Dyslipidemia. Continue pravastatin 40 mg p.o. at bedtime. 15. Morbid obesity. Dietary education will be given. 16. Deep venous thrombosis prophylaxis. Lovenox 40 mg subcu daily. 17. Gastrointestinal prophylaxis. Protonix 40 mg p.o. daily. 18. CODE STATUS: Unfortunately, this patient does not have any family members listed at the group home paper and only listed number is her friend, who cannot make decision for this particular patien t legally and the patient was FULL CODE at group home and that is why we will continue FULL CODE st atus while in hospital. 19. Hypothyroidism. We will continue Synthroid 137 mcg p.o. daily. 20. Disposition plan based on clinical course. We are suspecting the patient might have underlying sepsis with bacteremia and that is why she will need more than 2 days while in hospital. She will al so need speech evaluation for her swallow evaluation given her altered mental status and if she is sa fe for p.o. intake, then will resume heart healthy diet and above-mentioned medication.
[2017-06-26 13:12] LABS: Troponin I 0.033 ng/mL (< 0.028)
[2017-06-26] MEDS: Gabapentin 300 MG CAP PO SCH ×2 (14:24→21:31)
[2017-06-26] MEDS: Furosemide 40 MG/4 ML VIAL SLOW IVP SCH (14:54)
[2017-06-26] MEDS ORDERED: Docusate 100 MG CAP PO SCH (21:00)
[2017-06-26] MEDS ORDERED: cefTRIAXone\\ROCEPHIN 1 GM, Syringe 0.4 ML in Sterile Water 9.6 ML SLOW IVP SCH (21:00)
[2017-06-26] MEDS ORDERED: Atorvastatin Calcium 10 MG TAB PO SCH (21:00)
[2017-06-26] MEDS ORDERED: Insulin Regular 300 UNITS/3 ML VIAL SC PRN ×2 (22:22)
[2017-06-26] MEDS ORDERED: Dextrose 5% in Water 1,000 ML IV PRN (22:22)
[2017-06-26] MEDS ORDERED: Dextrose 50% Abboject 50 ML SYRINGE IVP PRN (22:22)
[2017-06-26] MEDS ORDERED: Dextrose 50% Abboject 50 ML SYRINGE ONE (23:44)
[2017-06-27] MEDS ORDERED: Levothyroxine Sodium 25 MCG TAB PO SCH (06:00)
[2017-06-27] MEDS ORDERED: Levothyroxine Sodium 112 MCG TAB PO SCH (06:00)
[2017-06-27 06:20] LABS: ALT (SGPT) 9 U/L (8-55); AST (SGOT) 13 U/L (5-34); Alkaline Phosphatase 131 U/L (40-150); Anion Gap 10 mmol/L (10-20); BUN (Urea Nitrogen) 13 mg/dL (9.8-20.1); Bilirubin, Total 0.2 mg/dL (0.2-1.2); Calc. Creatinine Clearance 63 mL/min (70-130); Carbon Dioxide 33 mmol/L (23-31); Chloride 98 mmol/L (98-107); Estimated GFR-MDRD 44; Globulin 3.1 g/dL (2.4-3.5); Glucose 78 mg/dL (83-110); Potassium 3.4 mmol/L (3.5-5.1); Protein, Total 5.1 g/dL (6.0-8.3); Sodium 138 mmol/L (136-145)
[2017-06-27] MEDS: Furosemide 40 MG/4 ML VIAL SLOW IVP SCH ×2 (06:39→15:27)
[2017-06-27] MEDS ORDERED: Potassium Chloride 20 MEQ TAB PO SCH (07:00)
[2017-06-27 08:14] LABS: Magnesium 1.1 mg/dL (1.6-2.6); Phosphorus 3.3 mg/dL (2.3-4.7)
[2017-06-27] MEDS ORDERED: Artificial Tears 18 DROP/0.9 ML EA EYE PRN (08:15)
[2017-06-27] MEDS ORDERED: Labetalol HCl 100 MG/20 ML VIAL SLOW IVP PRN (08:15)
[2017-06-27] MEDS ORDERED: Acetaminophen 650 MG Suppository PR PRN (08:15)
[2017-06-27] MEDS ORDERED: Fleet Enema 133 ML BOT PR PRN (08:15)
[2017-06-27] MEDS ORDERED: Bisacodyl 10 MG SUPP PR PRN (08:15)
[2017-06-27] MEDS ORDERED: hydrALAZINE 20 MG/ML VIAL SLOW IVP PRN (08:17)
[2017-06-27] MEDS ORDERED: Ondansetron ODT 4 MG TAB SL PRN (08:17)
[2017-06-27] MEDS ORDERED: Potassium Chloride 40 MEQ in Premix Bag 1 BAG IVPB SCH (08:30)
[2017-06-27] MEDS ORDERED: Magnesium Sulfate 3 GM in Sodium Chloride 0.9% 100 ML IVPB SCH (08:30)
[2017-06-27] MEDS ORDERED: Sodium Chloride 0.9% 10 ML ONE (08:39)
[2017-06-27] MEDS: cefTRIAXone\\ROCEPHIN 2 GM in Sodium Chloride 0.9% 100 ML IVPB SCH (08:49)
[2017-06-27 08:50] LABS: Band 12 % (5-11); Eosinophils 2 % (0-10); Hemoglobin 7.7 g/dL (12.0-16.0); Lymphocytes 17 % (21-51); MDiff Complete? YES; Mean Corpuscular HGB CONC 32.3 g/dL (32.0-36.0); Mean Corpuscular Hemoglobin 31.7 pg (27.0-31.0); Mean Corpuscular Volume 98.3 fl (81.0-99.0); Mean Platelet Volume 7.6 fL (7.4-10.4); Metamyelocyte 5 % (0-0); Monocytes 23 % (0-10); Myelocyte 4 % (0-0); Neutrophil 37 % (42-75); Platelet Count 154 thou/uL (130-400); RBC Distribution Width 13.8 % (11.5-14.5); Red Blood Cell (RBC) Count 2.43 mill/uL (4.20-5.40); White Blood Cell (WBC) Count 12.6 thou/uL (4.8-10.8)
[2017-06-27] MEDS: Azelastine 137 MCG/Spray 30 ML NS SCH (08:58)
[2017-06-27] MEDS: Famotidine/PF 20 mg/2ml Vial SLOW IVP SCH ×2 (08:59→21:05)
[2017-06-27] MEDS ORDERED: Enoxaparin Sodium 30 MG/0.3 ML SYRINGE SC SCH (09:00)
[2017-06-27] MEDS ORDERED: Prevnar 13-Val Conj/PF 0.5 ML SYRINGE IM ONE (09:00)
[2017-06-27] MEDS ORDERED: Aspirin 81 mg Enteric Coated Tablet PO SCH (09:00)
[2017-06-27] MEDS ORDERED: FLU VACC TS2017-18 (>65YR) 0.5 ML SYRINGE IM ONE (09:00)
[2017-06-27] MEDS ORDERED: cloNIDine 0.1mg/24 Hour PATCH TD SCH (09:00)
[2017-06-27] MEDS ORDERED: Bupropion 150 MG XL TAB PO SCH (09:00)
[2017-06-27] MEDS ORDERED: Amlodipine 10 MG TAB PO SCH (09:00)
[2017-06-27] MEDS ORDERED: cloNIDine 0.2 MG TAB PO SCH (09:00)
[2017-06-27] MEDS ORDERED: Divalproex Sodium DR 500 MG TAB PO SCH ×2 (09:00→21:00)
[2017-06-27] MEDS ORDERED: Lactinex Tablet PO SCH (09:00)
[2017-06-27] MEDS ORDERED: Lisinopril 20 MG TAB PO SCH (09:00)
[2017-06-27] MEDS ORDERED: DULoxetine 60 MG CAP PO SCH (09:00)
[2017-06-27] MEDS ORDERED: ASCORBIC ACID 500 MG PO SCH (09:00)
[2017-06-27] MEDS: Enoxaparin Sodium 40 MG/0.4 ML SYRINGE SC SCH (09:07)
--- NOTE | 2017-06-27 10:34 | PDOC.PN ---
- Subjective Encounter Start Date: 06/27/17 Encounter Start Time: 07:40 -: old records requested/rev pt is confused, failed swallow, hypoglycemic Patient seen and examined. No overnight events - Objective Resuscitation Status: Resuscitation Status FULL:Full Resuscitation MAR Reviewed: Yes Vital Signs & Weight: Vital Signs (12 hours) Temp Pulse Resp BP Pulse Ox 06/27/17 08:00 97.8 F 82 18 117/77 95 06/27/17 03:46 97.9 F 83 18 170/89 H 95 06/27/17 00:00 98.1 F 89 16 121/78 93 L Weight Weight 237 lb I&O: 06/26/17 06/27/17 06/28/17 06:59 06:59 06:59 Intake Total 100 Output Total 500 Balance -400 Result Diagrams: 06/27/17 03:53 06/27/17 03:53 Additional Labs: Accuchecks 06/27/17 06/27/17 06/27/17 07:58 05:23 03:25 POC Glucose 72 75 85 06/27/17 06/27/17 06/26/17 02:31 00:23 23:39 POC Glucose 99 160 H 75 06/26/17 21:53 POC Glucose 79 EKG Reviewed by me: Yes (nsr) Phys Exam - Physical Examination Constitutional: NAD HEENT: PERRLA, sclera anicteric dry MM Neck: no JVD, supple Respiratory: no wheezing, no rales, no rhonchi Cardiovascular: RRR, no significant murmur, no rub Gastrointestinal: soft, non-tender, no distention, positive bowel sounds Musculoskeletal: pulses present, edema present Neurological: moves all 4 limbs Lymphatic: no nodes Psychiatric: normal affect Skin: no rash, normal turgor Dx/Plan (1) Acute on chronic diastolic (congestive) heart failure Code(s): I50.33 - ACUTE ON CHRONIC DIASTOLIC (CONGESTIVE) HEART FAILURE Status : Acute (2) Anasarca Code(s): R60.1 - GENERALIZED EDEMA Status: Acute (3) Demand ischemia of myocardium Code(s): I24.8 - OTHER FORMS OF ACUTE ISCHEMIC HEART DISEASE Status: Acute (4) Encephalopathy acute Code(s): G93.40 - ENCEPHALOPATHY, UNSPECIFIED Status: Acute (5) Healthcare associated bacterial pneumonia Code(s): J15.9 - UNSPECIFIED BACTERIAL PNEUMONIA Status: Acute (6) Hypokalemia Code(s): E87.6 - HYPOKALEMIA Status: Acute (7) Hypomagnesemia Code(s): E83.42 - HYPOMAGNESEMIA Status: Acute (8) Oropharyngeal dysphagia Code(s): R13.12 - DYSPHAGIA, OROPHARYNGEAL PHASE Status: Acute (9) Sepsis with acute organ dysfunction Code(s): A41.9 - SEPSIS, UNSPECIFIED ORGANISM; R65.20 - SEVERE SEPSIS WITHOUT SEPTIC SHOCK Status: Acute (10) UTI (urinary tract infection) due to urinary indwelling catheter Code(s): T83.511A - I/I REACT D/T INDWELLING URETHRAL CATHETER, INIT; N39.0 - URINARY TRACT INFECTION, SITE NOT SPECIFIED Status: Acute (11) Bipolar disorder Code(s): F31.9 - BIPOLAR DISORDER, UNSPECIFIED Status: Chronic Qualifiers: (12) GERD (gastroesophageal reflux disease) Code(s): K21.9 - GASTRO-ESOPHAGEAL REFLUX DISEASE WITHOUT ESOPHAGITIS Status: Chronic Qualifiers: (13) HLD (hyperlipidemia) Code(s): E78.5 - HYPERLIPIDEMIA, UNSPECIFIED Status: Chronic Qualifiers: (14) HTN (hypertension) Code(s): I10 - ESSENTIAL (PRIMARY) HYPERTENSION Status: Chronic Qualifiers: (15) Hypothyroidism Code(s): E03.9 - HYPOTHYROIDISM, UNSPECIFIED Status: Chronic Qualifiers: (16) Macrocytic anemia Code(s): D53.9 - NUTRITIONAL ANEMIA, UNSPECIFIED Status: Chronic (17) Obesity (BMI 30-39.9) Code(s): E66.9 - OBESITY, UNSPECIFIED Status: Chronic - Plan cont current plan of care, continue antibiotics * replace magnesium and potassium today * start D 10% at 40 ml per hour for hypoglycemia * continue lasix for anasarca and CHF * continue IV antibiotics for pneumonia and UTI * speech therapy * medication reviewed as below * symptomatic treatment * prognosis is guarded * consult palliative care Review of Systems - Review of Systems Other: unable to review as pt is altered - Medications/Allergies Allergies/Adverse Reactions: Allergies Allergy/AdvReac Type Severity Reaction Status Date / Time morphine Allergy Verified 06/01/17 00:57 Sulfa (Sulfonamide Allergy Verified 06/01/17 00:57 Antibiotics) Medications: Current Medications Acetaminophen (Tylenol) 650 mg OR Q4H PRN PRN Reason: Headache/Fever or Mild Pain Albuterol/Ipratropium (Duoneb) 3 ml NEB [id number] PRN PRN Reason: SOB &/or Wheezing Artificial Tears (Tears Renewed 15ml Bottle) 0 drop EA EYE PRN PRN PRN Reason: Dry Eyes Artificial Tears (Tears Naturale) 0 drop EA EYE PRN PRN PRN Reason: Dry Eyes Azelastine HCl (Azelastine) 0 ml NS DAILY [facility] Last Admin: 06/27/17 08:58 Dose: 1 spray Bisacodyl (Dulcolax) 10 mg OR DAILYPRN PRN PRN Reason: Constipation Clonidine (Zxsndyez-Mbn-3 Patch) 0.1 mg TD Q7DAYS [facility] Last Admin: 06/27/17 10:23 Dose: 0.1 mg Dextrose/Water (Dextrose 50%) 25 gm IVP PRN PRN PRN Reason: HYPOGLYCEMIA PROTOCOL Enoxaparin Sodium (Lovenox) 40 mg SC 0900 [facility] Last Admin: 06/27/17 09:07 Dose: 40 mg Famotidine (Pepcid) 20 mg SLOW IVP Q12HR [facility] Last Admin: 06/27/17 08:59 Dose: 20 mg Furosemide (Lasix) 40 mg SLOW IVP 0600,1400 [facility] Last Admin: 06/27/17 06:39 Dose: 40 mg Glucagon (Glucagon) 1 mg IM PRN PRN PRN Reason: HYPOGLYCEMIA PROTOCOL Hydralazine HCl (Apresoline) 10 mg SLOW IVP Q2H PRN PRN Reason: Systolic BP > 180 Ceftriaxone Sodium 2 gm/ (Sodium Chloride) 100 mls @ 200 mls/hr IVPB Q24HR@ 0900 [facility] Last Admin: 06/27/17 08:49 Dose: 100 mls Dextrose/Water (D5w) 1,000 mls @ 0 mls/hr IV INF PRN; As Directed PRN Reason: HYPOGLYCEMIA PROTOCOL Dextrose/Water (Dextrose 10% In Water) 1,000 mls @ 40 mls/hr IV .Q24H [facility] Potassium Chloride 40 meq/ (Device) 100 mls @ 25 mls/hr IVPB 0830 [facility] Stop: 06/27/17 12:29 Last Admin: 06/27/17 10:08 Dose: 100 mls Insulin Human Regular (Humulin R) 0 units SC .MILD SLIDING PRN; Protocol PRN Reason: MILD SLIDING SCALE Insulin Human Regular (Humulin R) 0 units SC .BEDTIME SLIDING SC PRN; Protocol PRN Reason: BEDTIME SLIDING SCALE Labetalol HCl (Normodyne) 20 mg SLOW IVP Q4H PRN PRN Reason: Systolic BP > 180 Latanoprost (Xalatan 0.005% Ophth Soln) 1 drop EA EYE HS LIDYA Magnesium Hydroxide (Milk Of Magnesium) 30 ml PO DAILYPRN PRN PRN Reason: Constipation Mineral Oil/White Petrolatum (Eucerin Cream) 0 gm TOP BIDPRN PRN PRN Reason: Dry Skin Ondansetron HCl (Zofran) 4 mg IVP Q6H PRN PRN Reason: Nausea/Vomiting Ondansetron HCl (Zofran Odt) 4 mg SL Q6H PRN PRN Reason: Nausea/Vomiting Phenol (Chloraseptic [place] 180 Ml Bot) 0 ml PO PRN PRN PRN Reason: Sore Throat Sodium Biphosphate/Sodium Phosphate (Fleet Enema) 133 ml OR PRN PRN PRN Reason: Constipation Sodium Chloride ([place] Nasal [place] 0.65%) 0 ml EA NARE QIDPRN PRN PRN Reason: Nasal Congestion
[2017-06-27] MEDS: Dextrose 10% in Water 1,000 ML IV SCH (11:11)
[2017-06-27] MEDS: Latanoprost 0.005% Ophth Soln 2.5 ml Bottle EA EYE SCH (21:05)
[2017-06-28] MEDS: Furosemide 40 MG/4 ML VIAL SLOW IVP SCH ×2 (05:28→14:55)
[2017-06-28 06:29] LABS: Anion Gap 8 mmol/L (10-20); BUN (Urea Nitrogen) 12 mg/dL (9.8-20.1); Calc. Creatinine Clearance 65 mL/min (70-130); Calcium 8.8 mg/dL (7.8-10.44); Carbon Dioxide 36 mmol/L (23-31); Chloride 96 mmol/L (98-107); Estimated GFR-MDRD 45; Glucose 92 mg/dL (83-110); Magnesium 1.5 mg/dL (1.6-2.6); Potassium 3.4 mmol/L (3.5-5.1); Sodium 137 mmol/L (136-145)
[2017-06-28] MEDS ORDERED: Potassium Chloride 40 MEQ, Admixture Fee 1 EACH in Sodium Chloride 0.9% 250 ML 250 ML IVPB SCH (07:00)
[2017-06-28] MEDS ORDERED: Potassium Chloride 40 MEQ in Premix Bag 1 BAG IVPB SCH (07:00)
[2017-06-28] MEDS ORDERED: Magnesium Sulfate 4 GM, Admixture Fee 1 EACH in Sodium Chloride 0.9% 250 ML 250 ML IVPB SCH (07:00)
[2017-06-28] MEDS: Azelastine 137 MCG/Spray 30 ML NS SCH (10:31)
[2017-06-28] MEDS: Famotidine/PF 20 mg/2ml Vial SLOW IVP SCH ×2 (10:31→21:10)
[2017-06-28] MEDS: Enoxaparin Sodium 40 MG/0.4 ML SYRINGE SC SCH (10:31)
[2017-06-28] MEDS: cefTRIAXone\\ROCEPHIN 2 GM in Sodium Chloride 0.9% 100 ML IVPB SCH (10:35)
--- NOTE | 2017-06-28 10:35 | PDOC.PN ---
- Subjective Encounter Start Date: 06/28/17 Encounter Start Time: 07:40 Patient seen and examined. No overnight events, pt is NPO pt is still lethargic and unable to swallow - Objective Resuscitation Status: Resuscitation Status FULL:Full Resuscitation MAR Reviewed: Yes Vital Signs & Weight: Vital Signs (12 hours) Temp Pulse Resp BP Pulse Ox 06/28/17 04:00 98.2 F 83 12 129/58 L 93 L Weight Weight 237 lb I&O: 06/27/17 06/28/17 06/29/17 06:59 06:59 06:59 Intake Total 100 992 Output Total 500 2775 Balance -400 -9399 Result Diagrams: 06/27/17 03:53 06/28/17 04:55 Additional Labs: Accuchecks 06/28/17 06/28/17 06/27/17 06:06 01:49 20:05 POC Glucose 99 117 H 120 H 06/27/17 06/27/17 16:49 10:51 POC Glucose 101 72 EKG Reviewed by me: Yes (nsr) Phys Exam - Physical Examination Constitutional: NAD HEENT: PERRLA, sclera anicteric dry MM Neck: no JVD, supple Respiratory: no wheezing, no rales, no rhonchi Cardiovascular: RRR, no significant murmur, no rub Gastrointestinal: soft, non-tender, no distention, positive bowel sounds Musculoskeletal: pulses present, edema present Lymphatic: no nodes Skin: no rash, normal turgor Dx/Plan (1) Acute on chronic diastolic (congestive) heart failure Code(s): I50.33 - ACUTE ON CHRONIC DIASTOLIC (CONGESTIVE) HEART FAILURE Status : Acute (2) Anasarca Code(s): R60.1 - GENERALIZED EDEMA Status: Acute (3) Demand ischemia of myocardium Code(s): I24.8 - OTHER FORMS OF ACUTE ISCHEMIC HEART DISEASE Status: Acute (4) Encephalopathy acute Code(s): G93.40 - ENCEPHALOPATHY, UNSPECIFIED Status: Acute (5) Healthcare associated bacterial pneumonia Code(s): J15.9 - UNSPECIFIED BACTERIAL PNEUMONIA Status: Acute (6) Hypokalemia Code(s): E87.6 - HYPOKALEMIA Status: Acute (7) Hypomagnesemia Code(s): E83.42 - HYPOMAGNESEMIA Status: Acute (8) Oropharyngeal dysphagia Code(s): R13.12 - DYSPHAGIA, OROPHARYNGEAL PHASE Status: Acute (9) Sepsis with acute organ dysfunction Code(s): A41.9 - SEPSIS, UNSPECIFIED ORGANISM; R65.20 - SEVERE SEPSIS WITHOUT SEPTIC SHOCK Status: Acute (10) UTI (urinary tract infection) due to urinary indwelling catheter Code(s): T83.511A - I/I REACT D/T INDWELLING URETHRAL CATHETER, INIT; N39.0 - URINARY TRACT INFECTION, SITE NOT SPECIFIED Status: Acute (11) Bipolar disorder Code(s): F31.9 - BIPOLAR DISORDER, UNSPECIFIED Status: Chronic Qualifiers: (12) GERD (gastroesophageal reflux disease) Code(s): K21.9 - GASTRO-ESOPHAGEAL REFLUX DISEASE WITHOUT ESOPHAGITIS Status: Chronic Qualifiers: (13) HLD (hyperlipidemia) Code(s): E78.5 - HYPERLIPIDEMIA, UNSPECIFIED Status: Chronic Qualifiers: (14) HTN (hypertension) Code(s): I10 - ESSENTIAL (PRIMARY) HYPERTENSION Status: Chronic Qualifiers: (15) Hypothyroidism Code(s): E03.9 - HYPOTHYROIDISM, UNSPECIFIED Status: Chronic Qualifiers: (16) Macrocytic anemia Code(s): D53.9 - NUTRITIONAL ANEMIA, UNSPECIFIED Status: Chronic (17) Obesity (BMI 30-39.9) Code(s): E66.9 - OBESITY, UNSPECIFIED Status: Chronic - Plan cont current plan of care, licensed clinical social worker * pt's penitentiary prognosis is very poor * continue rocephin * medication reviewed as below * symptomatic treatment * replace potassium and magnesium. Review of Systems - Review of Systems Other: unable to review as pt is altered - Medications/Allergies Allergies/Adverse Reactions: Allergies Allergy/AdvReac Type Severity Reaction Status Date / Time morphine Allergy Verified 06/01/17 00:57 Sulfa (Sulfonamide Allergy Verified 06/01/17 00:57 Antibiotics) Medications: Current Medications Acetaminophen (Tylenol) [address] Q4H PRN PRN Reason: Headache/Fever or Mild Pain Albuterol/Ipratropium (Duoneb) 3 ml NEB T0UK-[id number] PRN PRN Reason: SOB &/or Wheezing Artificial Tears (Tears Renewed 15ml Bottle) 0 drop EA EYE PRN PRN PRN Reason: Dry Eyes Artificial Tears (Tears Naturale) 0 drop EA EYE PRN PRN PRN Reason: Dry Eyes Azelastine HCl (Azelastine) 0 ml NS DAILY [facility] Last Admin: 06/28/17 10:31 Dose: 1 spray Bisacodyl (Dulcolax) [address] DAILYPRN PRN PRN Reason: Constipation Clonidine (Itddlimy-Rcm-5 Patch) 0.1 mg TD Q7DAYS [facility] Last Admin: 06/27/17 10:23 Dose: 0.1 mg Dextrose/Water (Dextrose 50%) 25 gm IVP PRN PRN PRN Reason: HYPOGLYCEMIA PROTOCOL Enoxaparin Sodium (Lovenox) 40 mg SC 0900 [facility] Last Admin: 06/28/17 10:31 Dose: 40 mg Famotidine (Pepcid) 20 mg SLOW IVP Q12HR [facility] Last Admin: 06/28/17 10:31 Dose: 20 mg Furosemide (Lasix) 40 mg SLOW IVP 0600,1400 [facility] Last Admin: 06/28/17 05:28 Dose: 40 mg Glucagon (Glucagon) 1 mg IM PRN PRN PRN Reason: HYPOGLYCEMIA PROTOCOL Hydralazine HCl (Apresoline) 10 mg SLOW IVP Q2H PRN PRN Reason: Systolic BP > 180 Ceftriaxone Sodium 2 gm/ (Sodium Chloride) 100 mls @ 200 mls/hr IVPB Q24HR@ 0900 [facility] Last Admin: 06/28/17 10:35 Dose: 100 mls Dextrose/Water (D5w) 1,000 mls @ 0 mls/hr IV INF PRN; As Directed PRN Reason: HYPOGLYCEMIA PROTOCOL Dextrose/Water (Dextrose 10% In Water) 1,000 mls @ 40 mls/hr IV .Q24H [facility] Last Admin: 06/27/17 11:11 Dose: 1,000 mls Magnesium Sulfate 4 gm/Miscellaneous Medication 1 each/ Sodium Chloride 258 mls @ 86 mls/hr IVPB ONE [facility] Stop: 06/28/17 12:00 Last Admin: 06/28/17 10:30 Dose: 258 mls Potassium Chloride 40 meq/Miscellaneous Medication 1 each/ Sodium Chloride 270 mls @ 67.5 mls/hr IVPB ONE [facility] Stop: 06/28/17 12:00 Last Admin: 06/28/17 10:30 Dose: 270 mls Insulin Human Regular (Humulin R) 0 units SC .MILD SLIDING PRN; Protocol PRN Reason: MILD SLIDING SCALE Insulin Human Regular (Humulin R) 0 units SC .BEDTIME SLIDING SC PRN; Protocol PRN Reason: BEDTIME SLIDING SCALE Labetalol HCl (Normodyne) 20 mg SLOW IVP Q4H PRN PRN Reason: Systolic BP > 180 Latanoprost (Xalatan 0.005% Ophth Soln) 1 drop EA EYE HS [facility] Last Admin: 06/27/17 21:05 Dose: 1 drop Magnesium Hydroxide (Milk Of Magnesium) 30 ml PO DAILYPRN PRN PRN Reason: Constipation Mineral Oil/White Petrolatum (Eucerin Cream) 0 gm TOP BIDPRN PRN PRN Reason: Dry Skin Ondansetron HCl (Zofran) 4 mg IVP Q6H PRN PRN Reason: Nausea/Vomiting Ondansetron HCl (Zofran Odt) 4 mg SL Q6H PRN PRN Reason: Nausea/Vomiting Phenol (Chloraseptic [place] 180 Ml Bot) 0 ml PO PRN PRN PRN Reason: Sore Throat Sodium Biphosphate/Sodium Phosphate (Fleet Enema) [address] PRN PRN PRN Reason: Constipation Sodium Chloride ([place] Nasal [place] 0.65%) 0 ml EA NARE QIDPRN PRN PRN Reason: Nasal Congestion Sodium Chloride (Flush - Normal Saline) 10 ml IVF Q12HR [facility] Last Admin: 06/28/17 10:32 Dose: 10 ml Sodium Chloride (Flush - Normal Saline) 10 ml IVF PRN PRN PRN Reason: Saline Flush
[2017-06-28] MEDS: Dextrose 10% in Water 1,000 ML IV SCH (15:00)
[2017-06-28] MEDS: Latanoprost 0.005% Ophth Soln 2.5 ml Bottle EA EYE SCH (21:10)
[2017-06-29] MEDS: Furosemide 40 MG/4 ML VIAL SLOW IVP SCH ×2 (05:22→14:52)
[2017-06-29 05:45] LABS: BUN (Urea Nitrogen) 10 mg/dL (9.8-20.1); Calc. Creatinine Clearance 65 mL/min (70-130); Calcium 8.6 mg/dL (7.8-10.44); Estimated GFR-MDRD 47; Glucose 100 mg/dL (83-110); Magnesium 1.9 mg/dL (1.6-2.6)
[2017-06-29 05:54] LABS: Anion Gap 10 mmol/L (10-20); Carbon Dioxide 35 mmol/L (23-31); Chloride 94 mmol/L (98-107); Potassium 3.3 mmol/L (3.5-5.1); Sodium 136 mmol/L (136-145)
[2017-06-29 06:26] LABS: Band 5 % (5-11); Eosinophils 1 % (0-10); Hemoglobin 7.5 g/dL (12.0-16.0); Lymphocytes 24 % (21-51); MDiff Complete? YES; Mean Corpuscular HGB CONC 32.7 g/dL (32.0-36.0); Mean Corpuscular Hemoglobin 32.2 pg (27.0-31.0); Mean Corpuscular Volume 98.6 fl (81.0-99.0); Mean Platelet Volume 6.5 fL (7.4-10.4); Monocytes 23 % (0-10); Myelocyte 3 % (0-0); Neutrophil 44 % (42-75); Platelet Count 214 thou/uL (130-400); RBC Distribution Width 14.1 % (11.5-14.5); Red Blood Cell (RBC) Count 2.34 mill/uL (4.20-5.40); White Blood Cell (WBC) Count 12.7 thou/uL (4.8-10.8)
[2017-06-29] MEDS ORDERED: Potassium Chloride 40 MEQ in Premix Bag 1 BAG IVPB SCH (08:00)
[2017-06-29] MEDS ORDERED: Potassium Chloride 40 MEQ, Admixture Fee 1 EACH in Sodium Chloride 0.9% 250 ML 250 ML IVPB SCH (08:15)
[2017-06-29] MEDS: Dextrose 10% in Water 1,000 ML IV SCH (09:01)
[2017-06-29] MEDS: Famotidine/PF 20 mg/2ml Vial SLOW IVP SCH ×2 (09:01→19:59)
[2017-06-29] MEDS: Azelastine 137 MCG/Spray 30 ML NS SCH (09:01)
[2017-06-29] MEDS: Enoxaparin Sodium 40 MG/0.4 ML SYRINGE SC SCH (09:02)
[2017-06-29] MEDS: cefTRIAXone\\ROCEPHIN 2 GM in Sodium Chloride 0.9% 100 ML IVPB SCH (09:56)
--- NOTE | 2017-06-29 11:06 | PDOC.PN ---
- Subjective Encounter Start Date: 06/29/17 Encounter Start Time: 07:50 Patient seen and examined. No overnight events pt does not have significant meaningful recovery - Objective Resuscitation Status: Resuscitation Status DNR:Do Not Resuscitate MAR Reviewed: Yes Vital Signs & Weight: Vital Signs (12 hours) Temp Pulse Resp BP BP Pulse Ox 06/29/17 08:53 98.1 F 72 14 146/65 H 98 06/29/17 05:21 68 183/72 H 06/29/17 04:00 97.6 F 68 18 183/72 H 99 Weight Weight 231 lb 3.2 oz I&O: 06/28/17 06/29/17 06/30/17 06:59 06:59 06:59 Intake Total 992 1375 Output Total 7905 8160 Balance -1783 -1485 Result Diagrams: 06/29/17 05:00 06/29/17 05:00 Additional Labs: Accuchecks 06/29/17 06/29/17 06/28/17 05:39 01:32 20:42 POC Glucose 97 101 112 H 06/28/17 06/28/17 16:49 11:59 POC Glucose 104 96 EKG Reviewed by me: Yes Phys Exam - Physical Examination Constitutional: NAD HEENT: PERRLA, sclera anicteric dry MM Neck: no JVD, supple Respiratory: no wheezing, no rales, no rhonchi Cardiovascular: RRR, no significant murmur, no rub Gastrointestinal: soft, no distention, positive bowel sounds Musculoskeletal: pulses present, edema present Lymphatic: no nodes Deviation from normal: A & O X 1 Skin: no rash, normal turgor Dx/Plan (1) Acute on chronic diastolic (congestive) heart failure Code(s): I50.33 - ACUTE ON CHRONIC DIASTOLIC (CONGESTIVE) HEART FAILURE Status : Acute (2) Anasarca Code(s): R60.1 - GENERALIZED EDEMA Status: Acute (3) Demand ischemia of myocardium Code(s): I24.8 - OTHER FORMS OF ACUTE ISCHEMIC HEART DISEASE Status: Acute (4) Encephalopathy acute Code(s): G93.40 - ENCEPHALOPATHY, UNSPECIFIED Status: Acute (5) Healthcare associated bacterial pneumonia Code(s): J15.9 - UNSPECIFIED BACTERIAL PNEUMONIA Status: Acute (6) Hypokalemia Code(s): E87.6 - HYPOKALEMIA Status: Acute (7) Hypomagnesemia Code(s): E83.42 - HYPOMAGNESEMIA Status: Acute (8) Oropharyngeal dysphagia Code(s): R13.12 - DYSPHAGIA, OROPHARYNGEAL PHASE Status: Acute (9) Sepsis with acute organ dysfunction Code(s): A41.9 - SEPSIS, UNSPECIFIED ORGANISM; R65.20 - SEVERE SEPSIS WITHOUT SEPTIC SHOCK Status: Acute (10) UTI (urinary tract infection) due to urinary indwelling catheter Code(s): T83.511A - I/I REACT D/T INDWELLING URETHRAL CATHETER, INIT; N39.0 - URINARY TRACT INFECTION, SITE NOT SPECIFIED Status: Acute (11) Bipolar disorder Code(s): F31.9 - BIPOLAR DISORDER, UNSPECIFIED Status: Chronic (12) GERD (gastroesophageal reflux disease) Code(s): K21.9 - GASTRO-ESOPHAGEAL REFLUX DISEASE WITHOUT ESOPHAGITIS Status: Chronic Qualifiers: (13) HLD (hyperlipidemia) Code(s): E78.5 - HYPERLIPIDEMIA, UNSPECIFIED Status: Chronic Qualifiers: (14) HTN (hypertension) Code(s): I10 - ESSENTIAL (PRIMARY) HYPERTENSION Status: Chronic Qualifiers: (15) Hypothyroidism Code(s): E03.9 - HYPOTHYROIDISM, UNSPECIFIED Status: Chronic Qualifiers: (16) Macrocytic anemia Code(s): D53.9 - NUTRITIONAL ANEMIA, UNSPECIFIED Status: Chronic (17) Obesity (BMI 30-39.9) Code(s): E66.9 - OBESITY, UNSPECIFIED Status: Chronic - Plan cont current plan of care, continue antibiotics, social worker masters, speech therapy * as pt does not have any family and does not have DMOA, and her condition is fragile, will consider doing DNR with 2 physicians * medication reviewed as below * symptomatic treatment * DC Tele * transfer to medical * continue rocephin. Review of Systems - Review of Systems Other: unable to review due to encephalopathy - Medications/Allergies Allergies/Adverse Reactions: Allergies Allergy/AdvReac Type Severity Reaction Status Date / Time morphine Allergy Verified 06/01/17 00:57 Sulfa (Sulfonamide Allergy Verified 06/01/17 00:57 Antibiotics) Medications: Current Medications Acetaminophen (Tylenol) 650 mg VT Q4H PRN PRN Reason: Headache/Fever or Mild Pain Albuterol/Ipratropium (Duoneb) 3 ml NEB L1FD-CF PRN PRN Reason: SOB &/or Wheezing Artificial Tears (Tears Renewed 15ml Bottle) 0 drop EA EYE PRN PRN PRN Reason: Dry Eyes Azelastine HCl (Azelastine) 0 ml NS DAILY [facility] Last Admin: 06/29/17 09:01 Dose: 1 spray Bisacodyl (Dulcolax) 10 mg VT DAILYPRN PRN PRN Reason: Constipation Clonidine (Lfhmhdfn-Gke-6 Patch) 0.1 mg TD Q7DAYS [facility] Last Admin: 06/27/17 10:23 Dose: 0.1 mg Dextrose/Water (Dextrose 50%) 25 gm IVP PRN PRN PRN Reason: HYPOGLYCEMIA PROTOCOL Enoxaparin Sodium (Lovenox) 40 mg SC 0900 [facility] Last Admin: 06/29/17 09:02 Dose: 40 mg Famotidine (Pepcid) 20 mg SLOW IVP Q12HR [facility] Last Admin: 06/29/17 09:01 Dose: 20 mg Furosemide (Lasix) 40 mg SLOW IVP 0600,1400 [facility] Last Admin: 06/29/17 05:22 Dose: 40 mg Glucagon (Glucagon) 1 mg IM PRN PRN PRN Reason: HYPOGLYCEMIA PROTOCOL Hydralazine HCl (Apresoline) 10 mg SLOW IVP Q2H PRN PRN Reason: Systolic BP > 180 Last Admin: 06/29/17 05:21 Dose: 10 mg Ceftriaxone Sodium 2 gm/ (Sodium Chloride) 100 mls @ 200 mls/hr IVPB Q24HR@ 0900 [facility] Last Admin: 06/29/17 09:56 Dose: 100 mls Dextrose/Water (D5w) 1,000 mls @ 0 mls/hr IV INF PRN; As Directed PRN Reason: HYPOGLYCEMIA PROTOCOL Dextrose/Water (Dextrose 10% In Water) 1,000 mls @ 40 mls/hr IV .Q24H [facility] Last Admin: 06/29/17 09:01 Dose: 1,000 mls Potassium Chloride 40 meq/Miscellaneous Medication 1 each/ Sodium Chloride 270 mls @ 67.5 mls/hr IVPB NOW [facility] Stop: 06/29/17 12:00 Last Admin: 06/29/17 09:00 Dose: 270 mls Insulin Human Regular (Humulin R) 0 units SC .MILD SLIDING PRN; Protocol PRN Reason: MILD SLIDING SCALE Insulin Human Regular (Humulin R) 0 units SC .BEDTIME SLIDING SC PRN; Protocol PRN Reason: BEDTIME SLIDING SCALE Labetalol HCl (Normodyne) 20 mg SLOW IVP Q4H PRN PRN Reason: Systolic BP > 180 Latanoprost (Xalatan 0.005% Ophth Soln) 1 drop EA EYE HS [facility] Last Admin: 06/28/17 21:10 Dose: 1 drop Magnesium Hydroxide (Milk Of Magnesium) 30 ml PO DAILYPRN PRN PRN Reason: Constipation Mineral Oil/White Petrolatum (Eucerin Cream) 0 gm TOP BIDPRN PRN PRN Reason: Dry Skin Ondansetron HCl (Zofran) 4 mg IVP Q6H PRN PRN Reason: Nausea/Vomiting Ondansetron HCl (Zofran Odt) 4 mg SL Q6H PRN PRN Reason: Nausea/Vomiting Phenol (Chloraseptic [place] 180 Ml Bot) 0 ml PO PRN PRN PRN Reason: Sore Throat Sodium Biphosphate/Sodium Phosphate (Fleet Enema) 133 ml VT PRN PRN PRN Reason: Constipation Sodium Chloride ([place] Nasal [place] 0.65%) 0 ml EA NARE QIDPRN PRN PRN Reason: Nasal Congestion Sodium Chloride (Flush - Normal Saline) 10 ml IVF Q12HR [facility] Last Admin: 06/29/17 09:02 Dose: 10 ml Sodium Chloride (Flush - Normal Saline) 10 ml IVF PRN PRN PRN Reason: Saline Flush Last Admin: 06/29/17 09:02 Dose: 10 ml
[2017-06-29 15:17] VITALS: BMI 38.5
[2017-06-29] MEDS: Latanoprost 0.005% Ophth Soln 2.5 ml Bottle EA EYE SCH (20:06)
[2017-06-30] MEDS: Furosemide 40 MG/4 ML VIAL SLOW IVP SCH (04:23)
--- NOTE | 2017-06-30 09:58 | PDOC.PN ---
- Subjective Encounter Start Date: 06/30/17 Encounter Start Time: 08:10 Patient seen and examined. No new complaints. No overnight events pt is arousable but confused - Objective Resuscitation Status: Resuscitation Status DNR:Do Not Resuscitate MAR Reviewed: Yes Vital Signs & Weight: Vital Signs (12 hours) Temp Pulse Resp BP Pulse Ox 06/30/17 07:40 97.6 F 77 16 171/87 H 100 06/30/17 04:58 97.6 F 73 16 171/103 H 100 06/30/17 00:00 97.5 F L 87 16 132/56 L 100 Weight Admit Weight 237 lb Weight 231 lb 3.2 oz I&O: 06/29/17 06/30/17 07/01/17 06:59 06:59 06:59 Intake Total 1375 Output Total 2860 1670 Balance -1485 -1670 Result Diagrams: 06/29/17 05:00 06/29/17 05:00 Additional Labs: Accuchecks 06/30/17 06/29/17 06/29/17 04:18 19:56 17:09 POC Glucose 108 78 76 06/29/17 10:50 POC Glucose 86 Phys Exam - Physical Examination Constitutional: NAD HEENT: PERRLA, sclera anicteric dry MM Neck: no JVD, supple Respiratory: no wheezing, no rales, no rhonchi Cardiovascular: RRR, no significant murmur, no rub Gastrointestinal: soft, non-tender, no distention, positive bowel sounds Musculoskeletal: no edema, pulses present Neurological: non-focal Lymphatic: no nodes Psychiatric: normal affect Skin: no rash, normal turgor Dx/Plan (1) Acute on chronic diastolic (congestive) heart failure Code(s): I50.33 - ACUTE ON CHRONIC DIASTOLIC (CONGESTIVE) HEART FAILURE Status : Acute (2) Anasarca Code(s): R60.1 - GENERALIZED EDEMA Status: Acute (3) Demand ischemia of myocardium Code(s): I24.8 - OTHER FORMS OF ACUTE ISCHEMIC HEART DISEASE Status: Acute (4) Encephalopathy acute Code(s): G93.40 - ENCEPHALOPATHY, UNSPECIFIED Status: Acute (5) Healthcare associated bacterial pneumonia Code(s): J15.9 - UNSPECIFIED BACTERIAL PNEUMONIA Status: Acute (6) Hypokalemia Code(s): E87.6 - HYPOKALEMIA Status: Acute (7) Hypomagnesemia Code(s): E83.42 - HYPOMAGNESEMIA Status: Acute (8) Oropharyngeal dysphagia Code(s): R13.12 - DYSPHAGIA, OROPHARYNGEAL PHASE Status: Acute (9) Sepsis with acute organ dysfunction Code(s): A41.9 - SEPSIS, UNSPECIFIED ORGANISM; R65.20 - SEVERE SEPSIS WITHOUT SEPTIC SHOCK Status: Acute (10) UTI (urinary tract infection) due to urinary indwelling catheter Code(s): T83.511A - I/I REACT D/T INDWELLING URETHRAL CATHETER, INIT; N39.0 - URINARY TRACT INFECTION, SITE NOT SPECIFIED Status: Acute (11) Bipolar disorder Code(s): F31.9 - BIPOLAR DISORDER, UNSPECIFIED Status: Chronic (12) GERD (gastroesophageal reflux disease) Code(s): K21.9 - GASTRO-ESOPHAGEAL REFLUX DISEASE WITHOUT ESOPHAGITIS Status: Chronic Qualifiers: (13) HLD (hyperlipidemia) Code(s): E78.5 - HYPERLIPIDEMIA, UNSPECIFIED Status: Chronic Qualifiers: (14) HTN (hypertension) Code(s): I10 - ESSENTIAL (PRIMARY) HYPERTENSION Status: Chronic Qualifiers: (15) Hypothyroidism Code(s): E03.9 - HYPOTHYROIDISM, UNSPECIFIED Status: Chronic Qualifiers: (16) Macrocytic anemia Code(s): D53.9 - NUTRITIONAL ANEMIA, UNSPECIFIED Status: Chronic (17) Obesity (BMI 30-39.9) Code(s): E66.9 - OBESITY, UNSPECIFIED Status: Chronic - Plan cont current plan of care, nunn catheter, continue antibiotics, PT/OT, group social worker, speech therapy * anasarca has much improved * today will reduce lasix IV daily * replace potassium * medication reviewed as below * symptomatic treatment * start diet as tolerated as per speech therapy * will repeat labs and blood culture tomorrow. Review of Systems - Review of Systems Other: unable to review due to encephalopathy - Medications/Allergies Allergies/Adverse Reactions: Allergies Allergy/AdvReac Type Severity Reaction Status Date / Time morphine Allergy Verified 06/01/17 00:57 Sulfa (Sulfonamide Allergy Verified 06/01/17 00:57 Antibiotics) Medications: Current Medications Acetaminophen (Tylenol) 650 mg GA Q4H PRN PRN Reason: Headache/Fever or Mild Pain Albuterol/Ipratropium (Duoneb) 3 ml NEB B1NI-GD PRN PRN Reason: SOB &/or Wheezing Artificial Tears (Tears Renewed 15ml Bottle) 0 drop EA EYE PRN PRN PRN Reason: Dry Eyes Azelastine HCl (Azelastine) 0 ml NS DAILY [facility] Last Admin: 06/29/17 09:01 Dose: 1 spray Bisacodyl (Dulcolax) 10 mg GA DAILYPRN PRN PRN Reason: Constipation Clonidine (Jbhgbjkg-Azq-3 Patch) 0.1 mg TD Q7DAYS [facility] Last Admin: 06/27/17 10:23 Dose: 0.1 mg Dextrose/Water (Dextrose 50%) 25 gm IVP PRN PRN PRN Reason: HYPOGLYCEMIA PROTOCOL Enoxaparin Sodium (Lovenox) 40 mg SC 0900 [facility] Last Admin: 06/29/17 09:02 Dose: 40 mg Famotidine (Pepcid) 20 mg SLOW IVP Q12HR [facility] Last Admin: 06/29/17 19:59 Dose: 20 mg Furosemide (Lasix) 40 mg SLOW IVP 0600,1400 [facility] Last Admin: 06/30/17 04:23 Dose: 40 mg Glucagon (Glucagon) 1 mg IM PRN PRN PRN Reason: HYPOGLYCEMIA PROTOCOL Hydralazine HCl (Apresoline) 10 mg SLOW IVP Q2H PRN PRN Reason: Systolic BP > 180 Last Admin: 06/29/17 05:21 Dose: 10 mg Ceftriaxone Sodium 2 gm/ (Sodium Chloride) 100 mls @ 200 mls/hr IVPB Q24HR@ 0900 [facility] Last Admin: 06/29/17 09:56 Dose: 100 mls Dextrose/Water (D5w) 1,000 mls @ 0 mls/hr IV INF PRN; As Directed PRN Reason: HYPOGLYCEMIA PROTOCOL Dextrose/Water (Dextrose 10% In Water) 1,000 mls @ 40 mls/hr IV .Q24H [facility] Last Admin: 06/29/17 09:01 Dose: 1,000 mls Insulin Human Regular (Humulin R) 0 units SC .MILD SLIDING PRN; Protocol PRN Reason: MILD SLIDING SCALE Insulin Human Regular (Humulin R) 0 units SC .BEDTIME SLIDING SC PRN; Protocol PRN Reason: BEDTIME SLIDING SCALE Labetalol HCl (Normodyne) 20 mg SLOW IVP Q4H PRN PRN Reason: Systolic BP > 180 Latanoprost (Xalatan 0.005% Ophth Soln) 1 drop EA EYE HS [facility] Last Admin: 06/29/17 20:06 Dose: 1 drop Magnesium Hydroxide (Milk Of Magnesium) 30 ml PO DAILYPRN PRN PRN Reason: Constipation Mineral Oil/White Petrolatum (Eucerin Cream) 0 gm TOP BIDPRN PRN PRN Reason: Dry Skin Ondansetron HCl (Zofran) 4 mg IVP Q6H PRN PRN Reason: Nausea/Vomiting Ondansetron HCl (Zofran Odt) 4 mg SL Q6H PRN PRN Reason: Nausea/Vomiting Phenol (Chloraseptic [place] 180 Ml Bot) 0 ml PO PRN PRN PRN Reason: Sore Throat Sodium Biphosphate/Sodium Phosphate (Fleet Enema) 133 ml GA PRN PRN PRN Reason: Constipation Sodium Chloride ([place] Nasal [place] 0.65%) 0 ml EA NARE QIDPRN PRN PRN Reason: Nasal Congestion Sodium Chloride (Flush - Normal Saline) 10 ml IVF Q12HR [facility] Last Admin: 06/29/17 20:00 Dose: Not Given Sodium Chloride (Flush - Normal Saline) 10 ml IVF PRN PRN PRN Reason: Saline Flush Last Admin: 06/29/17 09:02 Dose: 10 ml
[2017-06-30] MEDS: Enoxaparin Sodium 40 MG/0.4 ML SYRINGE SC SCH (10:20)
[2017-06-30] MEDS: Famotidine/PF 20 mg/2ml Vial SLOW IVP SCH ×2 (10:20→19:46)
[2017-06-30] MEDS: Dextrose 10% in Water 1,000 ML IV SCH (10:21)
[2017-06-30] MEDS: cefTRIAXone\\ROCEPHIN 2 GM in Sodium Chloride 0.9% 100 ML IVPB SCH (10:23)
[2017-06-30] MEDS: Azelastine 137 MCG/Spray 30 ML NS SCH (10:32)
[2017-06-30] MEDS: Latanoprost 0.005% Ophth Soln 2.5 ml Bottle EA EYE SCH (19:46)
[2017-07-01] MEDS: Azelastine 137 MCG/Spray 30 ML NS SCH (08:13)
[2017-07-01] MEDS: Enoxaparin Sodium 40 MG/0.4 ML SYRINGE SC SCH (08:16)
[2017-07-01] MEDS: Famotidine/PF 20 mg/2ml Vial SLOW IVP SCH (08:16)
[2017-07-01] MEDS: Dextrose 10% in Water 1,000 ML IV SCH (08:20)
[2017-07-01] MEDS ORDERED: Furosemide 40 MG/4 ML VIAL SLOW IVP SCH (09:00)
--- NOTE | 2017-07-01 09:31 | DIS ---
DATE OF ADMISSION: 06/26/2017 DATE OF DISCHARGE: 07/01/2017 PRIMARY CARE PHYSICIAN: Dr. Alcira Hatch at [facility]. DISCHARGE DISPOSITION: [facility]. PRIMARY DISCHARGE DIAGNOSES: Acute on chronic diastolic congestive heart failure exacerbation, anasa rca due to problem #1, demand ischemia of myocardium, acute encephalopathy, healthcare associated suri terial pneumonia, hypokalemia, hypomagnesemia, oropharyngeal dysphagia, sepsis with acute organ dysfu nction, urinary tract infection related with indwelling Chaudhari catheter. SECONDARY DISCHARGE DIAGNOSES: Bipolar disorder, gastroesophageal reflux disease, dyslipidemia, hype rtension, macrocytic anemia, obesity with BMI 38, chronic diastolic heart failure, physical deconditi oning. PRIMARY PROCEDURE/OPERATION: Central line placement in the emergency room. RADIOLOGICAL INVESTIGATION: Chest x-ray on admission showed left basilar infiltration. SIGNIFICANT LABORATORY DATA: WBC 12.7, hemoglobin 7.5, platelet 214. Sodium 136, potassium 3.3, BUN 10, creatinine 1.12, calcium 8.6, magnesium 1.9. Liver enzymes normal. Troponin 0.083, albumin 2.1 . BNP 261.4. Urinalysis suggestive of UTI. Urine culture grew Proteus mirabilis Streptococcus. Bl ood culture was positive for viridans Streptococcus. DISCHARGE MEDICATIONS: Amlodipine 10 mg p.o. daily, vitamin C 500 mg p.o. b.i.d., aspirin 81 mg p.o. daily, azelastine nasal spray daily, Wellbutrin-SR 150 mg p.o. daily, Ceftin 250 mg p.o. b.i.d. for 15 days, clonidine 0.2 mg p.o. b.i.d., Depakote 500 mg p.o. at bedtime, Colace 100 mg p.o. b.i.d., Cy mbalta 60 mg p.o. daily, Lasix 20 mg p.o. b.i.d., gabapentin 600 mg p.o. t.i.d., Floranex one tablet p.o. b.i.d., Xalatan eyedrops at bedtime, Synthroid 137 mcg p.o. daily, lisinopril 40 mg p.o. daily, multivitamin 1 tablet p.o. daily, Protonix 40 mg p.o. daily, pravastatin 40 mg p.o. at bedtime. CONTRAINDICATIONS: None. CODE STATUS: DNR. INPATIENT CONSULTANTS: None. ALLERGIES: MORPHINE and SULFA DRUGS. DISCHARGE PLAN: Post hospital, the patient is discharged back to retirement at [facility] for long-term care with hospice for comfort care. HOSPITAL COURSE: An 82-year-old female with above-mentioned medical problem who was admitted by me héctor teague 06/26/2017. This patient found unresponsive and drowsy at retirement. She was having edematous and she was having hypoxic respiratory failure. She had a Chaudhari catheter at retirement. She was t ransferred to our hospital for further evaluation. On admission, she was found with acute hypoxic respiratory failure. She required oxygen. Her hypoxi c respiratory failure is related with acute on chronic diastolic heart failure and because of that sh e had anasarca, required significant diuretic therapy. We continued with IV Lasix while in hospital and her edema significantly improved. Because of diuret ic therapy, she had abnormal electrolytes that was replaced while in hospital parentally. She was also having sepsis with UTI and her UTI was related with indwelling Chaudhari catheter as well as left basilar pneumonia, which was treated while in hospital with Rocephin and levofloxacin. On disc harge, we changed to Ceftin based on culture and sensitivity result. Her blood culture was positive for Streptococcus viridans and urine culture was also positive for Staphylococcus and Proteus. The patient had oropharyngeal dysphagia. She was n.p.o. and that is why speech therapy was following . This patient's long-term prognosis is very poor. She does not have any immediate family members. She does have only friend, who does not make any medical decision and we consulted palliative care w ith the help of two physicians based on our best assessment. This patient was made DNR because of he r overall long-term prognosis and poor quality of life. We transferred her to medical floor. We con tinued with IV antibiotic therapy and upon discharge, we changed to Ceftin. The patient has some improvement and now she is able to swallow her modified diet and that is why we did not address any PEG tube option at this point. The patient is comfort care and that is why we re commend hospice evaluation at retirement. PHYSICAL EXAMINATION: The patient is seen and examined at bedside today. VITAL SIGNS: Currently, temperature 97.9, pulse 77, respiratory rate 20, saturation 92%, blood press ure 143/83, weight 231 pounds. GENERAL: The patient is currently alert, arousable, follows simple command. HEAD: Normocephalic, atraumatic. EYES: Pupils round, reactive to light. Extraocular muscles intact. ENT: Oropharynx within normal limits. Moist mucous membranes. NECK: Supple, no JVD. LUNGS: Lungs clear to auscultation without any rhonchi or rales. CARDIAC: S1, S2 regular. No murmur. ABDOMEN: Soft, bowel sounds present. No suprapubic tenderness. Chaudhari catheter in place. NEUROLOGIC: Nonfocal. Paper work for discharge done. Discharge medication reconciliation done. We also spoke with the [facility] e automotive parts manager about hospice evaluation at retirement. Total time spent on discharge day more than 30 minutes.
[2017-07-01] MEDS: cefTRIAXone\\ROCEPHIN 2 GM in Sodium Chloride 0.9% 100 ML IVPB SCH (09:32)
[2017-07-01] MEDS ORDERED: Lidocaine 1% (PF) 30 ML VIAL ONE (09:42)
--- NOTE | 2017-07-01 10:05 | PDOC.PN ---
- Subjective Encounter Start Date: 07/01/17 Encounter Start Time: 09:30 Patient seen and examined. No overnight events - Objective Resuscitation Status: Resuscitation Status DNR:Do Not Resuscitate MAR Reviewed: Yes Vital Signs & Weight: Vital Signs (12 hours) Temp Pulse Resp BP Pulse Ox 07/01/17 08:00 97.9 F 77 20 143/83 H 94 L 07/01/17 02:54 100 Weight Admit Weight 237 lb Weight 231 lb 3.2 oz I&O: 06/30/17 07/01/17 07/02/17 06:59 06:59 06:59 Intake Total 480 Output Total 1670 300 Balance -1670 180 Result Diagrams: 06/29/17 05:00 06/29/17 05:00 Additional Labs: Accuchecks 07/01/17 06/30/17 06/30/17 05:30 20:10 16:04 POC Glucose 90 117 H 94 06/30/17 11:06 POC Glucose 104 Phys Exam - Physical Examination Constitutional: NAD HEENT: PERRLA, moist MMs, sclera anicteric Neck: no JVD, supple Respiratory: no wheezing, no rales, no rhonchi Cardiovascular: RRR, no significant murmur, no rub Gastrointestinal: soft, non-tender, no distention, positive bowel sounds Musculoskeletal: no edema, pulses present Neurological: non-focal Lymphatic: no nodes Psychiatric: normal affect Skin: no rash, normal turgor Dx/Plan (1) Acute on chronic diastolic (congestive) heart failure Code(s): I50.33 - ACUTE ON CHRONIC DIASTOLIC (CONGESTIVE) HEART FAILURE Status : Acute (2) Anasarca Code(s): R60.1 - GENERALIZED EDEMA Status: Acute (3) Demand ischemia of myocardium Code(s): I24.8 - OTHER FORMS OF ACUTE ISCHEMIC HEART DISEASE Status: Acute (4) Encephalopathy acute Code(s): G93.40 - ENCEPHALOPATHY, UNSPECIFIED Status: Acute (5) Healthcare associated bacterial pneumonia Code(s): J15.9 - UNSPECIFIED BACTERIAL PNEUMONIA Status: Acute (6) Hypokalemia Code(s): E87.6 - HYPOKALEMIA Status: Acute (7) Hypomagnesemia Code(s): E83.42 - HYPOMAGNESEMIA Status: Acute (8) Oropharyngeal dysphagia Code(s): R13.12 - DYSPHAGIA, OROPHARYNGEAL PHASE Status: Acute (9) Sepsis with acute organ dysfunction Code(s): A41.9 - SEPSIS, UNSPECIFIED ORGANISM; R65.20 - SEVERE SEPSIS WITHOUT SEPTIC SHOCK Status: Acute (10) UTI (urinary tract infection) due to urinary indwelling catheter Code(s): T83.511A - I/I REACT D/T INDWELLING URETHRAL CATHETER, INIT; N39.0 - URINARY TRACT INFECTION, SITE NOT SPECIFIED Status: Acute (11) Bipolar disorder Code(s): F31.9 - BIPOLAR DISORDER, UNSPECIFIED Status: Chronic (12) GERD (gastroesophageal reflux disease) Code(s): K21.9 - GASTRO-ESOPHAGEAL REFLUX DISEASE WITHOUT ESOPHAGITIS Status: Chronic Qualifiers: (13) HLD (hyperlipidemia) Code(s): E78.5 - HYPERLIPIDEMIA, UNSPECIFIED Status: Chronic Qualifiers: (14) HTN (hypertension) Code(s): I10 - ESSENTIAL (PRIMARY) HYPERTENSION Status: Chronic Qualifiers: (15) Hypothyroidism Code(s): E03.9 - HYPOTHYROIDISM, UNSPECIFIED Status: Chronic Qualifiers: (16) Macrocytic anemia Code(s): D53.9 - NUTRITIONAL ANEMIA, UNSPECIFIED Status: Chronic (17) Obesity (BMI 30-39.9) Code(s): E66.9 - OBESITY, UNSPECIFIED Status: Chronic - 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 Review of Systems - Review of Systems Other: unable to review due to her level of cognitive status - Medications/Allergies Allergies/Adverse Reactions: Allergies Allergy/AdvReac Type Severity Reaction Status Date / Time morphine Allergy Verified 06/01/17 00:57 Sulfa (Sulfonamide Allergy Verified 06/01/17 00:57 Antibiotics) Medications: Current Medications Acetaminophen (Tylenol) 650 mg TN Q4H PRN PRN Reason: Headache/Fever or Mild Pain Albuterol/Ipratropium (Duoneb) 3 ml NEB [id number] PRN PRN Reason: SOB &/or Wheezing Artificial Tears (Tears Renewed 15ml Bottle) 0 drop EA EYE PRN PRN PRN Reason: Dry Eyes Azelastine HCl (Azelastine) 0 ml NS DAILY LIDYA Last Admin: 07/01/17 08:13 Dose: 1 spray Bisacodyl (Dulcolax) 10 mg TN DAILYPRN PRN PRN Reason: Constipation Clonidine (Fmakiphc-Eqe-7 Patch) 0.1 mg TD Q7DAYS [facility] Last Admin: 06/27/17 10:23 Dose: 0.1 mg Dextrose/Water (Dextrose 50%) 25 gm IVP PRN PRN PRN Reason: HYPOGLYCEMIA PROTOCOL Enoxaparin Sodium (Lovenox) 40 mg SC 0900 [facility] Last Admin: 07/01/17 08:16 Dose: 40 mg Famotidine (Pepcid) 20 mg SLOW IVP Q12HR [facility] Last Admin: 07/01/17 08:16 Dose: 20 mg Furosemide (Lasix) 40 mg SLOW IVP DAILY [facility] Last Admin: 07/01/17 08:15 Dose: 40 mg Glucagon (Glucagon) 1 mg IM PRN PRN PRN Reason: HYPOGLYCEMIA PROTOCOL Hydralazine HCl (Apresoline) 10 mg SLOW IVP Q2H PRN PRN Reason: Systolic BP > 180 Last Admin: 06/29/17 05:21 Dose: 10 mg Ceftriaxone Sodium 2 gm/ (Sodium Chloride) 100 mls @ 200 mls/hr IVPB Q24HR@ 0900 [facility] Last Admin: 07/01/17 09:32 Dose: Not Given Dextrose/Water (D5w) 1,000 mls @ 0 mls/hr IV INF PRN; As Directed PRN Reason: HYPOGLYCEMIA PROTOCOL Dextrose/Water (Dextrose 10% In Water) 1,000 mls @ 40 mls/hr IV .Q24H [facility] Last Admin: 07/01/17 08:20 Dose: Not Given Insulin Human Regular (Humulin R) 0 units SC .MILD SLIDING PRN; Protocol PRN Reason: MILD SLIDING SCALE Insulin Human Regular (Humulin R) 0 units SC .BEDTIME SLIDING SC PRN; Protocol PRN Reason: BEDTIME SLIDING SCALE Labetalol HCl (Normodyne) 20 mg SLOW IVP Q4H PRN PRN Reason: Systolic BP > 180 Latanoprost (Xalatan 0.005% Ophth Soln) 1 drop EA EYE HS [facility] Last Admin: 06/30/17 19:46 Dose: 1 drop Magnesium Hydroxide (Milk Of Magnesium) 30 ml PO DAILYPRN PRN PRN Reason: Constipation Mineral Oil/White Petrolatum (Eucerin Cream) 0 gm TOP BIDPRN PRN PRN Reason: Dry Skin Ondansetron HCl (Zofran) 4 mg IVP Q6H PRN PRN Reason: Nausea/Vomiting Ondansetron HCl (Zofran Odt) 4 mg SL Q6H PRN PRN Reason: Nausea/Vomiting Phenol (Chloraseptic [place] 180 Ml Bot) 0 ml PO PRN PRN PRN Reason: Sore Throat Sodium Biphosphate/Sodium Phosphate (Fleet Enema) 133 ml TN PRN PRN PRN Reason: Constipation Sodium Chloride (Reynolds Nasal [place] 0.65%) 0 ml EA NARE QIDPRN PRN PRN Reason: Nasal Congestion Sodium Chloride (Flush - Normal Saline) 10 ml IVF Q12HR LIDYA Last Admin: 07/01/17 08:21 Dose: 10 ml Sodium Chloride (Flush - Normal Saline) 10 ml IVF PRN PRN PRN Reason: Saline Flush Last Admin: 06/29/17 09:02 Dose: 10 ml
[2017-07-01 11:09] VITALS: BP 143/80; TEMP 98.4
== END 2017-07-01 11:26 | DRG 698 ==
LOC: ERS 02:05 → 2NO 10:13 → T4-B 06-29 15:56
PROVIDERS: ADMIT Internal Medicine; ATTEND Internal Medicine
PROC: 02HV33Z Insertion of Infusion Device into Superior Vena Cava, Percutaneous Approach (ICD-10-PCS; principal; 2017-06-26)
DX: T83.511A Infection and inflammatory reaction due to indwelling urethral catheter, initial encounter (principal); A41.9 Sepsis, unspecified organism; R65.20 Severe sepsis without septic shock; J96.01 Acute respiratory failure with hypoxia; G93.41 Metabolic encephalopathy; I50.33 Acute on chronic diastolic (congestive) heart failure; E46 Unspecified protein-calorie malnutrition; N18.3 Chronic kidney disease, stage 3 (moderate); J15.9 Unspecified bacterial pneumonia; I24.8 Other forms of acute ischemic heart disease; I13.0 Hypertensive heart and chronic kidney disease with heart failure and stage 1 through stage 4 chronic kidney disease, or unspecified chronic kidney disease; G62.9 Polyneuropathy, unspecified; D53.9 Nutritional anemia, unspecified; R13.12 Dysphagia, oropharyngeal phase; Z66 Do not resuscitate; N39.0 Urinary tract infection, site not specified; E83.42 Hypomagnesemia; E87.6 Hypokalemia; F31.9 Bipolar disorder, unspecified; K21.9 Gastro-esophageal reflux disease without esophagitis; E78.5 Hyperlipidemia, unspecified; E03.9 Hypothyroidism, unspecified; E16.2 Hypoglycemia, unspecified; I07.1 Rheumatic tricuspid insufficiency; R60.1 Generalized edema; H40.9 Unspecified glaucoma; F41.8 Other specified anxiety disorders; E66.01 Morbid (severe) obesity due to excess calories; Z68.38 Body mass index [BMI] 38.0-38.9, adult
CPT/HCPCS: 36415; 36416; 36556; 71045; 80048; 80053; 81003; 81015; 82553; 83735; 83880; 84100; 84443; 84484; 85025; 87040; 87077; 87086; 87186; 90471; 90682; 93005; 94760; 96365; 96367; A4216; C1769; G0008; G8978-GP-CM; G8979-GP-CL; G8987-GO-CN; G8988-GO-CN; G8989-GO-CN; G8996-GN-CM; G8996-GN-CN; G8997-GN-CM; G8997-GN-CN; J0360; J0696; J1650; J1940; J1956; J2001; J3475; J3480; J7050; Q2036; S0028